=== PATIENT | male | born 1945 | race Caucasian/White ===

== ENCOUNTER 2017-04-03 17:23 | Emergency (ER) | payer SELFPAY ==
[~2017-04-03] VITALS: Ht 177.8 cm; Wt 80.0 kg
[~2017-04-03 17:23] MED LIST: 1-ME1LIQ PO; ATOR10TA PO; CEPH500 PO; COZA50TA PO; GLIP5TAB8 PO; LEVO125T3 PO; TERA1CAP3 PO; WARF-20 PO
[2017-04-03 17:26] VITALS: BP 161/72; PULSE 54; RESP 16; TEMP 98; O2SAT 100
[2017-04-03] MEDS ORDERED: NITR1SUB3 SL (17:55)
[2017-04-03] MEDS ORDERED: ASPI81TA23 PO (17:55)
[2017-04-03] MEDS ORDERED: AMIO200T PO (17:55)
[2017-04-03] MEDS ORDERED: LISI10TA3 PO (17:55)
[2017-04-03] MEDS ORDERED: LEVO150T7 PO (17:55)
[2017-04-03] MEDS ORDERED: MAPA325T PO (17:55)
[2017-04-03] MEDS ORDERED: TERA2CAP3 PO (17:55)
[2017-04-03] MEDS ORDERED: METF500T PO (17:55)
[2017-04-03] MEDS ORDERED: ATOR20TA15 PO (17:55)
[2017-04-03] MEDS ORDERED: WARF-20 PO (17:55)
[2017-04-03] MEDS ORDERED: WARF-58 PO (17:55)
[2017-04-03] MEDS ORDERED: FAMO20TA2 PO (17:55)
[2017-04-03] MEDS ORDERED: METO25TA3 PO (17:55)
[2017-04-03] MEDS ORDERED: QUET1TAB7 PO (17:55)
[2017-04-03 18:43] LABS: AUTOMATED NEUTROPHIL # 6.7 TH/MM3 (1.8-7.7); BASOPHIL % 0.3 % (0.0-2.0); EOSINOPHIL # 0.3 TH/MM3 (0-0.4); EOSINOPHIL % 2.5 % (0.0-4.0); HEMATOCRIT 30.7 % (39.0-51.0); LYMPH % 17.1 % (9.0-44.0); LYMPHOCYTE # 1.8 TH/MM3 (1.0-4.8); MEAN CELL VOLUME 87.4 FL (80.0-100.0); MEAN CORPUSCULAR HEMOGLOBIN 28.4 PG (27.0-34.0); MEAN CORPUSCULAR HGB CONC 32.5 % (32.0-36.0); MEAN PLATELET VOLUME 8.2 FL (7.0-11.0); MONO % 14.2 % (0.0-8.0); MONOCYTE # 1.5 TH/MM3 (0-0.9); NEUT % 65.9 % (16.0-70.0); PLATELET COUNT 269 TH/MM3 (150-450); RED BLOOD COUNT 3.52 MIL/MM3 (4.50-5.90); RED CELL DISTRIBUTION WIDTH 16.1 % (11.6-17.2); WHITE BLOOD COUNT 10.3 TH/MM3 (4.0-11.0)
[2017-04-03 18:59] LABS: BICARBONATE 26.2 MEQ/L (21.0-32.0); CALCIUM 8.2 MG/DL (8.5-10.1)
[2017-04-03 19:03] LABS: CREATININE 1.9 MG/DL (0.60-1.30)
--- NOTE | 2017-04-03 19:08 | RADRPT ---
EXAM DATE/TIME: 04/03/2017 18:44 [facility] COMPARISON: No previous studies available for comparison. INDICATIONS : trauma. fall RADIATION DOSE: 63.93 CTDIvol (mGy) MEDICAL HISTORY : Cerebrovascular disease. Cardiovascular disease Diabetes mellitus type 2. SURGICAL HISTORY : CABG ENCOUNTER: Initial ACUITY: 1 day PAIN SCALE: 5/10 LOCATION: cranial TECHNIQUE: Multiple contiguous axial images were obtained of the head. Using automated exposure control and adj ustment of the mA and/or kV according to patient size, radiation dose was kept as low as reasonably a chievable to obtain optimal diagnostic quality images. DICOM format image data is available electro nically for review and comparison. FINDINGS: There is a remote small infarct in the right cerebellar hemisphere superiorly. No intracranial mass, hemorrhage or shift. No recent infarct identified. No undersurface. No acute bony abnormality. CONCLUSION: 1. No acute intracranial abnormalities. Remote small infarct right cerebellar hemisphere. Ulysses Fan MD on April 03, 2017 at 19:04 Board Certified Radiologist. This report was verified electronically.
--- NOTE | 2017-04-03 19:10 | RADRPT ---
EXAM DATE/TIME: 04/03/2017 18:58 [facility] COMPARISON: No previous studies available for comparison. INDICATIONS : Left patella pain with abrasion post fall. MEDICAL HISTORY : None. SURGICAL HISTORY : None. ENCOUNTER: Initial ACUITY: 1 day PAIN SCORE: 7/10 LOCATION: Left knee FINDINGS: Four view examination of the left knee demonstrates no evidence of fracture or dislocation. Bony min eralization is normal. The articular surfaces demonstrate mild osteoarthritis. The suprapatellar sof t tissues have a normal configuration. CONCLUSION: 1. Mild osteoarthritis of the left knee. No acute findings. Ulysses Fan MD on April 03, 2017 at 19:06 Board Certified Radiologist. This report was verified electronically.
--- NOTE | 2017-04-03 19:20 | RADRPT ---
EXAM DATE/TIME: 04/03/2017 18:47 [facility] COMPARISON: No previous studies available for comparison. INDICATIONS : Left hip pain status post fall. ORAL CONTRAST: No oral contrast ingested. RADIATION DOSE: 29.32 CTDIvol (mGy) MEDICAL HISTORY : Cerebrovascular disease. Cardiovascular disease Diabetes mellitus type 2. SURGICAL HISTORY : CABG ENCOUNTER: Initial ACUITY: 1 day PAIN SCALE: 7/10 LOCATION: Left TECHNIQUE: Volumetric scanning of the pelvis was performed. Using automated exposure control and adjustment of the mA and/or kV according to patient size, radiation dose was kept as low as reasonably achievable t o obtain optimal diagnostic quality images. DICOM format image data is available electronically for review and comparison. FINDINGS: There is soft tissue swelling and bruising over the proximal left femur laterally. No acute bony abno rmalities. Mild osteoarthritis of the hips. No pelvic free fluid or mass. CONCLUSION: 1. Subcutaneous bruising over the proximal lateral left thigh. No associated bony abnormality. Ulysses aFn MD on April 03, 2017 at 19:15 Board Certified Radiologist. This report was verified electronically.
[2017-04-03 19:21] LABS: INTERNATIONAL NORMALIZED RATIO 3.2 RATIO; PROTHROMBIN TIME - PATIENT 32.1 SEC (9.8-11.6)
[2017-04-03 19:43] VITALS: BP 177/86; PULSE 58; RESP 17; O2SAT 99
--- NOTE | 2017-04-03 19:44 | PD ---
HPI Chief Complaint: Fall Time Seen by Provider: 17:39 Travel History International Travel<30 days: No Contact w/Intl Traveler<30days: No Traveled to known affect area: No History of Present Illness HPI 71-year-old male came to the emergency room sent from the snf and his son is here because he's been complaining of left hip pain after he fell. The fall happened 3 days ago. There was an x-ray of the hip done which was negative for fracture. However patient continues to be in pain especially when he tries to sit up or lay down. They wanted to get him reevaluated. Patient says that he didn't hit his head but not very bad. He is on Coumadin. Vital signs are stable. Patient says when he lays still on the bed the pain is not as bad. PFSH Past Medical History Narrative Medical List of his past medical, surgical, social and family history is reviewed from the nursing note. Hx Anticoagulant Therapy: Yes (COUMADIN AND ASA 81MG DAILY) Cardiovascular Problems: Yes Cerebrovascular Accident: Yes Diabetes: Yes Patient Takes Glucophage: No Diminished Hearing: Yes Integumentary: Yes Immunizations Current: Yes Tetanus Vaccination: Unknown Influenza Vaccination: No Past Surgical History Cardiac Surgery: Yes (BYPASS) Other Surgery: Yes (CAROTID) Social History Alcohol Use: No Tobacco Use: No Substance Use: No Allergies-Medications (Allergen,Severity, Reaction): Coded Allergies: No Known Allergies (Verified Allergy, Unknown, 04/03/17) Comments No known drug allergies. Reported Meds & Prescriptions Reported Meds & Active Scripts Active Reported Warfarin 4 Mg Tab 4 Mg PO SAT SUN Warfarin 3 Mg Tab 3 Mg PO MON-THU Lisinopril 10 Mg Tab 10 Mg PO DAILY Metformin (Metformin HCl) 500 Mg Tab 500 Mg PO DAILY With a meal Mapap (Acetaminophen) 325 Mg Tab 325 Mg PO Q4-6H PRN Nitroglycerin SL (Nitroglycerin) 0.4 Mg Subl 0.4 Mg SL DIRECTED PRN ONE TABLET UNDER THE TONGUE NEEDED FOR CHEST PAIN, MAY REPEAT EVERY FIVE MINUTES FOR A TOTAL OF 3 DOSES OR CALL 911 IF NO RELIEF Quetiapine (Quetiapine Fumarate) 25 Mg Tab 25 Mg PO TID Terazosin (Terazosin HCl) 2 Mg Cap 2 Mg PO HS Metoprolol Tartrate 25 Mg Tab 12.5 Mg PO BID Amiodarone (Amiodarone HCl) 200 Mg Tab 200 Mg PO BID Famotidine 20 Mg Tab 20 Mg PO DAILY Levothyroxine (Levothyroxine Sodium) 150 Mcg Tab 150 Mcg PO DAILY Atorvastatin (Atorvastatin Calcium) 20 Mg Tab 20 Mg PO HS Aspirin EC (Aspirin) 81 Mg Tabdr 81 Mg PO DAILY Narrative Medication List of his home medications reviewed from the nursing note. Review of Systems Except as stated in HPI: all other systems reviewed are Neg Musculoskeletal: Positive: Pain Physical Exam Narrative GENERAL: Awake, alert, mild distress SKIN: Focused skin assessment warm/dry. Multiple ecchymosis and bruising of the left chin, left knee and hip HEAD: Atraumatic. Normocephalic. EYES: Pupils equal and round. No scleral icterus. No injection or drainage. ENT: No nasal bleeding or discharge. Mucous membranes pink and moist. NECK: Trachea midline. No JVD. CARDIOVASCULAR: Regular rate and rhythm. No murmur appreciated. RESPIRATORY: No accessory muscle use. Clear to auscultation. Breath sounds equal bilaterally. GASTROINTESTINAL: Abdomen soft, non-tender, nondistended. Hepatic and splenic margins not palpable. MUSCULOSKELETAL: No obvious deformities. No clubbing. No cyanosis. No edema. Decreased range of motion of the left knee and hip due to the pain NEUROLOGICAL: Awake and alert. No obvious cranial nerve deficits. Motor grossly within normal limits. Normal speech. PSYCHIATRIC: Appropriate mood and affect; insight and judgment normal. Data Data Last Documented VS Vital Signs Date Time Temp Pulse Resp B/P (MAP) Pulse Ox O2 Delivery O2 Flow Rate FiO2 04/03/17 19:47 04/03/17 19:43 58 17 99 Room Air 04/03/17 17:[address] Pelvis W/O Iv Contrast (04/03/17 ) Knee, Complete (4vws) (04/03/17 ) Ct Brain W/O Iv Contrast(Rout) (04/03/17 ) Complete Blood Count With Diff (04/03/17 18:11) Basic Metabolic Panel (Bmp) (04/03/17 18:11) Prothrombin Time / Inr (Pt) (04/03/17 18:11) ^ Saline Lock (04/03/17 18:13) Ed Discharge Order (04/03/17 19:44) Labs Laboratory Tests Test 04/03/17 18:35 White Blood Count 10.3 TH/MM3 Red Blood Count 3.52 MIL/MM3 Hemoglobin 10.0 GM/DL Hematocrit 30.7 % Mean Corpuscular Volume 87.4 FL Mean Corpuscular Hemoglobin 28.4 PG Mean Corpuscular Hemoglobin Concent 32.5 % Red Cell Distribution Width 16.1 % Platelet Count 269 TH/MM3 Mean Platelet Volume 8.2 FL Neutrophils (%) (Auto) 65.9 % Lymphocytes (%) (Auto) 17.1 % Monocytes (%) (Auto) 14.2 % Eosinophils (%) (Auto) 2.5 % Basophils (%) (Auto) 0.3 % Neutrophils # (Auto) 6.7 TH/MM3 Lymphocytes # (Auto) 1.8 TH/MM3 Monocytes # (Auto) 1.5 TH/MM3 Eosinophils # (Auto) 0.3 TH/MM3 Basophils # (Auto) 0.0 TH/MM3 CBC Comment DIFF FINAL Differential Comment Prothrombin Time 32.1 SEC Prothromb Time International Ratio 3.2 RATIO Blood Urea Nitrogen 29 MG/DL Creatinine 1.90 MG/DL Random Glucose 151 MG/DL Calcium Level 8.2 MG/DL Sodium Level 139 MEQ/L Potassium Level 4.5 MEQ/L Chloride Level 106 MEQ/L Carbon Dioxide Level 26.2 MEQ/L Anion Gap 7 MEQ/L Estimat Glomerular Filtration Rate 35 ML/MIN [facility] Medical Decision Making Medical Screen Exam Complete: Yes Emergency Medical Condition: Yes Medical Record Reviewed: Yes Differential Diagnosis Hip fracture, pelvic fracture, hip contusion Narrative Course 7:41 PM blood test results are back. INR supratherapeutic. Head CT shows old infarcts in the cerebellum but otherwise negative. CT of the pelvis shows superficial proximal femur contusion. Otherwise negative for any fracture. Procedures EKG Prior to Arrival: No Diagnosis Primary Impression: Fall Qualified Codes: W19.XXXA - Unspecified fall, initial encounter Additional Impression: Contusion, hip Qualified Codes: S70.02XA - Contusion of left hip, initial encounter Referrals: Primary Care Physician 3 days Additional Instructions: Please hold the next dose of warfarin. Repeat the blood test after 24 hours. Use Tylenol for the pain. Follow-up with your primary care. Med/Other Pt SpecificInfo: No Change to Meds Disposition: 01 DISCHARGE HOME Condition: Stable Devan Mccracken MD Apr 03, 2017 19:44
== END 2017-04-03 20:06 | disposition home or self-care (01) ==
LOC: PHED 17:23 → MERGE 17:23 → PHED 20:06
DX: S70.02XA Contusion of left hip, initial encounter (principal); E11.9 Type 2 diabetes mellitus without complications; I67.9 Cerebrovascular disease, unspecified; I25.10 Atherosclerotic heart disease of native coronary artery without angina pectoris; W19.XXXA Unspecified fall, initial encounter; Z86.73 Personal history of transient ischemic attack (TIA), and cerebral infarction without residual deficits; Z95.1 Presence of aortocoronary bypass graft; Z79.01 Long term (current) use of anticoagulants; Z79.82 Long term (current) use of aspirin; Z79.84 Long term (current) use of oral hypoglycemic drugs; Z79.899 Other long term (current) drug therapy
CPT/HCPCS: 70450; 72192; 73564; 80048; 85025; 85610

== ENCOUNTER 2018-02-02 11:32 | Inpatient (IN) ==
[2018-02-02] MEDS ORDERED: ALTEPLASE DRIP IV.SIG ONE (11:56)
[2018-02-02] MEDS ORDERED: Alteplase Bolus 9 MG/9 ML Syringe IV.PUSH ONE (11:56)
--- NOTE | 2018-02-02 11:56 | CT ---
EXAM DATE: 02/02/2018 11:50 AM EST AGE/SEX: 72 years / Male INDICATIONS: Stroke alert. Difficulty speaking. Resolved upper and lower extremity weakness. CLINICAL DATA: This is the patient's initial encounter. Patient reports that signs and symptoms have been present for 1 day and indicates a pain score of 0/10. MEDICAL/SURGICAL HISTORY: None. None. RADIATION DOSE: 52.83 CTDI (mGy) COMPARISON: C, CTA HEAD W CONTRAST W 3D, 02/02/2018. . TECHNIQUE: CT of the head without contrast. Using automated exposure control and adjustment of the mA and/or kV according to patient size, radiation dose was kept as low as reasonably achievable to ob tain optimal diagnostic quality images. DICOM format image data is available electronically for revi ew and comparison. FINDINGS: The examination demonstrates cortical atrophy and microvascular ischemic demyelinative change. There is no acute intracranial hemorrhage. No mass lesion is identified. The appearance of the posterior fo ssa is unremarkable. The visualized portion of sinus and orbit are intact. The osseous structures of the skull demonstrate some fluid within the mastoid air cells bilaterally. There is no acute skull fracture. CONCLUSION: 1. Cortical atrophy and microvascular ischemic demyelinative change. 2. Fluid within the mastoid air cells bilaterally. Report was called by Dr. Logan to Lani in Echo pod at 11:50 AM Electronically signed by: David Logan MD 02/02/2018 11:55 AM EST
[2018-02-02] MEDS ORDERED: Labetalol HCl Inj 100 MG/20 ML Vial IV.PUSH ONE (11:59)
--- NOTE | 2018-02-02 12:11 | CT ---
EXAM DATE: 02/02/2018 12:01 PM EST AGE/SEX: 72 years / Male INDICATIONS: Stroke alert. Difficulty speaking. Resolved upper and lower extremity weakness. CLINICAL DATA: This is the patient's initial encounter. Patient reports that signs and symptoms have been present for 1 day and indicates a pain score of 0/10. MEDICAL/SURGICAL HISTORY: None. None. RADIATION DOSE: 10.51 CTDI (mGy) ; Combined studies COMPARISON: [facility], CT HEAD W/O CONTRAST, 02/02/2018. . TECHNIQUE: Volumetric scanning was performed using a multi-row detector CT scanner during bolus infu siri of 75 ml Visipaque 320 (iodixanol) nonionic water-soluble contrast as a cumulative dose for [facility] tiple exams. The data was post processed with a variety of visualization algorithms including full volume maximum intensity projection, multi-planar sliding thin slab reformation, curved planar reform ation, and surface rendering techniques. Using automated exposure control and adjustment of the mA a nd/or kV according to patient size, radiation dose was kept as low as reasonably achievable to obtain optimal diagnostic quality images. DICOM format image data is available electronically for review a nd comparison. FINDINGS: The distal internal carotid arteries are widely patent. The appearance of the anterior and middle cer ebral circulation is within normal limits. The right vertebral artery is diminutive in size. The left vertebral is quite small in caliber and di seased in its distal segment as well. The basilar is heavily diseased with 2 areas of high-grade sten osis in its proximal and mid aspect. The posterior cerebrals are patent bilaterally. CONCLUSION: 1. The examination demonstrates extensive atherosclerotic disease involving the distal vertebral art eries and basilar. There are 2 areas of very high-grade stenosis evident within the basilar itself. 2. The distal internal carotid circulation is widely patent. The anterior and middle cerebral circul ation appears within normal limits by CT angiography. No large or central vessel occlusion is present . Report was called by [Dr. Logan to Dr. Arango at 12:05pm] Electronically signed by: David Logan MD 02/02/2018 12:10 PM EST
--- NOTE | 2018-02-02 12:12 | ED ---
HPI General Chief Complaint: Stroke Alert Stated Complaint: Stroke Alert Time Seen by Provider: 02/02/18 11:35 Source: patient Mode of arrival: EMS Limitations: physical limitation History of Present Illness HPI Narrative: The patient is a 72-year-old male who presents to the emergency department as a stroke alert. The patient apparently was at a rehab facility working out earlier today we had the sudden onset of dysarthria and left-sided weakness. According to EMS the patient had noticeable decrease in strength the left upper extremity, left facial droop, and dysarthria. EMS states that the patient's dysarthria did improve prior to arrival, however, did not completely resolve. Patient's left facial droop also improved. Upon arrival the patient does note his speech sounds abnormal, but denies any significant weakness or numbness to the upper or lower extremities. The patient does have a history of previous CVA but no deficits after the CVA. Symptoms are moderate. Last Observed Normal: 10:30 Timing confirmed by: caregiver Location: Reports speech, left arm and left leg History of same: No Severity: moderate Quality: Reports weak and improving Relieving factors: time Exacerbating factors: none Context: Reports sudden onset On Anticoagulants: Yes Treatments Prior to Arrival: Reports none Related Data Home Medications Medication Instructions Recorded Confirmed alfuzosin 10 mg PO DAILY 02/02/18 02/02/18 atorvastatin 80 mg PO DAILY 02/02/18 02/02/18 brimonidine 1 drp OPHTHALMIC (EYE) BID 02/02/18 02/02/18 buspirone 7.5 mg PO BID 02/02/18 02/02/18 clopidogrel [Plavix] 75 mg PO DAILY 02/02/18 02/02/18 donepezil 5 mg PO DAILY 02/02/18 02/02/18 famotidine 20 mg PO DAILY 02/02/18 02/02/18 levothyroxine 175 mcg PO DAILY 02/02/18 02/02/18 lisinopril 10 mg PO DAILY 02/02/18 02/02/18 memantine 10 mg PO BID 02/02/18 02/02/18 metformin 500 mg PO BID 02/02/18 02/02/18 metoprolol tartrate 12.5 mg PO BID 02/02/18 02/02/18 quetiapine [Seroquel] 25 mg PO TID 02/02/18 02/02/18 trazodone 25 mg PO HS 02/02/18 02/02/18 Allergies Allergy/AdvReac Type Severity Reaction Status Date / Time No Known Allergies Allergy Uncoded 07/24/14 17:16 Review of Systems ROS: all other systems reviewed are negative [facility] Medical History Medical History Alzheimer disease (Acute) Diabetes mellitus, type 2 (Acute) Hx of transient ischemic attack (TIA) (Acute) Hyperlipemia (Acute) Hypertension (Acute) Hypothyroid (Acute) Stroke (Acute) Surgical History Surgical History Hx of cardiac cath (Acute) Hx of tonsillectomy (Acute) Social History Social History Substance History: No History of Abuse Smoking Status: Never smoker How Often Do You Have a Drink Containing Alcohol: Never Recent Travel in [facility] within the Last 8 Weeks: No Recent Out of Country Travel within the Last 8 Weeks: No Exam Narrative Exam Narrative: GENERAL: Awake, alert, pleasant 72-year-old male who appears his stated age and is in no acute respiratory distress. SKIN: Focused skin assessment warm/dry. HEAD: Atraumatic. Normocephalic. EYES: Pupils equal and round. 3 mm bilateral and reactive. Visual kumar are symmetric. Patient is able to see fingers at a distance of 2 feet without difficulty. Extraocular muscle movements are intact. ENT: No nasal bleeding or discharge. Mucous membranes pink and moist. NECK: Trachea midline. No JVD. CARDIOVASCULAR: Regular rate and rhythm. No murmur appreciated. RESPIRATORY: No accessory muscle use. Clear to auscultation. Breath sounds equal bilaterally. GASTROINTESTINAL: Abdomen soft, non-tender, nondistended. Hepatic and splenic margins not palpable. MUSCULOSKELETAL: No obvious deformities. No clubbing. No cyanosis. No edema. NEUROLOGICAL: Awake and alert. Smile appears symmetric. Moderate dysarthria is noted. Tongue is midline. No drift of the arms or legs. Diminished sensation to soft touch on the right arm. Sensation is symmetric on the face and legs. Finger to nose is normal. Heel to saleem is normal. Patient is oriented to person and place. He is able to do identify my hand. PSYCHIATRIC: Appropriate mood and affect; insight and judgment normal. Course Initial Documented Vital Signs Pulse Rate 67 02/02/18 11:34 Respiratory Rate 18 02/02/18 11:34 Blood Pressure 231/108 H 02/02/18 11:34 Pulse Oximetry 100 11/27/18 11:34 Last Documented Vital Signs Pulse Rate 68 02/02/18 13:42 Respiratory Rate 20 02/02/18 13:42 Blood Pressure 136/73 02/02/18 13:42 Pulse Oximetry 99 02/02/18 13:42 Critical Care Time Critical Care Time: Yes Total Critical Care Time: 45 Attestation: Aggregate critical care time was 45 minutes. Time to perform other separately billable procedures was not included in the critical care time. My time did not include minutes spent treating any other patients simultaneously or on activities that did not directly contribute to the patient's treatment. The services I provided to this patient were to treat and/or prevent clinically significant deterioration that could result in: CVA, chronic neurologic deficit , aspiration. I provided critical care services requiring my management, as noted below: Chart data review, documentation time, medication orders and management, vital sign assessments/reviewing monitor data, ordering and reviewing lab tests, ordering and interpreting/reviewing x-rays and diagnostic studies, care of the patient and discussion of the patient with the admitting physicians. NIH Stroke Scale NIH Stroke Scale Level of Consciousness: 0-Alert Orientation Questions: 0-Answers both correct Responds to Commands: 0-Both tasks correct Gaze Eye Movement: 0-Horizontal movement WNL Visual Kumar: 0-No visual field defect Facial Movement: 0-Normal Motor Functions Arm LEFT: 0-No drift Motor Functions Arm RIGHT: 0-No drift Motor Functions Leg LEFT: 0-No drift Motor Functions Leg RIGHT: 0-No drift Limb Ataxia: 0-No ataxia Sensory Loss: 1-Mild sensory loss Best Language: 0-Normal Articulation: 1-Mild dysarthia Extinction or Inattention Sensory: 0-Absent Total: 2 Medical Decision Making MDM Narrative Medical decision making narrative: IV was established, labs are drawn and sent, and the patient was placed on cardiac telemetry monitoring and continuous pulse oximetry monitoring. Patient was called a stroke in the field, some of his symptoms did not improve, especially the weakness of the left upper extremity. However, the patient still had noticeable dysarthria upon exam. The patient also had decreased sensation to soft touch right upper extremity. There was no considerable drift or weakness of the upper or lower extremities. I did discuss the patient immediately with the on-call neurologist, who recommends CT and CTA as dysarthria could be a noticeable deficit. He does recommend TPA if the patient is agreeable. The patient's blood pressure was elevated, he was administer labetalol and Cardene. Patient was reassessed on the CT scanner, still has mild to moderate dysarthria, after discussion with the patient he was agreeable to TPA. TPA was ordered, however, the patient was given labetalol and Cardene with a goal of systolic blood pressure 180 prior to the administration of TPA. The patient's last onset of symptoms was at 10:30 AM , he is well within the window. The patient's blood pressure came down to less than 180 systolic, the patient still had dysarthria, was administered TPA. The patient will be admitted to the intensive surgical care unit, I discussed the patient with Dr. Byrne. Medical Screen Exam Complete: Yes Emergency Medical Condition: Yes Differential Diagnosis Differential Diagnosis: Diagnosis includes CVA, TIA, seizure, intracranial hemorrhage, hypertensive urgency, hypertensive emergency, crescendo/decrescendo TIA, transient neurologic deficit. Lab Data Lab Results 02/02/18 02/02/18 02/02/18 Range/Units 11:35 11:35 13:24 POC Hgb (Calc) 13.9 (13.0-17.0) g/dL POC Hct 41.0 (39-51.0) % POC Sodium 142 (137-144) mmol/L POC Potassium 4.4 (3.6-5.0) mmol/L POC Chloride 104 (102-111) mmol/L POC BUN 22 H (5-21) mg/dL POC Creatinine 1.6 H (0.6-1.3) mg/dL POC Glucose 180 H (68-110) mg/dL Urine Color (Yellw/Straw) Urine Clarity (Clear) Urine pH (5.0-8.5) Ur Specific Bovill (1.002-1.035) Urine Protein (Neg-Trace) mg/dL Urine Glucose (UA) (Negative) mg/dL Urine Ketones (Negative) mg/dL Urine Occult Blood (Negative) Urine Nitrate (Negative) Urine Bilirubin (Negative) Urine Urobilinogen (Less than 2) mg/dL Ur Leukocyte Esterase (Negative) Urine RBC (0-3) /hpf Micro UA Comment Ur Microscopic Review Urine Culture Comments Urine Opiates Screen Neg (Neg) Ur Barbiturates Screen Neg (Neg) Ur Amphetamines Screen Neg (Neg) U Benzodiazepines Scrn Neg (Neg) Urine Cocaine Screen Neg (Neg) U Cannabinoids Screen Neg (Neg) Blood Type O Positive Blood Type Recheck Required Antibody Screen Negative 02/02/18 Range/Units 13:24 POC Hgb (Calc) (13.0-17.0) g/dL POC Hct (39-51.0) % POC Sodium (137-144) mmol/L POC Potassium (3.6-5.0) mmol/L POC Chloride (102-111) mmol/L POC BUN (5-21) mg/dL POC Creatinine (0.6-1.3) mg/dL POC Glucose (68-110) mg/dL Urine Color Straw (Yellw/Straw) Urine Clarity Clear (Clear) Urine pH 6.0 (5.0-8.5) Ur Specific Bovill 1.014 (1.002-1.035) Urine Protein Negative (Neg-Trace) mg/dL Urine Glucose (UA) 50 (Negative) mg/dL Urine Ketones Negative (Negative) mg/dL Urine Occult Blood Moderate H (Negative) Urine Nitrate Negative (Negative) Urine Bilirubin Negative (Negative) Urine Urobilinogen Less than 2 (Less than 2) mg/dL Ur Leukocyte Esterase Negative (Negative) Urine RBC 8 H (0-3) /hpf Micro UA Comment Cath-culture not ind Ur Microscopic Review Not Reportable Urine Culture Comments Cath-cult not ind Urine Opiates Screen (Neg) Ur Barbiturates Screen (Neg) Ur Amphetamines Screen (Neg) U Benzodiazepines Scrn (Neg) Urine Cocaine Screen (Neg) U Cannabinoids Screen (Neg) Blood Type Blood Type Recheck Antibody Screen Imaging Data Radiologist's impression: Chest X-Ray 02/02/18 11:38 CONCLUSION: No acute disease Head CT 02/02/18 11:38 CONCLUSION: 1. Cortical atrophy and microvascular ischemic demyelinative change. 2. Fluid within the mastoid air cells bilaterally. Report was called by Dr. Logan to Lani in Echo pod at 11:50 AM Head CTA 02/02/18 11:38 CONCLUSION: 1. The examination demonstrates extensive atherosclerotic disease involving the distal vertebral arteries and basilar. There are 2 areas of very high-grade stenosis evident within the basilar itself. 2. The distal internal carotid circulation is widely patent. The anterior and middle cerebral circulation appears within normal limits by CT angiography. No large or central vessel occlusion is present. Report was called by [Dr. Logan to Dr. Arango at 12:05pm] Neck CTA 02/02/18 11:38 CONCLUSION: 1. Previous left carotid endarterectomy. No recurrent stenosis identified. 2. Moderate soft plaquing at the bifurcation on the right with mild stenosis in the origin of the right internal carotid. This is estimated to be in the range of 20%. 3. Occlusion of the right vertebral at its origin with reconstitution of the distal neck. 4. The left vertebral is patent but diseased in its distal segment. The basilar is heavily diseased as well. Discharge Plan Discharge Disposition Patient Disposition: 30 Still Patient Discharge Condition Condition: Stable Discharge Details Diagnosis: Acute ischemic stroke Physicians Team ED Provider: Wesley Khoury Primary Care Provider: UNKNOWN, Attending Provider: Yung Byrne Other Providers: Paul Arango Status ED Status: Admitted Patient
[2018-02-02] MEDS: niCARdipine Inj 25 MG in Sodium Chlor 0.9% Inj 240 ML IV.CONT PRN ×2 (12:22→21:51)
--- NOTE | 2018-02-02 12:37 | CT ---
EXAM DATE: 02/02/2018 12:29 PM EST AGE/SEX: 72 years / Male INDICATIONS: Stroke alert. Difficulty speaking. Resolved upper and lower extremity weakness. CLINICAL DATA: This is the patient's initial encounter. Patient reports that signs and symptoms have been present for 1 day and indicates a pain score of 0/10. MEDICAL/SURGICAL HISTORY: None. None. RADIATION DOSE: 10.51 CTDI (mGy) ; Combined studies COMPARISON: [facility], CTA CAROTID ARTERIES W 3D RECON, 11/02/2013. . TECHNIQUE: Volumetric scanning was performed using a multirow detector CT scanner during bolus infus ion of 75 ml Visipaque 320 (iodixanol) nonionic water-soluble contrast as a cumulative dose for mult iple exams. The data was postprocessed with a variety of visualization algorithms including full-vo lume maximum intensity projection, multiplanar sliding thin-slab reformation, curved-planar reformati on, and surface-rendering techniques. Using automated exposure control and adjustment of the mA and/ or kV according to patient size, radiation dose was kept as low as reasonably achievable to obtain op timal diagnostic quality images. DICOM format image data is available electronically for review and comparison. Percent stenosis is calculated using the diameter of the stenotic region over the diameter of the nor mal distal internal carotid artery. FINDINGS: Aortic arch: The left vertebral originates directly from the arch. The origins of the great vessels a re widely patent. Right carotid: The right common carotid is widely patent. There is extensive atherosclerotic plaquing at the bifurcation. There is moderate soft plaquing present. This results in a mild stenosis in the origin of the right internal carotid this is estimated to be in the range of 20% by NASCET criteria. The more cephalad portion of the internal carotid is widely patent. There is high-grade stenosis at t he origin of the right external carotid. Left carotid: The left common carotid is widely patent. There is mild atherosclerotic plaquing at the bifurcation. There has been previous left carotid endarterectomy. There is only minimal stenosis at the origin of the left internal carotid estimated to be in the range of 10%. The more cephalad portio n of internal carotid is widely patent. The external carotid is widely patent. The left vertebral is patent throughout its course. It is moderately diseased in its distal segment. The right vertebral occludes at its origin. There is eventual reconstitution just prior to its juncti on in its distal segment. It terminates in a PICA. The left vertebral does provide inflow to the basi lar. The basilar is fairly heavily diseased as well. CONCLUSION: 1. Previous left carotid endarterectomy. No recurrent stenosis identified. 2. Moderate soft plaquing at the bifurcation on the right with mild stenosis in the origin of the ri ght internal carotid. This is estimated to be in the range of 20%. 3. Occlusion of the right vertebral at its origin with reconstitution of the distal neck. 4. The left vertebral is patent but diseased in its distal segment. The basilar is heavily diseased as well. Electronically signed by: David Logan MD 02/02/2018 12:35 PM EST
--- NOTE | 2018-02-02 13:40 | XR ---
EXAM DATE: 02/02/2018 1:36 PM EST AGE/SEX: 72 years / Male INDICATIONS: Stroke alert. Difficulty speaking, weakness CLINICAL DATA: This is the patient's initial encounter. Patient reports that signs and symptoms have been present for 1 day and indicates a pain score of 0/10. MEDICAL/SURGICAL HISTORY: Cardiovascular disease. CABG. COMPARISON: [facility] [place]ST S[place]LE AP, 07/21/2014. . FINDINGS: A single AP view of the chest demonstrates the lungs to be symmetrically aerated without evidence of mass, infiltrate or effusion. The cardiomediastinal contours are unremarkable. Osseous structures a re intact. Sternotomy wires noted CONCLUSION: No acute disease Electronically signed by: Arley Toussaint MD 02/02/2018 1:39 PM EST
[2018-02-02 14:11] LABS: Amphetamine Screen,Urine Neg (Neg); Barbiturate Screen,Urine Neg (Neg); Cannabinoid Screen,Urine Neg (Neg); Cocaine Screen,Urine Neg (Neg)
[2018-02-02 14:14] LABS: Opiate Screen,Urine Neg (Neg)
[2018-02-02 14:17] LABS: Bilirubin,Urine Negative (Negative); Clarity,Urine Clear (Clear); Color,Urine Straw (Yellw/Straw); Glucose,Urine (UA) 50 mg/dL (Negative); Leukocyte Esterase,Urine Negative (Negative); Nitrite,Urine Negative (Negative); Specific Gravity,Urine 1.014 (1.002-1.035)
[2018-02-02] MEDS: Sod Chloride 0.9% Inj 1,000 ML IV.CONT SCH (14:31)
[2018-02-02] MEDS ORDERED: Morphine Sulfate Inj 2 MG/ML Vial IV.PUSH PRN (15:00)
[2018-02-02] MEDS ORDERED: Bisacodyl 10 MG Supp RECTAL PRN (15:00)
[2018-02-02] MEDS ORDERED: Dextrose 50% in Water 50 ML Vial IV.PUSH PRN (15:06)
--- NOTE | 2018-02-02 16:17 | P.CONNEU ---
History of Present Illness Service: Neurology Primary Care Provider: UNKNOWN Chief Complaint: Stroke History of Present Illness: 72-year-old male admitted for acute stroke. Symptoms of dysarthric speech left- sided numbness and weakness. Symptoms fluctuating in the ER. IV TPA discussed the patient side effects benefits discussed including 6% chance of ICH, . He wished to proceed with medication. CT brain scan negative for any acute lesion. States he had a stroke 2014 no residuals. Seen at [facility]. Bilateral subcortical ischemic strokes acute seen on MRI at that time. States he is taking aspirin. Review of Systems All other systems reviewed negative except as stated in HPI PMFSH - History History Provided By: Family Member - Medical History Medical History: Medical History (Last Updated 02/02/18 @ 13:04 by Manjula Lackey RN) Alzheimer disease Diabetes mellitus, type 2 Hx of transient ischemic attack (TIA) Hyperlipemia Hypertension Hypothyroid Stroke - Surgical History Surgical History: Surgical History (Last Updated 02/02/18 @ 13:04 by Manjula Lackey RN) Hx of cardiac cath Hx of tonsillectomy - Tobacco History Smoking Status: Never smoker - Alcohol History How Often Do You Have a Drink Containing Alcohol: Never - Substance Use History Substance History: No History of Abuse - Travel History Recent Travel in the [place] Within the Last 8 Weeks: No Recent Travel Out of the Country Within the Last 8 Weeks: No - Immunization History Tetanus Immunization: Unsure Medications and Allergies Active Medications: Active Medications Al Hydroxide/Mg Hydroxide (Milk Of Navid [place]) 30 ml PO Q12H PRN PRN Reason: Mild Constipation Albuterol (Duoneb Neb (Prn)) 1 ampul NEB Q2HR NEB PRN PRN Reason: WHEEZING Bisacodyl (Dulcolax Supp) 10 mg RECTAL DAILY PRN PRN Reason: SEVERE CONSITIPATION Chlorhexidine Gluconate (Chlorhexidine 2% Cloth) 3 pack TOPICAL DAILY@0400 MELANIE Stop: 02/08/18 03:59 Chlorhexidine Gluconate (Chlorhexidine 2% Cloth) 3 pack TOPICAL DAILY@0400 PRN PRN Reason: Extra cloth needed Stop: 02/08/18 03:59 Dextrose (D50w Vial) 50 ml IV.PUSH UNSCH PRN PRN Reason: PER HYPOGLYCEMIA PROTOCOL Famotidine (Pepcid Pf Inj) 20 mg IV.PUSH Q12HR MELANIE Glucagon (Glucagon Inj) 1 mg OTHER PRN PRN PRN Reason: for Hypoglycemia Protocol Sodium Chloride (Ns Inj) 1,000 mls @ 70 mls/hr IV.CONT .[id number] [facility] Last Admin: 02/02/18 14:31 Dose: 70 mls/hr Nicardipine HCl 25 mg/ Sodium (Chloride) 250 mls @ 50 mls/hr IV.CONT TITRATE PRN; Protocol PRN Reason: Per Protocol Last Titration: 02/02/18 15:10 Dose: 0.75 mg/hr, 7.5 mls/hr Insulin Aspart (Novolog Insulin Correctional Sugar Inj) 0 unit SQ Q6HR MELANIE; Protocol Lactulose (Lactulose Liq) 30 ml PO DAILY PRN PRN Reason: SEVERE CONSITIPATION Morphine Sulfate (Morphine Inj) 2 mg IV.PUSH Q2H PRN PRN Reason: PAIN SCALE 6 TO 10 Ondansetron HCl (Zofran Inj) 4 mg IV.PUSH Q6H PRN PRN Reason: NAUSEA OR VOMITING Senna/Docusate Sodium (Aminta-Colace) 1 tab PO BID [facility] Sennosides (Senokot) 17.2 mg PO Q12H PRN PRN Reason: Moderate Constipation Sodium Chloride (Ns Flush) 2 ml IV.FLUSH BID [facility] Sodium Chloride (Ns Flush) 2 ml IV.FLUSH PRN PRN PRN Reason: FLUSH AFTER USING IV ACCESS Allergies Allergy/AdvReac Type Severity Reaction Status Date / Time No Known Allergies Allergy Uncoded 07/24/14 17:16 Home Medications Medication Instructions Recorded Confirmed Type alfuzosin 10 mg PO DAILY 02/02/18 02/02/18 History atorvastatin 80 mg PO DAILY 02/02/18 02/02/18 History brimonidine 1 drp OPHTHALMIC (EYE) BID 02/02/18 02/02/18 History buspirone 7.5 mg PO BID 02/02/18 02/02/18 History clopidogrel [Plavix] 75 mg PO DAILY 02/02/18 02/02/18 History donepezil 5 mg PO DAILY 02/02/18 02/02/18 History famotidine 20 mg PO DAILY 02/02/18 02/02/18 History levothyroxine 175 mcg PO DAILY 02/02/18 02/02/18 History lisinopril 10 mg PO DAILY 02/02/18 02/02/18 History memantine 10 mg PO BID 02/02/18 02/02/18 History metformin 500 mg PO BID 02/02/18 02/02/18 History metoprolol tartrate 12.5 mg PO BID 02/02/18 02/02/18 History quetiapine [Seroquel] 25 mg PO TID 02/02/18 02/02/18 History trazodone 25 mg PO HS 02/02/18 02/02/18 History Exam Vital signs: Vital Signs 02/02/18 11:34 02/02/18 11:35 02/02/18 11:56 Pulse Rate 67 Respiratory Rate 18 Blood Pressure 231/108 H Pulse Oximetry 100 100 98 02/02/18 12:04 02/02/18 12:13 02/02/18 12:16 Pulse Rate 68 62 Respiratory Rate 18 20 Blood Pressure 194/98 H 222/104 H Pulse Oximetry 100 100 100 02/02/18 12:27 02/02/18 12:36 02/02/18 12:41 Pulse Rate 62 66 69 Respiratory Rate 20 16 18 Blood Pressure 192/88 H 164/79 H 178/80 H Pulse Oximetry 100 100 99 02/02/18 13:13 02/02/18 13:42 Pulse Rate 70 68 Respiratory Rate 20 20 Blood Pressure 148/79 H 136/73 Pulse Oximetry 98 99 Intake & Output 02/01/18 02/02/18 02/02/18 18:59 06:59 18:59 Intake Total 65.5 / 65.5 Output Total 250 / 250 Balance -184.5 / -184.5 Weight 80.8 kg Intake: IV 65.5 / 65.5 Activase Drip 65.5 MG In Bag/ 65.5 / 65.5 Syringe 1 EACH @ 65.5 mls/hr IV .SIG ONCE ONE Rx#:[id number] Output: Urine 250 / 250 Narrative: GENERAL: in NAD, SKIN: Warm and dry. HEAD: Atraumatic. Normocephalic. EYES: Pupils equal and round. No scleral icterus. ENT: No nasal bleeding or discharge. NECK: Trachea midline. No JVD. CARDIOVASCULAR: Regular rate and rhythm. RESPIRATORY: No accessory muscle use. GASTROINTESTINAL: Abdomen soft, non-tender, nondistended. MUSCULOSKELETAL: Extremities without clubbing, cyanosis, or edema. No obvious deformities. NEUROLOGICAL: Awake and alert. 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 - Constitutional no acute distress - Routine HEENT Exam Head: Present: normocephalic Eye: Present: EOMI Results - Labs Labs: Laboratory Results - last 24 hr 02/02/18 02/02/18 02/02/18 11:35 11:35 13:24 POC Hgb (Calc) 13.9 POC Hct 41.0 POC Sodium 142 POC Potassium 4.4 POC Chloride 104 POC BUN 22 H POC Creatinine 1.6 H POC Glucose 180 H Urine Color Urine Clarity Urine pH Ur Specific [place] Urine Protein Urine Glucose (UA) Urine Ketones Urine Occult Blood Urine Nitrate Urine Bilirubin Urine Urobilinogen Ur Leukocyte Esterase Urine RBC Micro UA Comment Ur Microscopic Review Urine Culture Comments Urine Opiates Screen Neg Ur Barbiturates Screen Neg Ur Amphetamines Screen Neg U Benzodiazepines Scrn Neg Urine Cocaine Screen Neg U Cannabinoids Screen Neg Blood Type O Positive Blood Type Recheck Required Antibody Screen Negative 02/02/18 13:24 POC Hgb (Calc) POC Hct POC Sodium POC Potassium POC Chloride POC BUN POC Creatinine POC Glucose Urine Color Straw Urine Clarity Clear Urine pH 6.0 Ur Specific [place] 1.014 Urine Protein Negative Urine Glucose (UA) 50 Urine Ketones Negative Urine Occult Blood Moderate H Urine Nitrate Negative Urine Bilirubin Negative Urine Urobilinogen Less than 2 Ur Leukocyte Esterase Negative Urine RBC 8 H Micro UA Comment Cath-culture not ind Ur Microscopic Review Not Reportable Urine Culture Comments Cath-cult not ind Urine Opiates Screen Ur Barbiturates Screen Ur Amphetamines Screen U Benzodiazepines Scrn Urine Cocaine Screen U Cannabinoids Screen Blood Type Blood Type Recheck Antibody Screen - Imaging Impressions Chest X-Ray 02/02/18 11:38 CONCLUSION: No acute disease Head CT 02/02/18 11:38 CONCLUSION: 1. Cortical atrophy and microvascular ischemic demyelinative change. 2. Fluid within the mastoid air cells bilaterally. Report was called by Dr. Logan to Lani in Echo pod at 11:50 AM Head CTA 02/02/18 11:38 CONCLUSION: 1. The examination demonstrates extensive atherosclerotic disease involving the distal vertebral arteries and basilar. There are 2 areas of very high-grade stenosis evident within the basilar itself. 2. The distal internal carotid circulation is widely patent. The anterior and middle cerebral circulation appears within normal limits by CT angiography. No large or central vessel occlusion is present. Report was called by [Dr. Logan to Dr. Arango at 12:05pm] Neck CTA 02/02/18 11:38 CONCLUSION: 1. Previous left carotid endarterectomy. No recurrent stenosis identified. 2. Moderate soft plaquing at the bifurcation on the right with mild stenosis in the origin of the right internal carotid. This is estimated to be in the range of 20%. 3. Occlusion of the right vertebral at its origin with reconstitution of the distal neck. 4. The left vertebral is patent but diseased in its distal segment. The basilar is heavily diseased as well. Review/Management - Diagnosis (1) Hypertension Code(s): I10 - Essential (primary) hypertension Status: Acute Current Visit : Yes (2) Chronic arterial ischemic stroke Code(s): I69.30 - Unspecified sequelae of cerebral infarction Status: Acute Current Visit: Yes (3) Acute ischemic stroke Code(s): I63.9 - Cerebral infarction, unspecified Status: Acute Current Visit: Yes - Review/Management Plan: Status post IV TPA Possible artery artery emboli from the vertebrobasilar system. 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 Not sure why it was discontinued possibly for falls or bleed. Patient is not certain. In any event, based on the advanced intracranial atherosclerotic disease maximizing medical management and antiplatelet agents may be the best treatment of choice Recommendation Post TPA order set Blood pressure less than 180/100 No blood thinners times 24 hours ICU admission MRI brain, 2D echo, lipids, HbA1c SCDs Follow exam Behavioral modification and risk factor reduction. Weight loss, blood pressure control, blood sugar control, lipid control. Exercise
--- NOTE | 2018-02-02 17:20 | P.HPCC ---
History of Present Illness Service: Critical care medicine. Primary Care Physician: UNKNOWN Chief Complaint: Stroke History of Present Illness: This 72-year-old gentleman has experiencing left arm and leg weakness since yesterday. This is waxed and waned but this morning he developed dysarthric speech combined with left arm and leg weakness. He came to the emergency department where CAT scan of the head was negative for acute event and he subsequently received TPA after consultation with neurology service. By the time I saw him in the emergency department about an hour later he had 4/5 strength in his left arm and 4/5 strength in his left leg. The right side was normal. His speech had considerably cleared although he felt it was still abnormal. He has required low-dose nicardipine for control of hypertension. 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 He has been on long-term antiplatelet therapy. - Diagnosis (1) Vertebrobasilar occlusive disease (2) Acute ischemic stroke (3) Hypertension (4) Chronic arterial ischemic stroke Inpatient Certification: I certify that the inpatient services were ordered in accordance with Medicare regulations governing the order. This includes certification that hospital inpatient services are reasonable and necessary and in the case of services not specified as inpatient-only under 42 CFR 419.22(n), that they are appropriately provided as inpatient services in accordance to with the 2-midnight benchmark under 43 CFR 412.3(e) Estimated Total Length of Stay (Days): 3 Plans for Post Hospital Care: Home Review of Systems No chest pain or shortness of breath. PMFSH - History History Provided By: Family Member - Medical History Medical History: Medical History (Last Updated 02/02/18 @ 13:04 by Manjula Lackey RN) Alzheimer disease Diabetes mellitus, type 2 Hx of transient ischemic attack (TIA) Hyperlipemia Hypertension Hypothyroid Stroke - Surgical History Surgical History: Surgical History (Last Updated 02/02/18 @ 13:04 by Manjula Lackey RN) Hx of cardiac cath Hx of tonsillectomy - Tobacco History Smoking Status: Never smoker - Alcohol History How Often Do You Have a Drink Containing Alcohol: Never - Substance Use History Substance History: No History of Abuse - Travel History Recent Travel in the [place] Within the Last 8 Weeks: No Recent Travel Out of the Country Within the Last 8 Weeks: No - Immunization History Tetanus Immunization: Unsure Medications and Allergies Active Medications: Active Medications Al Hydroxide/Mg Hydroxide (Milk Of Magnesia Liq) 30 ml PO Q12H PRN PRN Reason: Mild Constipation Albuterol (Duoneb Neb (Prn)) 1 ampul NEB Q2HR NEB PRN PRN Reason: WHEEZING Bisacodyl (Dulcolax Supp) 10 mg RECTAL DAILY PRN PRN Reason: SEVERE CONSITIPATION Chlorhexidine Gluconate (Chlorhexidine 2% Cloth) 3 pack TOPICAL DAILY@0400 MELANIE Stop: 02/08/18 03:59 Chlorhexidine Gluconate (Chlorhexidine 2% Cloth) 3 pack TOPICAL DAILY@0400 PRN PRN Reason: Extra cloth needed Stop: 02/08/18 03:59 Dextrose (D50w Vial) 50 ml IV.PUSH UNSCH PRN PRN Reason: PER HYPOGLYCEMIA PROTOCOL Famotidine (Pepcid Pf Inj) 20 mg IV.PUSH Q12HR MELANIE Glucagon (Glucagon Inj) 1 mg OTHER PRN PRN PRN Reason: for Hypoglycemia Protocol Sodium Chloride (Ns Inj) 1,000 mls @ 70 mls/hr IV.CONT .[id number] [facility] Last Admin: 02/02/18 14:31 Dose: 70 mls/hr Nicardipine HCl 25 mg/ Sodium (Chloride) 250 mls @ 50 mls/hr IV.CONT TITRATE PRN; Protocol PRN Reason: Per Protocol Last Titration: 02/02/18 15:40 Dose: 1 mg/hr, 10 mls/hr Insulin Aspart (Novolog Insulin Correctional Sugar Inj) 0 unit SQ Q6HR [facility]; Protocol Lactulose (Lactulose Liq) 30 ml PO DAILY PRN PRN Reason: SEVERE CONSITIPATION Morphine Sulfate (Morphine Inj) 2 mg IV.PUSH Q2H PRN PRN Reason: PAIN SCALE 6 TO 10 Ondansetron HCl (Zofran Inj) 4 mg IV.PUSH Q6H PRN PRN Reason: NAUSEA OR VOMITING Senna/Docusate Sodium (Aminta-Colace) 1 tab PO BID [facility] Sennosides (Senokot) 17.2 mg PO Q12H PRN PRN Reason: Moderate Constipation Sodium Chloride (Ns Flush) 2 ml IV.FLUSH BID [facility] Sodium Chloride (Ns Flush) 2 ml IV.FLUSH PRN PRN PRN Reason: FLUSH AFTER USING IV ACCESS Allergies Allergy/AdvReac Type Severity Reaction Status Date / Time No Known Allergies Allergy Uncoded 07/24/14 17:16 Home Medications Medication Instructions Recorded Confirmed Type alfuzosin 10 mg PO DAILY 02/02/18 02/02/18 History atorvastatin 80 mg PO DAILY 02/02/18 02/02/18 History brimonidine 1 drp OPHTHALMIC (EYE) BID 02/02/18 02/02/18 History buspirone 7.5 mg PO BID 02/02/18 02/02/18 History clopidogrel [Plavix] 75 mg PO DAILY 02/02/18 02/02/18 History donepezil 5 mg PO DAILY 02/02/18 02/02/18 History famotidine 20 mg PO DAILY 02/02/18 02/02/18 History levothyroxine 175 mcg PO DAILY 02/02/18 02/02/18 History lisinopril 10 mg PO DAILY 02/02/18 02/02/18 History memantine 10 mg PO BID 02/02/18 02/02/18 History metformin 500 mg PO BID 02/02/18 02/02/18 History metoprolol tartrate 12.5 mg PO BID 02/02/18 02/02/18 History quetiapine [Seroquel] 25 mg PO TID 02/02/18 02/02/18 History trazodone 25 mg PO HS 02/02/18 02/02/18 History Results - Labs Labs: Urine 02/02/18 Range/Units 13:24 Urine Color Straw (Yellw/Straw) Urine Clarity Clear (Clear) Urine pH 6.0 (5.0-8.5) Ur Specific [place] 1.014 (1.002-1.035) Urine Protein Negative (Neg-Trace) mg/dL Urine Glucose (UA) 50 (Negative) mg/dL - Imaging Impressions Chest X-Ray 02/02/18 11:38 CONCLUSION: No acute disease Head CT 02/02/18 11:38 CONCLUSION: 1. Cortical atrophy and microvascular ischemic demyelinative change. 2. Fluid within the mastoid air cells bilaterally. Report was called by Dr. Logan to Lani in Echo pod at 11:50 AM Head CTA 02/02/18 11:38 CONCLUSION: 1. The examination demonstrates extensive atherosclerotic disease involving the distal vertebral arteries and basilar. There are 2 areas of very high-grade stenosis evident within the basilar itself. 2. The distal internal carotid circulation is widely patent. The anterior and middle cerebral circulation appears within normal limits by CT angiography. No large or central vessel occlusion is present. Report was called by [Dr. Logan to Dr. Arango at 12:05pm] Neck CTA 02/02/18 11:38 CONCLUSION: 1. Previous left carotid endarterectomy. No recurrent stenosis identified. 2. Moderate soft plaquing at the bifurcation on the right with mild stenosis in the origin of the right internal carotid. This is estimated to be in the range of 20%. 3. Occlusion of the right vertebral at its origin with reconstitution of the distal neck. 4. The left vertebral is patent but diseased in its distal segment. The basilar is heavily diseased as well. Exam Vital signs: Vital Signs 02/02/18 11:34 02/02/18 11:35 02/02/18 11:56 Pulse Rate 67 Respiratory Rate 18 Blood Pressure 231/108 H Pulse Oximetry 100 100 98 02/02/18 12:04 02/02/18 12:13 02/02/18 12:16 Pulse Rate 68 62 Respiratory Rate 18 20 Blood Pressure 194/98 H 222/104 H Pulse Oximetry 100 100 100 02/02/18 12:27 02/02/18 12:36 02/02/18 12:41 Pulse Rate 62 66 69 Respiratory Rate 20 16 18 Blood Pressure 192/88 H 164/79 H 178/80 H Pulse Oximetry 100 100 99 02/02/18 13:13 02/02/18 13:42 Pulse Rate 70 68 Respiratory Rate 20 20 Blood Pressure 148/79 H 136/73 Pulse Oximetry 98 99 Intake & Output 02/01/18 02/02/18 02/02/18 18:59 06:59 18:59 Intake Total 65.5 / 65.5 Output Total 250 / 250 Balance -184.5 / -184.5 Weight 80.8 kg Intake: IV 65.5 / 65.5 Activase Drip 65.5 MG In Bag/ 65.5 / 65.5 Syringe 1 EACH @ 65.5 mls/hr IV .SIG ONCE ONE Rx#:[id number] Output: Urine 250 / 250 Narrative: General: Anxious elderly gentleman on the ICU stretcher Head: Atraumatic, normal Neck: Supple, airway widely patent Lungs: Clear bilaterally without wheezes or crackles, comfortable respiratory pattern Heart: Regular rate and rhythm, normal S1-S2, soft systolic murmur over the apex , no JVD. Abdomen: Large, soft, no guarding, no tenderness, bowel sounds active. Extremities: Warm, well-perfused Neuro: Oriented x3, cooperative, conversant. Speech close to clear. Memory very good for past events. Grossly moves 4 limbs. Left arm 4/5 strength to hand grasp. Right hand grasp 5/5. Left leg 4/5, right leg 5/5. Pupillary response, extraocular movements symmetrical and intact. Tongue protrusion shoulders shrug, smile, grimace intact. Caprini VTE Risk Assessment Caprini VTE Risk Assessment: No/Low Risk (score <= 1) VTE Pharmacological Exception Reason: High risk for bleeding Caprini Risk Assessment Model: Point Value = 1 Point Value = 2 Point Value = 3 Point Value = 5 Age 41-60 Minor surgery BMI > 25 kg/m2 Swollen legs Varicose veins or History of unexplained or recurrent spontaneous Oral contraceptives or hormone replacement Sepsis (< 1 month) Serious lung disease, including pneumonia (< 1 month) Abnormal pulmonary function Acute myocardial infarction Congestive heart failure (< 1 month) History of inflammatory bowel disease Medical patient at bed rest Age 61-74 Arthroscopic surgery Major open surgery (> 45 min) Laparoscopic surgery (> 45 min) Malignancy Confined to bed (> 72 hours) Immobilizing plaster cast Central venous access Age >= 75 History of VTE Family history of VTE Factor V Leiden Prothrombin [id number] Lupus anticoagulant Anticardiolipin antibodies Elevated serum homocysteine Heparin-induced thrombocytopenia Other congenital or acquired thrombophilia Stroke (< 1 month) Elective arthroplasty Hip, pelvis, or leg fracture Acute spinal cord injury (< 1 month) Prophylaxis Regimen: Total Risk Factor Score Risk Level Prophylaxis Regimen 0-1 Low Early ambulation 2 Moderate Order ONE of the following: *Sequential Compression Device (SCD) *Heparin 5000 units SQ BID 3-4 Higher Order ONE of the following medications: *Heparin 5000 units SQ TID *Enoxaparin/Lovenox 40 mg SQ daily (WT < 150 kg, CrCl > 30 mL/min) *Enoxaparin/Lovenox 30 mg SQ daily (WT < 150 kg, CrCl > 10-29 mL/min) *Enoxaparin/Lovenox 30 mg SQ BID (WT < 150 kg, CrCl > 30 mL/min) AND/OR *Sequential Compression Device (SCD) 5 or more Highest Order ONE of the following medications: *Heparin 5000 units SQ TID (Preferred with Epidurals) *Enoxaparin/Lovenox 40 mg SQ daily (WT < 150 kg, CrCl > 30 mL/min) *Enoxaparin/Lovenox 30 mg SQ daily (WT < 150 kg, CrCl > 10-29 mL/min) *Enoxaparin/Lovenox 30 mg SQ BID (WT < 150 kg, CrCl > 30 mL/min) AND *Sequential Compression Device (SCD) Assessment and Plan - Problem List (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 Post TPA protocol 2. Maintain systolic blood pressure less than 180 with nicardipine 3. Serial neurologic exam 4. CAT scan head immediately for neurologic change or after 24 hours routinely 5. Chemical DVT prophylaxis contraindicated because of TPA administration 6. Pepcid for GI ulcer prophylaxis 7. Cardiac echo 8. Restart antiplatelet therapy when okay with neurology service 9. Speech evaluation and swallow in a.m. 10. 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 He remains hypertensive requiring continuous infusion nicardipine. The tenuous nature of his vertebrobasilar system and high risk of subsequent embolic events makes him high risk for further neurologic injury. Critical care time 45 minutes aside from procedures.
--- NOTE | 2018-02-02 17:42 | MR ---
EXAM DATE: 02/02/2018 5:33 PM EST AGE/SEX: 72 years / Male INDICATIONS: CVA. Dizzy and faint feeling today. CLINICAL DATA: This is the patient's initial encounter. Patient reports that signs and symptoms have been present for 1 day and indicates a pain score of 4/10. MEDICAL/SURGICAL HISTORY: Hypertension. Tonsillectomy. CABG. Mastoidectomy. [place] [facility] [place] 02/[place]. . TECHNIQUE: Multiplanar, multisequence examination of the brain was performed without contrast. FINDINGS: There is a small focus of restricted diffusion in the posterior right putamen consistent with small b gene ganglia infarct. There are small stable areas of encephalomalacia in the right cerebellar hemisp here. There is mild symmetric ventricular prominence which is unchanged. There is no evidence of mass or hemorrhage. There is fluid in the mastoid air cells bilaterally. CONCLUSION: Small right basal ganglia subacute infarct. Electronically signed by: Arley Toussaint MD 02/02/2018 5:41 PM EST
[2018-02-02] MEDS: Insulin NovoLOG Aspart Correctional Sugar Inj SQ SCH (18:16)
[2018-02-02 20:14] LABS: Chol/HDL Ratio 6.5 Ratio; HDL Cholesterol 26.9 mg/dL (40.0-60.0)
[2018-02-02] MEDS: Famotidine PF Inj 20 MG/2 ML Vial IV.PUSH SCH (20:41)
[2018-02-02] MEDS: Senna/Docusate Sodium 8.6/50 MG Tablet PO SCH (20:42)
[2018-02-03] MEDS: Insulin NovoLOG Aspart Correctional Sugar Inj SQ SCH ×4 (00:45→19:06)
[2018-02-03] MEDS: Sod Chloride 0.9% Inj 1,000 ML IV.CONT SCH ×2 (03:22→17:51)
[2018-02-03] MEDS: Chlorhexidine Gluconate 2% 1 Pack (2 Cloths) TOPICAL SCH (03:23)
[2018-02-03] MEDS ORDERED: Chlorhexidine Gluconate 2% 1 Pack (2 Cloths) TOPICAL PRN (04:00)
[2018-02-03] MEDS: niCARdipine Inj 25 MG in Sodium Chlor 0.9% Inj 240 ML IV.CONT PRN ×2 (05:14→12:33)
--- NOTE | 2018-02-03 08:49 | P.PNNEU ---
Subjective Subjective Comments: No cp, no dyspnea, no pompa, no vertigo, no vision loss Active Medications: Active Medications Al Hydroxide/Mg Hydroxide (Milk Of Magnesia Liq) 30 ml PO Q12H PRN PRN Reason: Mild Constipation Albuterol (Duoneb Neb (Prn)) 1 ampul NEB Q2HR NEB PRN PRN Reason: WHEEZING Bisacodyl (Dulcolax Supp) 10 mg RECTAL DAILY PRN PRN Reason: SEVERE CONSITIPATION Chlorhexidine Gluconate (Chlorhexidine 2% Cloth) 3 pack TOPICAL DAILY@0400 MELANIE Stop: 02/08/18 03:59 Last Admin: 02/03/18 03:23 Dose: 3 pack Chlorhexidine Gluconate (Chlorhexidine 2% Cloth) 3 pack TOPICAL DAILY@0400 PRN PRN Reason: Extra cloth needed Stop: 02/08/18 03:59 Dextrose (D50w Vial) 50 ml IV.PUSH UNSCH PRN PRN Reason: PER HYPOGLYCEMIA PROTOCOL Famotidine (Pepcid Pf Inj) 20 mg IV.PUSH Q12HR [facility] Last Admin: 02/02/18 20:41 Dose: 20 mg Glucagon (Glucagon Inj) 1 mg OTHER PRN PRN PRN Reason: for Hypoglycemia Protocol Sodium Chloride (Ns Inj) 1,000 mls @ 70 mls/hr IV.CONT .[id number] [facility] Last Admin: 02/03/18 03:22 Dose: 70 mls/hr Nicardipine HCl 25 mg/ Sodium (Chloride) 250 mls @ 50 mls/hr IV.CONT TITRATE PRN; Protocol PRN Reason: Per Protocol Last Admin: 02/03/18 05:14 Dose: 3.5 mg/hr, 35 mls/hr Insulin Aspart (Novolog Insulin Correctional Sugar Inj) 0 unit SQ Q6HR [facility]; Protocol Last Admin: 02/03/18 06:10 Dose: Not Given Lactulose (Lactulose Liq) 30 ml PO DAILY PRN PRN Reason: SEVERE CONSITIPATION Morphine Sulfate (Morphine Inj) 2 mg IV.PUSH Q2H PRN PRN Reason: PAIN SCALE 6 TO 10 Ondansetron HCl (Zofran Inj) 4 mg IV.PUSH Q6H PRN PRN Reason: NAUSEA OR VOMITING Senna/Docusate Sodium (Aminta-Colace) 1 tab PO BID [facility] Last Admin: 02/02/18 20:42 Dose: 1 tab Sennosides (Senokot) 17.2 mg PO Q12H PRN PRN Reason: Moderate Constipation Sodium Chloride (Ns Flush) 2 ml IV.FLUSH BID MELANIE Last Admin: 02/02/18 20:42 Dose: 2 ml Sodium Chloride (Ns Flush) 2 ml IV.FLUSH PRN PRN PRN Reason: FLUSH AFTER USING IV ACCESS Allergies/Adverse Reactions: Allergies Allergy/AdvReac Type Severity Reaction Status Date / Time No Known Allergies Allergy Uncoded 07/24/14 17:16 Review of Systems All other systems reviewed negative except as stated in HPI Physical Exam Vital signs: Vital Signs 02/02/18 11:34 02/02/18 11:35 02/02/18 11:56 Temperature Pulse Rate 67 Respiratory Rate 18 Blood Pressure 231/108 H Pulse Oximetry 100 100 98 02/02/18 12:04 02/02/18 12:13 02/02/18 12:16 Temperature Pulse Rate 68 62 Respiratory Rate 18 20 Blood Pressure 194/98 H 222/104 H Pulse Oximetry 100 100 100 02/02/18 12:27 02/02/18 12:36 02/02/18 12:41 Temperature Pulse Rate 62 66 69 Respiratory Rate 20 16 18 Blood Pressure 192/88 H 164/79 H 178/80 H Pulse Oximetry 100 100 99 02/02/18 13:13 02/02/18 13:42 02/02/18 18:35 Temperature Pulse Rate 70 68 71 Respiratory Rate 20 20 18 Blood Pressure 148/79 H 136/73 153/73 H Pulse Oximetry 98 99 99 02/02/18 18:45 02/02/18 19:00 02/02/18 19:15 Temperature Pulse Rate 72 72 73 Respiratory Rate 22 19 41 H Blood Pressure 154/71 H 154/72 H 156/74 H Pulse Oximetry 99 100 100 02/02/18 19:30 02/02/18 19:45 02/02/18 20:00 Temperature 98.1 F Pulse Rate 72 78 73 Respiratory Rate 22 47 H 40 H Blood Pressure 154/75 H 156/71 H 157/75 H Pulse Oximetry 99 98 100 02/02/18 20:15 02/02/18 20:30 02/02/18 20:45 Temperature Pulse Rate 76 77 74 Respiratory Rate 31 H 27 H 29 H Blood Pressure 149/78 H 156/76 H 153/73 H Pulse Oximetry 98 98 96 02/02/18 21:00 02/02/18 21:15 02/02/18 21:30 Temperature Pulse Rate 76 75 79 Respiratory Rate 18 19 20 Blood Pressure 153/70 H 153/72 H 162/77 H Pulse Oximetry 97 94 L 98 02/02/18 21:45 02/02/18 22:00 02/02/18 22:15 Temperature Pulse Rate 74 79 82 Respiratory Rate 30 H 17 32 H Blood Pressure 151/68 H 145/67 H 140/60 Pulse Oximetry 95 96 95 02/02/18 22:30 02/02/18 22:45 02/02/18 23:00 Temperature Pulse Rate 79 80 80 Respiratory Rate 28 H 23 24 Blood Pressure 137/63 141/60 H 149/67 H Pulse Oximetry 97 97 96 02/02/18 23:15 02/02/18 23:30 02/02/18 23:36 Temperature Pulse Rate 80 74 Respiratory Rate 22 31 H Blood Pressure 153/70 H 151/68 H Pulse Oximetry 96 96 95 02/02/18 23:45 02/03/18 00:00 02/03/18 00:15 Temperature 97.9 F Pulse Rate 76 Respiratory Rate 29 H Blood Pressure 157/71 H 156/60 H 153/68 H Pulse Oximetry 96 95 95 02/03/18 00:30 02/03/18 00:45 02/03/18 01:00 Temperature Pulse Rate 80 74 Respiratory Rate 28 H 17 Blood Pressure 145/65 H 149/72 H 139/65 Pulse Oximetry 96 97 97 02/03/18 01:15 02/03/18 01:30 02/03/18 01:45 Temperature Pulse Rate 80 83 86 Respiratory Rate 26 H 34 H 22 Blood Pressure 147/70 H 165/78 H 155/74 H Pulse Oximetry 97 98 02/03/18 02:00 02/03/18 02:15 02/03/18 02:30 Temperature Pulse Rate 81 76 81 Respiratory Rate 46 H 20 40 H Blood Pressure 145/70 H 145/74 H 145/75 H Pulse Oximetry 96 95 96 02/03/18 02:45 02/03/18 03:00 02/03/18 03:15 Temperature Pulse Rate 83 78 75 Respiratory Rate 35 H 24 23 Blood Pressure 164/76 H 163/77 H 148/69 H Pulse Oximetry 96 96 95 02/03/18 03:30 02/03/18 03:45 02/03/18 04:00 Temperature 98.7 F Pulse Rate 77 85 75 Respiratory Rate 31 H 23 21 Blood Pressure 166/77 H 150/71 H 158/77 H Pulse Oximetry 97 97 95 02/03/18 04:15 02/03/18 04:30 02/03/18 04:45 Temperature Pulse Rate 73 78 72 Respiratory Rate 28 H 13 16 Blood Pressure 153/70 H 151/63 H 150/65 H Pulse Oximetry 94 L 96 95 02/03/18 05:00 02/03/18 05:15 02/03/18 05:30 Temperature Pulse Rate 89 72 75 Respiratory Rate 20 18 16 Blood Pressure 146/66 H 140/63 139/62 Pulse Oximetry 97 96 96 02/03/18 05:45 02/03/18 06:00 02/03/18 07:41 Temperature Pulse Rate 83 74 Respiratory Rate 29 H 18 Blood Pressure 144/67 H 134/73 Pulse Oximetry 98 96 97 Intake & Output 02/02/18 02/03/18 02/03/18 18:59 06:59 18:59 Intake Total 65.5 / 65.5 1500 / 1500 Output Total 250 / 250 675 / 675 Balance -184.5 / -184.5 825 / 825 Weight 80.8 kg 79.5 kg Intake: IV 65.5 / 65.5 1500 / 1500 NS Inj 1,000 ML @ 70 mls/hr IV. 1000 / 1000 CONT .[id number] [facility] Rx#:[id number] Cardene Inj 25 MG In NS Inj 240 500 / 500 ML @ 5 MG/HR 50 mls/hr IV.CONT TITRATE PRN Rx#:[id number] Activase Drip 65.5 MG In Bag/ 65.5 / 65.5 Syringe 1 EACH @ 65.5 mls/hr IV .SIG ONCE ONE Rx#:[id number] Oral 0 / 0 Output: Urine 250 / 250 675 / 675 Other: # Voids 4 Weight On Admission 79.5 kg Narrative: GENERAL: in NAD, SKIN: Warm and dry. HEAD: Atraumatic. Normocephalic. EYES: Pupils equal and round. No scleral icterus. ENT: No nasal bleeding or discharge. NECK: Trachea midline. No JVD. CARDIOVASCULAR: Regular rate and rhythm. RESPIRATORY: No accessory muscle use. GASTROINTESTINAL: Abdomen soft, non-tender, nondistended. MUSCULOSKELETAL: Extremities without clubbing, cyanosis, or edema. No obvious deformities. NEUROLOGICAL: Awake and alert. Oriented x3, articulate speech clear, follows, OU approximately 2-1/2 mm sluggishly reactive, face symmetric, no pronator drift mild left-sided dystaxia, improved left hemstitcher left finger flexion and extension, no neglect, PSYCHIATRIC: Appropriate mood and affect; insight and judgment normal . - Constitutional no acute distress - Routine HEENT Exam Head: Present: normocephalic Eye: Present: EOMI Objective Laboratory Results - last 24 hr 02/02/18 02/02/18 02/02/18 11:35 11:35 11:35 POC Hgb (Calc) 13.9 POC Hct 41.0 POC Sodium 142 POC Potassium 4.4 POC Chloride 104 POC BUN 22 H POC Creatinine 1.6 H POC Glucose 180 H Triglycerides 286 H Cholesterol 175 LDL Cholesterol, Calc 91 HDL Cholesterol 26.9 L Cholesterol/HDL Ratio 6.50 Vitamin B12 406 Urine Color Urine Clarity Urine pH Ur Specific [place] Urine Protein Urine Glucose (UA) Urine Ketones Urine Occult Blood Urine Nitrate Urine Bilirubin Urine Urobilinogen Ur Leukocyte Esterase Urine RBC Micro UA Comment Ur Microscopic Review Urine Culture Comments Nasal Screen MRSA (PCR) Urine Opiates Screen Ur Barbiturates Screen Ur Amphetamines Screen U Benzodiazepines Scrn Urine Cocaine Screen U Cannabinoids Screen Blood Type O Positive Blood Type Recheck Required Antibody Screen Negative 02/02/18 02/02/18 02/02/18 13:24 13:24 18:14 POC Hgb (Calc) POC Hct POC Sodium POC Potassium POC Chloride POC BUN POC Creatinine POC Glucose 123 H Triglycerides Cholesterol LDL Cholesterol, Calc HDL Cholesterol Cholesterol/HDL Ratio Vitamin B12 Urine Color Straw Urine Clarity Clear Urine pH 6.0 Ur Specific [place] 1.014 Urine Protein Negative Urine Glucose (UA) 50 Urine Ketones Negative Urine Occult Blood Moderate H Urine Nitrate Negative Urine Bilirubin Negative Urine Urobilinogen Less than 2 Ur Leukocyte Esterase Negative Urine RBC 8 H Micro UA Comment Cath-culture not ind Ur Microscopic Review Not Reportable Urine Culture Comments Cath-cult not ind Nasal Screen MRSA (PCR) Urine Opiates Screen Neg Ur Barbiturates Screen Neg Ur Amphetamines Screen Neg U Benzodiazepines Scrn Neg Urine Cocaine Screen Neg U Cannabinoids Screen Neg Blood Type Blood Type Recheck Antibody Screen 02/02/18 19:09 POC Hgb (Calc) POC Hct POC Sodium POC Potassium POC Chloride POC BUN POC Creatinine POC Glucose Triglycerides Cholesterol LDL Cholesterol, Calc HDL Cholesterol Cholesterol/HDL Ratio Vitamin B12 Urine Color Urine Clarity Urine pH Ur Specific [place] Urine Protein Urine Glucose (UA) Urine Ketones Urine Occult Blood Urine Nitrate Urine Bilirubin Urine Urobilinogen Ur Leukocyte Esterase Urine RBC Micro UA Comment Ur Microscopic Review Urine Culture Comments Nasal Screen MRSA (PCR) Not detected Urine Opiates Screen Ur Barbiturates Screen Ur Amphetamines Screen U Benzodiazepines Scrn Urine Cocaine Screen U Cannabinoids Screen Blood Type Blood Type Recheck Antibody Screen Review/Management - Diagnosis (1) Acute ischemic stroke Code(s): I63.9 - Cerebral infarction, unspecified Status: Acute Current Visit: Yes (2) Hypertension Code(s): I10 - Essential (primary) hypertension Status: Acute Current Visit : Yes (3) Chronic arterial ischemic stroke Code(s): I69.30 - Unspecified sequelae of cerebral infarction Status: Acute Current Visit: Yes - Review/Management Plan: Status post IV TPA Right subcortical ischemic infarct, exam improved. NIH stroke scale score 2 Possible artery artery emboli from the vertebrobasilar system. 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 Not sure why it was discontinued possibly for falls or bleed. Patient is not certain. In any event, based on the advanced intracranial atherosclerotic disease maximizing medical management and antiplatelet agents may be the best treatment of choice Recommendation Follow-up CT brain scan 24 hours status post TPA Therapy Start start statin We will initiate antiplatelet agents if no evidence of A. fib or low ejection fraction on echo post 24 CT if negative for ICH Blood pressure control Appreciate critical care Behavioral modification and risk factor reduction. Weight loss, blood pressure control, blood sugar control, lipid control. Exercise
[2018-02-03] MEDS: Famotidine PF Inj 20 MG/2 ML Vial IV.PUSH SCH ×2 (09:32→20:00)
[2018-02-03] MEDS: Senna/Docusate Sodium 8.6/50 MG Tablet PO SCH ×2 (09:33→20:00)
--- NOTE | 2018-02-03 12:36 | ECHRPT ---
Indication: ATRIAL FIB/FLUTTER CONCLUSIONS Normal left ventricular size. Wall thickness is normal. The left ventricular systolic function is normal with an estimated ejection fraction in the range of 60-65%. Mild mitral valve regurgitation. Calcification of the anterior mitral valve leaflet. Aortic valve sclerosis is present. There is mild tricuspid valve regurgitation. The estimated pulmonary arterial pressure is 38 mmHg. BP: / HR: Rhythm: Sinus MEASUREMENTS (Male / Female) Normal Values Technical Quality:Fair 2D ECHO LV Diastolic Diameter PLAX 5.0 cm 4.2 - 5.9 / 3.9 - 5.3 cm LV Systolic Diameter PLAX 3.6 cm IVS Diastolic Thickness 0.8 cm 0.6 - 1.0 / 0.6 - 0.9 cm LVPW Diastolic Thickness 0.8 cm 0.6 - 1.0 / 0.6 - 0.9 cm LV Relative Wall Thickness 0.3 RV Internal Dim ED PLAX 3.0 cm LVOT Diameter 1.9 cm Aortic Root Diameter 3.0 cm LA Systolic Diameter LX 3.5 cm 3.0 - 4.0 / 2.7 - 3.8 cm DOPPLER MV Peak Velocity 78.6 cm/s MV Peak Gradient 2.5 mmHg MV Mean Velocity 49.0 cm/s MV Mean Gradient 1.0 mmHg MR Peak Velocity 441.0 cm/s MR Peak Gradient 77.8 mmHg Mitral E Point Velocity 68.6 cm/s Mitral A Point Velocity 63.7 cm/s Mitral E to A Ratio 1.1 LV E' Lateral Velocity 6.0 cm/s Mitral E to LV E' Lateral Ratio 11.4 LV E' Septal Velocity 4.5 cm/s Mitral E to LV E' Septal Ratio 15.2 TR Peak Velocity 262.0 cm/s TR Peak Gradient 27.5 mmHg Right Atrial Pressure 10.0 mmHg Pulmonary Artery Systolic Pressu 37.5 mmHg Right Ventricular Systolic Press 37.5 mmHg PV Peak Velocity 117.0 cm/s PV Peak Gradient 5.5 mmHg FINDINGS LEFT VENTRICLE Normal left ventricular size. Wall thickness is normal. The left ventricular systolic function is normal with an estimated ejection fraction in the range of 60-65%. RIGHT VENTRICLE Normal right ventricular size and systolic function. LEFT ATRIUM The left atrial size is normal. RIGHT ATRIUM The right atrial size is normal. ATRIAL SEPTUM Normal atrial septal thickness without atrial level shunting by limited color doppler interrogation. AORTA The aortic root and proximal ascending aorta are normal in size on limited imaging. MITRAL VALVE Mild mitral valve regurgitation. Calcification of the anterior mitral valve leaflet. AORTIC VALVE Aortic valve sclerosis is present. TRICUSPID VALVE There is mild tricuspid valve regurgitation. The estimated pulmonary arterial pressure is 38 mmHg. PULMONARY VALVE No pulmonary valve regurgitation or stenosis. VESSELS The inferior vena cava is normal in size. PERICARDIUM No pericardial effusion. Dario Maharaj MD, FACC (Electronically Signed) Final Date:03 February 2018 12:35
[2018-02-03 13:02] LABS: Hemoglobin A1c 6.8 % (4.3-6.0)
--- NOTE | 2018-02-03 13:10 | CT ---
EXAM DATE: 02/03/2018 1:05 PM EST AGE/SEX: 72 years / Male INDICATIONS: Post TPA left side weakness CLINICAL DATA: This is the patient's initial encounter. Patient reports that signs and symptoms have been present for 1 day and indicates a pain score of 0/10. MEDICAL/SURGICAL HISTORY: Alzheimer's disease. Hypertension. Diabetes. Hypothyroid Tonsillectom y. RADIATION DOSE: 56.35 CTDI (mGy) COMPARISON: [facility] [place], CT HEAD W/O CONTRAST, 02/02/2018. . TECHNIQUE: CT of the head without contrast. Using automated exposure control and adjustment of the mA and/or kV according to patient size, radiation dose was kept as low as reasonably achievable to ob tain optimal diagnostic quality images. DICOM format image data is available electronically for revi ew and comparison. FINDINGS: The brain is stable in appearance. There is symmetric mild prominence of the ventricles. Mild encepha lomalacia in the right cerebellar hemisphere. Tiny right basal ganglia lacunar infarct. No evidence o f hemorrhage or mass. CONCLUSION: No evidence of intracranial hemorrhage . Electronically signed by: Arley Toussaint MD 02/03/2018 1:09 PM EST
--- NOTE | 2018-02-03 17:37 | P.PNCC ---
Subjective Subjective Remarks/Hospital Course: 02/02: This 72-year-old gentleman has experiencing left arm and leg weakness since yesterday. This is waxed and waned but this morning he developed dysarthric speech combined with left arm and leg weakness. He came to the emergency department where CAT scan of the head was negative for acute event and he subsequently received TPA after consultation with neurology service. By the time I saw him in the emergency department about an hour later he had 4/5 strength in his left arm and 4/5 strength in his left leg. The right side was normal. His speech had considerably cleared although he felt it was still abnormal. He has required low-dose nicardipine for control of hypertension. 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 He has been on long-term antiplatelet therapy. 02/03: Resting comfortably. Out of bed to chair. Objective Vital Signs / I&O: Vital Signs 02/02/18 18:35 02/02/18 18:45 02/02/18 19:00 Temperature Pulse Rate 71 72 72 Respiratory Rate 18 22 19 Blood Pressure 153/73 H 154/71 H 154/72 H Pulse Oximetry 99 99 100 02/02/18 19:15 02/02/18 19:30 02/02/18 19:45 Temperature Pulse Rate 73 72 78 Respiratory Rate 41 H 22 47 H Blood Pressure 156/74 H 154/75 H 156/71 H Pulse Oximetry 100 99 98 02/02/18 20:00 02/02/18 20:15 02/02/18 20:30 Temperature 98.1 F Pulse Rate 73 76 77 Respiratory Rate 40 H 31 H 27 H Blood Pressure 157/75 H 149/78 H 156/76 H Pulse Oximetry 100 98 98 02/02/18 20:45 02/02/18 21:00 02/02/18 21:15 Temperature Pulse Rate 74 76 75 Respiratory Rate 29 H 18 19 Blood Pressure 153/73 H 153/70 H 153/72 H Pulse Oximetry 96 97 94 L 02/02/18 21:30 02/02/18 21:45 02/02/18 22:00 Temperature Pulse Rate 79 74 79 Respiratory Rate 20 30 H 17 Blood Pressure 162/77 H 151/68 H 145/67 H Pulse Oximetry 98 95 96 02/02/18 22:15 02/02/18 22:30 02/02/18 22:45 Temperature Pulse Rate 82 79 80 Respiratory Rate 32 H 28 H 23 Blood Pressure 140/60 137/63 141/60 H Pulse Oximetry 95 97 97 02/02/18 23:00 02/02/18 23:15 02/02/18 23:30 Temperature Pulse Rate 80 80 74 Respiratory Rate 24 22 31 H Blood Pressure 149/67 H 153/70 H 151/68 H Pulse Oximetry 96 96 96 02/02/18 23:36 02/02/18 23:45 02/03/18 00:00 Temperature 97.9 F Pulse Rate 76 Respiratory Rate 29 H Blood Pressure 157/71 H 156/60 H Pulse Oximetry 95 96 95 02/03/18 00:15 02/03/18 00:30 02/03/18 00:45 Temperature Pulse Rate 80 Respiratory Rate 28 H Blood Pressure 153/68 H 145/65 H 149/72 H Pulse Oximetry 95 96 97 02/03/18 01:00 02/03/18 01:15 02/03/18 01:30 Temperature Pulse Rate 74 80 83 Respiratory Rate 17 26 H 34 H Blood Pressure 139/65 147/70 H 165/78 H Pulse Oximetry 97 97 98 02/03/18 01:45 02/03/18 02:00 02/03/18 02:15 Temperature Pulse Rate 86 81 76 Respiratory Rate 22 46 H 20 Blood Pressure 155/74 H 145/70 H 145/74 H Pulse Oximetry 96 95 02/03/18 02:30 02/03/18 02:45 02/03/18 03:00 Temperature Pulse Rate 81 83 78 Respiratory Rate 40 H 35 H 24 Blood Pressure 145/75 H 164/76 H 163/77 H Pulse Oximetry 96 96 96 02/03/18 03:15 02/03/18 03:30 02/03/18 03:45 Temperature Pulse Rate 75 77 85 Respiratory Rate 23 31 H 23 Blood Pressure 148/69 H 166/77 H 150/71 H Pulse Oximetry 95 97 97 02/03/18 04:00 02/03/18 04:15 02/03/18 04:30 Temperature 98.7 F Pulse Rate 75 73 78 Respiratory Rate 21 28 H 13 Blood Pressure 158/77 H 153/70 H 151/63 H Pulse Oximetry 95 94 L 96 02/03/18 04:45 02/03/18 05:00 02/03/18 05:15 Temperature Pulse Rate 72 89 72 Respiratory Rate 16 20 18 Blood Pressure 150/65 H 146/66 H 140/63 Pulse Oximetry 95 97 96 02/03/18 05:30 02/03/18 05:45 02/03/18 06:00 Temperature Pulse Rate 75 83 74 Respiratory Rate 16 29 H 18 Blood Pressure 139/62 144/67 H 134/73 Pulse Oximetry 96 98 96 02/03/18 06:45 02/03/18 07:00 02/03/18 07:15 Temperature Pulse Rate 80 82 80 Respiratory Rate 25 H 24 31 H Blood Pressure 138/70 152/74 H 153/77 H Pulse Oximetry 93 L 94 L 95 02/03/18 07:30 02/03/18 07:41 02/03/18 07:45 Temperature Pulse Rate 84 77 Respiratory Rate 20 32 H Blood Pressure 144/87 H 141/68 H Pulse Oximetry 97 97 96 02/03/18 08:00 02/03/18 08:15 02/03/18 08:30 Temperature Pulse Rate 75 83 79 Respiratory Rate 21 31 H 27 H Blood Pressure 143/68 H 127/71 155/71 H Pulse Oximetry 95 98 99 02/03/18 08:45 02/03/18 09:00 02/03/18 09:13 Temperature Pulse Rate 75 84 76 Respiratory Rate 27 H 33 H 31 H Blood Pressure 139/67 152/74 H 151/110 H Pulse Oximetry 95 95 98 02/03/18 09:14 02/03/18 09:15 02/03/18 09:30 Temperature Pulse Rate 76 76 75 Respiratory Rate 26 H 29 H 32 H Blood Pressure 152/72 H 151/71 H Pulse Oximetry 97 98 96 02/03/18 09:36 02/03/18 09:54 02/03/18 10:00 Temperature Pulse Rate 81 79 Respiratory Rate 16 17 Blood Pressure 155/73 H 133/66 127/66 Pulse Oximetry 98 100 02/03/18 10:15 02/03/18 10:30 02/03/18 10:45 Temperature Pulse Rate 77 69 79 Respiratory Rate 20 20 23 Blood Pressure 149/70 H 156/73 H 163/78 H Pulse Oximetry 100 97 99 02/03/18 11:00 02/03/18 11:03 02/03/18 11:05 Temperature Pulse Rate 89 90 Respiratory Rate 19 28 H Blood Pressure 152/80 H 169/72 H Pulse Oximetry 96 99 02/03/18 11:15 02/03/18 11:30 02/03/18 11:45 Temperature Pulse Rate 86 76 78 Respiratory Rate 30 H 25 H 19 Blood Pressure 163/77 H 151/70 H 158/79 H Pulse Oximetry 100 96 99 02/03/18 12:00 02/03/18 12:15 02/03/18 12:26 Temperature Pulse Rate 75 69 79 Respiratory Rate 16 19 23 Blood Pressure 143/68 H 145/72 H Pulse Oximetry 97 97 98 02/03/18 12:35 02/03/18 12:45 02/03/18 13:00 Temperature Pulse Rate 76 77 Respiratory Rate 25 H 20 Blood Pressure 171/80 H 147/76 H 156/65 H Pulse Oximetry 99 96 02/03/18 13:15 02/03/18 13:30 02/03/18 13:45 Temperature Pulse Rate 78 80 82 Respiratory Rate 26 H 26 H 26 H Blood Pressure 141/67 H 163/77 H 161/81 H Pulse Oximetry 99 88 L 97 02/03/18 14:00 02/03/18 14:15 02/03/18 14:24 Temperature Pulse Rate 82 80 81 Respiratory Rate 29 H 26 H 37 H Blood Pressure 167/78 H 160/77 H Pulse Oximetry 93 L 95 98 02/03/18 14:34 02/03/18 14:36 02/03/18 14:45 Temperature Pulse Rate 90 85 Respiratory Rate 21 20 Blood Pressure 170/75 H 155/71 H 151/74 H Pulse Oximetry 99 99 02/03/18 15:00 02/03/18 15:25 02/03/18 15:30 Temperature Pulse Rate 109 H 86 87 Respiratory Rate 24 28 H 28 H Blood Pressure 165/83 H 134/73 137/79 Pulse Oximetry 96 99 98 02/03/18 15:45 02/03/18 16:00 02/03/18 16:19 Temperature Pulse Rate 97 H 81 87 Respiratory Rate 29 H 36 H 29 H Blood Pressure 154/75 H 135/92 H Pulse Oximetry 94 L 97 97 02/03/18 16:20 02/03/18 16:30 02/03/18 16:45 Temperature Pulse Rate 87 80 83 Respiratory Rate 21 27 H 29 H Blood Pressure 150/88 H 160/86 H 160/90 H Pulse Oximetry 94 L 99 99 Intake & Output 02/02/18 02/03/18 02/03/18 18:59 06:59 18:59 Intake Total 65.5 / 65.5 1500 / 1500 250 / 250 Output Total 250 / 250 675 / 675 Balance -184.5 / -184.5 825 / 825 250 / 250 Weight 80.8 kg 79.5 kg Intake: IV 65.5 / 65.5 1500 / 1500 250 / 250 NS Inj 1,000 ML @ 70 mls/hr IV. 1000 / 1000 CONT .[id number] [facility] Rx#:[id number] Cardene Inj 25 MG In NS Inj 240 500 / 500 250 / 250 ML @ 5 MG/HR 50 mls/hr IV.CONT TITRATE PRN Rx#:[id number] Activase Drip 65.5 MG In Bag/ 65.5 / 65.5 Syringe 1 EACH @ 65.5 mls/hr IV .SIG ONCE ONE Rx#:[id number] Oral 0 / 0 Output: Urine 250 / 250 675 / 675 Other: # Voids 4 Date of Last Bowel Movement 02/03/18 Weight On Admission 79.5 kg Objective Remarks: HEENT/Neuro: No pallor or icterus, tongue moist, ELAINE, Awake alert oriented 3 , nonfocal grossly, moving all 4 extremities Neck: No JVD Chest/pulmonary: CTA bilaterally Cardiovascular: S1-S2 regular no gallop or murmur GI/abdomen: Soft, nontender, bowel sounds present Extremities: Warm bilaterally, no edema Assessment and Plan - Problem List (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 Post TPA protocol 2. Maintain systolic blood pressure less than 180. 3. Serial neurologic exam 4. Head CT 24 hours post TPA negative for bleed. 5. Chemical DVT prophylaxis contraindicated because of TPA administration 6. Pepcid for GI ulcer prophylaxis 7. Cardiac echo 8. Restart antiplatelet therapy when ok with neurology 9. Speech evaluation and swallow in a.m. 10. Lipid profile Overall impression: This gentleman sustained a stuttering stroke syndrome. The tenuous nature of his vertebrobasilar system and high risk of subsequent embolic events makes him high risk for further neurologic injury. Transfer to hospitalist service. Transfer out of ICU.
[2018-02-03] MEDS: Lisinopril 10 MG Tablet PO SCH (17:41)
[2018-02-04] MEDS: Insulin NovoLOG Aspart Correctional Sugar Inj SQ SCH ×5 (01:29→21:20)
[2018-02-04] MEDS: Chlorhexidine Gluconate 2% 1 Pack (2 Cloths) TOPICAL SCH (05:01)
[2018-02-04] MEDS: Senna/Docusate Sodium 8.6/50 MG Tablet PO SCH ×2 (10:27→21:06)
[2018-02-04] MEDS: Lisinopril 10 MG Tablet PO SCH (10:28)
--- NOTE | 2018-02-04 12:46 | P.DCO ---
- Physical Therapy Order: Evaluate and treat - Occupational Therapy Order: Evaluate and treat - Speech Therapy Order: To improve: Speech and communication skills, Cognitive skills - Home Health Nursing Order: Medical education, Signs/symptoms of disease process, Nursing assessment with vital signs - Case Management Consult Case Management Consult-Home Health: Yes - Certification I have seen patient Arley Burch on 02/04/18. My clinical findings support the need for the requested home health care services because: recent stroke, advanced age, multiple comorbidities. Need for psychosocial assistance, Impaired cognition/judgement I certify that my clinical findings support that this patient is homebound because: Impaired cognitive ability/safety
--- NOTE | 2018-02-04 12:57 | P.PN ---
Subjective Interval history: Status post acute CVA, post TPApatient seen and examined, sitting up in chair, just finished working with physical therapy. Patient somewhat unsteady, requires rolling walker. Patient is awake, alert, oriented x3. Slow to respond , no dysarthria noted. 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 Denies any headache. Patient states he has bad vision, requesting his glasses which he cannot find. No other complaints. Physical Exam Vital signs: Vital Signs 02/03/18 13:00 02/03/18 13:15 02/03/18 13:30 Temperature Pulse Rate 77 78 80 Respiratory Rate 20 26 H 26 H Blood Pressure 156/65 H 141/67 H 163/77 H Pulse Oximetry 96 99 88 L 02/03/18 13:45 02/03/18 14:00 02/03/18 14:15 Temperature Pulse Rate 82 82 80 Respiratory Rate 26 H 29 H 26 H Blood Pressure 161/81 H 167/78 H 160/77 H Pulse Oximetry 97 93 L 95 02/03/18 14:24 02/03/18 14:34 02/03/18 14:36 Temperature Pulse Rate 81 90 Respiratory Rate 37 H 21 Blood Pressure 170/75 H 155/71 H Pulse Oximetry 98 99 02/03/18 14:45 02/03/18 15:00 02/03/18 15:25 Temperature Pulse Rate 85 109 H 86 Respiratory Rate 20 24 28 H Blood Pressure 151/74 H 165/83 H 134/73 Pulse Oximetry 99 96 99 02/03/18 15:30 02/03/18 15:45 02/03/18 16:00 Temperature Pulse Rate 87 97 H 81 Respiratory Rate 28 H 29 H 36 H Blood Pressure 137/79 154/75 H Pulse Oximetry 98 94 L 97 02/03/18 16:19 02/03/18 16:20 02/03/18 16:30 Temperature Pulse Rate 87 87 80 Respiratory Rate 29 H 21 27 H Blood Pressure 135/92 H 150/88 H 160/86 H Pulse Oximetry 97 94 L 99 02/03/18 16:45 02/03/18 17:00 02/03/18 17:05 Temperature Pulse Rate 83 74 83 Respiratory Rate 29 H 17 20 Blood Pressure 160/90 H 165/119 H 182/84 H Pulse Oximetry 99 99 95 02/03/18 17:15 02/03/18 17:30 02/03/18 17:40 Temperature Pulse Rate 86 101 H Respiratory Rate 22 Blood Pressure 172/82 H 154/75 H Pulse Oximetry 98 02/03/18 17:45 02/03/18 18:00 02/03/18 18:15 Temperature Pulse Rate 79 85 75 Respiratory Rate 18 29 H 18 Blood Pressure 158/78 H 171/81 H 157/79 H Pulse Oximetry 98 95 90 L 02/03/18 18:49 02/03/18 19:00 02/03/18 19:23 Temperature Pulse Rate 77 73 Respiratory Rate 21 21 Blood Pressure 145/85 H Pulse Oximetry 98 02/03/18 20:00 02/03/18 22:00 02/03/18 22:04 Temperature 98.4 F 97.5 F L Pulse Rate 98 H 93 H 87 Respiratory Rate 43 H 22 Blood Pressure 200/94 H Pulse Oximetry 95 97 02/04/18 00:00 02/04/18 04:00 02/04/18 08:00 Temperature 97.6 F 97.8 F 98.4 F Pulse Rate 86 74 88 Respiratory Rate 18 18 20 Blood Pressure 175/94 H 167/82 H 174/81 H Pulse Oximetry 97 96 97 02/04/18 12:00 Temperature 98.6 F Pulse Rate 69 Respiratory Rate 18 Blood Pressure 187/56 H Pulse Oximetry 100 Intake & Output 02/03/18 02/04/18 02/04/18 18:59 06:59 18:59 Intake Total 1430 / 1430 300 / 300 Output Total 500 / 500 400 / 400 Balance 930 / 930 -100 / -100 Weight 79 kg Intake: IV 950 / 950 300 / 300 NS Inj 1,000 ML @ 70 mls/hr IV. 700 / 700 300 / 300 CONT .[id number] [facility] Rx#:[id number] Cardene Inj 25 MG In NS Inj 240 250 / 250 ML @ 5 MG/HR 50 mls/hr IV.CONT TITRATE PRN Rx#:[id number] Oral 480 / 480 Output: Urine 500 / 500 400 / 400 Other: # Voids 2 # Incontinent Voids 1 Date of Last Bowel Movement 02/03/18 02/03/18 # Bowel Movements 1 Narrative: GENERAL: 72-year-old well-developed well-nourished, no apparent distress. SKIN: Warm and dry. HEAD: Atraumatic. Normocephalic. EYES: Pupils equal and round. No scleral icterus. ENT: No nasal bleeding or discharge. NECK: Trachea midline. No JVD. CARDIOVASCULAR: RRR, no MRG RESPIRATORY: No accessory muscle use. GASTROINTESTINAL: Abdomen soft, non-tender, nondistended. MUSCULOSKELETAL: Extremities without clubbing, cyanosis, or edema. No obvious deformities. NEUROLOGICAL: Awake and alert, oriented x3, slow to respond, but clear. Slightly weaker SUSAN 4/5, RUE 5/5. BLE 5/5. PSYCHIATRIC: Appropriate mood and affect; insight and judgment normal . Results - Labs CBC & Chem 7: 02/05/18 05:47 Laboratory Results - last 24 hr 02/02/18 02/03/18 02/04/18 20:00 17:54 00:57 POC Glucose 127 H 205 H Hemoglobin A1c 6.8 H 02/04/18 02/04/18 05:45 12:44 POC Glucose 128 H 148 H Hemoglobin A1c - Imaging Impressions Head CT 02/03/18 11:56 CONCLUSION: No evidence of intracranial hemorrhage . Assessment and Plan - Assessment (1) Acute ischemic stroke Code(s): I63.9 - Cerebral infarction, unspecified Status: Acute (2) Hypertension Code(s): I10 - Essential (primary) hypertension Status: Chronic (3) Hyperlipidemia Code(s): E78.5 - Hyperlipidemia, unspecified Status: Chronic (4) Diabetes 1.5, managed as type 2 Code(s): E10.9 - Type 1 diabetes mellitus without complications Status: Chronic - Plan 72-year-old male admitted for acute stroke. Symptoms of dysarthric speech left- sided numbness and weakness. Symptoms fluctuating in the ER. S/P IV TPA with improvement. Was on Nicardipene gtt for BP control Acute CVA, right subcorticl ischemic infarct, S/P TPA-with improvement. Hx of CVA in 2013 no residuals Was on Warfarin, med records reviewed, was on Warfarin back in 2013 after he was found with TIA poss. 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 Pt and son unclear why he is not on anymore. -continue with neuro checks -appreciate neuro input, possible artery artery emboli from the vertebrobasilar system. 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 Recommends antiplatelet agent. -Follow-up CT of the brain 1128, no hemorrhage. -Continue with Plavix, statin Hemoglobin A1c 6.8, lipid profile noted -2D echo results noted, EF 60-65%. -Telemetry reviewed, no evidence of A. fib -PT/OT/ST Hypertension, initially uncontrolled, was on nicardipine Blood pressure 160s over 80s Continue with lisinopril, resume metoprolol 12.5 mg p.o. twice daily Hyper lipidemia Lipid profile done Continue with statin Dementia We will resume Aricept and Namenda CKD 3, has know hx -med records reviewed, creat stable -avoid nephrotoxic agents. CM consult for dc planning, HHC with PT/OT/ST BMP in am Poss dc tomorrow if neurology clears. Code Status: Full code Discussed Condition With: RN, pt, CM pt's son Discharge Planning: Poss dc to [facility] with HHC tomorrow when neuro clears. (2) Hypertension Qualifiers: Hypertension type: essential hypertension Qualified Code(s): I10 - Essential (primary) hypertension (3) Hyperlipidemia Qualifiers: Hyperlipidemia type: unspecified Qualified Code(s): E78.5 - Hyperlipidemia, unspecified
[2018-02-04] MEDS: Sod Chloride 0.9% Inj 1,000 ML IV.CONT SCH (16:34)
[2018-02-04] MEDS: QUEtiapine 25 MG Tablet PO SCH (18:44)
--- NOTE | 2018-02-04 19:36 | P.PNNEU ---
Subjective Subjective Comments: no cp, no weakness, no dyspnea. feels well Active Medications: Active Medications Al Hydroxide/Mg Hydroxide (Milk Of Magnesia Liq) 30 ml PO Q12H PRN PRN Reason: Mild Constipation Albuterol (Duoneb Neb (Prn)) 1 ampul NEB Q2HR NEB PRN PRN Reason: WHEEZING Aspirin (Aspirin Chew) 81 mg PO DAILY [facility] Last Admin: 02/04/18 10:27 Dose: 81 mg Atorvastatin Calcium (Lipitor) 40 mg PO HS [facility] Last Admin: 02/03/18 20:00 Dose: 40 mg Bisacodyl (Dulcolax Supp) 10 mg RECTAL DAILY PRN PRN Reason: SEVERE CONSITIPATION Brimonidine Tartrate (Alphagan 0.2% Opth Drops) 1 drops EACH EYE BID [facility] Buspirone HCl (Buspar) 7.5 mg PO BID [facility] Chlorhexidine Gluconate (Chlorhexidine 2% Cloth) 3 pack TOPICAL DAILY@0400 [facility] Stop: 02/08/18 03:59 Last Admin: 02/04/18 05:01 Dose: Not Given Chlorhexidine Gluconate (Chlorhexidine 2% Cloth) 3 pack TOPICAL DAILY@0400 PRN PRN Reason: Extra cloth needed Stop: 02/08/18 03:59 Clonidine HCl (Catapres) 0.1 mg PO Q6H PRN PRN Reason: SBP>180, DBP>100, HR>65 Last Admin: 02/03/18 22:10 Dose: 0.1 mg Clopidogrel Bisulfate (Plavix) 75 mg PO DAILY [facility] Last Admin: 02/04/18 10:28 Dose: 75 mg Dextrose (D50w Vial) 50 ml IV.PUSH UNSCH PRN PRN Reason: PER HYPOGLYCEMIA PROTOCOL Donepezil HCl (Aricept) 5 mg PO DAILY [facility] Famotidine (Pepcid) 20 mg PO DAILY [facility] Glucagon (Glucagon Inj) 1 mg OTHER PRN PRN PRN Reason: for Hypoglycemia Protocol Insulin Aspart (Novolog Insulin Correctional Sugar Inj) 0 unit SQ ACHS [facility]; Protocol Last Admin: 02/04/18 18:43 Dose: Not Given Lactulose (Lactulose Liq) 30 ml PO DAILY PRN PRN Reason: SEVERE CONSITIPATION Levothyroxine Sodium (Synthroid) 125 mcg PO DAILY@0600 [facility] Levothyroxine Sodium (Synthroid) 50 mcg PO DAILY@0600 [facility] Lisinopril (Prinivil) 10 mg PO DAILY [facility] Last Admin: 02/04/18 10:28 Dose: 10 mg Memantine (Namenda) 10 mg PO BID [facility] Metoprolol Tartrate (Lopressor) 12.5 mg PO BID [facility] Miscellaneous (Pill Splitter) 1 each OTHER UNSCH PRN PRN Reason: SEE LABEL COMMENTS Ondansetron HCl (Zofran Inj) 4 mg IV.PUSH Q6H PRN PRN Reason: NAUSEA OR VOMITING Quetiapine Fumarate (Seroquel) 25 mg PO TID [facility] Last Admin: 02/04/18 18:44 Dose: 25 mg Senna/Docusate Sodium (Aminta-Colace) 1 tab PO BID [facility] Last Admin: 02/04/18 10:27 Dose: Not Given Sennosides (Senokot) 17.2 mg PO Q12H PRN PRN Reason: Moderate Constipation Sodium Chloride (Ns Flush) 2 ml IV.FLUSH BID [facility] Last Admin: 02/04/18 10:28 Dose: 2 ml Sodium Chloride (Ns Flush) 2 ml IV.FLUSH PRN PRN PRN Reason: FLUSH AFTER USING IV ACCESS Tamsulosin HCl (Flomax) 0.4 mg PO DAILY [facility] Trazodone HCl (Desyrel) 25 mg PO [facility] Allergies/Adverse Reactions: Allergies Allergy/AdvReac Type Severity Reaction Status Date / Time No Known Allergies Allergy Uncoded 07/24/14 17:16 Review of Systems All other systems reviewed negative except as stated in HPI Physical Exam Vital signs: Vital Signs 02/03/18 20:00 02/03/18 22:00 02/03/18 22:04 Temperature 98.4 F 97.5 F L Pulse Rate 98 H 93 H 87 Respiratory Rate 43 H 22 Blood Pressure 200/94 H Pulse Oximetry 95 97 02/04/18 00:00 02/04/18 04:00 02/04/18 08:00 Temperature 97.6 F 97.8 F 98.4 F Pulse Rate 86 74 88 Respiratory Rate 18 18 20 Blood Pressure 175/94 H 167/82 H 174/81 H Pulse Oximetry 97 96 97 02/04/18 12:00 02/04/18 16:00 02/04/18 17:53 Temperature 98.6 F 98.3 F Pulse Rate 69 74 Respiratory Rate 18 18 Blood Pressure 187/56 H 180/85 H Pulse Oximetry 100 98 98 Intake & Output 02/04/18 02/04/18 02/05/18 06:59 18:59 06:59 Intake Total 300 / 300 480 / 480 Output Total 400 / 400 500 / 500 Balance -100 / -100 -20 / -20 Weight 79 kg Intake: IV 300 / 300 NS Inj 1,000 ML @ 70 mls/hr IV. 300 / 300 CONT .[id number] [facility] Rx#:[id number] Oral 480 / 480 Output: Urine 400 / 400 500 / 500 Other: # Incontinent Voids 1 Date of Last Bowel Movement 02/03/18 # Bowel Movements 1 Narrative: GENERAL: 72-year-old well-developed well-nourished, no apparent distress. SKIN: Warm and dry. HEAD: Atraumatic. Normocephalic. EYES: Pupils equal and round. No scleral icterus. ENT: No nasal bleeding or discharge. NECK: Trachea midline. No JVD. CARDIOVASCULAR: RRR RESPIRATORY: No accessory muscle use. GASTROINTESTINAL: Abdomen soft, non-tender, nondistended. MUSCULOSKELETAL: Extremities without clubbing, cyanosis, or edema. No obvious deformities. NEUROLOGICAL: Awake and alert, oriented x2, follows, articulate, face sym, no drift, mild rt ue dystaxia, rest 5/5, sensory nml PSYCHIATRIC: Appropriate mood and affect; insight and judgment normal . - Constitutional no acute distress - Routine HEENT Exam Head: Present: normocephalic Eye: Present: EOMI Objective Laboratory Results - last 24 hr 02/04/18 02/04/18 02/04/18 00:57 05:45 12:44 POC Glucose 205 H 128 H 148 H 02/04/18 17:17 POC Glucose 147 H Review/Management - Diagnosis (1) Acute ischemic stroke Code(s): I63.9 - Cerebral infarction, unspecified Status: Acute Current Visit: Yes (2) Hypertension Code(s): I10 - Essential (primary) hypertension Status: Chronic Current Visit: Yes (3) Chronic arterial ischemic stroke Code(s): I69.30 - Unspecified sequelae of cerebral infarction Status: Acute Current Visit: Yes - Review/Management Plan: Status post IV TPA Right subcortical ischemic infarct, exam improved. NIH stroke scale score 1 Possible artery artery emboli from the vertebrobasilar system. 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 Not sure why it was discontinued possibly for falls or bleed. Patient is not certain. In any event, based on the advanced intracranial atherosclerotic disease maximizing medical management and antiplatelet agents may be the best treatment of choice Recommendation aspirin/plavix statin doing well d/c planning Behavioral modification and risk factor reduction. Weight loss, blood pressure control, blood sugar control, lipid control. Exercise (2) Hypertension Qualifiers: Hypertension type: essential hypertension Qualified Code(s): I10 - Essential (primary) hypertension
[2018-02-04] MEDS ORDERED: Metoprolol Tartrate 25 MG Tablet PO SCH (21:00)
[2018-02-04] MEDS ORDERED: traZODone 50 MG Tablet PO SCH (21:00)
[2018-02-04] MEDS: Brimonidine 0.2% Opth Drops 5 ML Bottle EACH EYE SCH (21:05)
[2018-02-04 21:30] VITALS: RESP 20
[2018-02-05] MEDS: Chlorhexidine Gluconate 2% 1 Pack (2 Cloths) TOPICAL SCH (05:11)
[2018-02-05] MEDS ORDERED: Levothyroxine 125 MCG Tablet PO SCH (06:00)
[2018-02-05] MEDS ORDERED: Levothyroxine 50 MCG Tablet PO SCH (06:00)
[2018-02-05 06:35] LABS: Calcium 8.6 mg/dL (8.5-10.1); Carbon Dioxide 24.8 meq/L (21.0-32.0)
[2018-02-05] MEDS ORDERED: Metoprolol Tartrate 25 MG Tablet PO SCH (07:44)
--- NOTE | 2018-02-05 08:39 | P.PNNEU ---
Subjective Subjective Comments: no acute events, no pompa, no cp, no dyspnea Active Medications: Active Medications Al Hydroxide/Mg Hydroxide (Milk Of Magnesia Liq) 30 ml PO Q12H PRN PRN Reason: Mild Constipation Albuterol (Duoneb Neb (Prn)) 1 ampul NEB Q2HR NEB PRN PRN Reason: WHEEZING Aspirin (Aspirin Chew) 81 mg PO DAILY [facility] Last Admin: 02/04/18 10:27 Dose: 81 mg Atorvastatin Calcium (Lipitor) 40 mg PO HS [facility] Last Admin: 02/04/18 21:06 Dose: 40 mg Bisacodyl (Dulcolax Supp) 10 mg RECTAL DAILY PRN PRN Reason: SEVERE CONSITIPATION Brimonidine Tartrate (Alphagan 0.2% Opth Drops) 1 drops EACH EYE BID [facility] Last Admin: 02/04/18 21:05 Dose: Not Given Buspirone HCl (Buspar) 7.5 mg PO BID [facility] Last Admin: 02/04/18 21:04 Dose: 7.5 mg Chlorhexidine Gluconate (Chlorhexidine 2% Cloth) 3 pack TOPICAL DAILY@0400 [facility] Stop: 02/08/18 03:59 Last Admin: 02/05/18 05:11 Dose: Not Given Chlorhexidine Gluconate (Chlorhexidine 2% Cloth) 3 pack TOPICAL DAILY@0400 PRN PRN Reason: Extra cloth needed Stop: 02/08/18 03:59 Clonidine HCl (Catapres) 0.1 mg PO Q6H PRN PRN Reason: SBP>180, DBP>100, HR>65 Last Admin: 02/04/18 21:06 Dose: 0.1 mg Clopidogrel Bisulfate (Plavix) 75 mg PO DAILY [facility] Last Admin: 02/04/18 10:28 Dose: 75 mg Dextrose (D50w Vial) 50 ml IV.PUSH UNSCH PRN PRN Reason: PER HYPOGLYCEMIA PROTOCOL Donepezil HCl (Aricept) 5 mg PO DAILY [facility] Famotidine (Pepcid) 20 mg PO DAILY [facility] Glucagon (Glucagon Inj) 1 mg OTHER PRN PRN PRN Reason: for Hypoglycemia Protocol Insulin Aspart (Novolog Insulin Correctional Sugar Inj) 0 unit SQ [facility]; Protocol Last Admin: 02/04/18 21:20 Dose: 1 unit Lactulose (Lactulose Liq) 30 ml PO DAILY PRN PRN Reason: SEVERE CONSITIPATION Levothyroxine Sodium (Synthroid) 125 mcg PO DAILY@0600 [facility] Last Admin: 02/05/18 05:57 Dose: 125 mcg Levothyroxine Sodium (Synthroid) 50 mcg PO DAILY@0600 [facility] Last Admin: 02/05/18 05:57 Dose: 50 mcg Lisinopril (Prinivil) 10 mg PO DAILY [facility] Last Admin: 02/04/18 10:28 Dose: 10 mg Memantine (Namenda) 10 mg PO BID [facility] Last Admin: 02/04/18 21:04 Dose: 10 mg Metoprolol Tartrate (Lopressor) 25 mg PO BID [facility] Miscellaneous (Pill Splitter) 1 each OTHER UNSCH PRN PRN Reason: SEE LABEL COMMENTS Ondansetron HCl (Zofran Inj) 4 mg IV.PUSH Q6H PRN PRN Reason: NAUSEA OR VOMITING Quetiapine Fumarate (Seroquel) 25 mg PO TID [facility] Last Admin: 02/04/18 18:44 Dose: 25 mg Senna/Docusate Sodium (Aminta-Colace) 1 tab PO BID [facility] Last Admin: 02/04/18 21:06 Dose: 1 tab Sennosides (Senokot) 17.2 mg PO Q12H PRN PRN Reason: Moderate Constipation Sodium Chloride (Ns Flush) 2 ml IV.FLUSH BID [facility] Last Admin: 02/04/18 21:05 Dose: 2 ml Sodium Chloride (Ns Flush) 2 ml IV.FLUSH PRN PRN PRN Reason: FLUSH AFTER USING IV ACCESS Tamsulosin HCl (Flomax) 0.4 mg PO DAILY [facility] Trazodone HCl (Desyrel) 25 mg PO HS [facility] Last Admin: 02/04/18 21:09 Dose: 25 mg Allergies/Adverse Reactions: Allergies Allergy/AdvReac Type Severity Reaction Status Date / Time No Known Allergies Allergy Uncoded 07/24/14 17:16 Review of Systems All other systems reviewed negative except as stated in HPI Physical Exam Vital signs: Vital Signs 02/04/18 12:00 02/04/18 16:00 02/04/18 17:53 Temperature 98.6 F 98.3 F Pulse Rate 69 74 Respiratory Rate 18 18 Blood Pressure 187/56 H 180/85 H Pulse Oximetry 100 98 98 02/04/18 19:00 02/05/18 00:00 02/05/18 07:54 Temperature 98.4 F 98.4 F 97.5 F L Pulse Rate 73 88 60 Respiratory Rate 20 20 20 Blood Pressure 196/89 H 170/83 H 168/81 H Pulse Oximetry 99 95 98 Intake & Output 02/04/18 02/05/18 02/05/18 18:59 06:59 18:59 Intake Total 480 / 480 Output Total 500 / 500 Balance -20 / -20 Weight 77.6 kg Intake: Oral 480 / 480 Output: Urine 500 / 500 Other: Post Void Residual 500 Date of Last Bowel Movement 02/03/18 02/05/18 # Bowel Movements 1 Narrative: GENERAL: 72-year-old well-developed well-nourished, no apparent distress. SKIN: Warm and dry. HEAD: Atraumatic. Normocephalic. EYES: Pupils equal and round. No scleral icterus. ENT: No nasal bleeding or discharge. NECK: Trachea midline. No JVD. CARDIOVASCULAR: RRR RESPIRATORY: No accessory muscle use. GASTROINTESTINAL: Abdomen soft, non-tender, nondistended. MUSCULOSKELETAL: Extremities without clubbing, cyanosis, or edema. No obvious deformities. NEUROLOGICAL: Awake and alert, oriented x2, follows, articulate, face sym, no drift, mild rt ue dystaxia, rest 5/5, sensory nml PSYCHIATRIC: Appropriate mood and affect; insight and judgment normal . - Constitutional no acute distress - Routine HEENT Exam Head: Present: normocephalic Objective Laboratory Results - last 24 hr 02/04/18 02/04/18 02/04/18 12:44 17:17 21:15 Sodium Potassium Chloride Carbon Dioxide Anion Gap BUN Creatinine Estimated GFR POC Glucose 148 H 147 H 196 H Random Glucose Calcium 02/05/18 02/05/18 05:47 07:31 Sodium 143 Potassium 4.0 Chloride 110 H Carbon Dioxide 24.8 Anion Gap 8 BUN 21 H Creatinine 1.58 H Estimated GFR 43 L POC Glucose 130 H Random Glucose 124 H Calcium 8.6 Review/Management - Diagnosis (1) Acute ischemic stroke Code(s): I63.9 - Cerebral infarction, unspecified Status: Acute Current Visit: Yes (2) Hypertension Code(s): I10 - Essential (primary) hypertension Status: Chronic Current Visit: Yes (3) Chronic arterial ischemic stroke Code(s): I69.30 - Unspecified sequelae of cerebral infarction Status: Acute Current Visit: Yes (4) MCI (mild cognitive impairment) Code(s): G31.84 - Mild cognitive impairment, so stated Status: Acute Current Visit: Yes - Review/Management Plan: Status post IV TPA Right subcortical ischemic infarct, exam improved. NIH stroke scale score 1 Possible artery artery emboli from the vertebrobasilar system. 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 Not sure why it was discontinued possibly for falls or bleed. Patient is not certain. In any event, based on the advanced intracranial atherosclerotic disease maximizing medical management and antiplatelet agents may be the best treatment of choice Recommendation neuro stable aspirin/plavix statin doing well d/c planning today back to his facility with p.t. f/u outpatient in 2 weeks Behavioral modification and risk factor reduction. Weight loss, blood pressure control, blood sugar control, lipid control. Exercise (2) Hypertension Qualifiers: Hypertension type: essential hypertension Qualified Code(s): I10 - Essential (primary) hypertension
[2018-02-05] MEDS: Lisinopril 10 MG Tablet PO SCH (08:43)
[2018-02-05] MEDS: Insulin NovoLOG Aspart Correctional Sugar Inj SQ SCH ×2 (08:43→12:52)
[2018-02-05] MEDS: Senna/Docusate Sodium 8.6/50 MG Tablet PO SCH (08:45)
[2018-02-05] MEDS: QUEtiapine 25 MG Tablet PO SCH ×2 (08:47→12:52)
[2018-02-05] MEDS ORDERED: Famotidine 20 MG Tablet PO SCH (09:00)
--- NOTE | 2018-02-05 10:00 | P.PN ---
Subjective Interval history: Status post acute CVA, post TPApatient seen and examined, remains awake, and oriented x 3. Speech at times hesitant, but otherwise appropriate. 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 No dizziness, no double vision. States his memory is not the best and is asking what he can do to improve it. Denies any CP, sob, no fever, no n/v/d. Physical Exam Vital signs: Vital Signs 02/04/18 12:00 02/04/18 16:00 02/04/18 17:53 Temperature 98.6 F 98.3 F Pulse Rate 69 74 Respiratory Rate 18 18 Blood Pressure 187/56 H 180/85 H Pulse Oximetry 100 98 98 02/04/18 19:00 02/05/18 00:00 02/05/18 07:54 Temperature 98.4 F 98.4 F 97.5 F L Pulse Rate 73 88 60 Respiratory Rate 20 20 20 Blood Pressure 196/89 H 170/83 H 168/81 H Pulse Oximetry 99 95 98 Intake & Output 02/04/18 02/05/18 02/05/18 18:59 06:59 18:59 Intake Total 480 / 480 Output Total 500 / 500 Balance -20 / -20 Weight 77.6 kg Intake: Oral 480 / 480 Output: Urine 500 / 500 Other: Post Void Residual 500 Date of Last Bowel Movement 02/03/18 02/05/18 # Bowel Movements 1 Narrative: GENERAL: 72-year-old well-developed well-nourished, no apparent distress. SKIN: Warm and dry. HEAD: Atraumatic. Normocephalic. EYES: Pupils equal and round. No scleral icterus. ENT: No nasal bleeding or discharge. NECK: Trachea midline. No JVD. CARDIOVASCULAR: RRR, no MRG RESPIRATORY: No accessory muscle use. GASTROINTESTINAL: Abdomen soft, non-tender, nondistended. MUSCULOSKELETAL: Extremities without clubbing, cyanosis, or edema. No obvious deformities. NEUROLOGICAL: Awake and alert, oriented x3, slow to respond, but clear. 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 BLE 5/5. PSYCHIATRIC: Appropriate mood and affect; insight and judgment normal Results - Labs CBC & Chem 7: 02/05/18 05:47 Laboratory Results - last 24 hr 11/29/18 11/29/18 11/29/18 12:44 17:17 21:15 Sodium Potassium Chloride Carbon Dioxide Anion Gap BUN Creatinine Estimated GFR POC Glucose 148 H 147 H 196 H Random Glucose Calcium 02/05/18 02/05/18 05:47 07:31 Sodium 143 Potassium 4.0 Chloride 110 H Carbon Dioxide 24.8 Anion Gap 8 BUN 21 H Creatinine 1.58 H Estimated GFR 43 L POC Glucose 130 H Random Glucose 124 H Calcium 8.6 Assessment and Plan - Assessment (1) Acute ischemic stroke Code(s): I63.9 - Cerebral infarction, unspecified Status: Acute (2) Hypertension Code(s): I10 - Essential (primary) hypertension Status: Chronic (3) Hyperlipidemia Code(s): E78.5 - Hyperlipidemia, unspecified Status: Chronic (4) Diabetes 1.5, managed as type 2 Code(s): E10.9 - Type 1 diabetes mellitus without complications Status: Chronic - Plan 72-year-old male admitted for acute stroke. Symptoms of dysarthric speech left- sided numbness and weakness. Symptoms fluctuating in the ER. S/P IV TPA with improvement. Was on Nicardipene gtt for BP control Acute CVA, right subcorticl ischemic infarct, S/P TPA-with improvement. Hx of CVA in 2013 no residuals Was on Warfarin, med records reviewed, was on Warfarin back in 2013 after he was found with TIA poss. 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 Pt and son unclear why he is not on anymore. -continue with neuro checks -appreciate neuro input, possible artery artery emboli from the vertebrobasilar system. 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 Recommends antiplatelet agent. -Follow-up CT of the brain 1128, no hemorrhage. -Continue with Plavix, statin Hemoglobin A1c 6.8, lipid profile noted -2D echo results noted, EF 60-65%. -Telemetry reviewed, no evidence of A. fib -PT/OT/ST Hypertension, initially uncontrolled, was on nicardipine Blood pressure 160s over 80s, overnight 180s. Continue with lisinopril, will inc. metoprolol 25 mg p.o. twice daily -Inc Lisinopril to 10 mg PO BID Hyper lipidemia Lipid profile done Continue with statin Dementia continue with Aricept and Namenda CKD 3, has know hx creat today 1.58 -med records reviewed, creat stable -avoid nephrotoxic agents. CM consult for dc planning, HHC with PT/OT/ST Labs reviewed stable cleared for dc by neurology [facility]/PT/ST/OT F/U Dr. Arango 1-2 weeks F/U PCP 1 week Diet-diabetic Activity-as tolerated Code Status: Full code Discussed Condition With: RN, pt, CM, pt's son Discharge Planning: Discharge to [facility] with HHC and PT/OT/ST (2) Hypertension Qualifiers: Hypertension type: essential hypertension Qualified Code(s): I10 - Essential (primary) hypertension (3) Hyperlipidemia Qualifiers: Hyperlipidemia type: unspecified Qualified Code(s): E78.5 - Hyperlipidemia, unspecified
[2018-02-05] MEDS: Brimonidine 0.2% Opth Drops 5 ML Bottle EACH EYE SCH (13:28)
[2018-02-05 15:59] VITALS: BP 117/62; PULSE 61; TEMP 98.3; O2SAT 96
--- NOTE | 2018-02-05 18:37 | P.DS ---
Date of admission: 02/02/18 14:53 Primary care physician: UNKNOWN Attending physician on discharge: Thong Flowers Anticipated date of discharge: 02/05/18 Brief History from admission: This 72-year-old gentleman has experiencing left arm and leg weakness since yesterday. This is waxed and waned but this morning he developed dysarthric speech combined with left arm and leg weakness. He came to the emergency department where CAT scan of the head was negative for acute event and he subsequently received TPA after consultation with neurology service. By the time I saw him in the emergency department about an hour later he had 4/5 strength in his left arm and 4/5 strength in his left leg. The right side was normal. His speech had considerably cleared although he felt it was still abnormal. He has required low-dose nicardipine for control of hypertension. 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 He has been on long-term antiplatelet therapy. DS: Diagnosis - Discharge Diagnosis (1) Acute ischemic stroke Status: Acute (2) Hypertension Status: Chronic (3) Hyperlipidemia Status: Chronic (4) Diabetes 1.5, managed as type 2 Status: Chronic DS: Medications - Discharge Medications Prescriptions: aspirin 81 mg PO DAILY 30 Days #30 tab lisinopril 10 mg PO BID 30 Days #60 tab metoprolol tartrate 25 mg PO BID 30 Days #60 tab DS: Summary Hospital Course: 72-year-old male admitted for acute stroke. Symptoms of dysarthric speech left- sided numbness and weakness. Symptoms fluctuating in the ER. S/P IV TPA with improvement. Was on Nicardipene gtt for BP control. Acute CVA, right subcorticl ischemic infarct, S/P TPA-with improvement. Hx of CVA in 2013 no residuals Was on Warfarin. Med records reviewed, was on Warfarin back in 2013 after he was found with TIA poss. 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 Pt and son unclear why he is not on anymore. -continued with neuro checks -appreciate neuro input, possible artery artery emboli from the vertebrobasilar system. 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 Recommended antiplatelet agent and risk factor modification. -Follow-up CT of the brain 1128, no hemorrhage. -Continued with Plavix, statin Hemoglobin A1c 6.8, lipid profile noted -2D echo results noted, EF 60-65%. -Telemetry reviewed, no evidence of A. fib -PT/OT/ST initiated with recommendations noted. Pt. was a resident at [facility] already receiving PT Hypertension, initially uncontrolled, was on nicardipine Blood pressure 160s over 80s, overnight 180s. Continued with lisinopril, which was increased to 10 mg po bid. Inc. metoprolol 25 mg p.o. twice daily -BP improved Hyper lipidemia Lipid profile done Continued with statin Dementia continued with Aricept and Namenda CKD 3, has know hx creat today 1.58 -med records reviewed, creat stable -avoided nephrotoxic agents. CM consult for dc planning, HHC with PT/OT/ST Labs reviewed stable cleared for dc by neurology Discharged to [facility] with HHC/PT/ST/OT F/U Dr. Arango 1-2 weeks F/U PCP 1 week Diet-diabetic Activity-as tolerated - Time Spent with Patient Total time spent providing and/or coordinating discharge services: 45 minutes Greater than 30 minutes - Quality: VTE Deep Vein Thrombosis/Pulmonary Embolism Present on Admission: No Exam Vital signs: Vital Signs 02/04/18 19:00 02/05/18 00:00 02/05/18 07:54 Temperature 98.4 F 98.4 F 97.5 F L Pulse Rate 73 88 60 Respiratory Rate 20 20 20 Blood Pressure 196/89 H 170/83 H 168/81 H Pulse Oximetry 99 95 98 02/05/18 12:00 02/05/18 15:57 Temperature 97.9 F 98.3 F Pulse Rate 50 L 61 Respiratory Rate 20 20 Blood Pressure 171/77 H 117/62 Pulse Oximetry 97 96 Intake & Output 02/04/18 02/05/18 02/05/18 18:59 06:59 18:59 Intake Total 480 / 480 240 / 240 Output Total 500 / 500 300 / 300 Balance -20 / -20 -60 / -60 Weight 77.6 kg Intake: Oral 480 / 480 240 / 240 Output: Urine 500 / 500 300 / 300 Other: Post Void Residual 500 Date of Last Bowel Movement 02/03/18 02/05/18 02/05/18 # Bowel Movements 1 1 Results Procedures completed during hospitalization: none Labs on day of discharge: Labs from last 24 hours 02/05/18 02/05/18 02/05/18 11:54 07:31 05:47 Sodium 143 Potassium 4.0 Chloride 110 H Carbon Dioxide 24.8 Anion Gap 8 BUN 21 H Creatinine 1.58 H Estimated GFR 43 L POC Glucose 179 H 130 H Random Glucose 124 H Calcium 8.6 02/04/18 21:15 Sodium Potassium Chloride Carbon Dioxide Anion Gap BUN Creatinine Estimated GFR POC Glucose 196 H Random Glucose Calcium - Impressions ITS Impressions Head MRI 02/02/18 00:00 CONCLUSION: Small right basal ganglia subacute infarct. Chest X-Ray 02/02/18 11:38 CONCLUSION: No acute disease Head CTA 02/02/18 11:38 CONCLUSION: 1. The examination demonstrates extensive atherosclerotic disease involving the distal vertebral arteries and basilar. There are 2 areas of very high-grade stenosis evident within the basilar itself. 2. The distal internal carotid circulation is widely patent. The anterior and middle cerebral circulation appears within normal limits by CT angiography. No large or central vessel occlusion is present. Report was called by [Dr. Logan to Dr. Arango at 12:05pm] Neck CTA 02/02/18 11:38 CONCLUSION: 1. Previous left carotid endarterectomy. No recurrent stenosis identified. 2. Moderate soft plaquing at the bifurcation on the right with mild stenosis in the origin of the right internal carotid. This is estimated to be in the range of 20%. 3. Occlusion of the right vertebral at its origin with reconstitution of the distal neck. 4. The left vertebral is patent but diseased in its distal segment. The basilar is heavily diseased as well. Head CT 02/03/18 11:56 CONCLUSION: No evidence of intracranial hemorrhage . Discharge Plan - Discharge Disposition Patient Disposition: 04 [facility] - Discharge Condition Condition: Stable - Discharge Order Discharge Orders: Discharge Order (Routine); Ordered 02/05/18 Ordered By: Octavia Menendez - Discharge Details Anticipated Discharge Date: 02/05/18 - Physicians Team Primary Care Provider: UNKNOWN, Attending Provider: Thong Flowers Other Providers: Paul Arango MD
[2018-02-05] MEDS ORDERED: Lisinopril 10 MG Tablet PO SCH (21:00)
== END 2018-02-05 16:15 ==
LOC: NEPE 11:32 → NEDH 14:53 → N03 18:34 → N05 02-03 21:18
PROVIDERS: ADMIT Internal Medicine; ATTEND Internal Medicine

== ENCOUNTER 2018-02-06 11:44 | Observation (INO) ==
[2018-02-06 12:10] LABS: Baso % (Auto) 0.4 % (0.0-2.0); Eos # (Auto) 0.4 th/mm3 (0.0-0.4); Hematocrit 41.3 % (39.0-51.0); Hemoglobin 13.2 gm/dL (13.0-17.0); Lymph # (Auto) 1.8 th/mm3 (1.0-4.8); Lymph % (Auto) 17.3 % (9.0-44.0); Mean Corpuscular HGB Conc 31.9 % (32.0-36.0); Mean Corpuscular Volume 97.1 fL (80.0-100.0); Mean Platelet Volume 9.2 fL (7.0-11.0); Mono # (Auto) 1.2 th/mm3 (0.0-0.9); Neut # (Auto) 6.8 th/mm3 (1.8-7.7); Neut % (Auto) 66.3 % (16.0-70.0); Platelet Count 288 th/mm3 (150-450); Red Blood Count 4.26 mil/mm3 (4.50-5.90); Red Cell Distribution Width 13.4 % (11.6-17.2); White Blood Count 10.3 th/mm3 (4.0-11.0)
--- NOTE | 2018-02-06 12:18 | CT ---
EXAM DATE: 02/06/2018 12:11 PM EST AGE/SEX: 72 years / Male INDICATIONS: Left sided weakness, slurred speech. Since 8a. CLINICAL DATA: This is the patient's initial encounter. Patient reports that signs and symptoms have been present for 1 day and indicates a pain score of 0/10. MEDICAL/SURGICAL HISTORY: Non-responsive. Non-responsive. RADIATION DOSE: 56.35 CTDI (mGy) COMPARISON: [facility], CTA HEAD W CONTRAST W 3D, 02/06/2018. . TECHNIQUE: CT of the head without contrast. Using automated exposure control and adjustment of the mA and/or kV according to patient size, radiation dose was kept as low as reasonably achievable to ob tain optimal diagnostic quality images. DICOM format image data is available electronically for revi ew and comparison. FINDINGS: Cerebrum: The ventricles are normal for age. There is bilateral cortical atrophy. There is an old i nfarct in the right basal ganglia. No evidence of midline shift, mass lesion, hemorrhage or acute inf arction. No extraaxial fluid collections are seen. Posterior Fossa: The cerebellum and brainstem are intact. 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 The 4th ventricle is midline. The cereb ellopontine angle is unremarkable. Extracranial: The visualized portion of the orbits is intact. Skull: The calvaria is intact. No evidence of skull fracture. CONCLUSION: 1. No focal or acute intracranial hemorrhage. Report was called by [ Dr. Mcclelland to Dr. Mendoza at 12:14 PM] Electronically signed by: Zack Mcclelland MD 02/06/2018 12:17 PM EST
[2018-02-06 12:25] LABS: Activated Partial Thrombo Time 25.9 sec (23.4-31.7); Prothrombin Time 10.6 sec (9.8-11.6)
--- NOTE | 2018-02-06 12:28 | CT ---
EXAM DATE: 02/06/2018 12:18 PM EST AGE/SEX: 72 years / Male INDICATIONS: Left sided weakness, slurred speech. CLINICAL DATA: This is the patient's initial encounter. Patient reports that signs and symptoms have been present for 1 day and indicates a pain score of 0/10. MEDICAL/SURGICAL HISTORY: Non-responsive. Non-responsive. RADIATION DOSE: 28.41 CTDI (mGy) ; Combined studies COMPARISON: [facility] [place], CTA HEAD W CONTRAST W 3D, 02/02/2018. . TECHNIQUE: Volumetric scanning was performed using a multi-row detector CT scanner during bolus infu siri of 100ml ml Visipaque 320 (iodixanol) nonionic water-soluble contrast as a cumulative dose for multiple exams. The data was post processed with a variety of visualization algorithms including fu ll volume maximum intensity projection, multi-planar sliding thin slab reformation, curved planar ref ormation, and surface rendering techniques. Using automated exposure control and adjustment of the m A and/or kV according to patient size, radiation dose was kept as low as reasonably achievable to obt ain optimal diagnostic quality images. DICOM format image data is available electronically for revie w and comparison. FINDINGS: Today's examination is compared to the prior studies. There has been no significant change with the o verall appearance of the vascular structures surrounding the [place] compared to the prior s tudies. The A1 and M1 segments are patent bilaterally. The middle and anterior cerebral vessels are p atent bilaterally. There continues to be atherosclerotic changes with areas of stenosis involving the basilar artery. This is stable compared to the prior studies. No evidence of any new focal arterial occlusion is demonstrated. CONCLUSION: 1. Stable CTA of the brain compared to the prior exams. There continues to be atherosclerotic change s with areas of focal stenosis involving the basilar artery. No significant change compared to the pr ior studies. Report was called by [Dr. Mcclelland to Dr. Mendoza at 12:[address] Schroeder at 12:18 PM ] Electronically signed by: Zack Mcclelland MD 02/06/2018 12:27 PM EST
[2018-02-06 12:34] LABS: Troponin I 0.03 ng/mL (0.02-0.05)
--- NOTE | 2018-02-06 12:35 | ED ---
HPI General Chief Complaint: Stroke Alert Stated Complaint: Stroke Alert Time Seen by Provider: 02/06/18 11:48 Source: patient Mode of arrival: EMS Limitations: no limitations History of Present Illness Onset (ago): hour(s) (3) Last Observed Normal: 08:00 Timing confirmed by: caregiver Location: Reports speech, left face, dysarthria and left arm History of same: Yes (This patient received TPA for a stroke with pretty much the exact same symptoms on 02/02) Severity: mild Quality: Reports weak Relieving factors: none Exacerbating factors: none Context: Reports sudden onset On Anticoagulants: No (He is on aspirin and Plavix) Associated symptoms: Reports denies other symptoms Treatments Prior to Arrival: Reports none Related Data Home Medications Medication Instructions Recorded Confirmed alfuzosin 10 mg PO DAILY 02/02/18 02/02/18 atorvastatin 80 mg PO DAILY 02/02/18 02/02/18 brimonidine 1 drp OPHTHALMIC (EYE) BID 02/02/18 02/02/18 buspirone 7.5 mg PO BID 02/02/18 02/02/18 clopidogrel [Plavix] 75 mg PO DAILY 02/02/18 02/02/18 donepezil 5 mg PO DAILY 02/02/18 02/02/18 famotidine 20 mg PO DAILY 02/02/18 02/02/18 levothyroxine 175 mcg PO DAILY 02/02/18 02/02/18 memantine 10 mg PO BID 02/02/18 02/02/18 metformin 500 mg PO BID 02/02/18 02/02/18 quetiapine [Seroquel] 25 mg PO TID 02/02/18 02/02/18 trazodone 25 mg PO HS 02/02/18 02/02/18 Previous Rx's Medication Instructions Recorded aspirin 81 mg PO DAILY 30 Days #30 tab 02/05/18 lisinopril 10 mg PO BID 30 Days #60 tab 02/05/18 metoprolol tartrate 25 mg PO BID 30 Days #60 tab 02/05/18 Allergies Allergy/AdvReac Type Severity Reaction Status Date / Time No Known Allergies Allergy Verified 02/06/18 12:15 Review of Systems ROS: all other systems reviewed are negative [facility] Medical History Medical History Alzheimer disease (Acute) Diabetes mellitus, type 2 (Acute) Hx of transient ischemic attack (TIA) (Acute) Hyperlipemia (Acute) Hypertension (Acute) Hypothyroid (Acute) Stroke (Acute) Surgical History Surgical History Hx of cardiac cath (Acute) Hx of tonsillectomy (Acute) Social History Social History Substance History: No History of Abuse Second Hand Smoke Exposure: No Smoking Status: Never smoker How Often Do You Have a Drink Containing Alcohol: Monthly or less Recent Travel in [facility] within the Last 8 Weeks: No Recent Out of Country Travel within the Last 8 Weeks: No Immunization History Tetanus Immunization: <5 Years Exam Const General: cooperative, healthy appearing and comfortable Orientation: alert, awake and oriented x3 HENMT Head: normal to inspection, normocephalic and atraumatic Eyes Alignment and Position: alignment normal Conjunctivae: conjunctivae normal Sclera: sclerae normal EOM: EOM intact bilaterally Neck Neck: normal visual inspection, no lymphadenopathy and no meningeal signs Chest Chest: normal inspection of the chest Resp Effort & Inspection: normal respiratory effort and able to speak in complete sentences Auscultation: clear to auscultation bilaterally Cardio Rate: regular rate Rhythm: regular rhythm Back/Spine/Pelvis Cervical Spine: cervical ROM normal Thoracic/Lumbar Spine: thoraco-lumbar ROM normal Skin General: no rashes or lesions noted, turgor normal and dry skin Neuro General: alert, awake and oriented x3 Cranial Nerves: other (Tongue protrudes slightly to the right. The remainder of his cranial nerves appear to be intact.) Cognition: normal cognition Speech: other (Mild dysarthria) Motor: pronator drift pronator drift of left upper extremity and strength abnormal (Left upper extremity) Coordination: [id number] test normal Extrem General: normal to inspection and full ROM Psych Appearance: grossly normal Mental Status: mental status grossly normal Speech and Movement: speech and movement normal Mood: congruent mood Affect: normal affect Attitude: cooperative Thought Process: normal Thought Content: normal Judgment: judgment good Course Consultations Consultation #1: Dr. Schroeder, neurology. No TPA since he just had TPA a couple of days ago. She does recommend a CTA of the head and neck to evaluate for appropriateness for IR procedure. She also recommends initiating an anticoagulant. Time: 11:50 Consultation #2: Dr. Hernandez will admit. Time: 12:33 Initial Documented Vital Signs Temperature 98.1 F 02/06/18 11:45 Pulse Rate 60 02/06/18 11:45 Respiratory Rate 23 02/06/18 11:45 Blood Pressure 148/70 H 02/06/18 11:45 Pulse Oximetry 98 02/06/18 11:45 Last Documented Vital Signs Temperature 98.1 F 02/06/18 11:45 Pulse Rate 56 L 02/06/18 12:16 Respiratory Rate 18 02/06/18 12:16 Blood Pressure 149/67 H 02/06/18 12:16 Pulse Oximetry 99 02/06/18 12:16 Critical Care Time Critical Care Time: Yes Total Critical Care Time: 30 Attestation: Time to perform other separately billable procedures was not included in the critical care time. My time did not include minutes spent treating any other patients simultaneously or on activities that did not directly contribute to the patient's treatment. The services I provided to this patient were to treat and/or prevent clinically significant deterioration due to Acute TIA versus stroke I provided critical care services requiring my management, as noted below: Chart data review, documentation time, medication orders and management, vital sign assessments/reviewing monitor data, ordering and reviewing lab tests, ordering and interpreting/reviewing x-rays and diagnostic studies, care of the patient and discussion of the patient with the admitting physicians NIH Stroke Scale NIH Stroke Scale Level of Consciousness: 0-Alert Orientation Questions: 0-Answers both correct Responds to Commands: 0-Both tasks correct Gaze Eye Movement: 0-Horizontal movement WNL Visual Kumar: 0-No visual field defect Facial Movement: 0-Normal Motor Functions Arm LEFT: 1-Drift before 10 seconds Motor Functions Arm RIGHT: 0-No drift Motor Functions Leg LEFT: 0-No drift Motor Functions Leg RIGHT: 0-No drift Limb Ataxia: 0-No ataxia Sensory Loss: 0-No sensory loss Best Language: 0-Normal Articulation: 1-Mild dysarthia Extinction or Inattention Sensory: 0-Absent Total: 2 Quality Measure Queries Stroke Last date observed well: 02/06/18 Last time observed well: 08:00 Medical Decision Making MDM Narrative Medical decision making narrative: Patient presents as a stroke alert. He was here as a stroke alert on 02/02. His symptoms today are exactly the same as they were on 02/02. The patient was sent emergently to CT where he had a CT of his head, CTA of his head and CTA of his neck. All studies are unremarkable. This patient is being admitted to observation for an MRI and initiation of anticoagulation. Medical Screen Exam Complete: Yes Emergency Medical Condition: Yes Differential Diagnosis Differential Diagnosis: Differential diagnosis includes but is not limited to TIA, CVA, brain tumor, migraine, anxiety Medical Records Medical records reviewed: Yes I reviewed the patient's medical records. The patient was admitted as a stroke alert on 02/02. He received TPA. Lab Data Lab results reviewed: Yes I reviewed the patient's lab results. Result diagrams: 02/06/18 11:50 Lab Results 02/06/18 02/06/18 Range/Units 11:50 11:50 WBC 10.3 (4.0-11.0) th/mm3 RBC 4.26 L (4.50-5.90) mil/mm3 Hgb 13.2 (13.0-17.0) gm/dL POC Hgb (Calc) 13.3 (13.0-17.0) g/dL Hct 41.3 (39.0-51.0) % POC Hct 39.0 (39-51.0) % MCV 97.1 (80.0-100.0) fL MCH 31.0 (27.0-34.0) pg MCHC 31.9 L (32.0-36.0) % RDW 13.4 (11.6-17.2) % Plt Count 288 (150-450) th/mm3 MPV 9.2 (7.0-11.0) fL Neut % (Auto) 66.3 (16.0-70.0) % Lymph % (Auto) 17.3 (9.0-44.0) % [place] % (Auto) 12.0 H (0.0-8.0) % Eos % (Auto) 4.0 (0.0-4.0) % Baso % (Auto) 0.4 (0.0-2.0) % Neut # (Auto) 6.8 (1.8-7.7) th/mm3 Lymph # (Auto) 1.8 (1.0-4.8) th/mm3 [place] # (Auto) 1.2 H (0.0-0.9) th/mm3 Eos # (Auto) 0.4 (0.0-0.4) th/mm3 Baso # (Auto) 0.0 (0.0-0.2) th/mm3 WBC Differential . Differential Comment Auto diff final POC Sodium 140 (137-144) mmol/L POC Potassium 4.8 (3.6-5.0) mmol/L POC Chloride 106 (102-111) mmol/L POC BUN 35 H (5-21) mg/dL POC Creatinine 2.8 H (0.6-1.3) mg/dL POC Glucose 182 H (68-110) mg/dL Imaging Data Radiologist's impression: Head CT 02/06/18 11:45 CONCLUSION: 1. No focal or acute intracranial hemorrhage. Report was called by [ Dr. Mcclelland to Dr. Mendoza at 12:14 PM] ECG Data EKG Prior to Arrival: No Attestation: I personally reviewed and interpreted this ECG as follows: (EKG shows a sinus bradycardia at 50. No acute STT wave changes.) Discharge Plan Discharge Disposition Patient Disposition: 30 Still Patient Discharge Details Diagnosis: TIA (transient ischemic attack) Physicians Team ED Provider: Adamaris Mendoza Primary Care Provider: Barrie Villareal Rxs /Orders / Referrals /Forms Prescriptions: No Action quetiapine [Seroquel] 25 mg Tablet 25 mg PO TID RF: 0 metformin 500 mg Tablet 500 mg PO BID RF: 0 levothyroxine 175 mcg Tablet 175 mcg PO DAILY RF: 0 atorvastatin 80 mg Tablet 80 mg PO DAILY RF: 0 donepezil 5 mg Tablet 5 mg PO DAILY RF: 0 trazodone 50 mg Tablet 25 mg PO HS RF: 0 clopidogrel [Plavix] 75 mg Tablet 75 mg PO DAILY RF: 0 famotidine 20 mg Tablet 20 mg PO DAILY RF: 0 brimonidine 0.2 % Drops 1 drp OPHTHALMIC (EYE) BID RF: 0 buspirone 7.5 mg Tablet 7.5 mg PO BID RF: 0 alfuzosin 10 mg Tablet Extended Release 24 Hr 10 mg PO DAILY RF: 0 memantine 10 mg Tablet 10 mg PO BID RF: 0 lisinopril 10 mg Tablet 10 mg PO BID 30 Days Qty: 60 RF: 0 aspirin 81 mg Tablet,Chewable 81 mg PO DAILY 30 Days Qty: 30 RF: 0 metoprolol tartrate 25 mg Tablet 25 mg PO BID 30 Days Qty: 60 RF: 0 Discharge Interventions Interventions: Vital Signs Last Done: 02/06/18 12:16 Status ED Status: With Doctor
--- NOTE | 2018-02-06 12:36 | XR ---
EXAM DATE: 02/06/2018 12:34 PM EST AGE/SEX: 72 years / Male INDICATIONS: Stroke alert. CLINICAL DATA: This is the patient's initial encounter. Patient reports that signs and symptoms have been present for 1 day and indicates a pain score of 0/10. MEDICAL/SURGICAL HISTORY: Myocardial infarction. Cardiovascular disease. CABG. COMPARISON: [facility] [place], CHEST 1V SINGLE AP, 02/02/2018. . FINDINGS: There is a new focal infiltrate in the left lower lung by the left costophrenic angle. The right lung is clear and well-aerated. No new infiltrates are seen in the right lung. The heart size is stable. There is evidence of previous cardiothoracic surgery. CONCLUSION: New small focal infiltrate in the left lower lung. Electronically signed by: Zack Mcclelland MD 02/06/2018 12:35 PM EST
[2018-02-06] MEDS ORDERED: Dextrose 50% in Water 50 ML Vial IV.PUSH PRN (12:37)
[2018-02-06] MEDS ORDERED: Insulin NovoLOG Aspart Correctional Sugar Inj SQ PRN (12:37)
[2018-02-06] MEDS ORDERED: Enoxaparin Inj 40 MG/0.4 ML Syringe SQ SCH (12:45)
--- NOTE | 2018-02-06 13:02 | P.HPIM ---
History of Present Illness Service: [facility] Primary Care Physician: Barrie Villareal MD Chief Complaint: LEFT FACE, DYSARTHRIA AND LEFT SIDE ARM WEAK AND SPEECH ISSUES History of Present Illness: Patient is a 72-year-old male who is just recently in the hospital after having TPA for stroke with pretty much the exact same symptoms on February 02. He came in with some speech issues and some left facial droop and dysarthria and left arm issues. He had some weakness. He is on aspirin and Plavix. Denies any other symptoms. Treatment prior to arrival was none. Had recently been discharged. Have discussed with neurology. They recommended getting an MRI of the brain. Will get carotid Dopplers. Is recently had an echo that was stable with an EF of 60-65%. If patient still having issues will be switched to Eliquis at discharge at the moment he is currently on aspirin and Plavix as well as a statin already Review of Systems All other systems reviewed negative except as stated in HPI [facility] - History History Provided By: Patient, Family Member - Medical History Medical History: Medical History (Last Updated 02/06/18 @ 12:49 by Joni Hernandez DO) BPH (benign prostatic hyperplasia) Dementia Alzheimer disease Diabetes mellitus, type 2 Hx of transient ischemic attack (TIA) Hyperlipemia Hypertension Hypothyroid Stroke - Surgical History Surgical History: Surgical History (Last Updated 02/06/18 @ 12:48 by Joni Hernandez DO) H/O carotid endarterectomy Hx of cardiac cath Hx of tonsillectomy - Family History Family History: Family History (Last Updated 02/06/18 @ 12:48 by Joni Hernandez DO) Other Family history of hypertension - Social History I have reviewed the patient's Social History: Yes - Tobacco History Second Hand Smoke Exposure: No Tobacco Use In Past 30 Days: No Smoking Status: Never smoker - Alcohol History How Often Do You Have a Drink Containing Alcohol: Monthly or less - Substance Use History Substance History: No History of Abuse - Travel History History of Recent Travel: No Recent Travel in the [place] Within the Last 8 Weeks: No Recent Travel Out of the Country Within the Last 8 Weeks: No - Immunization History Tetanus Immunization: <5 Years Medications and Allergies Active Medications: Active Medications Aspirin (Aspirin Chew) 81 mg PO DAILY MELANIE Atorvastatin Calcium (Lipitor) 80 mg PO DAILY MELANIE Brimonidine Tartrate (Alphagan 0.2% Opth Drops) drops EACH EYE BID [facility] Clopidogrel Bisulfate (Plavix) 75 mg PO DAILY [facility] Dextrose (D50w Vial) 50 ml IV.PUSH UNSCH PRN PRN Reason: per Hypoglycemic Protocol Donepezil HCl (Aricept) 5 mg PO DAILY [facility] Enoxaparin Sodium (Lovenox Inj) 40 mg SQ Q24H [facility] Famotidine (Pepcid) 20 mg PO DAILY [facility] Glucagon (Glucagon Inj) 1 mg OTHER UNSCH PRN PRN Reason: per Hypoglycemic Protocol Insulin Aspart (Novolog Insulin Correctional Sugar Inj) 0 unit SQ ACHS PRN; Protocol PRN Reason: Per Protocol Lisinopril (Prinivil) 10 mg PO BID [facility] Memantine (Namenda) 10 mg PO BID [facility] Metformin HCl (Glucophage) 500 mg PO BID [facility] Metoprolol Tartrate (Lopressor) 25 mg PO BID [facility] Non-Formulary Medication (Buspirone [Buspirone]) 7.5 mg PO BID [facility] Non-Formulary Medication (Levothyroxine [Levothyroxine]) 175 mcg PO DAILY [facility] Non-Formulary Medication (Alfuzosin [Alfuzosin]) 10 mg PO DAILY [facility] Quetiapine Fumarate (Seroquel) 25 mg PO TID [facility] Trazodone HCl (Desyrel) 25 mg PO HS [facility] Allergies Allergy/AdvReac Type Severity Reaction Status Date / Time No Known Allergies Allergy Verified 02/06/18 12:15 Home Medications Medication Instructions Recorded Confirmed Type alfuzosin 10 mg PO DAILY 02/02/18 02/06/18 History atorvastatin 80 mg PO DAILY 02/02/18 02/06/18 History brimonidine 1 drp OPHTHALMIC (EYE) BID 02/02/18 02/06/18 History buspirone 7.5 mg PO BID 02/02/18 02/06/18 History clopidogrel [Plavix] 75 mg PO DAILY 02/02/18 02/06/18 History donepezil 5 mg PO DAILY 02/02/18 02/06/18 History famotidine 20 mg PO DAILY 02/02/18 02/06/18 History levothyroxine 175 mcg PO DAILY 02/02/18 02/06/18 History memantine 10 mg PO BID 02/02/18 02/06/18 History metformin 500 mg PO BID 02/02/18 02/06/18 History quetiapine [Seroquel] 25 mg PO TID 02/02/18 02/06/18 History trazodone 25 mg PO HS 02/02/18 02/06/18 History Exam Vital signs: Vital Signs 02/06/18 11:45 02/06/18 11:51 02/06/18 11:58 Temperature 98.1 F Pulse Rate 60 52 L 51 L Respiratory Rate 23 15 Blood Pressure 148/70 H 148/69 H Pulse Oximetry 98 97 02/06/18 12:16 Temperature Pulse Rate 56 L Respiratory Rate 18 Blood Pressure 149/67 H Pulse Oximetry 99 Intake & Output 02/05/18 02/06/18 02/06/18 18:59 06:59 18:59 Weight 79.8 kg Narrative: GENERAL: Awake and alert talkative and cooperative moves all 4 extremities following commands well SKIN: Warm and dry. HEAD: Atraumatic. Normocephalic. EYES: Pupils equal and round. No scleral icterus. No injection or drainage. ENT: No nasal bleeding or discharge. Mucous membranes pink and moist. NECK: Trachea midline. No JVD. CARDIOVASCULAR: Regular rate and rhythm. S1, S2 NO S3 OR S4 NO HEAVE OR THRILL RESPIRATORY: No accessory muscle use. Clear to auscultation. Breath sounds equal bilaterally. GASTROINTESTINAL: Abdomen soft, non-tender, nondistended. Hepatic and splenic margins not palpable. MUSCULOSKELETAL: Extremities without clubbing, cyanosis, or edema. No obvious deformities. NEUROLOGICAL: Awake and alert. No obvious cranial nerve deficits. Motor grossly within normal limits. Five out of 5 muscle strength in the arms and legs. Normal speech. PSYCHIATRIC: Appropriate mood and affect; insight and judgment normal. Results - Labs CBC & Chem 7: 02/06/18 11:50 Labs: Short CBC 02/06/18 Range/Units 11:50 WBC 10.3 (4.0-11.0) th/mm3 Hgb 13.2 (13.0-17.0) gm/dL Hct 41.3 (39.0-51.0) % Plt Count 288 (150-450) th/mm3 Cardiac Enzymes 02/06/18 Range/Units 11:50 Total Creatine Kinase 107 (39-308) U/L Troponin I 0.03 (0.02-0.05) ng/mL - Imaging Impressions Chest X-Ray 02/06/18 11:45 CONCLUSION: New small focal infiltrate in the left lower lung. Head CT 02/06/18 11:45 CONCLUSION: 1. No focal or acute intracranial hemorrhage. Report was called by [ Dr. Mcclelland to Dr. Mendoza at 12:14 PM] Head CTA 02/06/18 11:45 CONCLUSION: 1. Stable CTA of the brain compared to the prior exams. There continues to be atherosclerotic changes with areas of focal stenosis involving the basilar artery. No significant change compared to the prior studies. Report was called by [Dr. Mcclelland to Dr. Mendoza at 12:[address] Mejia at 12 :18 PM ] Caprini VTE Risk Assessment Caprini VTE Risk Assessment: Moderate/High Risk (score >= 2) Caprini Risk Assessment Model: Point Value = 1 Point Value = 2 Point Value = 3 Point Value = 5 Age 41-60 Minor surgery BMI > 25 kg/m2 Swollen legs Varicose veins or History of unexplained or recurrent spontaneous Oral contraceptives or hormone replacement Sepsis (< 1 month) Serious lung disease, including pneumonia (< 1 month) Abnormal pulmonary function Acute myocardial infarction Congestive heart failure (< 1 month) History of inflammatory bowel disease Medical patient at bed rest Age 61-74 Arthroscopic surgery Major open surgery (> 45 min) Laparoscopic surgery (> 45 min) Malignancy Confined to bed (> 72 hours) Immobilizing plaster cast Central venous access Age >= 75 History of VTE Family history of VTE Factor V Leiden Prothrombin [id number] Lupus anticoagulant Anticardiolipin antibodies Elevated serum homocysteine Heparin-induced thrombocytopenia Other congenital or acquired thrombophilia Stroke (< 1 month) Elective arthroplasty Hip, pelvis, or leg fracture Acute spinal cord injury (< 1 month) Prophylaxis Regimen: Total Risk Factor Score Risk Level Prophylaxis Regimen 0-1 Low Early ambulation 2 Moderate Order ONE of the following: *Sequential Compression Device (SCD) *Heparin 5000 units SQ BID 3-4 Higher Order ONE of the following medications: *Heparin 5000 units SQ TID *Enoxaparin/Lovenox 40 mg SQ daily (WT < 150 kg, CrCl > 30 mL/min) *Enoxaparin/Lovenox 30 mg SQ daily (WT < 150 kg, CrCl > 10-29 mL/min) *Enoxaparin/Lovenox 30 mg SQ BID (WT < 150 kg, CrCl > 30 mL/min) AND/OR *Sequential Compression Device (SCD) 5 or more Highest Order ONE of the following medications: *Heparin 5000 units SQ TID (Preferred with Epidurals) *Enoxaparin/Lovenox 40 mg SQ daily (WT < 150 kg, CrCl > 30 mL/min) *Enoxaparin/Lovenox 30 mg SQ daily (WT < 150 kg, CrCl > 10-29 mL/min) *Enoxaparin/Lovenox 30 mg SQ BID (WT < 150 kg, CrCl > 30 mL/min) AND *Sequential Compression Device (SCD) Assessment and Plan - Plan Repeat TIA versus CVA with similar symptoms from last visit -Have discussed with neurology Dr. MEJIA -We will check carotid Dopplers -Has already had echo last time which showed an EF of 60-65% -Repeat MRI today -If continues to have symptoms will be switched to either Eliquis or Xarelto at discharge -Continue on statin -Continue on physical therapy and occupational therapy and speech therapy Hypertension continue on the HOLD LISINOPRIL CONTINUE METOPROLOL- PRN CATAPRES Hyperlipidemia continue on Lipitor History of previous CVA continue on aspirin and Plavix Hypothyroidism continue on levothyroxine 175 MCG's p.o. daily and check a TSH and a free T4 Diabetes mellitus continue on sliding scale coverage with Accu-Cheks before meals and at bedtime continue on metformin with a 2000-calorie ADA cardiac diet Dementia/Alzheimer's type continue on memantine and donepezil Depression anxiety continue on buspirone and Seroquel and trazodone Glaucoma continue on the BRIMONIDINE drops GERD continue on Pepcid Renal insufficiency -Try to avoid any nephrotoxic agents -Hold metformin -Hold lisinopril DVT prophylaxis with Lovenox low dose GI prophylaxis with Pepcid Will place in observation hopefully all the studies are negative and hopefully can go back to his [facility] tomorrow Code Status: Full code Discussed Condition With: RN and patient and family Discharge Planning: Hopefully home to [facility] tomorrow if stable
[2018-02-06] MEDS ORDERED: amLODIPine 5 MG Tablet PO ONE (13:45)
[2018-02-06] MEDS ORDERED: Enoxaparin Inj 30 MG/0.3 ML Syringe SQ SCH (14:00)
--- NOTE | 2018-02-06 14:23 | US ---
EXAM DATE: 02/06/2018 2:15 PM EST AGE/SEX: 72 years / Male INDICATIONS: Syncope. CLINICAL DATA: This is the patient's initial encounter. Patient reports that signs and symptoms have been present for 1 day and indicates a pain score of 0/10. MEDICAL/SURGICAL HISTORY: . Alzheimer disease. Benign prostatic hyperplasia. Dementia. Diabet es mellitus, type II. TIA. Hyperlipidemia. Hypertension. Hypothyroidism. CVA. . Left carotid en darterectomy 2015.Cardiac catheterization. Tonsillectomy. COMPARISON: [facility] – [place], CTA CAROTID ARTERIES W 3D RECON, 11/02/2013. . VELOCITY PARAMETERS: ICA/CCA Ratio: Right 2.3 , Left 1.0 ICA: Right 149 cm/sec, Left 123 cm/sec CCA: Right 65 cm/sec, Left 124 cm/sec ECA: Right 554 cm/sec, Left 130 cm/sec Vertebral: Right 9 cm/sec antegrade, Left 250 cm/sec antegrade FINDINGS: Right Carotid: There is elevation of the right ICA/CCA ratio and the peak systolic velocity of the ri ght ICA in the 50-69% stenosis range. There is also marked elevation of the peak systolic velocity of the right ECA suggesting severe stenosis of this vessel. Left Carotid: No hemodynamically significant stenosis on the left. Other: Very low velocity of the right vertebral artery suggesting near occlusion. There is elevation of the left vertebral artery peak systolic velocity suggesting greater than 70% stenosis. CONCLUSION: 1. Right Internal Carotid Artery: Elevation of the right ICA/CCA ratio and the peak systolic velocit y of the right ICA in the 50-69% stenosis range. 2. Left Internal Carotid Artery: No hemodynamically significant stenosis. 3. Markedly decreased peak velocity of the right vertebral artery suggesting near occlusion and elev ation of the peak systolic velocity of the left vertebral artery suggesting greater than 70% stenosis . 4. Marked elevation of the peak systolic velocity of the right ECA suggesting severe stenosis. Electronically signed by: Arthur Singletary MD 02/06/2018 2:22 PM EST
[2018-02-06] MEDS: QUEtiapine 25 MG Tablet PO SCH ×2 (15:48→18:52)
--- NOTE | 2018-02-06 15:58 | MR ---
EXAM DATE: 02/06/2018 3:24 PM EST AGE/SEX: 72 years / Male INDICATIONS: Slurred speech. CLINICAL DATA: This is the patient's initial encounter. Patient reports that signs and symptoms have been present for 1 day and indicates a pain score of 0/10. MEDICAL/SURGICAL HISTORY: Diabetes mellitus type II. Hypertension. Carotid endarterectomy. CA BG. COMPARISON: [facility] [place], MR HEAD W/O CONTRAST, 02/02/2018. . TECHNIQUE: Multiplanar, multisequence examination of the brain was performed without contrast. FINDINGS: There is evidence of an acute/subacute infarct involving the right basal ganglia. Mild periventricula r white matter small vessel ischemic changes are noted bilaterally. There is a focal stable area of e ncephalomalacia involving the right cerebellar hemisphere. No acute hemorrhage, midline shift or extr a-axial bleed is noted. Mild diffuse cerebral atrophy is noted. CONCLUSION: 1. Stable acute/subacute infarct involving the right basal ganglia. 2. Stable focal area of encephalomalacia involving the right cerebellar hemisphere. 3. Able cerebral atrophy. 4. Mild periventricular white matter small vessel ischemic changes bilaterally. 5. No acute hemorrhage, midline shift or extra-axial bleed. Electronically signed by: Arthur Singletary MD 02/06/2018 3:57 PM EST
[2018-02-06 17:24] LABS: Bilirubin,Urine Negative (Negative); Clarity,Urine Clear (Clear); Color,Urine Yellow (Yellw/Straw); Glucose,Urine (UA) Negative (Negative); Hyaline Casts,Urine 3 /lpf (0-3); Leukocyte Esterase,Urine Trace (Negative); Mucus,Urine Few /lpf (Occasional); Nitrite,Urine Negative (Negative); Specific Gravity,Urine 1.029 (1.002-1.035)
[2018-02-06 17:27] LABS: Amphetamine Screen,Urine Neg (Neg); Barbiturate Screen,Urine Neg (Neg); Cannabinoid Screen,Urine Neg (Neg); Cocaine Screen,Urine Neg (Neg)
[2018-02-06 17:33] LABS: Opiate Screen,Urine Neg (Neg)
--- NOTE | 2018-02-06 18:28 | MB ---
cc: Angela Schroeder MD DATE: 02/06/2018 HISTORY OF PRESENT ILLNESS: He came in as a stroke alert. This is a 72-year-old man recently discharged yesterday after having a stroke and TPA given, found to have a small right basal ganglionic subacute infarct. Came in. He lives at I believe it is a senior living. He was fine, felt a little dizzy when he got up, but went and had lunch. After lunch, he started feeling like his symptoms were back on the left side. He is currently on aspirin and Plavix. They did get a CTA of the [place] and carotids that did not show anything new and CT was unremarkable. I did discuss with the radiologist. Given that the patient received TPA few days ago, he is not a candidate for TPA again. PAST MEDICAL HISTORY: Dementia, BPH, diabetes, recent stroke, hypertension, hypothyroidism. PAST SURGICAL HISTORY: Carotid endarterectomy left, cardiac catheterization, tonsillectomy. FAMILY HISTORY: Hypertension. SOCIAL HISTORY: Never smoked, rarely drinks. No abuse. PHYSICAL EXAMINATION: VITAL SIGNS: Temperature 97.6, pulse 58, respiratory rate 20, blood pressure 180/80, saturating at 98%. NECK: Supple. HEART: Regular. NEUROLOGIC: He is awake and alert. Mild left facial droop noted. His tongue is midline. Visual geiger are full. He is somewhat dysarthric. He has mild left hemiparesis, arm and leg 4/5. DTRs are 1+. Toes withdraw. Cerebellar intact. Gait is withheld. LABORATORY DATA: Reviewed. Hemoglobin A1c is 7, glucose 182. TSH 0.66, T4 of 1.43. His last lipids that I would not repeat cholesterol 175, triglycerides 286, HDL 26.9, LDL 91. B12 406. Scans were reviewed with radiology. CTA of the [place] has not changed in 4 years, at least part of the basilar artery per radiologist. IMPRESSION: Increasing symptoms on the left side, certainly concerning for maybe progressing of stroke. Recommend having him undergo an MRI of the brain. If that shows extension, then I would change him over to Eliquis 5 mg twice a day versus Coumadin or Xarelto. Continue with statin. PT, OT. He already had an echo that was really unremarkable. I do not think he needs the carotids as they already did the CT angiogram. We will continue current care and depending on findings, further recommendations. MD FORD Vergara/mamta , 02:39 PM , 02:46 PM
--- NOTE | 2018-02-06 20:39 | CT ---
EXAM DATE: 02/06/2018 12:20 PM EST AGE/SEX: 72 years / Male INDICATIONS: Left sided weakness. Slurred speech. Since 8a CLINICAL DATA: This is the patient's initial encounter. Patient reports that signs and symptoms have been present for 1 day and indicates a pain score of 0/10. MEDICAL/SURGICAL HISTORY: Non-responsive. Non-responsive. RADIATION DOSE: 28.41 CTDI (mGy) ; Combined studies COMPARISON: [facility], CTA NECK W CONTRAST W 3D, 02/02/2018. . TECHNIQUE: Volumetric scanning was performed using a multirow detector CT scanner during bolus infus ion of 100ml ml Visipaque 320 (iodixanol) nonionic water-soluble contrast as a cumulative dose for m ultiple exams. The data was postprocessed with a variety of visualization algorithms including full -volume maximum intensity projection, multiplanar sliding thin-slab reformation, curved-planar reform ation, and surface-rendering techniques. Using automated exposure control and adjustment of the mA a nd/or kV according to patient size, radiation dose was kept as low as reasonably achievable to obtain optimal diagnostic quality images. DICOM format image data is available electronically for review a nd comparison. Percent stenosis is calculated using the diameter of the stenotic region over the diameter of the nor mal distal internal carotid artery. FINDINGS: Aortic arch: The left vertebral originates directly from the arch. The origins of the great vessels a re widely patent. Right carotid: The right common carotid is patent. There is extensive atherosclerotic plaquing at the bifurcation. There is moderate soft plaquing present. This results in a mild stenosis in the origin of the right internal carotid, likely 20-25%. The internal carotid arteries otherwise patent. There i s high-grade stenosis at the origin of the right external carotid. Left carotid: The left common carotid is widely patent. There is mild atherosclerotic plaquing at the bifurcation. There has been previous left carotid endarterectomy. Persistent tandem mild stenoses, u p to 20%. The internal carotid artery is otherwise patent. The external carotid is widely patent. The left vertebral is patent throughout its course. It is moderately diseased in its distal segment. The right vertebral occludes at its origin. There is eventual reconstitution just prior to its juncti on in its distal segment. It terminates in a PICA. The left vertebral does provide inflow to the basi lar. The basilar is also diffusely diseased. CONCLUSION: 1. No significant interval change from 02/02/2018. 2. Previous left carotid endarterectomy with stable very mild, less than 20%, tandem stenoses in the occipital internal carotid artery. 3. Moderate soft plaquing at the bifurcation on the right with mild stable, approximately 20%, stenos is in the origin of the right internal carotid. 4. Occlusion of the right vertebral at its origin with reconstitution of the distal neck. 5. The left vertebral is patent but diseased in its distal segment. The basilar is heavily diseased a s well. Electronically signed by: Dre Zaidi MD 02/06/2018 8:37 PM EST
[2018-02-06] MEDS ORDERED: traZODone 50 MG Tablet PO SCH (21:00)
[2018-02-06] MEDS ORDERED: Lisinopril 10 MG Tablet PO SCH (21:00)
[2018-02-06] MEDS: Metoprolol Tartrate 25 MG Tablet PO SCH (21:54)
[2018-02-06] MEDS: Brimonidine 0.2% Opth Drops 5 ML Bottle EACH EYE SCH (21:54)
[2018-02-07] MEDS ORDERED: Levothyroxine 125 MCG Tablet PO SCH (06:00)
[2018-02-07] MEDS ORDERED: Levothyroxine 50 MCG Tablet PO SCH (06:00)
[2018-02-07 07:28] LABS: Baso % (Auto) 0.6 % (0.0-2.0); Eos # (Auto) 0.5 th/mm3 (0.0-0.4); Eos % (Auto) 5.7 % (0.0-4.0); Hematocrit 38.8 % (39.0-51.0); Hemoglobin 13.2 gm/dL (13.0-17.0); Lymph # (Auto) 2.3 th/mm3 (1.0-4.8); Lymph % (Auto) 27.1 % (9.0-44.0); Mean Corpuscular Hemoglobin 32.2 pg (27.0-34.0); Mean Corpuscular Volume 94.8 fL (80.0-100.0); Mean Platelet Volume 9.1 fL (7.0-11.0); Mono % (Auto) 11.2 % (0.0-8.0); Neut # (Auto) 4.7 th/mm3 (1.8-7.7); Neut % (Auto) 55.4 % (16.0-70.0); Platelet Count 259 th/mm3 (150-450); Red Blood Count 4.09 mil/mm3 (4.50-5.90); Red Cell Distribution Width 13.5 % (11.6-17.2); White Blood Count 8.5 th/mm3 (4.0-11.0)
[2018-02-07 07:31] LABS: INR 1.1 Ratio; Prothrombin Time 10.8 sec (9.8-11.6)
[2018-02-07 07:50] LABS: Albumin 3.1 g/dL (3.4-5.0); Anion Gap 7 meq/L (5-15); Aspartate Aminotransferase 17 U/L (15-37); Blood Urea Nitrogen 31 mg/dL (7-18); Calcium 8.8 mg/dL (8.5-10.1); Carbon Dioxide 24.1 meq/L (21.0-32.0); Chloride 110 meq/L (98-107); Glomerular Filtration Rate 29 mL/min (>89); Glucose,Random 123 mg/dL (74-106); Potassium 4.3 meq/L (3.5-5.1); Sodium 141 meq/L (136-145)
[2018-02-07 07:51] LABS: Alanine Aminotransferase 30 U/L (12-78); Cholesterol 160 mg/dL (120-200); Phosphorus 3.8 mg/dL (2.5-4.9); Triglycerides 179 mg/dL (42-150)
[2018-02-07 07:54] LABS: Alkaline Phosphatase 120 U/L (45-117); Chol/HDL Ratio 6.29 Ratio; HDL Cholesterol 25.4 mg/dL (40.0-60.0); LDL Cholesterol,Calculated 99 mg/dL (0-99); Total Protein 6.8 g/dL (6.4-8.2)
[2018-02-07 08:12] VITALS: RESP 16; TEMP 97.7
[2018-02-07] MEDS: QUEtiapine 25 MG Tablet PO SCH (08:30)
[2018-02-07] MEDS: Metoprolol Tartrate 25 MG Tablet PO SCH (08:31)
[2018-02-07] MEDS ORDERED: Famotidine 20 MG Tablet PO SCH (09:00)
[2018-02-07] MEDS ORDERED: amLODIPine 10 MG Tablet PO SCH (09:00)
--- NOTE | 2018-02-07 10:17 | P.PN ---
Subjective Interval history: Follow-up for subacute CVA with left-sided weakness. Patient reports no further worsening of his left upper and lower extremity weakness. He states he feels the half-way "overreacted". He states he was probably more tired yesterday and dragging his left leg more than usual. He believes his dysarthria is about the same. Denies any new medical complaints including no headache, lightheadedness, dizziness, chest pain, palpitations, shortness of breath. He is tolerating oral intake. He feels ready to go back to rehab. Physical Exam Vital signs: Vital Signs 02/06/18 11:45 02/06/18 11:51 02/06/18 11:58 Temperature 98.1 F Pulse Rate 60 52 L 51 L Respiratory Rate 23 15 Blood Pressure 148/70 H 148/69 H Pulse Oximetry 100 97 02/06/18 12:16 02/06/18 14:04 02/06/18 18:37 Temperature 97.6 F 97.8 F Pulse Rate 56 L 58 L Respiratory Rate 18 20 16 Blood Pressure 149/67 H 180/80 H 200/83 H Pulse Oximetry 99 98 02/06/18 20:00 02/07/18 00:00 02/07/18 04:00 Temperature 97.8 F 98.0 F 97.9 F Pulse Rate 56 L 68 70 Respiratory Rate 18 18 18 Blood Pressure 154/76 H 143/70 H 139/81 Pulse Oximetry 96 97 98 02/07/18 08:00 02/07/18 08:03 Temperature 97.7 F Pulse Rate 61 Respiratory Rate 16 Blood Pressure 172/84 H Pulse Oximetry 100 98 Intake & Output 02/06/18 02/07/18 02/07/18 18:59 06:59 18:59 Output Total 600 / 600 800 / 800 Balance -600 / -600 -800 / -800 Weight 79.8 kg 80.2 kg Output: Urine 600 / 600 800 / 800 Other: # Voids 1 Narrative: GENERAL: Well-nourished, well-developed pleasant elderly male patient in NAD. Sitting upright in bed, finishing breakfast. SKIN: Warm and dry. No rash. HEENT: Normocephalic. Atraumatic. Pupils equal and round. Mucous membranes pink and moist. CARDIOVASCULAR: Regular rate and rhythm. No murmur appreciated. RESPIRATORY: No accessory muscle use. Clear to auscultation. Breath sounds equal bilaterally. GASTROINTESTINAL: Abdomen soft, non-tender, nondistended. Normoactive bowel sounds x4. MUSCULOSKELETAL: No obvious deformities. Extremities without clubbing, cyanosis , or edema. NEUROLOGICAL: Awake and alert. No obvious cranial nerve deficits. 4/5 strength of LUE/LLE, 5/5 strength of LUE/RLE. Speech not slurred, however with occasional dysarthria. No facial droop, lid lag, or tongue deviation. PSYCHIATRIC: Appropriate mood and affect; insight and judgment normal. Results - Labs CBC & Chem 7: 02/07/18 06:36 02/07/18 06:36 Laboratory Results - last 24 hr 02/06/18 02/06/18 02/06/18 11:50 11:50 11:50 WBC 10.3 RBC 4.26 L Hgb 13.2 POC Hgb (Calc) 13.3 Hct 41.3 POC Hct 39.0 MCV 97.1 MCH 31.0 MCHC 31.9 L RDW 13.4 Plt Count 288 MPV 9.2 Neut % (Auto) 66.3 Lymph % (Auto) 17.3 [place] % (Auto) 12.0 H Eos % (Auto) 4.0 Baso % (Auto) 0.4 Neut # (Auto) 6.8 Lymph # (Auto) 1.8 [place] # (Auto) 1.2 H Eos # (Auto) 0.4 Baso # (Auto) 0.0 WBC Differential . Differential Comment Auto diff final PT 10.6 INR 1.0 APTT 25.9 Fibrinogen 401 H POC Sodium 140 Sodium POC Potassium 4.8 Potassium POC Chloride 106 Chloride Carbon Dioxide Anion Gap POC BUN 35 H BUN Creatinine POC Creatinine 2.8 H Estimated GFR POC Glucose 182 H Random Glucose Hemoglobin A1c Calcium Phosphorus Magnesium Total Bilirubin AST ALT Alkaline Phosphatase Total Creatine Kinase 107 Troponin I 0.03 Total Protein Albumin Triglycerides Cholesterol LDL Cholesterol, Calc HDL Cholesterol Cholesterol/HDL Ratio TSH Free T4 Urine Color Urine Clarity Urine pH Ur Specific [place] Urine Protein Urine Glucose (UA) Urine Ketones Urine Occult Blood Urine Nitrate Urine Bilirubin Urine Urobilinogen Ur Leukocyte Esterase Urine RBC Urine WBC Hyaline Casts Urine Mucus Micro UA Comment Ur Microscopic Review Urine Culture Comments Urine Opiates Screen Ur Barbiturates Screen Ur Amphetamines Screen U Benzodiazepines Scrn Urine Cocaine Screen U Cannabinoids Screen Blood Type Blood Type Recheck Antibody Screen 02/06/18 02/06/18 02/06/18 11:50 11:50 11:50 WBC RBC Hgb POC Hgb (Calc) Hct POC Hct MCV MCH MCHC RDW Plt Count MPV Neut % (Auto) Lymph % (Auto) [place] % (Auto) Eos % (Auto) Baso % (Auto) Neut # (Auto) Lymph # (Auto) [place] # (Auto) Eos # (Auto) Baso # (Auto) WBC Differential Differential Comment PT INR APTT Fibrinogen POC Sodium Sodium POC Potassium Potassium POC Chloride Chloride Carbon Dioxide Anion Gap POC BUN BUN Creatinine POC Creatinine Estimated GFR POC Glucose Random Glucose Hemoglobin A1c 7.0 H Calcium Phosphorus Magnesium Total Bilirubin AST ALT Alkaline Phosphatase Total Creatine Kinase Troponin I Total Protein Albumin Triglycerides Cholesterol LDL Cholesterol, Calc HDL Cholesterol Cholesterol/HDL Ratio TSH Free T4 1.43 Urine Color Urine Clarity Urine pH Ur Specific [place] Urine Protein Urine Glucose (UA) Urine Ketones Urine Occult Blood Urine Nitrate Urine Bilirubin Urine Urobilinogen Ur Leukocyte Esterase Urine RBC Urine WBC Hyaline Casts Urine Mucus Micro UA Comment Ur Microscopic Review Urine Culture Comments Urine Opiates Screen Ur Barbiturates Screen Ur Amphetamines Screen U Benzodiazepines Scrn Urine Cocaine Screen U Cannabinoids Screen Blood Type O Positive Blood Type Recheck Required Antibody Screen Negative 02/06/18 02/06/18 02/06/18 11:50 17:09 17:09 WBC RBC Hgb POC Hgb (Calc) Hct POC Hct MCV MCH MCHC RDW Plt Count MPV Neut % (Auto) Lymph % (Auto) [place] % (Auto) Eos % (Auto) Baso % (Auto) Neut # (Auto) Lymph # (Auto) [place] # (Auto) Eos # (Auto) Baso # (Auto) WBC Differential Differential Comment PT INR APTT Fibrinogen POC Sodium Sodium POC Potassium Potassium POC Chloride Chloride Carbon Dioxide Anion Gap POC BUN BUN Creatinine POC Creatinine Estimated GFR POC Glucose Random Glucose Hemoglobin A1c Calcium Phosphorus Magnesium Total Bilirubin AST ALT Alkaline Phosphatase Total Creatine Kinase Troponin I Total Protein Albumin Triglycerides Cholesterol LDL Cholesterol, Calc HDL Cholesterol Cholesterol/HDL Ratio TSH 0.066 L Free T4 Urine Color Yellow Urine Clarity Clear Urine pH 5.0 Ur Specific [place] 1.029 Urine Protein Negative Urine Glucose (UA) Negative Urine Ketones Negative Urine Occult Blood Negative Urine Nitrate Negative Urine Bilirubin Negative Urine Urobilinogen Less than 2 Ur Leukocyte Esterase Trace H Urine RBC 1 Urine WBC 6 H Hyaline Casts 3 Urine Mucus Few H Micro UA Comment Cath-culture not ind Ur Microscopic Review Not Reportable Urine Culture Comments Cath-cult not ind Urine Opiates Screen Neg Ur Barbiturates Screen Neg Ur Amphetamines Screen Neg U Benzodiazepines Scrn Neg Urine Cocaine Screen Neg U Cannabinoids Screen Neg Blood Type Blood Type Recheck Antibody Screen 02/06/18 02/07/18 02/07/18 17:18 06:36 06:36 WBC 8.5 RBC 4.09 L Hgb 13.2 POC Hgb (Calc) Hct 38.8 L POC Hct MCV 94.8 MCH 32.2 MCHC 34.0 RDW 13.5 Plt Count 259 MPV 9.1 Neut % (Auto) 55.4 Lymph % (Auto) 27.1 [place] % (Auto) 11.2 H Eos % (Auto) 5.7 H Baso % (Auto) 0.6 Neut # (Auto) 4.7 Lymph # (Auto) 2.3 [place] # (Auto) 1.0 H Eos # (Auto) 0.5 H Baso # (Auto) 0.0 WBC Differential . Differential Comment Auto diff final PT INR APTT Fibrinogen POC Sodium Sodium 141 POC Potassium Potassium 4.3 POC Chloride Chloride 110 H Carbon Dioxide 24.1 Anion Gap 7 POC BUN BUN 31 H Creatinine 2.26 H POC Creatinine Estimated GFR 29 L POC Glucose 115 H Random Glucose 123 H Hemoglobin A1c Calcium 8.8 Phosphorus 3.8 Magnesium 2.0 Total Bilirubin 0.4 AST 17 ALT 30 Alkaline Phosphatase 120 H Total Creatine Kinase Troponin I Total Protein 6.8 Albumin 3.1 L Triglycerides 179 H Cholesterol 160 LDL Cholesterol, Calc 99 HDL Cholesterol 25.4 L Cholesterol/HDL Ratio 6.29 TSH Free T4 Urine Color Urine Clarity Urine pH Ur Specific [place] Urine Protein Urine Glucose (UA) Urine Ketones Urine Occult Blood Urine Nitrate Urine Bilirubin Urine Urobilinogen Ur Leukocyte Esterase Urine RBC Urine WBC Hyaline Casts Urine Mucus Micro UA Comment Ur Microscopic Review Urine Culture Comments Urine Opiates Screen Ur Barbiturates Screen Ur Amphetamines Screen U Benzodiazepines Scrn Urine Cocaine Screen U Cannabinoids Screen Blood Type Blood Type Recheck Antibody Screen 02/07/18 02/07/18 06:36 09:02 WBC RBC Hgb POC Hgb (Calc) Hct POC Hct MCV MCH MCHC RDW Plt Count MPV Neut % (Auto) Lymph % (Auto) [place] % (Auto) Eos % (Auto) Baso % (Auto) Neut # (Auto) Lymph # (Auto) [place] # (Auto) Eos # (Auto) Baso # (Auto) WBC Differential Differential Comment PT 10.8 INR 1.1 APTT Fibrinogen POC Sodium Sodium POC Potassium Potassium POC Chloride Chloride Carbon Dioxide Anion Gap POC BUN BUN Creatinine POC Creatinine Estimated GFR POC Glucose 142 H Random Glucose Hemoglobin A1c Calcium Phosphorus Magnesium Total Bilirubin AST ALT Alkaline Phosphatase Total Creatine Kinase Troponin I Total Protein Albumin Triglycerides Cholesterol LDL Cholesterol, Calc HDL Cholesterol Cholesterol/HDL Ratio TSH Free T4 Urine Color Urine Clarity Urine pH Ur Specific [place] Urine Protein Urine Glucose (UA) Urine Ketones Urine Occult Blood Urine Nitrate Urine Bilirubin Urine Urobilinogen Ur Leukocyte Esterase Urine RBC Urine WBC Hyaline Casts Urine Mucus Micro UA Comment Ur Microscopic Review Urine Culture Comments Urine Opiates Screen Ur Barbiturates Screen Ur Amphetamines Screen U Benzodiazepines Scrn Urine Cocaine Screen U Cannabinoids Screen Blood Type Blood Type Recheck Antibody Screen - Imaging Impressions Head MRI 02/06/18 00:00 CONCLUSION: 1. Stable acute/subacute infarct involving the right basal ganglia. 2. Stable focal area of encephalomalacia involving the right cerebellar hemisphere. 3. Able cerebral atrophy. 4. Mild periventricular white matter small vessel ischemic changes bilaterally. 5. No acute hemorrhage, midline shift or extra-axial bleed. Chest X-Ray 02/06/18 11:45 CONCLUSION: New small focal infiltrate in the left lower lung. Head CT 02/06/18 11:45 CONCLUSION: 1. No focal or acute intracranial hemorrhage. Report was called by [ Dr. Mcclelland to Dr. Mendoza at 12:14 PM] Head CTA 02/06/18 11:45 CONCLUSION: 1. Stable CTA of the brain compared to the prior exams. There continues to be atherosclerotic changes with areas of focal stenosis involving the basilar artery. No significant change compared to the prior studies. Report was called by [Dr. Mcclelland to Dr. Mendoza at 12:[address] Schroeder at 12 :18 PM ] Neck CTA 02/06/18 11:45 CONCLUSION: 1. No significant interval change from 02/02/2018. 2. Previous left carotid endarterectomy with stable very mild, less than 20%, tandem stenoses in the occipital internal carotid artery. 3. Moderate soft plaquing at the bifurcation on the right with mild stable, approximately 20%, stenosis in the origin of the right internal carotid. 4. Occlusion of the right vertebral at its origin with reconstitution of the distal neck. 5. The left vertebral is patent but diseased in its distal segment. The basilar is heavily diseased as well. Carotid Doppler Study 02/06/18 12:43 CONCLUSION: 1. Right Internal Carotid Artery: Elevation of the right ICA/CCA ratio and the peak systolic velocity of the right ICA in the 50-69% stenosis range. 2. Left Internal Carotid Artery: No hemodynamically significant stenosis. 3. Markedly decreased peak velocity of the right vertebral artery suggesting near occlusion and elevation of the peak systolic velocity of the left vertebral artery suggesting greater than 70% stenosis. 4. Marked elevation of the peak systolic velocity of the right ECA suggesting severe stenosis. Assessment and Plan - Plan 72-year-old male with history of recent admission for CVA s/p TPA on 02/02, DM, HTN, HLD, TIAs, dementia, BPH, hypothyroidism, presents from rehab with concerns of worsening left-sided weakness Subacute CVA: Rule out progression of recent stroke. Not a candidate for TPA due to receiving TPA on prior admission -Head CTA reviewed, shows stable CTA of the brain compared to the prior exams. There continues to be atherosclerotic changes with areas of focal stenosis involving the basilar artery. No significant change compared to the prior studies. -Neck CTA with no significant change from 02/03 -Repeat brain MRI shows stable acute/subacute infarct involving the right basal ganglia with stable focal area of encephalomalacia involving the right cerebral hemisphere -Neuro checks, monitor on telemetry -Echo on prior admission with EF 60-65% -Continued patient's aspirin, plavix, statin -Consult PT/OT/ST - recommends continuing rehab -Consulted neurology, discussed with lisandra Gil to discharge on current regimen back to rehab HTN/HLD: chronic -continue patient's lisinopril, metoprolol, statin -monitor BP, adjust antihypertensives as needed DM: chronic -holding patient's metformin with recent CTAs -monitor accu-checks and cover with SSI All other chronic medical conditions stable, continue home medications as appropriate. DVT Prophylaxis: lovenox sq Discharge Planning: Discharge patient to SNF Condition on discharge: Stable Heart Healthy/Diabetic Diet as tolerated Ad Annia activity Rx written: no new meds Follow-up with primary care physician and neurology
[2018-02-07] MEDS: Brimonidine 0.2% Opth Drops 5 ML Bottle EACH EYE SCH (10:23)
[2018-02-07 11:32] VITALS: BP 106/56; PULSE 59; O2SAT 100
[2018-02-07 14:43] LABS: Hemoglobin A1c 6.9 % (4.3-6.0)
--- NOTE | 2018-02-08 14:30 | ECG ---
Date Performed: 02/06/2018 Time Performed: 11:50:08 PTAGE: 72 years EKG: SINUS BRADYCARDIA WITH FIRST DEGREE AV BLOCK MINIMAL ST DEPRESSION ABNORMAL ECG Diffuse T w ave changes are new since prior tracing, cannot rule out ischemia PREVIOUS TRACING : 07/21/14 DOCTOR: Tyree Watkins Interpretating Date/Time 02/08/2018 14:29:21
== END 2018-02-07 13:31 ==
LOC: NEDA 11:44 → NEPE 11:44 → NEPHCDU 13:24
PROVIDERS: ADMIT Family Medicine; ATTEND Family Medicine

== ENCOUNTER 2018-02-25 16:10 | Observation (INO) ==
[2018-02-25] MEDS ORDERED: hydrALAZINE HCl Inj 20 MG/ML Vial IV.PUSH ONE ×3 (16:50→19:26)
--- NOTE | 2018-02-25 17:04 | ED ---
HPI General Chief complaint: Hypertension Stated complaint: poss high blood pressure Time Seen by Provider: 02/25/18 16:26 Source: patient Mode of arrival: EMS Limitations: no limitations History of Present Illness HPI narrative: Patient is a 72-year-old male who presents to the emergency room for evaluation of elevated blood pressure. Patient was found to have a small right basal ganglionic subacute infarct. He was found to have left sided weakness at the time of his CVA. Ultimately, he was discharged with a change of medications. Patient was discharged with a prescription for Plavix, his lisinopril 20 mg was changed to 10 mg. His metoprolol 12.5 mg twice daily was changed to 25 mg twice daily. Patient reports that the [facility] does take his blood pressure every single day, reports that today, his systolic blood pressures was initially in the 200/102 and then repeat was 200/100. He did take all of his medications today. Patient denies any headache or dizzyness. Denies any vision changes. Denies any chest pain/sob. Patient with no complaints at this time. Related Data Home Medications Medication Instructions Recorded Confirmed alfuzosin 10 mg PO DAILY 02/02/18 02/25/18 atorvastatin 80 mg PO DAILY 02/02/18 02/25/18 brimonidine 1 drp OPHTHALMIC (EYE) BID 02/02/18 02/25/18 buspirone 7.5 mg PO BID 02/02/18 02/25/18 clopidogrel [Plavix] 75 mg PO DAILY 02/02/18 02/25/18 donepezil 5 mg PO DAILY 02/02/18 02/25/18 famotidine 20 mg PO DAILY 02/02/18 02/25/18 memantine 10 mg PO BID 02/02/18 02/25/18 quetiapine [Seroquel] 25 mg PO TID 02/02/18 02/25/18 trazodone 25 mg PO HS 02/02/18 02/25/18 folic acid 1 mg PO DAILY 02/25/18 02/25/18 glipizide 2.5 mg PO DAILY 02/25/18 02/25/18 Previous Rx's Medication Instructions Recorded aspirin 81 mg PO DAILY 30 Days #30 tab 02/05/18 lisinopril 10 mg PO BID 30 Days #60 tab 02/05/18 metoprolol tartrate 25 mg PO BID 30 Days #60 tab 02/05/18 Allergies Allergy/AdvReac Type Severity Reaction Status Date / Time No Known Allergies Allergy Verified 02/25/18 16:24 Review of Systems ROS: all other systems reviewed are negative [facility] Medical History Medical History Alzheimer disease (Acute) BPH (benign prostatic hyperplasia) (Acute) Dementia (Acute) Diabetes mellitus, type 2 (Acute) Hx of transient ischemic attack (TIA) (Acute) Hyperlipemia (Acute) Hypertension (Acute) Hypothyroid (Acute) Stroke (Acute) Surgical History Surgical History H/O carotid endarterectomy (Acute) Hx of cardiac cath (Acute) Hx of tonsillectomy (Acute) Family History Family History Other Family history of hypertension Social History Social History Substance History: No History of Abuse Second Hand Smoke Exposure: No Smoking Status: Never smoker How Often Do You Have a Drink Containing Alcohol: Never Hx Recent Travel: No Recent Travel in [facility] within the Last 8 Weeks: No Recent Out of Country Travel within the Last 8 Weeks: No Immunization History Tetanus Immunization: Unsure Exam Narrative Exam Narrative: GENERAL: NAD SKIN: Focused skin assessment warm/dry. HEAD: Atraumatic. Normocephalic. EYES: Pupils equal and round. No scleral icterus. No injection or drainage. ENT: No nasal bleeding or discharge. Mucous membranes pink and moist. NECK: Trachea midline. No JVD. CARDIOVASCULAR: Regular rate and rhythm. No murmur appreciated. RESPIRATORY: No accessory muscle use. Clear to auscultation. Breath sounds equal bilaterally. GASTROINTESTINAL: Abdomen soft, non-tender, nondistended. Hepatic and splenic margins not palpable. MUSCULOSKELETAL: No obvious deformities. No clubbing. No cyanosis. No edema. NEUROLOGICAL: Awake and alert. No obvious cranial nerve deficits. Motor grossly within normal limits. Normal speech. PSYCHIATRIC: Appropriate mood and affect; insight and judgment normal. Course Initial Documented Vital Signs Temperature 97.6 F 02/25/18 16:20 Pulse Rate 63 02/25/18 16:20 Respiratory Rate 20 12/20/18 16:20 Blood Pressure 220/91 H 02/25/18 16:20 Pulse Oximetry 98 02/25/18 16:20 Last Documented Vital Signs Temperature 97.6 F 02/25/18 16:20 Pulse Rate 75 02/25/18 19:22 Respiratory Rate 20 02/25/18 19:22 Blood Pressure 230/114 H 02/25/18 19:22 Pulse Oximetry 97 02/25/18 19:22 Medical Decision Making MDM Narrative Medical decision making narrative: During the course of the patients emergency department visit, the patients history, examination, and differential diagnosis were reviewed with the patient. The patient was placed on a telemetry monitor with oximetry and frequent blood pressure monitoring. The patient had an IV access obtained and blood work sent for analysis. The patient was initially provided 10 mg of IV hydralazine. Patient is completely asymptomatic at this time The patients laboratory studies were reviewed Radiology studies were reviewed: stable findings Patient's blood pressure after 10 mg of hydralazine is 206/89 - he continues to have elevated blood pressure. Patient had a recent ischemic stroke, plan to admit him to the hospital for blood pressure control case reviewed with Dr. Rodriguez who accepts pt to service Medical Screen Exam Complete: Yes Emergency Medical Condition: Yes Differential Diagnosis Differential Diagnosis: hypertensive urgency vs emergency Lab Data Lab results reviewed: Yes I reviewed the patient's lab results. Result diagrams: 02/25/18 16:50 02/25/18 16:50 Lab Results 02/25/18 02/25/18 02/25/18 Range/Units 16:50 16:50 16:50 WBC 9.6 (4.0-11.0) th/mm3 RBC 3.85 L (4.50-5.90) mil/mm3 Hgb 12.6 L (13.0-17.0) gm/dL Hct 36.8 L (39.0-51.0) % MCV 95.8 (80.0-100.0) fL MCH 32.9 (27.0-34.0) pg MCHC 34.3 (32.0-36.0) % RDW 13.7 (11.6-17.2) % Plt Count 264 (150-450) th/mm3 MPV 9.5 (7.0-11.0) fL Neut % (Auto) 56.6 (16.0-70.0) % Lymph % (Auto) 26.1 (9.0-44.0) % Crosby % (Auto) 9.9 H (0.0-8.0) % Eos % (Auto) 6.6 H (0.0-4.0) % Baso % (Auto) 0.8 (0.0-2.0) % Neut # (Auto) 5.4 (1.8-7.7) th/mm3 Lymph # (Auto) 2.5 (1.0-4.8) th/mm3 Crosby # (Auto) 0.9 (0.0-0.9) th/mm3 Eos # (Auto) 0.6 H (0.0-0.4) th/mm3 Baso # (Auto) 0.1 (0.0-0.2) th/mm3 WBC Differential . Differential Comment Auto diff final PT 11.1 (9.8-11.6) sec INR 1.1 Ratio Sodium 141 (136-145) meq/L Potassium 4.5 (3.5-5.1) meq/L Chloride 108 H (98-107) meq/L Carbon Dioxide 28.0 (21.0-32.0) meq/L Anion Gap 5 (5-15) meq/L BUN 19 H (7-18) mg/dL Creatinine 2.04 H (0.60-1.30) mg/dL Estimated GFR 32 L (>89) mL/min Random Glucose 223 H (74-106) mg/dL Calcium 8.5 (8.5-10.1) mg/dL Imaging Data Attestation: I personally reviewed and interpreted this imaging study as follows : Radiologist's impression: Head CT 02/25/18 16:50 CONCLUSION: 1. Stable noncontrast head CT. No acute intracranial abnormality is identified. 2. Chronic findings include generalized atrophy, mild periventricular white matter change, and right cerebellar encephalomalacia. . Discharge Plan Discharge Disposition Patient Disposition: ED Admit(ED Internal Use Only) Discharge Condition Condition: Fair Discharge Order Discharge Orders: ED Use Only Admit Order (Routine); Ordered 02/25/18 Ordered By: Sandhya Guzmán Discharge Details Diagnosis: Hypertensive urgency Physicians Team ED Provider: Sandhya Guzmán Primary Care Provider: Barrie Villareal Rxs /Orders / Referrals /Forms Prescriptions: No Action folic acid 1 mg Tablet 1 mg PO DAILY RF: 0 glipizide 5 mg Tablet 2.5 mg PO DAILY RF: 0 quetiapine [Seroquel] 25 mg Tablet 25 mg PO TID RF: 0 atorvastatin 80 mg Tablet 80 mg PO DAILY RF: 0 donepezil 5 mg Tablet 5 mg PO DAILY RF: 0 trazodone 50 mg Tablet 25 mg PO HS RF: 0 clopidogrel [Plavix] 75 mg Tablet 75 mg PO DAILY RF: 0 famotidine 20 mg Tablet 20 mg PO DAILY RF: 0 brimonidine 0.2 % Drops 1 drp OPHTHALMIC (EYE) BID RF: 0 buspirone 7.5 mg Tablet 7.5 mg PO BID RF: 0 alfuzosin 10 mg Tablet Extended Release 24 Hr 10 mg PO DAILY RF: 0 memantine 10 mg Tablet 10 mg PO BID RF: 0 lisinopril 10 mg Tablet 10 mg PO BID 30 Days Qty: 60 RF: 0 aspirin 81 mg Tablet,Chewable 81 mg PO DAILY 30 Days Qty: 30 RF: 0 metoprolol tartrate 25 mg Tablet 25 mg PO BID 30 Days Qty: 60 RF: 0 Status ED Status: With Doctor
[2018-02-25 17:24] LABS: Baso # (Auto) 0.1 th/mm3 (0.0-0.2); Baso % (Auto) 0.8 % (0.0-2.0); Eos # (Auto) 0.6 th/mm3 (0.0-0.4); Eos % (Auto) 6.6 % (0.0-4.0); Hematocrit 36.8 % (39.0-51.0); Hemoglobin 12.6 gm/dL (13.0-17.0); Lymph # (Auto) 2.5 th/mm3 (1.0-4.8); Lymph % (Auto) 26.1 % (9.0-44.0); Mean Corpuscular HGB Conc 34.3 % (32.0-36.0); Mean Corpuscular Hemoglobin 32.9 pg (27.0-34.0); Mean Corpuscular Volume 95.8 fL (80.0-100.0); Mean Platelet Volume 9.5 fL (7.0-11.0); Mono # (Auto) 0.9 th/mm3 (0.0-0.9); Mono % (Auto) 9.9 % (0.0-8.0); Neut # (Auto) 5.4 th/mm3 (1.8-7.7); Neut % (Auto) 56.6 % (16.0-70.0); Platelet Count 264 th/mm3 (150-450); Red Blood Count 3.85 mil/mm3 (4.50-5.90); Red Cell Distribution Width 13.7 % (11.6-17.2); White Blood Count 9.6 th/mm3 (4.0-11.0)
--- NOTE | 2018-02-25 17:32 | CT ---
EXAM DATE: 02/25/2018 5:27 PM EST AGE/SEX: 72 years / Male INDICATIONS: High blood pressure, history of recent stroke. CLINICAL DATA: This is the patient's initial encounter. Patient reports that signs and symptoms have been present for 1 day and indicates a pain score of 0/10. MEDICAL/SURGICAL HISTORY: Alzheimer's disease. Stroke. Hypertension. Diabetes. None. RADIATION DOSE: 38.39 CTDI (mGy) COMPARISON: [facility] [place], CT HEAD W/O CONTRAST, 02/06/2018. . TECHNIQUE: CT of the head without contrast. Using automated exposure control and adjustment of the mA and/or kV according to patient size, radiation dose was kept as low as reasonably achievable to ob tain optimal diagnostic quality images. DICOM format image data is available electronically for revi ew and comparison. FINDINGS: Cerebrum: There is mild generalized atrophy and ventricles are normal given the degree of atrophy. M ild periventricular white matter change is present. No midline shift, mass lesion, hemorrhage or acu te infarction. No extraaxial fluid collections are seen. Posterior Fossa: The cerebellum and brainstem demonstrate no acute abnormality. There is stable ence phalomalacia in the right cerebellum. The 4th ventricle is midline. The cerebellopontine angle is wi thin normal limits. Extracranial: The paranasal sinuses are clear. There is opacification of the left mastoid air cells and there has been prior right temporal bone/mastoid surgery. Skull: The calvaria is intact. No skull fracture. CONCLUSION: 1. Stable noncontrast head CT. No acute intracranial abnormality is identified. 2. Chronic findings include generalized atrophy, mild periventricular white matter change, and right cerebellar encephalomalacia. . Electronically signed by: Arley Grimes MD Board Certified Radiologist 02/25/2018 5:31 PM EST
[2018-02-25 17:36] LABS: INR 1.1 Ratio; Prothrombin Time 11.1 sec (9.8-11.6)
[2018-02-25 18:07] LABS: Calcium 8.5 mg/dL (8.5-10.1); Potassium 4.5 meq/L (3.5-5.1)
[2018-02-25] MEDS ORDERED: Acetaminophen 325 MG Tablet PO PRN (19:31)
[2018-02-25] MEDS ORDERED: Bisacodyl 10 MG Supp RECTAL PRN (19:31)
[2018-02-25] MEDS ORDERED: Dextrose 50% in Water 50 ML Vial IV.PUSH PRN (19:36)
[2018-02-25] MEDS ORDERED: BUSPIRONE 7.5 MG PO SCH (21:00)
--- NOTE | 2018-02-25 21:06 | P.HPIM ---
History of Present Illness Primary Care Physician: Barrie Villareal MD History of Present Illness: INR 1.1.This is a 72-year-old male with a PMH of HTN, Hyperlipidemia, DM and h/o CVA who was sent to the ER from from [facility] for elevated BP. Recent admit 02/02-02/05/18 for CVA s/p TPA, was d/c'd to [facility]. Today w/ no complaints, however routine BP check noted to be elevated. Denies chest pain, SOB, headache, blurry vision, nausea or vomiting. On arrival, BP 220/91, HR 63, O2 sat 98% on RA, Afebrile. S/p Hydralazine 10mg IV x2 w/ persistently elevated BP 220's. CBC unremarkable. Chemistry essentially unremarkable. CT Head stable. Patient without complaints at this time. Diagnosis (1) Hypertensive urgency: (2) DM (diabetes mellitus): (3) H/O: CVA (cerebrovascular accident): Inpatient Certification Inpatient Certification: I certify that the inpatient services were ordered in accordance with Medicare regulations governing the order. This includes certification that hospital inpatient services are reasonable and necessary and in the case of services not specified as inpatient-only under 42 CFR 419.22(n), that they are appropriately provided as inpatient services in accordance to with the 2-midnight benchmark under 43 CFR 412.3(e) Estimated Total Length of Stay (Days): 2 Plans for Post Hospital Care: Not yet determined Review of Systems Review of Systems: all other systems reviewed are negative [facility] Medical History Medical History Alzheimer disease (Acute) BPH (benign prostatic hyperplasia) (Acute) Dementia (Acute) Diabetes mellitus, type 2 (Acute) Hx of transient ischemic attack (TIA) (Acute) Hyperlipemia (Acute) Hypertension (Acute) Hypothyroid (Acute) Stroke (Acute) Surgical History Surgical History H/O carotid endarterectomy (Acute) Hx of cardiac cath (Acute) Hx of tonsillectomy (Acute) Family History Family History Other Family history of hypertension Social History Social History Substance History: No History of Abuse Second Hand Smoke Exposure: No Smoking Status: Never smoker How Often Do You Have a Drink Containing Alcohol: Never Hx Recent Travel: No Recent Travel in [place] within the Last 8 Weeks: No Recent Out of Country Travel within the Last 8 Weeks: No Immunization History Tetanus Immunization: Unsure Medications and Allergies Allergies Allergy/AdvReac Type Severity Reaction Status Date / Time No Known Allergies Allergy Verified 02/25/18 16:24 Home Medications Medication Instructions Recorded Confirmed Type alfuzosin 10 mg PO DAILY 02/02/18 02/25/18 History atorvastatin 80 mg PO DAILY 02/02/18 02/25/18 History brimonidine 1 drp OPHTHALMIC (EYE) BID 02/02/18 02/25/18 History buspirone 7.5 mg PO BID 02/02/18 02/25/18 History clopidogrel [Plavix] 75 mg PO DAILY 02/02/18 02/25/18 History donepezil 5 mg PO DAILY 02/02/18 02/25/18 History famotidine 20 mg PO DAILY 02/02/18 02/25/18 History memantine 10 mg PO BID 02/02/18 02/25/18 History quetiapine [Seroquel] 25 mg PO TID 02/02/18 02/25/18 History trazodone 25 mg PO HS 02/02/18 02/25/18 History folic acid 1 mg PO DAILY 02/25/18 02/25/18 History glipizide 2.5 mg PO DAILY 02/25/18 02/25/18 History Active Medications: Active Medications Acetaminophen (Tylenol) 650 mg PO Q4H PRN PRN Reason: Temp > 100.4 Al Hydroxide/Mg Hydroxide (Milk Of Magnesia Liq) 30 ml PO Q12H PRN PRN Reason: Mild Constipation Aspirin (Aspirin Chew) 81 mg PO DAILY MELANIE Atorvastatin Calcium (Lipitor) 80 mg PO DAILY MELANIE Bisacodyl (Dulcolax Supp) 10 mg RECTAL DAILY PRN PRN Reason: SEVERE CONSITIPATION Brimonidine Tartrate (Alphagan 0.2% Opth Drops) 1 drops EACH EYE BID MELANIE Buspirone HCl (Buspar) 7.5 mg PO BID MELANIE Clopidogrel Bisulfate (Plavix) 75 mg PO DAILY MELANIE Dextrose (D50w Vial) 50 ml IV.PUSH UNSCH PRN PRN Reason: PER HYPOGLYCEMIA PROTOCOL Donepezil HCl (Aricept) 5 mg PO DAILY MELANIE Famotidine (Pepcid) 20 mg PO DAILY MELANIE Folic Acid (Folic Acid) 1 mg PO DAILY MELANIE Glucagon (Glucagon Inj) 1 mg OTHER PRN PRN PRN Reason: for Hypoglycemia Protocol Insulin Aspart (Novolog Insulin Correctional Sugar Inj) 0 unit SQ ACHS MELANIE; Protocol Lactulose (Lactulose Liq) 30 ml PO DAILY PRN PRN Reason: SEVERE CONSITIPATION Memantine (Namenda) 10 mg PO BID MELANIE Metoprolol Tartrate (Lopressor) 25 mg PO BID MELANIE Ondansetron HCl (Zofran Inj) 4 mg IV.PUSH Q6H PRN PRN Reason: NAUSEA OR VOMITING Quetiapine Fumarate (Seroquel) 25 mg PO TID [facility] Senna/Docusate Sodium (Aminta-Colace) 1 tab PO BID [facility] Sennosides (Senokot) 17.2 mg PO Q12H PRN PRN Reason: Moderate Constipation Sodium Chloride (Ns Flush) 2 ml IV.FLUSH BID [facility] Sodium Chloride (Ns Flush) 2 ml IV.FLUSH PRN PRN PRN Reason: FLUSH AFTER USING IV ACCESS Tamsulosin HCl (Flomax) 0.4 mg PO DAILY MELANIE Trazodone HCl (Desyrel) 25 mg PO HS [facility] Physical Exam Vital signs: Last Vital Signs Temp 97.6 F 02/25/18 16:20 Pulse 75 02/25/18 20:24 Resp 18 02/25/18 20:24 BP 162/72 H 02/25/18 20:24 Pulse Ox 98 02/25/18 20:24 Intake & Output 02/23/18 02/24/18 02/25/18 02/26/18 06:59 06:59 06:59 06:59 Weight 74.843 kg Narrative: PE: GENERAL: Pleasant elderly white male in no acute distress, sitting up in stretcher. SKIN: Focused skin assessment warm and dry. HEENT: PERRLA, EOMI. No scleral icterus or conjunctival pallor. No lid lag or facial droop. CARDIOVASCULAR: Regular rate and rhythm. No obvious murmurs to auscultation. No chest tenderness to palpation. RESPIRATORY: No obvious rhonchi or wheezing. Clear to auscultation. Breath sounds equal bilaterally. GASTROINTESTINAL: Abdomen soft, non-tender, nondistended. BS normal. MUSCULOSKELETAL: Extremities without clubbing, cyanosis, or edema. No obvious deformities. NEUROLOGICAL: Awake, alert and oriented x4. No focal neurologic deficits. Moving both upper and lower extremities spontaneously. PSYCHIATRIC: Appropriate mood and affect. Insight and judgment normal. Results Labs CBC & Chem 7: 02/25/18 16:50 02/25/18 16:[address] 02/25/18 16:50 CONCLUSION: 1. Stable noncontrast head CT. No acute intracranial abnormality is identified. 2. Chronic findings include generalized atrophy, mild periventricular white matter change, and right cerebellar encephalomalacia. . Caprini VTE Risk Assessment Caprini VTE Risk Assessment: No/Low Risk (score <= 1) Caprini Risk Assessment Model: Point Value = 1 Point Value = 2 Point Value = 3 Point Value = 5 Age 41-60 Minor surgery BMI > 25 kg/m2 Swollen legs Varicose veins or History of unexplained or recurrent spontaneous Oral contraceptives or hormone replacement Sepsis (< 1 month) Serious lung disease, including pneumonia (< 1 month) Abnormal pulmonary function Acute myocardial infarction Congestive heart failure (< 1 month) History of inflammatory bowel disease Medical patient at bed rest Age 61-74 Arthroscopic surgery Major open surgery (> 45 min) Laparoscopic surgery (> 45 min) Malignancy Confined to bed (> 72 hours) Immobilizing plaster cast Central venous access Age >= 75 History of VTE Family history of VTE Factor V Leiden Prothrombin [id number] Lupus anticoagulant Anticardiolipin antibodies Elevated serum homocysteine Heparin-induced thrombocytopenia Other congenital or acquired thrombophilia Stroke (< 1 month) Elective arthroplasty Hip, pelvis, or leg fracture Acute spinal cord injury (< 1 month) Prophylaxis Regimen: Total Risk Factor Score Risk Level Prophylaxis Regimen 0-1 Low Early ambulation 2 Moderate Order ONE of the following: *Sequential Compression Device (SCD) *Heparin 5000 units SQ BID 3-4 Higher Order ONE of the following medications: *Heparin 5000 units SQ TID *Enoxaparin/Lovenox 40 mg SQ daily (WT < 150 kg, CrCl > 30 mL/min) *Enoxaparin/Lovenox 30 mg SQ daily (WT < 150 kg, CrCl > 10-29 mL/min) *Enoxaparin/Lovenox 30 mg SQ BID (WT < 150 kg, CrCl > 30 mL/min) AND/OR *Sequential Compression Device (SCD) 5 or more Highest Order ONE of the following medications: *Heparin 5000 units SQ TID (Preferred with Epidurals) *Enoxaparin/Lovenox 40 mg SQ daily (WT < 150 kg, CrCl > 30 mL/min) *Enoxaparin/Lovenox 30 mg SQ daily (WT < 150 kg, CrCl > 10-29 mL/min) *Enoxaparin/Lovenox 30 mg SQ BID (WT < 150 kg, CrCl > 30 mL/min) AND *Sequential Compression Device (SCD) Assessment and Plan (1) Hypertensive urgency: Code(s): I16.0 - Hypertensive urgency Status: Acute (2) DM (diabetes mellitus): Code(s): E11.9 - Type 2 diabetes mellitus without complications Status: Acute (3) H/O: CVA (cerebrovascular accident): Code(s): Z86.73 - Personal history of transient ischemic attack (TIA), and cerebral infarction without residual deficits Status: Acute Plan A/P: 1. Hypertensive Urgency: BP 230's on arrival, s/p Hydralazine 10mg IV x1 w/ persistently elevated BP, will give additional Hydralazine IV 10mg, admit for further treatment, resume home medications, monitor BP closely, antihypertensives as needed for BP >180 2. H/o CVA: recent admit 01/2018 for CVA s/p TPA, no new neurologic deficits, CT Head stable without acute changes. 3. DM: Sliding scale w/ Accu-cheks 4. DVT Prophylaxis: SCD/Teds 5. Social work for d/c planning as needed. 6. Case discussed w/ ER physician at length, labs/records/imaging reviewed by me.
[2018-02-25] MEDS: traZODone 50 MG Tablet PO SCH (22:49)
[2018-02-25] MEDS: Senna/Docusate Sodium 8.6/50 MG Tablet PO SCH (22:49)
[2018-02-25] MEDS: Metoprolol Tartrate 25 MG Tablet PO SCH (22:49)
[2018-02-25] MEDS: Insulin NovoLOG Aspart Correctional Sugar Inj SQ SCH (22:50)
[2018-02-25] MEDS: Brimonidine 0.2% Opth Drops 5 ML Bottle EACH EYE SCH (22:51)
[2018-02-26] MEDS: Folic Acid 1 MG Tablet PO SCH (08:05)
[2018-02-26] MEDS: Metoprolol Tartrate 25 MG Tablet PO SCH ×2 (08:06→21:35)
[2018-02-26] MEDS: Famotidine 20 MG Tablet PO SCH (08:07)
--- NOTE | 2018-02-26 08:09 | P.PN ---
Subjective Interval history: Follow-up for hypertensive urgency. Patient seen sitting upright in bedside chair. He has no specific medical complaints including no headache, lightheadedness, dizziness, visual changes, chest pain, shortness breath, or abdominal complaints. BP slowly improving, currently BP 182/83. Patient is unable to explain which medications he is supposed to be on at his [facility]. Discussed with RN, no acute concerns. Physical Exam Vital signs: Vital Signs 02/25/18 16:20 02/25/18 16:31 02/25/18 17:01 Temperature 97.6 F Pulse Rate 63 72 65 Respiratory Rate 20 19 Blood Pressure 220/91 H 224/91 H Pulse Oximetry 98 100 02/25/18 17:03 02/25/18 19:22 02/25/18 20:24 Temperature Pulse Rate 59 L 75 75 Respiratory Rate 20 18 Blood Pressure 206/89 H 230/114 H 162/72 H Pulse Oximetry 99 97 98 02/25/18 23:57 02/26/18 04:00 02/26/18 07:24 Temperature 97.7 F 97.8 F 98.1 F Pulse Rate 65 71 74 Respiratory Rate 02 18 20 Blood Pressure 167/81 H 159/81 H 182/83 H Pulse Oximetry 97 97 98 Intake & Output 02/25/18 02/26/18 02/26/18 18:59 06:59 18:59 Weight 74.843 kg 74.843 kg Other: # Voids 1 1 Date of Last Bowel Movement 02/25/18 Weight On Admission 74.843 kg Narrative: GENERAL: Well-nourished, well-developed pleasant elderly male patient in [facility]. SKIN: Warm and dry. No rash. HEENT: Normocephalic. Atraumatic. Pupils equal and round. Mucous membranes pink and moist. CARDIOVASCULAR: Regular rate and rhythm. No murmur appreciated. RESPIRATORY: No accessory muscle use. Clear to auscultation. Breath sounds equal bilaterally. GASTROINTESTINAL: Abdomen soft, non-tender, nondistended. Normoactive bowel sounds x4. MUSCULOSKELETAL: No obvious deformities. Extremities without clubbing, cyanosis , or edema. NEUROLOGICAL: Awake and alert. No obvious cranial nerve deficits. Moving all extremities spontaneously. Normal speech. PSYCHIATRIC: Appropriate mood and affect. Results - Labs CBC & Chem 7: 02/26/18 07:03 02/26/18 07:03 Laboratory Results - last 24 hr 02/25/18 02/25/18 02/25/18 16:50 16:50 16:50 WBC 9.6 RBC 3.85 L Hgb 12.6 L Hct 36.8 L MCV 95.8 MCH 32.9 MCHC 34.3 RDW 13.7 Plt Count 264 MPV 9.5 Neut % (Auto) 56.6 Lymph % (Auto) 26.1 [place] % (Auto) 9.9 H Eos % (Auto) 6.6 H Baso % (Auto) 0.8 Neut # (Auto) 5.4 Lymph # (Auto) 2.5 [place] # (Auto) 0.9 Eos # (Auto) 0.6 H Baso # (Auto) 0.1 WBC Differential . Differential Comment Auto diff final PT 11.1 INR 1.1 Sodium 141 Potassium 4.5 Chloride 108 H Carbon Dioxide 28.0 Anion Gap 5 BUN 19 H Creatinine 2.04 H Estimated GFR 32 L POC Glucose Random Glucose 223 H Calcium 8.5 Troponin I 02/25/18 02/25/18 02/26/18 20:30 22:49 00:55 WBC RBC Hgb Hct MCV MCH MCHC RDW Plt Count MPV Neut % (Auto) Lymph % (Auto) [place] % (Auto) Eos % (Auto) Baso % (Auto) Neut # (Auto) Lymph # (Auto) [place] # (Auto) Eos # (Auto) Baso # (Auto) WBC Differential Differential Comment PT INR Sodium Potassium Chloride Carbon Dioxide Anion Gap BUN Creatinine Estimated GFR POC Glucose 192 H 210 H Random Glucose Calcium Troponin I 0.04 02/26/18 08:05 WBC RBC Hgb Hct MCV MCH MCHC RDW Plt Count MPV Neut % (Auto) Lymph % (Auto) [place] % (Auto) Eos % (Auto) Baso % (Auto) Neut # (Auto) Lymph # (Auto) [place] # (Auto) Eos # (Auto) Baso # (Auto) WBC Differential Differential Comment PT INR Sodium Potassium Chloride Carbon Dioxide Anion Gap BUN Creatinine Estimated GFR POC Glucose 207 H Random Glucose Calcium Troponin I - Imaging Impressions Head CT 02/25/18 16:50 CONCLUSION: 1. Stable noncontrast head CT. No acute intracranial abnormality is identified. 2. Chronic findings include generalized atrophy, mild periventricular white matter change, and right cerebellar encephalomalacia. . Assessment and Plan - Assessment (1) Hypertensive urgency Code(s): I16.0 - Hypertensive urgency Status: Acute (2) DM (diabetes mellitus) Code(s): E11.9 - Type 2 diabetes mellitus without complications Status: Acute (3) H/O: CVA (cerebrovascular accident) Code(s): Z86.73 - Personal history of transient ischemic attack (TIA), and cerebral infarction without residual deficits Status: Acute - Plan This is a 72-year-old male with a PMH of HTN, Hyperlipidemia, DM and h/o CVA who was sent to the ER from from [facility] for elevated BP. Recent admit 02/02-02/05 for CVA s/p TPA, was d/c'd to [facility]. Today w/ no complaints, however routine BP check noted to be elevated. Hypertensive Urgency: BP 230's on arrival, s/p Hydralazine 10mg IV x3 with minimal improvement. -Resume patient's home metoprolol however lisinopril on hold secondary to RADHA -added Hydralazine 25mg qid, increase as needed -clonidine prn -Monitor BP, adjust antihypertensives as needed RADHA: Cr 2.21, previously Cr 1.58 on 02/05/18 -holding patient's lisinopril -give IVF hydration -avoid nephrotoxins -monitor BMP, no improvement, will check UA and Renal U/S Recent CVA: recent admit 01/2018 for CVA s/p TPA, no new neurologic deficits -Repeat CT Head stable without acute changes. -Continue patient's aspirin, statin, plavix DM: Chronic -hold patient's glipizide for now -Continue Sliding scale w/ Accu-checks Dementia: Chronic -continue patient's Aricept, Namenda, Seroquel DVT Prophylaxis: SCD/Teds
[2018-02-26 08:46] LABS: Baso # (Auto) 0.1 th/mm3 (0.0-0.2); Baso % (Auto) 0.7 % (0.0-2.0); Eos # (Auto) 0.6 th/mm3 (0.0-0.4); Eos % (Auto) 4.9 % (0.0-4.0); Hematocrit 40.3 % (39.0-51.0); Lymph # (Auto) 2.1 th/mm3 (1.0-4.8); Lymph % (Auto) 18.3 % (9.0-44.0); Mean Corpuscular HGB Conc 34.7 % (32.0-36.0); Mean Corpuscular Hemoglobin 33.1 pg (27.0-34.0); Mean Corpuscular Volume 95.2 fL (80.0-100.0); Mean Platelet Volume 9.6 fL (7.0-11.0); Mono # (Auto) 0.9 th/mm3 (0.0-0.9); Mono % (Auto) 7.9 % (0.0-8.0); Neut # (Auto) 7.9 th/mm3 (1.8-7.7); Neut % (Auto) 68.2 % (16.0-70.0); Platelet Count 256 th/mm3 (150-450); Red Blood Count 4.24 mil/mm3 (4.50-5.90); White Blood Count 11.5 th/mm3 (4.0-11.0)
[2018-02-26] MEDS: hydrALAZINE 25 MG Tablet PO SCH ×3 (08:58→17:03)
[2018-02-26] MEDS: Insulin NovoLOG Aspart Correctional Sugar Inj SQ SCH ×4 (08:59→23:53)
[2018-02-26] MEDS ORDERED: ALFUZOSIN 10 MG PO SCH (09:00)
[2018-02-26] MEDS: Senna/Docusate Sodium 8.6/50 MG Tablet PO SCH ×2 (09:00→21:34)
[2018-02-26] MEDS: QUEtiapine 25 MG Tablet PO SCH ×4 (09:01→17:03)
[2018-02-26 09:12] LABS: Albumin 3.6 g/dL (3.4-5.0); Anion Gap 9 meq/L (5-15); Aspartate Aminotransferase 18 U/L (15-37); Blood Urea Nitrogen 19 mg/dL (7-18); Calcium 9.3 mg/dL (8.5-10.1); Carbon Dioxide 25.5 meq/L (21.0-32.0); Chloride 105 meq/L (98-107); Glomerular Filtration Rate 29 mL/min (>89); Glucose,Random 245 mg/dL (74-106); Potassium 4.7 meq/L (3.5-5.1); Sodium 139 meq/L (136-145)
[2018-02-26 09:16] LABS: Alanine Aminotransferase 25 U/L (12-78)
[2018-02-26 09:18] LABS: Alkaline Phosphatase 126 U/L (45-117); Total Protein 7.4 g/dL (6.4-8.2); Troponin I 0.04 ng/mL (0.02-0.05)
--- NOTE | 2018-02-26 09:47 | ECG ---
Date Performed: 02/25/2018 Time Performed: 17:13:24 PTAGE: 72 years EKG: Sinus rhythm NONSPECIFIC ST & T-WAVE ABNORMALITY BORDERLINE ECG PREVIOUS TRACING : 02/06/2018 11.50 DOCTOR: Dario Maharaj Interpretating Date/Time 02/26/2018 09:45:07
[2018-02-26] MEDS: Sod Chloride 0.9% Inj 1,000 ML IV.CONT SCH ×2 (11:06→21:41)
[2018-02-26] MEDS: Brimonidine 0.2% Opth Drops 5 ML Bottle EACH EYE SCH ×2 (11:53→21:15)
--- NOTE | 2018-02-26 13:30 | ECG ---
Date Performed: 02/26/2018 Time Performed: 00:03:41 PTAGE: 72 years EKG: SINUS BRADYCARDIA NONSPECIFIC T-WAVE ABNORMALITY BORDERLINE ECG NO PREVIOUS TRACING DOCTOR: Dario Maharaj Interpretating Date/Time 02/26/2018 13:27:37
--- NOTE | 2018-02-26 20:27 | US ---
EXAM DATE: 02/26/2018 8:22 PM EST AGE/SEX: 72 years / Male INDICATIONS: Elevated labs. CLINICAL DATA: This is the patient's initial encounter. Patient reports that signs and symptoms have been present for 1 day and indicates a pain score of 0/10. MEDICAL/SURGICAL HISTORY: Dementia. Diabetes mellitus type II. Hypertension. TIA. Hypothyroi d. BPH. Tonsillectomy. Cardiac cath. Carotid endarterectomy. COMPARISON: No prior exams available for comparison. MEASUREMENTS: Right Kidney:__11.6 x 5.0 x 5.0 cm Left Kidney:__11.1 x 4.0 x 5.0 cm FINDINGS: Right Kidney: Parenchymal echogenicity within normal limits. There is a 2.2 cm benign-appearing lower pole cyst. No solid mass. No stones or hydronephrosis. Left Kidney: Parenchymal echogenicity within normal limits. No mass, stone or hydronephrosis. Bladder: Within normal limits given the degree of distension. CONCLUSION: No obstructive uropathy or other acute abnormality. Benign-appearing cyst of the right lo wer pole. Electronically signed by: Arley Warren MD Board Certified Radiologist 02/26/2018 8:25 PM EST
[2018-02-26] MEDS: traZODone 50 MG Tablet PO SCH (21:34)
[2018-02-27] MEDS: hydrALAZINE 25 MG Tablet PO SCH ×3 (06:23→10:59)
[2018-02-27] MEDS: Sod Chloride 0.9% Inj 1,000 ML IV.CONT SCH ×2 (06:24→18:04)
[2018-02-27 07:10] LABS: Baso # (Auto) 0.1 th/mm3 (0.0-0.2); Baso % (Auto) 0.5 % (0.0-2.0); Eos # (Auto) 0.7 th/mm3 (0.0-0.4); Eos % (Auto) 6.1 % (0.0-4.0); Hematocrit 37.4 % (39.0-51.0); Lymph # (Auto) 2.6 th/mm3 (1.0-4.8); Lymph % (Auto) 24.4 % (9.0-44.0); Mean Corpuscular HGB Conc 34.9 % (32.0-36.0); Mean Corpuscular Hemoglobin 32.8 pg (27.0-34.0); Mean Corpuscular Volume 93.9 fL (80.0-100.0); Mean Platelet Volume 9.4 fL (7.0-11.0); Mono # (Auto) 1.1 th/mm3 (0.0-0.9); Mono % (Auto) 10.2 % (0.0-8.0); Neut # (Auto) 6.3 th/mm3 (1.8-7.7); Neut % (Auto) 58.8 % (16.0-70.0); Platelet Count 254 th/mm3 (150-450); Red Blood Count 3.98 mil/mm3 (4.50-5.90); Red Cell Distribution Width 13.8 % (11.6-17.2); White Blood Count 10.7 th/mm3 (4.0-11.0)
[2018-02-27 07:36] LABS: Calcium 9.3 mg/dL (8.5-10.1); Carbon Dioxide 25.8 meq/L (21.0-32.0); Potassium 4.3 meq/L (3.5-5.1)
[2018-02-27] MEDS: Senna/Docusate Sodium 8.6/50 MG Tablet PO SCH ×2 (10:58→21:48)
[2018-02-27] MEDS: Folic Acid 1 MG Tablet PO SCH (10:59)
[2018-02-27] MEDS: QUEtiapine 25 MG Tablet PO SCH ×3 (10:59→18:08)
[2018-02-27] MEDS: Metoprolol Tartrate 25 MG Tablet PO SCH ×2 (10:59→21:48)
[2018-02-27] MEDS: Famotidine 20 MG Tablet PO SCH (11:00)
--- NOTE | 2018-02-27 11:14 | P.PN ---
Subjective Interval history: Follow-up visit for hypertensive urgency and acute kidney injury, recent CVA. Patient is seen ambulating in his room, asking what is going on. He is alert and oriented to self, knows he is in the hospital, year as well as current president. He reports that he has 2 sons locally. He reports that he has been compliant with his medications. He denies any headaches, dizziness, lightheadedness, visual changes, nausea, diarrhea, vomiting, cough, shortness of breath or chest pain. Physical Exam Vital signs: Vital Signs 02/26/18 16:00 02/26/18 21:08 02/27/18 01:23 Temperature 97.2 F L 97.4 F L 97.7 F Pulse Rate 59 L 72 70 Respiratory Rate 16 19 18 Blood Pressure 129/68 160/75 H 160/62 H Pulse Oximetry 96 97 97 02/27/18 04:00 02/27/18 08:00 Temperature 97.0 F L 97.9 F Pulse Rate 86 74 Respiratory Rate 17 17 Blood Pressure 130/74 177/87 H Pulse Oximetry 93 L 98 Intake & Output 02/26/18 02/27/18 02/27/18 18:59 06:59 18:59 Intake Total 1000 / 1000 Balance 1000 / 1000 Intake: IV 1000 / 1000 NS Inj 1,000 ML @ 100 mls/hr IV 1000 / 1000 .CONT .Q10H [facility] Rx#:[id number] Other: # Voids 1 Date of Last Bowel Movement 02/25/18 Narrative: GENERAL: Well-nourished, well-developed pleasant elderly male patient in [facility]. SKIN: Warm and dry. HEENT: Normocephalic. Atraumatic. Pupils equal/round. Mucous membranes pink and moist. CARDIOVASCULAR: Regular rate and rhythm. No murmur appreciated. RESPIRATORY: No accessory muscle use. Clear to auscultation. Breath sounds equal bilaterally. GASTROINTESTINAL: Abdomen soft, non-tender, nondistended. Normoactive bowel sounds x4. MUSCULOSKELETAL: No obvious deformities. Extremities without clubbing, cyanosis , or edema. NEUROLOGICAL: Awake and alert. No obvious cranial nerve deficits. Moving all extremities spontaneously. Normal speech. PSYCHIATRIC: Appropriate mood and affect. Results - Labs CBC & Chem 7: 02/27/18 05:37 02/27/18 05:37 Laboratory Results - last 24 hr 02/26/18 02/26/18 02/26/18 13:24 17:26 23:49 WBC RBC Hgb Hct MCV MCH MCHC RDW Plt Count MPV Neut % (Auto) Lymph % (Auto) [place] % (Auto) Eos % (Auto) Baso % (Auto) Neut # (Auto) Lymph # (Auto) [place] # (Auto) Eos # (Auto) Baso # (Auto) WBC Differential Differential Comment Sodium Potassium Chloride Carbon Dioxide Anion Gap BUN Creatinine Estimated GFR POC Glucose 239 H 266 H 168 H Random Glucose Calcium 02/27/18 02/27/18 05:37 05:37 WBC 10.7 RBC 3.98 L Hgb 13.0 Hct 37.4 L MCV 93.9 MCH 32.8 MCHC 34.9 RDW 13.8 Plt Count 254 MPV 9.4 Neut % (Auto) 58.8 Lymph % (Auto) 24.4 [place] % (Auto) 10.2 H Eos % (Auto) 6.1 H Baso % (Auto) 0.5 Neut # (Auto) 6.3 Lymph # (Auto) 2.6 [place] # (Auto) 1.1 H Eos # (Auto) 0.7 H Baso # (Auto) 0.1 WBC Differential . Differential Comment Auto diff final Sodium 142 Potassium 4.3 Chloride 108 H Carbon Dioxide 25.8 Anion Gap 8 BUN 20 H Creatinine 2.45 H Estimated GFR 26 L POC Glucose Random Glucose 129 H D Calcium 9.3 - Imaging Impressions Abdomen/Bladder Ultrasound 02/26/18 00:00 CONCLUSION: No obstructive uropathy or other acute abnormality. Benign- appearing cyst of the right lower pole. Assessment and Plan - Assessment (1) Hypertensive urgency Code(s): I16.0 - Hypertensive urgency Status: Acute (2) DM (diabetes mellitus) Code(s): E11.9 - Type 2 diabetes mellitus without complications Status: Acute (3) H/O: CVA (cerebrovascular accident) Code(s): Z86.73 - Personal history of transient ischemic attack (TIA), and cerebral infarction without residual deficits Status: Acute - Plan This is a 72-year-old male with a PMH of HTN, Hyperlipidemia, DM and h/o CVA who was sent to the ER from from [facility] for elevated BP. Recent admit 02/02-02/05 for CVA s/p TPA, was d/c'd to [facility]. Today w/ no complaints, however routine BP check noted to be elevated. Hypertensive Urgency: BP 230's on arrival, s/p Hydralazine 10mg IV x3 with minimal improvement. -Continue home dose of metoprolol, continue to hold lisinopril secondary to RADHA -Continue newly added hydralazine 25mg qid, BP noted to improve -clonidine prn -Monitor BP, adjust antihypertensives as needed RADHA: Cr 2.21, previously Cr 1.58 on 02/05/18 -holding patient's lisinopril -Continue IVF hydration -avoid nephrotoxins - Kidney/renal/bladder ultrasound with no obstructive uropathy or other acute abnormality, benign-appearing cyst on the right lower pole. - UA pending -Continue monitoring renal function if worsening consider nephrology consult. Recent CVA: recent admit 01/2018 for CVA s/p TPA, no new neurologic deficits -Repeat CT Head stable without acute changes. -Continue patient's aspirin, statin, plavix DM: Chronic -hold patient's glipizide for now -Continue Sliding scale w/ Accu-checks -Change diet to cardiac and diabetic Dementia: Chronic -continue patient's Aricept, Namenda, Seroquel -Patient lives at [facility] DVT Prophylaxis: SCD/Teds Discussed Condition With: Patient and RN
[2018-02-27 13:21] LABS: Bacteria,Urine Occasional /hpf; Bilirubin,Urine Negative (Negative); Clarity,Urine Clear (Clear); Color,Urine Straw (Yellw/Straw); Glucose,Urine (UA) 150 mg/dL (Negative); Hyaline Casts,Urine 1 /lpf (0-3); Leukocyte Esterase,Urine Trace (Negative); Mucus,Urine Few /lpf (Occasional); Nitrite,Urine Negative (Negative); Specific Gravity,Urine 1.004 (1.002-1.035); Squamous Epithelial Cell,Urine <1 /hpf (0-5)
[2018-02-27] MEDS: Insulin NovoLOG Aspart Correctional Sugar Inj SQ SCH ×4 (14:54→21:50)
[2018-02-27] MEDS: hydrALAZINE 50 MG Tablet PO SCH (18:08)
[2018-02-27] MEDS: Brimonidine 0.2% Opth Drops 5 ML Bottle EACH EYE SCH ×2 (21:36→21:49)
[2018-02-27] MEDS: traZODone 50 MG Tablet PO SCH (21:48)
[2018-02-28] MEDS: hydrALAZINE 50 MG Tablet PO SCH ×4 (00:07→17:08)
--- NOTE | 2018-02-28 00:44 | ECG ---
Date Performed: 02/26/2018 Time Performed: 10:58:15 PTAGE: 72 years EKG: Sinus rhythm WITH FIRST DEGREE AV BLOCK NONSPECIFIC T-WAVE ABNORMALITY ABNORMAL ECG INTERPRETATION BASED ON A DEF ASTER AGE OF 40 YEARS PREVIOUS TRACING : 02/26/2018 00.03 Since the previous tracing, no significant change not ed DOCTOR: Andre De Los Santos Interpretating Date/Time 02/28/2018 00:42:27
[2018-02-28] MEDS: Sod Chloride 0.9% Inj 1,000 ML IV.CONT SCH ×3 (03:09→22:22)
[2018-02-28] MEDS: Insulin NovoLOG Aspart Correctional Sugar Inj SQ SCH ×4 (08:08→21:03)
[2018-02-28] MEDS: Brimonidine 0.2% Opth Drops 5 ML Bottle EACH EYE SCH ×2 (08:09→20:31)
[2018-02-28] MEDS: Famotidine 20 MG Tablet PO SCH (08:10)
[2018-02-28] MEDS: Senna/Docusate Sodium 8.6/50 MG Tablet PO SCH ×2 (08:10→20:32)
[2018-02-28] MEDS: Metoprolol Tartrate 25 MG Tablet PO SCH ×2 (08:10→20:31)
[2018-02-28] MEDS: Folic Acid 1 MG Tablet PO SCH (08:10)
[2018-02-28] MEDS: QUEtiapine 25 MG Tablet PO SCH ×3 (08:11→17:08)
[2018-02-28 10:08] LABS: Calcium 9.1 mg/dL (8.5-10.1); Potassium 4.4 meq/L (3.5-5.1)
[2018-02-28] MEDS ORDERED: Petrolatum/Shark Oil/Phenylephrine Oint 60 GM Tube RECTAL PRN (12:44)
--- NOTE | 2018-02-28 17:00 | P.PN ---
Subjective Interval history: Follow-up visit for hypertensive urgency and RADHA. Patient seen and examined resting in bed comfortably and in no acute distress. He denies any dizziness, lightheadedness, vision changes, chest pain, nausea, vomiting or diarrhea. Nurse does not report any acute concerns or events. Physical Exam Vital signs: Vital Signs 02/27/18 20:05 02/27/18 20:40 02/27/18 23:59 Temperature 97.6 F Pulse Rate 73 69 51 L Respiratory Rate 18 Blood Pressure 149/77 H Pulse Oximetry 98 02/28/18 00:55 02/28/18 04:00 02/28/18 04:30 Temperature 97.2 F L 97.5 F L Pulse Rate 58 L 63 76 Respiratory Rate 18 19 Blood Pressure 132/68 129/69 Pulse Oximetry 97 95 02/28/18 08:00 02/28/18 08:19 02/28/18 12:00 Temperature 97.4 F L 97.2 F L Pulse Rate 65 83 60 Respiratory Rate 18 16 Blood Pressure 151/71 H 147/69 H Pulse Oximetry 94 L 97 Intake & Output 02/27/18 02/28/18 02/28/18 18:59 06:59 18:59 Intake Total 800 / 800 1000 / 1000 Output Total 900 / 900 Balance -100 / -100 1000 / 1000 Weight 74.8 kg Intake: IV 1000 / 1000 NS Inj 1,000 ML @ 100 mls/hr IV 1000 / 1000 .CONT .Q10H [facility] Rx#:[id number] Oral 800 / 800 Output: Urine 900 / 900 Other: Date of Last Bowel Movement 02/25/18 02/25/18 # Bowel Movements 0 Narrative: GENERAL: Well-nourished, well-developed pleasant elderly male patient in [facility]. SKIN: Warm and dry. HEENT: Normocephalic. Atraumatic. Pupils equal/round. Mucous membranes pink and moist. CARDIOVASCULAR: Regular rate and rhythm. No murmur appreciated. RESPIRATORY: No accessory muscle use. Clear to auscultation. Breath sounds equal bilaterally. GASTROINTESTINAL: Abdomen soft, non-tender, nondistended. Normoactive bowel sounds x4. MUSCULOSKELETAL: No obvious deformities. Extremities without clubbing, cyanosis , or edema. NEUROLOGICAL: Awake and alert. No obvious cranial nerve deficits. Moving all extremities spontaneously. Normal speech. PSYCHIATRIC: Appropriate mood and affect. Results - Labs CBC & Chem 7: 02/27/18 05:37 02/28/18 08:56 Laboratory Results - last 24 hr 02/27/18 02/28/18 02/28/18 21:42 07:20 08:56 Sodium 141 Potassium 4.4 Chloride 108 H Carbon Dioxide 23.0 Anion Gap 10 BUN 23 H Creatinine 2.12 H Estimated GFR 31 L POC Glucose 164 H 160 H Random Glucose 192 H Calcium 9.1 02/28/18 02/28/18 11:29 16:39 Sodium Potassium Chloride Carbon Dioxide Anion Gap BUN Creatinine Estimated GFR POC Glucose 205 H 130 H Random Glucose Calcium Assessment and Plan - Assessment (1) Hypertensive urgency Code(s): I16.0 - Hypertensive urgency Status: Acute (2) DM (diabetes mellitus) Code(s): E11.9 - Type 2 diabetes mellitus without complications Status: Acute (3) H/O: CVA (cerebrovascular accident) Code(s): Z86.73 - Personal history of transient ischemic attack (TIA), and cerebral infarction without residual deficits Status: Acute - Plan This is a 72-year-old male with a PMH of HTN, Hyperlipidemia, DM and h/o CVA who was sent to the ER from from [facility] for elevated BP. Recent admit 02/02-02/05 for CVA s/p TPA, was d/c'd to [facility]. Today w/ no complaints, however routine BP check noted to be elevated. Hypertensive Urgency: BP 230's on arrival, s/p Hydralazine 10mg IV x3 with minimal improvement. -Continue home dose of metoprolol, continue to hold lisinopril secondary to RADHA -Continue hydralazine 50 mg 4 times daily -clonidine prn -BP stable RADHA: Cr 2.21, previously Cr 1.58 on 02/05/18 -holding patient's lisinopril -Continue IVF hydration -avoid nephrotoxins - Kidney/renal/bladder ultrasound with no obstructive uropathy or other acute abnormality, benign-appearing cyst on the right lower pole. - UA no culture indicating, urine osmolality slightly low at 192. -Renal function improving, continue IV hydration and recheck BMP in a.m. Recent CVA: recent admit 01/2018 for CVA s/p TPA, no new neurologic deficits -Repeat CT Head stable without acute changes. -Continue patient's aspirin, statin, plavix DM: Chronic -hold patient's glipizide for now -Continue Sliding scale w/ Accu-checks -Cardiac and diabetic diet. 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
[2018-02-28] MEDS: traZODone 50 MG Tablet PO SCH (20:32)
[2018-03-01] MEDS: hydrALAZINE 50 MG Tablet PO SCH ×3 (02:42→12:10)
[2018-03-01 05:03] VITALS: RESP 16
[2018-03-01 06:06] LABS: Calcium 8.8 mg/dL (8.5-10.1); Carbon Dioxide 22.8 meq/L (21.0-32.0); Potassium 4.3 meq/L (3.5-5.1)
[2018-03-01] MEDS: Sod Chloride 0.9% Inj 1,000 ML IV.CONT SCH (07:30)
[2018-03-01] MEDS: Metoprolol Tartrate 25 MG Tablet PO SCH (08:00)
[2018-03-01] MEDS: Senna/Docusate Sodium 8.6/50 MG Tablet PO SCH (08:01)
[2018-03-01] MEDS: Famotidine 20 MG Tablet PO SCH (08:01)
[2018-03-01] MEDS: QUEtiapine 25 MG Tablet PO SCH ×2 (08:01→12:13)
[2018-03-01] MEDS: Folic Acid 1 MG Tablet PO SCH (08:01)
[2018-03-01] MEDS: Brimonidine 0.2% Opth Drops 5 ML Bottle EACH EYE SCH (08:03)
[2018-03-01] MEDS: Insulin NovoLOG Aspart Correctional Sugar Inj SQ SCH ×2 (08:24→12:00)
--- NOTE | 2018-03-01 08:34 | P.DS ---
Date of admission: 02/25/18 19:27 Primary care physician: Barrie Villareal MD Attending physician on discharge: Arthur Bettencourt Anticipated date of discharge: 03/01/18 Brief History from admission: INR 1.1.This is a 72-year-old male with a PMH of HTN, Hyperlipidemia, DM and h /o CVA who was sent to the ER from from [facility] for elevated BP. Recent admit -02/05/18 for CVA s/p TPA, was d/c'd to [facility]. Today w/ no complaints, however routine BP check noted to be elevated. Denies chest pain, SOB, headache, blurry vision, nausea or vomiting. On arrival, BP 220/91, HR 63, O2 sat 98% on RA, Afebrile. S/p Hydralazine 10mg IV x2 w/ persistently elevated BP 220's. CBC unremarkable. Chemistry essentially unremarkable. CT Head stable. Patient without complaints at this time. DS: Diagnosis - Discharge Diagnosis (1) Hypertensive urgency Status: Acute (2) DM (diabetes mellitus) Status: Acute (3) H/O: CVA (cerebrovascular accident) Status: Acute DS: Medications - Discharge Medications Prescriptions: clonidine HCl [Catapres] 0.1 mg PO Q6H PRN #30 tab PRN Reason: Sbp> Or = 180, Dbp> Or = 100 hydralazine 50 mg PO Q6HR #120 tab insulin aspart U-100 [Novolog U-100 Insulin aspart] 0 unit SUBCUT ACHS #15 ml DS: Summary Hospital Course: 72-year-old male with past medical history significant for HTN, HLD, DM, CVA, Alzheimer's, and dementia who presented to the emergency department on 02/25 from [facility] due to elevated BP. Of note patient was recently admitted for CVA for which she received TPA and subsequently discharged back to his [facility]. On arrival BP 220/91, heart rate 63. He was treated with hydralazine 10 mg with 2 doses with persistent hypertension. Lab work essentially unremarkable with the exception of creatinine of 2.21. Head CT was also negative. Patient' s home dose of metoprolol was discontinued, started on hydralazine which eventually was increased to 50 mg 4 times a day, lisinopril discontinued secondary to [place] I. Renal ultrasound did not show any obstructive uropathy or acute abnormalities, provided with IV hydration. Creatinine peaked at 2.45 and improved to 2.11. His blood pressure improved and this morning was 132/63 with heart rate of 80, patient with no reported symptoms. Patient will be discharged back to his [facility] with updated medication list as well as instructions for BMP in 1 week to monitor renal function. He should be encouraged to continue oral hydration at [facility]. He is seen and examined this morning ambulating in his room and appears to be in no acute distress. Denies any headache, dizziness, lightheadedness, nausea, vomiting, diarrhea, shortness of breath or chest pain. Discussed discharge back to his [facility], voices no acute concerns. Discharge was also discussed with case management. - Time Spent with Patient Total time spent providing and/or coordinating discharge services: Less than 30 minutes - Quality: VTE Deep Vein Thrombosis/Pulmonary Embolism Present on Admission: No Exam Vital signs: Vital Signs 02/28/18 12:00 02/28/18 16:00 02/28/18 19:20 Temperature 97.2 F L 98.9 F 97.9 F Pulse Rate 60 69 80 Respiratory Rate 16 16 19 Blood Pressure 147/69 H 159/74 H 131/60 Pulse Oximetry 97 96 96 02/28/18 20:45 02/28/18 23:20 03/01/18 03:31 Temperature 97.6 F 98.2 F Pulse Rate 80 74 73 Respiratory Rate 19 16 Blood Pressure 143/71 H 154/75 H Pulse Oximetry 95 96 Intake & Output 02/28/18 03/01/18 03/01/18 18:59 06:59 18:59 Intake Total 1480 / 1480 500 / 500 Output Total 600 / 600 Balance 880 / 880 500 / 500 Weight 80.3 kg Intake: IV 1000 / 1000 200 / 200 NS Inj 1,000 ML @ 100 mls/hr IV 1000 / 1000 200 / 200 .CONT .Q10H [facility] Rx#:[id number] Oral 480 / 480 300 / 300 Output: Urine 600 / 600 Other: # Voids 2 3 Date of Last Bowel Movement 02/25/18 02/28/18 # Bowel Movements 0 0 Narrative: GENERAL: Well-nourished, well-developed pleasant elderly male patient in [facility]. SKIN: Warm and dry. HEENT: Normocephalic. Atraumatic. Pupils equal/round. Mucous membranes pink and moist. CARDIOVASCULAR: Regular rate and rhythm. No murmur appreciated. RESPIRATORY: No accessory muscle use. Clear to auscultation. Breath sounds equal bilaterally. GASTROINTESTINAL: Abdomen soft, non-tender, nondistended. Normoactive bowel sounds x4. MUSCULOSKELETAL: No obvious deformities. Extremities without clubbing, cyanosis , or edema. NEUROLOGICAL: Awake and alert. No obvious cranial nerve deficits. Moving all extremities spontaneously. Normal speech. PSYCHIATRIC: Appropriate mood and affect. Results Procedures completed during hospitalization: None Labs on day of discharge: Labs from last 24 hours 03/01/18 03/01/18 02/28/18 07:59 05:24 20:34 Sodium 140 Potassium 4.3 Chloride 109 H Carbon Dioxide 22.8 Anion Gap 8 BUN 26 H Creatinine 2.11 H Estimated GFR 31 L POC Glucose 152 H 207 H Random Glucose 145 H Calcium 8.8 02/28/18 02/28/18 02/28/18 16:39 11:29 08:56 Sodium 141 Potassium 4.4 Chloride 108 H Carbon Dioxide 23.0 Anion Gap 10 BUN 23 H Creatinine 2.12 H Estimated GFR 31 L POC Glucose 130 H 205 H Random Glucose 192 H Calcium 9.1 - Impressions ITS Impressions Head CT 02/25/18 16:50 CONCLUSION: 1. Stable noncontrast head CT. No acute intracranial abnormality is identified. 2. Chronic findings include generalized atrophy, mild periventricular white matter change, and right cerebellar encephalomalacia. . Abdomen/Bladder Ultrasound 02/26/18 00:00 CONCLUSION: No obstructive uropathy or other acute abnormality. Benign- appearing cyst of the right lower pole. Discharge Plan - Discharge Disposition Patient Disposition: [facility] - Discharge Condition Condition: Fair - Discharge Order Discharge Orders: Discharge Order (Routine); Ordered 03/01/18 Ordered By: Scooter Vera - Physicians Team Primary Care Provider: Barrie Villareal Attending Provider: Arthur Bettencourt
[2018-03-01 12:10] VITALS: BP 146/68; PULSE 69; TEMP 97.1; O2SAT 96
== END 2018-03-01 15:55 ==
LOC: NEPE 16:10 → INTOOBSV 19:27 → NEDA 19:27 → OBSVTOIN 19:27 → NEPFCDU 22:10 → N06 02-26 14:56
PROVIDERS: ADMIT Internal Medicine; ATTEND Internal Medicine
CPT/HCPCS: 70450; 76775; 80048; 80053; 81001; 82948; 82962; 83935; 84484; 85025; 85610; 90774; 90776; 90784; 93005; 96361; 96372; 96374; 96376; 99285; C8952; G0378; J0360; J1815; J7030

== ENCOUNTER 2018-03-12 00:25 | Inpatient (IN) ==
[2018-03-12] MEDS ORDERED: Gelatin 12 MM/7 MM Topical Foam TOPICAL ONE (01:12)
[2018-03-12] MEDS ORDERED: Sod Chloride 0.9% Inj 1,000 ML IV.SIG SCH (01:15)
--- NOTE | 2018-03-12 01:45 | XR ---
EXAM DATE: 03/12/2018 1:39 AM EST AGE/SEX: 72 years / Male INDICATIONS: Chest pain after fall. CLINICAL DATA: This is the patient's initial encounter. Patient reports that signs and symptoms have been present for 1 day and indicates a pain score of 8/10. MEDICAL/SURGICAL HISTORY: Parkinson's disease. Alzheimer's disease. Stroke. Hypertension. Diabe tonie. CABG. COMPARISON: [facility], CHEST 1V SINGLE AP, 02/06/2018. . FINDINGS: A single AP view of the chest demonstrates the lungs to be symmetrically aerated without evidence of mass, infiltrate or effusion. The cardiomediastinal contours are unremarkable. Osseous structures a re intact. Patient is again noted to be status post median sternotomy for bypass grafting procedure. There is stable scarring at the lung bases. CONCLUSION: Stable appearance with no acute cardiopulmonary disease. Electronically signed by: Jarocho Carroll MD Board Certified Radiologist 03/12/2018 1:44 AM EST
--- NOTE | 2018-03-12 01:46 | XR ---
EXAM DATE: 03/12/2018 1:36 AM EST AGE/SEX: 72 years / Male INDICATIONS: Right knee pain after fall. CLINICAL DATA: This is the patient's initial encounter. Patient reports that signs and symptoms have been present for 1 day and indicates a pain score of 7/10. MEDICAL/SURGICAL HISTORY: Parkinson's disease. Alzheimer's disease. Stroke. Hypertension. Diabe tonie. CABG. COMPARISON: None. FINDINGS: Multiple views of the right knee were obtained and demonstrate anterior soft tissue swelling. The lat eral view is rotated and oblique. The patella appears intact. There is no definite joint effusion vis ualized. The medial lateral compartments are in anatomic alignment. CONCLUSION: Soft tissue swelling with no acute fracture or malalignment. Electronically signed by: Jarocho Carroll MD Board Certified Radiologist 03/12/2018 1:45 AM EST
[2018-03-12 02:44] LABS: Activated Partial Thrombo Time 24.6 sec (23.4-31.7); INR 1.1 Ratio; Prothrombin Time 11.1 sec (9.8-11.6)
--- NOTE | 2018-03-12 02:44 | CT ---
EXAM DATE: 03/12/2018 2:40 AM EST AGE/SEX: 72 years / Male INDICATIONS: Trauma. Patient fell and hit head. CLINICAL DATA: This is the patient's initial encounter. Patient reports that signs and symptoms have been present for 1 day and indicates a pain score of 6/10. MEDICAL/SURGICAL HISTORY: . Alzheimer's disease. Benign prostatic hyperplasia. Dementia. Diabetes t ype 2. Transient ischemic attack. Hyperlipemia. Hypertension. Hypothyroid. Stroke. . Carotid endarte rectomy. Cardiac catheter. Tonsillectomy. RADIATION DOSE: 60.26 CTDI (mGy) [place] [facility] [place]. . TECHNIQUE: CT of the head without contrast. Using automated exposure control and adjustment of the mA and/or kV according to patient size, radiation dose was kept as low as reasonably achievable to ob tain optimal diagnostic quality images. DICOM format image data is available electronically for revi ew and comparison. FINDINGS: Cerebrum: The ventricles are normal for age with mild atrophic change. No evidence of midline shift, mass lesion, hemorrhage or acute infarction. No extraaxial fluid collections are seen. Posterior Fossa: Stable in appearance. The brainstem is intact. There is a stable focal area of ence phalomalacia in noted in the right side of the cerebellum. The 4th ventricle is midline. The cerebel lopontine angle is unremarkable. Extracranial: The visualized portion of the orbits is intact. Skull: The calvaria is intact. No evidence of skull fracture. CONCLUSION: 1. No acute hemorrhage or mass effect. 2. Stable area of encephalomalacia in the right cerebellar hemisphere. 3. Age appropriate atrophy. . Electronically signed by: Jarocho Carroll MD Board Certified Radiologist 03/12/2018 2:43 AM EST
[2018-03-12 02:45] LABS: Bilirubin,Urine Negative (Negative); Clarity,Urine Cloudy (Clear); Color,Urine Yellow (Yellw/Straw); Glucose,Urine (UA) 500 mg/dL (Negative); Leukocyte Esterase,Urine Negative (Negative); Nitrite,Urine Positive (Negative); Specific Gravity,Urine 1.025 (1.002-1.035); Urobilinogen,Urine 0.2 mg/dL (Less than 2)
[2018-03-12 02:48] LABS: Glomerular Filtration Rate 22 mL/min (>89)
[2018-03-12 02:51] LABS: Alkaline Phosphatase 88 U/L (45-117)
[2018-03-12 02:52] LABS: RBC,Urine Innumerable /hpf (0-3); Squamous Epithelial Cell,Urine 0-5 /hpf (0-5)
[2018-03-12 02:53] LABS: Troponin I 0.28 ng/mL (0.02-0.05)
[2018-03-12 02:53] LABS: Amorphous Sediment,Urine Moderate /hpf; Bacteria,Urine Few /hpf
--- NOTE | 2018-03-12 03:08 | ED ---
HPI General Chief complaint: Fall Stated complaint: fall/evac Time Seen by Provider: 03/12/18 01:09 Source: patient, EMS, RN notes reviewed and old records reviewed Mode of arrival: EMS Limitations: altered mental status History of Present Illness HPI narrative: 72-year-old man, multiple medical problems, brought in from residential facility for 2 falls, and weakness, found to have high fever. Patient himself is unable to give much history. Review of records shows recent admission with discharge 2 days ago for low back pain and right lower extremity pain. History of stroke and TIA in January. Related Data Home Medications Medication Instructions Recorded Confirmed alfuzosin 10 mg PO DAILY 02/02/18 03/12/18 atorvastatin 80 mg PO DAILY 02/02/18 03/12/18 brimonidine 1 drp OPHTHALMIC (EYE) BID 02/02/18 03/12/18 buspirone 7.5 mg PO BID 02/02/18 03/12/18 clopidogrel [Plavix] 75 mg PO DAILY 02/02/18 03/12/18 donepezil 5 mg PO DAILY 02/02/18 03/12/18 famotidine 20 mg PO DAILY 02/02/18 03/12/18 memantine 10 mg PO BID 02/02/18 03/12/18 quetiapine [Seroquel] 25 mg PO TID 02/02/18 03/12/18 trazodone 25 mg PO HS 02/02/18 03/12/18 folic acid 1 mg PO DAILY 02/25/18 03/12/18 Previous Rx's Medication Instructions Recorded clonidine HCl [Catapres] 0.1 mg PO Q6H PRN #30 tab 03/01/18 hydralazine 50 mg PO Q6HR #120 tab 03/01/18 insulin aspart U-100 [Novolog 0 unit SUBCUT ACHS #15 ml 03/01/18 U-100 Insulin aspart] Allergies Allergy/AdvReac Type Severity Reaction Status Date / Time No Known Allergies Allergy Verified 02/25/18 16:24 Review of Systems ROS: all other systems reviewed are negative [facility] Medical History Medical History Alzheimer disease (Acute) BPH (benign prostatic hyperplasia) (Acute) Dementia (Acute) Diabetes mellitus, type 2 (Acute) Hx of transient ischemic attack (TIA) (Acute) Hyperlipemia (Acute) Hypertension (Acute) Hypothyroid (Acute) Stroke (Acute) Surgical History Surgical History H/O carotid endarterectomy (Acute) Hx of cardiac cath (Acute) Hx of tonsillectomy (Acute) Family History Family History Other Family history of hypertension Social History Social History Substance History: No History of Abuse Second Hand Smoke Exposure: No Smoking Status: Unknown if ever smoked How Often Do You Have a Drink Containing Alcohol: Never Hx Recent Travel: No Recent Travel in [facility] within the Last 8 Weeks: No Recent Out of Country Travel within the Last 8 Weeks: No Immunization History Tetanus Immunization: <5 Years Exam Narrative Exam Narrative: GENERAL: Elderly 72-year-old gentleman, confused, nontoxic. SKIN: Focused skin assessment warm/dry. HEAD: Atraumatic. Normocephalic. NECK: Trachea midline. No JVD. CARDIOVASCULAR: Regular rate and rhythm. No murmur appreciated. RESPIRATORY: No accessory muscle use. Clear to auscultation. Breath sounds equal bilaterally. GASTROINTESTINAL: Abdomen soft, non-tender, nondistended. Hepatic and splenic margins not palpable. MUSCULOSKELETAL: No obvious deformities. No edema. Is a right knee effusion. The right knee feels a little bit warm but is not obviously erythematous. He can range is a small amount but has a significant amount discomfort. Left lower extremity is unremarkable. NEUROLOGICAL: Awake and alert. No obvious cranial nerve deficits. Motor grossly within normal limits. Normal speech. PSYCHIATRIC: Appropriate mood and affect; insight and judgment normal. Procedures Joint Aspiration/Injection Joint Asp./Inject. 1: Time Out Performed: Yes Side of Body: right Joint Aspirated: knee Ultrasound Guidance: No Skin Prep: Povidone-Iodine1% Local Anesthesia Used: lidocaine 1% Amount of anesthesia used (mL): 3 Needle Size Used: 18G Fluid Obtained: turbid Total fluid obtained (mL): 20 Patient Tolerated Procedure: well and no complications Complications: none Course Initial Documented Vital Signs Temperature 100.8 F H 03/12/18 00:28 Pulse Rate 99 H 03/12/18 00:28 Respiratory Rate 20 03/12/18 00:28 Blood Pressure 173/82 H 03/12/18 00:28 Last Documented Vital Signs Temperature 99.8 F H 03/12/18 02:31 Pulse Rate 91 H 03/12/18 02:31 Respiratory Rate 18 03/12/18 02:31 Blood Pressure 161/70 H 03/12/18 02:31 Pulse Oximetry 100 03/12/18 02:31 Medical Decision Making MDM Narrative Medical decision making narrative: Is a 72-year-old man, presents to the ED with apparently falls, and now high fever. Etiology is unclear. Is a little bit of evidence of urinary tract infection. A little bit worried about the right knee. Dr. Forrester saw him 2 days ago for the same thing, exam seems mostly semisoft he has more pain with range of motion my assessment now. He overall looks well. Will check labs. We will plan on admission. Will check CT head given that he is on blood thinners and frequent falls. Labs show progressive escalation in his white count. Creatinine is about the same. He is now has a troponin elevation. He continues to have pain slight warmth and limitation of range of motion of the right knee. Dr. Forrester documents pretty painless range of motion in her note. This could represent progression and I think the question of septic joint will linger. Recommend joint aspiration. I spoke to his son, Derrick Combs, he is agreeable and gives consent. Otherwise we will plan on admission, antibiotic treatment for UTI, which is the more likely source. Medical Screen Exam Complete: Yes Emergency Medical Condition: Yes Lab Data Lab results reviewed: Yes I reviewed the patient's lab results. Result diagrams: 03/12/18 03:00 03/12/18 03:00 Lab Results 03/12/18 03/12/18 03/12/18 Range/Units 02:03 02:03 02:20 CBC w Diff WBC (4.0-11.0) th/mm3 RBC (4.50-5.90) mil/mm3 Hgb (13.0-17.0) gm/dL Hct (39.0-51.0) % MCV (80.0-100.0) fL MCH (27.0-34.0) pg MCHC (32.0-36.0) % RDW (11.6-17.2) % Plt Count (150-450) th/mm3 MPV (7.0-11.0) fL Neut % (Auto) (16.0-70.0) % Lymph % (Auto) (9.0-44.0) % [place] % (Auto) (0.0-8.0) % Eos % (Auto) (0.0-4.0) % Baso % (Auto) (0.0-2.0) % Neut # (Auto) (1.8-7.7) th/mm3 Lymph # (Auto) (1.0-4.8) th/mm3 [place] # (Auto) (0.0-0.9) th/mm3 Eos # (Auto) (0.0-0.4) th/mm3 Baso # (Auto) (0.0-0.2) th/mm3 WBC Differential Differential Comment PT 11.1 (9.8-11.6) sec INR 1.1 Ratio APTT 24.6 (23.4-31.7) sec Sodium (136-145) meq/L Potassium (3.5-5.1) meq/L Chloride (98-107) meq/L Carbon Dioxide (21.0-32.0) meq/L Anion Gap (5-15) meq/L BUN (7-18) mg/dL Creatinine (0.60-1.30) mg/dL Estimated GFR (>89) mL/min Random Glucose (74-106) mg/dL Lactic Acid 1.4 (0.4-2.0) mmol/L Calcium (8.5-10.1) mg/dL Magnesium (1.5-2.5) mg/dL Total Bilirubin (0.2-1.0) mg/dL AST (15-37) U/L ALT (12-78) U/L Alkaline Phosphatase (45-117) U/L Troponin I (0.02-0.05) ng/mL Total Protein (6.4-8.2) g/dL Albumin (3.4-5.0) g/dL Urine Color Yellow (Yellw/Straw) Urine Clarity Cloudy H (Clear) Urine pH 6.0 (5.0-8.5) Ur Specific [place] 1.025 (1.002-1.035) Urine Protein 30 H (Neg-Trace) mg/dL Urine Glucose (UA) 500 H (Negative) mg/dL Urine Ketones Negative (Negative) mg/dL Urine Occult Blood Moderate H (Negative) Urine Nitrate Positive H (Negative) Urine Bilirubin Negative (Negative) Urine Urobilinogen 0.2 (Less than 2) mg/dL Ur Leukocyte Esterase Negative (Negative) Urine RBC Innumerable H (0-3) /hpf Urine WBC 9-20 H (0-5) /hpf Urine WBC Clumps Few H (None) Ur Squamous Epith Cells 0-5 (0-5) /hpf Amorphous Sediment Moderate H (None) /hpf Urine Bacteria Few H (None) /hpf Micro UA Comment Cath-culture ind Ur Microscopic Review Microscopic reviewed Urine Culture Comments Cath-cult indicated 03/12/18 03/12/18 Range/Units 03:00 03:00 CBC w Diff Auto diff final WBC 16.8 H (4.0-11.0) th/mm3 RBC 3.47 L (4.50-5.90) mil/mm3 Hgb 10.6 L (13.0-17.0) gm/dL Hct 32.5 L (39.0-51.0) % MCV 93.9 (80.0-100.0) fL MCH 30.6 (27.0-34.0) pg MCHC 32.6 (32.0-36.0) % RDW 13.8 (11.6-17.2) % Plt Count 294 (150-450) th/mm3 MPV 8.9 (7.0-11.0) fL Neut % (Auto) 83.8 H (16.0-70.0) % Lymph % (Auto) 3.0 L (9.0-44.0) % [place] % (Auto) 12.8 H (0.0-8.0) % Eos % (Auto) 0.1 (0.0-4.0) % Baso % (Auto) 0.3 (0.0-2.0) % Neut # (Auto) 14.1 H (1.8-7.7) th/mm3 Lymph # (Auto) 0.5 L (1.0-4.8) th/mm3 [place] # (Auto) 2.1 H (0.0-0.9) th/mm3 Eos # (Auto) 0.0 (0.0-0.4) th/mm3 Baso # (Auto) 0.1 (0.0-0.2) th/mm3 WBC Differential . Differential Comment . PT (9.8-11.6) sec INR Ratio APTT (23.4-31.7) sec Sodium 135 L (136-145) meq/L Potassium 4.8 (3.5-5.1) meq/L Chloride 104 (98-107) meq/L Carbon Dioxide 22.5 (21.0-32.0) meq/L Anion Gap 9 (5-15) meq/L BUN 51 H (7-18) mg/dL Creatinine 2.80 H (0.60-1.30) mg/dL Estimated GFR 22 L (>89) mL/min Random Glucose 270 H (74-106) mg/dL Lactic Acid (0.4-2.0) mmol/L Calcium 8.0 L (8.5-10.1) mg/dL Magnesium 2.0 (1.5-2.5) mg/dL Total Bilirubin 0.8 (0.2-1.0) mg/dL AST 75 H (15-37) U/L ALT 26 (12-78) U/L Alkaline Phosphatase 88 (45-117) U/L Troponin I 0.28 H (0.02-0.05) ng/mL Total Protein 7.0 (6.4-8.2) g/dL Albumin 2.9 L (3.4-5.0) g/dL Urine Color (Yellw/Straw) Urine Clarity (Clear) Urine pH (5.0-8.5) Ur Specific [place] (1.002-1.035) Urine Protein (Neg-Trace) mg/dL Urine Glucose (UA) (Negative) mg/dL Urine Ketones (Negative) mg/dL Urine Occult Blood (Negative) Urine Nitrate (Negative) Urine Bilirubin (Negative) Urine Urobilinogen (Less than 2) mg/dL Ur Leukocyte Esterase (Negative) Urine RBC (0-3) /hpf Urine WBC (0-5) /hpf Urine WBC Clumps (None) Ur Squamous Epith Cells (0-5) /hpf Amorphous Sediment (None) /hpf Urine Bacteria (None) /hpf Micro UA Comment Ur Microscopic Review Urine Culture Comments Imaging Data Radiologist's impression: Chest X-Ray 03/12/18 01:10 CONCLUSION: Stable appearance with no acute cardiopulmonary disease. Head CT 03/12/18 01:10 CONCLUSION: 1. No acute hemorrhage or mass effect. 2. Stable area of encephalomalacia in the right cerebellar hemisphere. 3. Age appropriate atrophy. . Knee X-Ray 03/12/18 01:10 CONCLUSION: Soft tissue swelling with no acute fracture or malalignment. ECG Data Attestation: I personally reviewed and interpreted this ECG as follows: Interpretation: Normal sinus rhythm at a rate of 93, normal axis, normal intervals, no acute ischemia. Discharge Plan Discharge Disposition Patient Disposition: ED Admit(ED Internal Use Only) Discharge Order Discharge Orders: ED Use Only Admit Order (Routine); Ordered 03/12/18 Ordered By: Dario Mullen Physicians Team ED Provider: Dario Mullen Primary Care Provider: UNKNOWN, Attending Provider: Manisha Syed Status ED Status: Admitted Observation Patient
[2018-03-12 03:11] LABS: Baso # (Auto) 0.1 th/mm3 (0.0-0.2); Baso % (Auto) 0.3 % (0.0-2.0); Eos % (Auto) 0.1 % (0.0-4.0); Hematocrit 32.5 % (39.0-51.0); Hemoglobin 10.6 gm/dL (13.0-17.0); Lymph # (Auto) 0.5 th/mm3 (1.0-4.8); Mean Corpuscular HGB Conc 32.6 % (32.0-36.0); Mean Corpuscular Hemoglobin 30.6 pg (27.0-34.0); Mean Corpuscular Volume 93.9 fL (80.0-100.0); Mean Platelet Volume 8.9 fL (7.0-11.0); Mono # (Auto) 2.1 th/mm3 (0.0-0.9); Mono % (Auto) 12.8 % (0.0-8.0); Neut # (Auto) 14.1 th/mm3 (1.8-7.7); Neut % (Auto) 83.8 % (16.0-70.0); Platelet Count 294 th/mm3 (150-450); Red Blood Count 3.47 mil/mm3 (4.50-5.90); Red Cell Distribution Width 13.8 % (11.6-17.2); White Blood Count 16.8 th/mm3 (4.0-11.0)
[2018-03-12 03:35] LABS: Potassium 4.8 meq/L (3.5-5.1); Sodium 135 meq/L (136-145)
[2018-03-12 03:36] LABS: Anion Gap 9 meq/L (5-15); Blood Urea Nitrogen 51 mg/dL (7-18); Carbon Dioxide 22.5 meq/L (21.0-32.0); Chloride 104 meq/L (98-107); Glucose,Random 270 mg/dL (74-106)
[2018-03-12 03:37] LABS: Alanine Aminotransferase 26 U/L (12-78); Albumin 2.9 g/dL (3.4-5.0); Aspartate Aminotransferase 75 U/L (15-37)
[2018-03-12] MEDS ORDERED: Acetaminophen 325 MG Tablet PO PRN (04:09)
[2018-03-12] MEDS: Sod Chloride 0.9% Inj 1,000 ML IV.CONT SCH ×2 (04:38→14:25)
[2018-03-12 06:11] LABS: Appearance,Synovial Fluid CLOUDY (Clear); Color,Synovial Fluid RED (Straw)
[2018-03-12 06:12] LABS: Lymphocytes,Synovial Fluid 8 %; Neutrophils,Synovial Fluid 90 % (0-25)
--- NOTE | 2018-03-12 10:21 | P.PNOP ---
Subjective Interval history: 72-year-old man, multiple medical problems, brought in from shelter facility for 2 falls, and weakness, found to have high fever. Patient himself is unable to give much history. Patient was recently admitted for low back pain with right leg radiculopathy. After steroid administration, the patient reported more right knee pain and radiculopathy. Orthopedics was consult. I evaluated the patient and discussed options of management including possible aspiration versus conservative care. Patient at that time declined aspiration and preferred conservative care. Patient was discharged prior to reevaluation by myself. Physical Exam Vital signs: Vital Signs 03/12/18 00:28 03/12/18 02:20 03/12/18 02:31 Temperature 100.8 F H 99.8 F H Pulse Rate 99 H 100 H 91 H Respiratory Rate 20 18 Blood Pressure 173/82 H 161/70 H Pulse Oximetry 98 100 03/12/18 04:49 03/12/18 08:00 03/12/18 08:28 Temperature 98.4 F 100.3 F H Pulse Rate 89 89 Respiratory Rate 20 19 Blood Pressure 160/81 H 166/77 H Pulse Oximetry 94 L 96 Intake & Output 03/11/18 03/12/18 03/12/18 18:59 06:59 18:59 Intake Total 1100 / 1100 Balance 1100 / 1100 Weight 80.1 kg Intake: IV 1100 / 1100 NS Inj 1,000 ML @ 1000 mls/hr 1000 / 1000 IV.SIG BOLUS MELANIE Rx#:[id number] Rocephin Inj 1,000 MG In NS Inj 100 / 100 100 ML @ 200 mls/hr IV.SIG ONCE ONE Rx#:[id number] Other: Weight On Admission 80.1 kg Narrative: Awake, although appears mildly confused and certainly cannot answer questions regarding timeline and whether his knee is improving or not. Right knee: Increased swelling compared to last evaluation 2 days ago. Mild erythema. Tenderness to palpation. Patient does allow gentle passive range of motion although with discomfort. Negative Homans. Patient appears neurovascularly intact distally. Brisk cap refill. Results - Labs CBC & Chem 7: 03/12/18 03:00 03/12/18 12:50 Laboratory Results - last 24 hr 03/12/18 03/12/18 03/12/18 02:03 02:03 02:20 CBC w Diff WBC RBC Hgb Hct MCV MCH MCHC RDW Plt Count MPV Neut % (Auto) Lymph % (Auto) [place] % (Auto) Eos % (Auto) Baso % (Auto) Neut # (Auto) Lymph # (Auto) [place] # (Auto) Eos # (Auto) Baso # (Auto) WBC Differential Differential Comment PT 11.1 INR 1.1 APTT 24.6 Sodium Potassium Chloride Carbon Dioxide Anion Gap BUN Creatinine Estimated GFR Random Glucose Lactic Acid 1.4 Calcium Magnesium Total Bilirubin AST ALT Alkaline Phosphatase Troponin I Total Protein Albumin Urine Color Yellow Urine Clarity Cloudy H Urine pH 6.0 Ur Specific [place] 1.025 Urine Protein 30 H Urine Glucose (UA) 500 H Urine Ketones Negative Urine Occult Blood Moderate H Urine Nitrate Positive H Urine Bilirubin Negative Urine Urobilinogen 0.2 Ur Leukocyte Esterase Negative Urine RBC Innumerable H Urine WBC 9-20 H Urine WBC Clumps Few H Ur Squamous Epith Cells 0-5 Amorphous Sediment Moderate H Urine Bacteria Few H Micro UA Comment Cath-culture ind Ur Microscopic Review Microscopic reviewed Urine Culture Comments Cath-cult indicated Synovial Color Synovial Appearance Synovial RBC Synovial Nuc Cells Synovial Neutrophils Synovial Lymphocytes Synovial Histocytes Synovial Crystals 03/12/18 03/12/18 03/12/18 03:00 03:00 04:42 CBC w Diff Auto diff final WBC 16.8 H RBC 3.47 L Hgb 10.6 L Hct 32.5 L MCV 93.9 MCH 30.6 MCHC 32.6 RDW 13.8 Plt Count 294 MPV 8.9 Neut % (Auto) 83.8 H Lymph % (Auto) 3.0 L [place] % (Auto) 12.8 H Eos % (Auto) 0.1 Baso % (Auto) 0.3 Neut # (Auto) 14.1 H Lymph # (Auto) 0.5 L [place] # (Auto) 2.1 H Eos # (Auto) 0.0 Baso # (Auto) 0.1 WBC Differential . Differential Comment . PT INR APTT Sodium 135 L Potassium 4.8 Chloride 104 Carbon Dioxide 22.5 Anion Gap 9 BUN 51 H Creatinine 2.80 H Estimated GFR 22 L Random Glucose 270 H Lactic Acid Calcium 8.0 L Magnesium 2.0 Total Bilirubin 0.8 AST 75 H ALT 26 Alkaline Phosphatase 88 Troponin I 0.28 H Total Protein 7.0 Albumin 2.9 L Urine Color Urine Clarity Urine pH Ur Specific [place] Urine Protein Urine Glucose (UA) Urine Ketones Urine Occult Blood Urine Nitrate Urine Bilirubin Urine Urobilinogen Ur Leukocyte Esterase Urine RBC Urine WBC Urine WBC Clumps Ur Squamous Epith Cells Amorphous Sediment Urine Bacteria Micro UA Comment Ur Microscopic Review Urine Culture Comments Synovial Color Red Synovial Appearance Cloudy Synovial RBC 58073 H Synovial Nuc Cells 97191 H Synovial Neutrophils 90 H Synovial Lymphocytes 8 Synovial Histocytes 2 Synovial Crystals 03/12/18 04:42 CBC w Diff WBC RBC Hgb Hct MCV MCH MCHC RDW Plt Count MPV Neut % (Auto) Lymph % (Auto) [place] % (Auto) Eos % (Auto) Baso % (Auto) Neut # (Auto) Lymph # (Auto) [place] # (Auto) Eos # (Auto) Baso # (Auto) WBC Differential Differential Comment PT INR APTT Sodium Potassium Chloride Carbon Dioxide Anion Gap BUN Creatinine Estimated GFR Random Glucose Lactic Acid Calcium Magnesium Total Bilirubin AST ALT Alkaline Phosphatase Troponin I Total Protein Albumin Urine Color Urine Clarity Urine pH Ur Specific [place] Urine Protein Urine Glucose (UA) Urine Ketones Urine Occult Blood Urine Nitrate Urine Bilirubin Urine Urobilinogen Ur Leukocyte Esterase Urine RBC Urine WBC Urine WBC Clumps Ur Squamous Epith Cells Amorphous Sediment Urine Bacteria Micro UA Comment Ur Microscopic Review Urine Culture Comments Synovial Color Synovial Appearance Synovial RBC Synovial Nuc Cells Synovial Neutrophils Synovial Lymphocytes Synovial Histocytes Synovial Crystals None - Imaging Impressions Chest X-Ray 03/12/18 01:10 CONCLUSION: Stable appearance with no acute cardiopulmonary disease. Head CT 03/12/18 01:10 CONCLUSION: 1. No acute hemorrhage or mass effect. 2. Stable area of encephalomalacia in the right cerebellar hemisphere. 3. Age appropriate atrophy. . Knee X-Ray 03/12/18 01:10 CONCLUSION: Soft tissue swelling with no acute fracture or malalignment. Assessment and Plan - Assessment and Plan 72-year-old gentleman with right knee pain and swelling status post aspiration in the emergency department with greater than 76,000 white blood cells with 90% neutrophils Aspiration did have significant amount of red blood cells although with 76,000 white blood cells and patient appearing febrile on presentation, I would certainly consider surgical irrigation and debridement although the Gram stain and cultures have not resulted. I discussed with the patient's son options of management including continued nonoperative management with observation and allowing cultures from his knee aspiration to result versus operative intervention in the form of irrigation and debridement. Certainly I am concerned the patient could have significant septic arthritis given the 76,000 white blood cells and the aspirate. I explained to the patient's son that this is typically indicative of infection and is certainly highly concerning. Risks, benefits, alternatives were discussed with the patient's son. At this time the patient's son has consented to the above-mentioned procedure.
[2018-03-12] MEDS ORDERED: Vancomycin Consult Pharmacy OTHER PRN (10:59)
[2018-03-12] MEDS ORDERED: Dextrose 50% in Water 50 ML Vial IV.PUSH PRN (11:21)
--- NOTE | 2018-03-12 11:23 | P.HPIM ---
History of Present Illness Primary Care Physician: UNKNOWN History of Present Illness: 72-year-old male with Alzheimer's dementia, BPH, history of TIA, hypothyroidism who presents after experiencing 2 falls at his [place] [facility] facility, with generalized weakness, and also found to have a high fever. Patient himself is unsure why he is here. He denies any pain, however reports significant pain with manipulation of right knee. Family unfortunately not at the bedside at the time of examination, and history is limited due to patient's dementia. Review of Systems All other systems reviewed negative except as stated in HPI PMFSH - History History Provided By: Patient - Medical History Medical History: Medical History (Last Reviewed 03/12/18 @ 11:03 by Thong Flowers MD) Alzheimer disease BPH (benign prostatic hyperplasia) Dementia Diabetes mellitus, type 2 Hx of transient ischemic attack (TIA) Hyperlipemia Hypertension Hypothyroid Stroke - Surgical History Surgical History: Surgical History (Last Reviewed 03/12/18 @ 11:03 by Thong Flowers MD) H/O carotid endarterectomy Hx of cardiac cath Hx of tonsillectomy - Family History Family History: Family History (Last Reviewed 03/12/18 @ 11:03 by Thong Flowers MD) Other Family history of hypertension - Social History I have reviewed the patient's Social History: Yes - Tobacco History Second Hand Smoke Exposure: No Smoking Status: Unknown if ever smoked - Alcohol History How Often Do You Have a Drink Containing Alcohol: Never - Substance Use History Substance History: No History of Abuse - Travel History History of Recent Travel: No Recent Travel in the [place] Within the Last 8 Weeks: No Recent Travel Out of the Country Within the Last 8 Weeks: No - Immunization History Tetanus Immunization: <5 Years Medications and Allergies Active Medications: Active Medications Acetaminophen (Tylenol) 650 mg PO Q4H PRN PRN Reason: Temp > 100.4 Sodium Chloride (Ns Inj) 1,000 mls @ 100 mls/hr IV.CONT .Q10H [facility]ELANIE Last Admin: 03/12/18 04:38 Dose: 100 mls/hr Ceftriaxone Sodium 1,000 mg/ (Sodium Chloride) 100 mls @ 200 mls/hr IV.SIG Q24H MELANIE Ondansetron HCl (Zofran Inj) 4 mg IV.PUSH Q6H PRN PRN Reason: NAUSEA OR VOMITING Pharmacy Profile Note (Vancomycin Consult Pharmacy) 1 each OTHER UNSCH PRN PRN Reason: Pharmacy to dose Sodium Chloride (Ns Flush) 2 ml IV.FLUSH PRN PRN PRN Reason: FLUSH AFTER USING IV ACCESS Sodium Chloride (Ns Flush) 2 ml IV.FLUSH BID [facility] Last Admin: 03/12/18 10:35 Dose: Not Given Sodium Chloride (Ns Flush) 2 ml IV.FLUSH PRN PRN PRN Reason: FLUSH AFTER USING IV ACCESS Allergies Allergy/AdvReac Type Severity Reaction Status Date / Time No Known Allergies Allergy Verified 02/25/18 16:24 Home Medications Medication Instructions Recorded Confirmed Type alfuzosin 10 mg PO DAILY 02/02/18 03/12/18 History atorvastatin 80 mg PO DAILY 02/02/18 03/12/18 History brimonidine 1 drp OPHTHALMIC (EYE) BID 02/02/18 03/12/18 History buspirone 7.5 mg PO BID 02/02/18 03/12/18 History clopidogrel [Plavix] 75 mg PO DAILY 02/02/18 03/12/18 History donepezil 5 mg PO DAILY 02/02/18 03/12/18 History famotidine 20 mg PO DAILY 02/02/18 03/12/18 History memantine 10 mg PO BID 02/02/18 03/12/18 History quetiapine [Seroquel] 25 mg PO TID 02/02/18 03/12/18 History trazodone 25 mg PO HS 02/02/18 03/12/18 History folic acid 1 mg PO DAILY 02/25/18 03/12/18 History Exam Vital signs: Vital Signs 03/12/18 00:28 03/12/18 02:20 03/12/18 02:31 Temperature 100.8 F H 99.8 F H Pulse Rate 99 H 100 H 91 H Respiratory Rate 20 18 Blood Pressure 173/82 H 161/70 H Pulse Oximetry 98 100 03/12/18 04:49 03/12/18 08:00 03/12/18 08:28 Temperature 98.4 F 100.3 F H Pulse Rate 89 89 Respiratory Rate 20 19 Blood Pressure 160/81 H 166/77 H Pulse Oximetry 94 L 96 Intake & Output 03/11/18 03/12/18 03/12/18 18:59 06:59 18:59 Intake Total 1100 / 1100 Balance 1100 / 1100 Weight 80.1 kg Intake: IV 1100 / 1100 NS Inj 1,000 ML @ 1000 mls/hr 1000 / 1000 IV.SIG BOLUS MELANIE Rx#:[id number] Rocephin Inj 1,000 MG In NS Inj 100 / 100 100 ML @ 200 mls/hr IV.SIG ONCE ONE Rx#:[id number] Other: Weight On Admission 80.1 kg Narrative: GENERAL: Patient sitting up in bed. Appears comfortable. Disoriented but pleasant. SKIN: Warm and dry. HEAD: Atraumatic. Normocephalic. EYES: Pupils equal and round. No scleral icterus. No injection or drainage. ENT: No nasal bleeding or discharge. Mucous membranes pink and moist. NECK: Trachea midline. No JVD. CARDIOVASCULAR: Regular rate and rhythm. RESPIRATORY: No accessory muscle use. Clear to auscultation. Breath sounds equal bilaterally. GASTROINTESTINAL: Abdomen soft, non-tender, nondistended. Hepatic and splenic margins not palpable. MUSCULOSKELETAL: Extremities without clubbing, cyanosis, or edema. No obvious deformities. NEUROLOGICAL: Awake and alert. No obvious cranial nerve deficits. Upper extremity strength intact. Pain in knee with manipulation of right lower. No erythema. PSYCHIATRIC: Appropriate mood and affect; patient is disoriented but pleasant. Results - Labs CBC & Chem 7: 03/12/18 03:00 03/12/18 03:00 Labs: Short CBC 03/12/18 Range/Units 03:00 WBC 16.8 H (4.0-11.0) th/mm3 Hgb 10.6 L (13.0-17.0) gm/dL Hct 32.5 L (39.0-51.0) % Plt Count 294 (150-450) th/mm3 BMP 03/12/18 03:00 Sodium 135 L Potassium 4.8 Chloride 104 Carbon Dioxide 22.5 BUN 51 H Creatinine 2.80 H Calcium 8.0 L Cardiac Enzymes 03/12/18 Range/Units 03:00 Troponin I 0.28 H (0.02-0.05) ng/mL Liver Function 03/12/18 Range/Units 03:00 Total Bilirubin 0.8 (0.2-1.0) mg/dL AST 75 H (15-37) U/L ALT 26 (12-78) U/L Alkaline Phosphatase 88 (45-117) U/L Albumin 2.9 L (3.4-5.0) g/dL Urine 03/12/18 Range/Units 02:20 Urine Color Yellow (Yellw/Straw) Urine Clarity Cloudy H (Clear) Urine pH 6.0 (5.0-8.5) Ur Specific [place] 1.025 (1.002-1.035) Urine Protein 30 H (Neg-Trace) mg/dL Urine Glucose (UA) 500 H (Negative) mg/dL - Imaging Impressions Chest X-Ray 03/12/18 01:10 CONCLUSION: Stable appearance with no acute cardiopulmonary disease. Head CT 03/12/18 01:10 CONCLUSION: 1. No acute hemorrhage or mass effect. 2. Stable area of encephalomalacia in the right cerebellar hemisphere. 3. Age appropriate atrophy. . Knee X-Ray 03/12/18 01:10 CONCLUSION: Soft tissue swelling with no acute fracture or malalignment. Caprini VTE Risk Assessment Caprini VTE Risk Assessment: Moderate/High Risk (score >= 2) Caprini Risk Assessment Model: Point Value = 1 Point Value = 2 Point Value = 3 Point Value = 5 Age 41-60 Minor surgery BMI > 25 kg/m2 Swollen legs Varicose veins or History of unexplained or recurrent spontaneous Oral contraceptives or hormone replacement Sepsis (< 1 month) Serious lung disease, including pneumonia (< 1 month) Abnormal pulmonary function Acute myocardial infarction Congestive heart failure (< 1 month) History of inflammatory bowel disease Medical patient at bed rest Age 61-74 Arthroscopic surgery Major open surgery (> 45 min) Laparoscopic surgery (> 45 min) Malignancy Confined to bed (> 72 hours) Immobilizing plaster cast Central venous access Age >= 75 History of VTE Family history of VTE Factor V Leiden Prothrombin [id number] Lupus anticoagulant Anticardiolipin antibodies Elevated serum homocysteine Heparin-induced thrombocytopenia Other congenital or acquired thrombophilia Stroke (< 1 month) Elective arthroplasty Hip, pelvis, or leg fracture Acute spinal cord injury (< 1 month) Prophylaxis Regimen: Total Risk Factor Score Risk Level Prophylaxis Regimen 0-1 Low Early ambulation 2 Moderate Order ONE of the following: *Sequential Compression Device (SCD) *Heparin 5000 units SQ BID 3-4 Higher Order ONE of the following medications: *Heparin 5000 units SQ TID *Enoxaparin/Lovenox 40 mg SQ daily (WT < 150 kg, CrCl > 30 mL/min) *Enoxaparin/Lovenox 30 mg SQ daily (WT < 150 kg, CrCl > 10-29 mL/min) *Enoxaparin/Lovenox 30 mg SQ BID (WT < 150 kg, CrCl > 30 mL/min) AND/OR *Sequential Compression Device (SCD) 5 or more Highest Order ONE of the following medications: *Heparin 5000 units SQ TID (Preferred with Epidurals) *Enoxaparin/Lovenox 40 mg SQ daily (WT < 150 kg, CrCl > 30 mL/min) *Enoxaparin/Lovenox 30 mg SQ daily (WT < 150 kg, CrCl > 10-29 mL/min) *Enoxaparin/Lovenox 30 mg SQ BID (WT < 150 kg, CrCl > 30 mL/min) AND *Sequential Compression Device (SCD) Assessment and Plan - Plan //Severe sepsis -Leukocytosis of 16.8, fever of 100.8 -Lactic acid 1.4. Acute kidney injury with creatinine 2.8 //Acute right knee septic arthritis -Right knee x-ray with soft tissue swelling, no evidence of ostium myelitis Aspiration showing 76,800 white blood cells -Orthopedics consulted and recommends irrigation and debridement. Appreciate orthopedic assistance. //Acute kidney injury on chronic kidney disease stage III Baseline creatinine 1.6 from January 2018, however the past month has increased, now 2.8. -We will evaluate with renal ultrasound. //Possible UTI -White blood cells on urinalysis. Follow-up urine culture. Patient is on antibiotics. =Follow-up renal ultrasound. //History of hypertension Blood pressure acceptable. Will hold off on hydralazine and restart if needed. The as needed clonidine. //Diabetes mellitus. Diabetic diet and insulin sliding scale. chronic conditions: //Hyperlipidemia. Chronic. Continue home medication //Glaucoma. Chronic. Continue medication. //History of TIA. Continue Plavix. //Dementia. Continue donepezil and memantine, continue quetiapine. //GERD. Chronic. Continue home medication //Insomnia. Continue trazodone. Discussed Condition With: patient, nurse
[2018-03-12] MEDS: Insulin NovoLOG Aspart Correctional Sugar Inj SQ SCH ×2 (12:34→18:45)
[2018-03-12] MEDS: QUEtiapine 25 MG Tablet PO SCH (12:40)
--- NOTE | 2018-03-12 12:59 | US ---
EXAM DATE: 03/12/2018 12:55 PM EST AGE/SEX: 72 years / Male INDICATIONS: Increased Bun and Creatinine. CLINICAL DATA: This is the patient's initial encounter. Patient reports that signs and symptoms have been present for 1 day and indicates a pain score of 0/10. MEDICAL/SURGICAL HISTORY: . Alzheimer's disease. Hypertension. Hypothyroidism. Benign prostatic hyperplasia. Dementia. Diabetes. TIA. Hyperlipidemia. Stroke. . Tonsillectomy. Carotid endarterecto my. Cardia cath. COMPARISON: [facility] [place], KIDNEY/RENAL/BLADDER, 02/26/2018. . MEASUREMENTS: Right Kidney:__11.6 x 5.9 x 6.4 cm Left Kidney:__11.4 x 3.9 x 5.3 cm FINDINGS: Right Kidney: 2.5 cm cyst upper pole. 8 mm stone lower pole without hydronephrosis. There is minimal increase in echogenicity renal cortex echogenicity. Left Kidney: 7 mm cyst upper pole. Minimal increased echogenicity renal cortex Bladder: Enlarged prostate with thickened bladder wall. Other: Trace left pleural effusion. CONCLUSION: 1. Normal size kidneys with mildly echogenic cortex suggesting some chronic renal disease. Electronically signed by: Joni Logan MD Board Certified Radiologist 03/12/2018 12:57 PM EST
--- NOTE | 2018-03-12 13:22 | P.CONID ---
History of Present Illness Service: Infectious Disease Consult date: 03/12/18 Requesting Physician: Thong Flowers Reason for Consult: Evaluate patient for possible septic R knee Primary Care Provider: UNKNOWN History of Present Illness: Patient seen and examined. Records reviewed. Patient is a very poor historian. Patient is a 72-year-old male came from a [facility] facility, brought into the hospital for evaluation of generalized weakness and high fever. Patient was actively recently hospitalized in February for pain in his right lower extremity. He was evaluated and found to have L4-L5 spinal stenosis. Orthopedics saw the patient at that time and felt that it is more inflammatory and recommended some anti-inflammatory medication. He was discharged to the residential, and apparently fell several times, so he was brought into the hospital for further evaluation of weakness and he was also found to have a fever. He had arthrocentesis of the right knee, and showed very high WBC. Infectious disease consultation has been requested to evaluate the patient for possible septic knee Review of Systems other (Poor historian due to confusion) Constitutional: Reports fever(s) Gastrointestinal: Reports abdominal pain Musculoskeletal: Reports joint pain, Reports joint swelling PMFSH - History History Provided By: Patient - Medical History Medical History: Medical History (Last Reviewed 03/12/18 @ 13:17 by Frida De Guzman MD) Alzheimer disease BPH (benign prostatic hyperplasia) Dementia Diabetes mellitus, type 2 Hx of transient ischemic attack (TIA) Hyperlipemia Hypertension Hypothyroid Stroke - Surgical History Surgical History: Surgical History (Last Reviewed 03/12/18 @ 13:17 by Frida De Guzman MD) H/O carotid endarterectomy Hx of cardiac cath Hx of tonsillectomy - Family History Family History: Family History (Last Reviewed 03/12/18 @ 13:17 by Frida De Guzman MD) Other Family history of hypertension - Tobacco History Second Hand Smoke Exposure: No Smoking Status: Unknown if ever smoked - Alcohol History How Often Do You Have a Drink Containing Alcohol: Never - Substance Use History Substance History: No History of Abuse - Travel History History of Recent Travel: No Recent Travel in the [place] Within the Last 8 Weeks: No Recent Travel Out of the Country Within the Last 8 Weeks: No - Immunization History Tetanus Immunization: <5 Years Medications and Allergies Active Medications: Active Medications Acetaminophen (Tylenol) 650 mg PO Q4H PRN PRN Reason: Temp > 100.4 Atorvastatin Calcium (Lipitor) 80 mg PO DAILY [facility] Brimonidine Tartrate (Alphagan 0.2% Opth Drops) 1 drops EACH EYE BID [facility] Clonidine HCl (Catapres) 0.1 mg PO Q6H PRN PRN Reason: SBP >/= 180 OR DBP >/= 100 Clopidogrel Bisulfate (Plavix) 75 mg PO DAILY [facility] Dextrose (D50w Vial) 50 ml IV.PUSH UNSCH PRN PRN Reason: PER HYPOGLYCEMIA PROTOCOL Donepezil HCl (Aricept) 5 mg PO DAILY [facility] Famotidine (Pepcid) 20 mg PO DAILY [facility] Glucagon (Glucagon Inj) 1 mg OTHER PRN PRN PRN Reason: for Hypoglycemia Protocol Sodium Chloride (Ns Inj) 1,000 mls @ 100 mls/hr IV.CONT .Q10H [facility] Last Admin: 03/12/18 04:38 Dose: 100 mls/hr Ceftriaxone Sodium 1,000 mg/ (Sodium Chloride) 100 mls @ 200 mls/hr IV.SIG Q24H [facility] Vancomycin HCl 1,500 mg/ (Sodium Chloride) 515 mls @ 250 mls/hr IV.SIG ONCE ONE Stop: 03/12/18 16:03 Insulin Aspart (Novolog Insulin Correctional Sugar Inj) 0 unit SQ ACHS [facility]; Protocol Last Admin: 03/12/18 12:34 Dose: Not Given Memantine (Namenda) 10 mg PO BID [facility] Miscellaneous (Pill Splitter) 1 each OTHER UNSCH PRN PRN Reason: SEE LABEL COMMENTS Ondansetron HCl (Zofran Inj) 4 mg IV.PUSH Q6H PRN PRN Reason: NAUSEA OR VOMITING Pharmacy Profile Note (Vancomycin Consult Pharmacy) 1 each OTHER UNSCH PRN PRN Reason: Pharmacy to dose Quetiapine Fumarate (Seroquel) 25 mg PO TID [facility] Last Admin: 03/12/18 12:40 Dose: 25 mg Sodium Chloride (Ns Flush) 2 ml IV.FLUSH BID [facility] Last Admin: 03/12/18 10:35 Dose: Not Given Sodium Chloride (Ns Flush) 2 ml IV.FLUSH PRN PRN PRN Reason: FLUSH AFTER USING IV ACCESS Tamsulosin HCl (Flomax) 0.4 mg PO DAILY [facility] Last Admin: 03/12/18 12:40 Dose: 0.4 mg Trazodone HCl (Desyrel) 25 mg PO HS [facility] Allergies Allergy/AdvReac Type Severity Reaction Status Date / Time No Known Allergies Allergy Verified 02/25/18 16:24 Home Medications Medication Instructions Recorded Confirmed Type alfuzosin 10 mg PO DAILY 02/02/18 03/12/18 History atorvastatin 80 mg PO DAILY 02/02/18 03/12/18 History brimonidine 1 drp OPHTHALMIC (EYE) BID 02/02/18 03/12/18 History buspirone 7.5 mg PO BID 02/02/18 03/12/18 History clopidogrel [Plavix] 75 mg PO DAILY 02/02/18 03/12/18 History donepezil 5 mg PO DAILY 02/02/18 03/12/18 History famotidine 20 mg PO DAILY 02/02/18 03/12/18 History memantine 10 mg PO BID 02/02/18 03/12/18 History quetiapine [Seroquel] 25 mg PO TID 02/02/18 03/12/18 History trazodone 25 mg PO HS 02/02/18 03/12/18 History folic acid 1 mg PO DAILY 02/25/18 03/12/18 History Exam Vital signs: Vital Signs 03/12/18 00:28 03/12/18 02:20 03/12/18 02:31 Temperature 100.8 F H 99.8 F H Pulse Rate 99 H 100 H 91 H Respiratory Rate 20 18 Blood Pressure 173/82 H 161/70 H Pulse Oximetry 98 100 03/12/18 04:49 03/12/18 08:00 03/12/18 08:28 Temperature 98.4 F 100.3 F H Pulse Rate 89 89 Respiratory Rate 20 19 Blood Pressure 160/81 H 166/77 H Pulse Oximetry 94 L 96 Intake & Output 03/11/18 03/12/18 03/12/18 18:59 06:59 18:59 Intake Total 1100 / 1100 Balance 1100 / 1100 Weight 80.1 kg Intake: IV 1100 / 1100 NS Inj 1,000 ML @ 1000 mls/hr 1000 / 1000 IV.SIG BOLUS MELANIE Rx#:[id number] Rocephin Inj 1,000 MG In NS Inj 100 / 100 100 ML @ 200 mls/hr IV.SIG ONCE ONE Rx#:[id number] Other: Weight On Admission 80.1 kg Narrative: Physical examination GENERAL: Patient is a well-nourished, well-developed male, awake and alert, not in respiratory distress. Somewhat restless, but cooperative SKIN: Warm and dry. No generalized rash, no ecchymoses and no evidence of embolic lesions. HEAD: Atraumatic. Normocephalic. No temporal wasting, or tenderness. EYES: [place] conjunctiva. No petechia or hemorrhage. Pupils equal, round and reactive to light. Extraocular movements full and intact. No scleral icterus. No injection or drainage. EARS, NOSE AND THROAT: Nose without bleeding or purulent nasal discharge. No sinus tenderness. Mucous membranes pink and moist. No oral lesions noted. NECK: Trachea midline. Supple and not tender, no meningeal signs CARDIOVASCULAR: Regular rate and rhythm. No murmurs, rubs or gallops heard RESPIRATORY: Clear to auscultation. Breath sounds equal bilaterally. No rales , wheezing or rhonchi ABDOMEN: Soft, non-tender, nondistended. Bowel sounds present and normoactive. No guarding. No rebound. No organomegaly. EXTREMITIES: No clubbing, cyanosis. L knee has mild pink ecchymotic area on the medial aspect. Right knee with an effusion, has pain with passive range of motion but I was able to do flexion and extension at least to about 90-100 degrees. No calf tenderness. NEUROLOGICAL: Awake and alert. Cranial nerves grossly intact. Motor grossly within normal limits. PSYCHIATRIC: Mild agitation, but follow commands LINE: No evidence of infection Results - Labs CBC & Chem 7: 03/13/18 06:30 03/13/18 06:30 Labs: Laboratory Results - last 24 hr 03/12/18 03/12/18 03/12/18 02:03 02:03 02:20 CBC w Diff WBC RBC Hgb Hct MCV MCH MCHC RDW Plt Count MPV Neut % (Auto) Lymph % (Auto) [place] % (Auto) Eos % (Auto) Baso % (Auto) Neut # (Auto) Lymph # (Auto) [place] # (Auto) Eos # (Auto) Baso # (Auto) WBC Differential Differential Comment PT 11.1 INR 1.1 APTT 24.6 Sodium Potassium Chloride Carbon Dioxide Anion Gap BUN Creatinine Estimated GFR POC Glucose Random Glucose Lactic Acid 1.4 Calcium Magnesium Total Bilirubin AST ALT Alkaline Phosphatase Troponin I Total Protein Albumin Urine Color Yellow Urine Clarity Cloudy H Urine pH 6.0 Ur Specific [place] 1.025 Urine Protein 30 H Urine Glucose (UA) 500 H Urine Ketones Negative Urine Occult Blood Moderate H Urine Nitrate Positive H Urine Bilirubin Negative Urine Urobilinogen 0.2 Ur Leukocyte Esterase Negative Urine RBC Innumerable H Urine WBC 9-20 H Urine WBC Clumps Few H Ur Squamous Epith Cells 0-5 Amorphous Sediment Moderate H Urine Bacteria Few H Micro UA Comment Cath-culture ind Ur Microscopic Review Microscopic reviewed Urine Culture Comments Cath-cult indicated Synovial Color Synovial Appearance Synovial RBC Synovial Nuc Cells Synovial Neutrophils Synovial Lymphocytes Synovial Histocytes Synovial Crystals 03/12/18 03/12/18 03/12/18 03:00 03:00 04:42 CBC w Diff Auto diff final WBC 16.8 H RBC 3.47 L Hgb 10.6 L Hct 32.5 L MCV 93.9 MCH 30.6 MCHC 32.6 RDW 13.8 Plt Count 294 MPV 8.9 Neut % (Auto) 83.8 H Lymph % (Auto) 3.0 L [place] % (Auto) 12.8 H Eos % (Auto) 0.1 Baso % (Auto) 0.3 Neut # (Auto) 14.1 H Lymph # (Auto) 0.5 L [place] # (Auto) 2.1 H Eos # (Auto) 0.0 Baso # (Auto) 0.1 WBC Differential . Differential Comment . PT INR APTT Sodium 135 L Potassium 4.8 Chloride 104 Carbon Dioxide 22.5 Anion Gap 9 BUN 51 H Creatinine 2.80 H Estimated GFR 22 L POC Glucose Random Glucose 270 H Lactic Acid Calcium 8.0 L Magnesium 2.0 Total Bilirubin 0.8 AST 75 H ALT 26 Alkaline Phosphatase 88 Troponin I 0.28 H Total Protein 7.0 Albumin 2.9 L Urine Color Urine Clarity Urine pH Ur Specific [place] Urine Protein Urine Glucose (UA) Urine Ketones Urine Occult Blood Urine Nitrate Urine Bilirubin Urine Urobilinogen Ur Leukocyte Esterase Urine RBC Urine WBC Urine WBC Clumps Ur Squamous Epith Cells Amorphous Sediment Urine Bacteria Micro UA Comment Ur Microscopic Review Urine Culture Comments Synovial Color Red Synovial Appearance Cloudy Synovial RBC 58552 H Synovial Nuc Cells 60569 H Synovial Neutrophils 90 H Synovial Lymphocytes 8 Synovial Histocytes 2 Synovial Crystals 03/12/18 03/12/18 04:42 12:02 CBC w Diff WBC RBC Hgb Hct MCV MCH MCHC RDW Plt Count MPV Neut % (Auto) Lymph % (Auto) [place] % (Auto) Eos % (Auto) Baso % (Auto) Neut # (Auto) Lymph # (Auto) [place] # (Auto) Eos # (Auto) Baso # (Auto) WBC Differential Differential Comment PT INR APTT Sodium Potassium Chloride Carbon Dioxide Anion Gap BUN Creatinine Estimated GFR POC Glucose 206 H Random Glucose Lactic Acid Calcium Magnesium Total Bilirubin AST ALT Alkaline Phosphatase Troponin I Total Protein Albumin Urine Color Urine Clarity Urine pH Ur Specific [place] Urine Protein Urine Glucose (UA) Urine Ketones Urine Occult Blood Urine Nitrate Urine Bilirubin Urine Urobilinogen Ur Leukocyte Esterase Urine RBC Urine WBC Urine WBC Clumps Ur Squamous Epith Cells Amorphous Sediment Urine Bacteria Micro UA Comment Ur Microscopic Review Urine Culture Comments Synovial Color Synovial Appearance Synovial RBC Synovial Nuc Cells Synovial Neutrophils Synovial Lymphocytes Synovial Histocytes Synovial Crystals None - Imaging Impressions Abdomen/Bladder Ultrasound 03/12/18 00:00 CONCLUSION: 1. Normal size kidneys with mildly echogenic cortex suggesting some chronic renal disease. Chest X-Ray 03/12/18 01:10 CONCLUSION: Stable appearance with no acute cardiopulmonary disease. Head CT 03/12/18 01:10 CONCLUSION: 1. No acute hemorrhage or mass effect. 2. Stable area of encephalomalacia in the right cerebellar hemisphere. 3. Age appropriate atrophy. . Knee X-Ray 03/12/18 01:10 CONCLUSION: Soft tissue swelling with no acute fracture or malalignment. Assessment and Plan - Plan Impression Sepsis, etiology? - has evidence of pyuria on UA; has had documented increased PVR, and bladder distension on US - not emptying - R knee effusion, ?septic, non-infectious Previous TIA/CVA Moderate stenosis lumbar spine on MRI Prob with dementia Recommendation Bladder scan Follow C/S Change Rocephin to cefepime for broader GNR since patient has been in and out of hospital Baseline ESR and CRP Continue IV vancomycin Adjust Abx once C/S available Will determine course of Abx once workup is completed I will follow along with you Thank you for this consultation
[2018-03-12 13:32] LABS: Calcium 8.2 mg/dL (8.5-10.1); Carbon Dioxide 24.4 meq/L (21.0-32.0); Potassium 4.2 meq/L (3.5-5.1)
[2018-03-12] MEDS ORDERED: Vancomycin Inj 1,500 MG in Sodium Chlor 0.9% Inj 500 ML IV.SIG ONE (14:00)
[2018-03-12] MEDS ORDERED: fentaNYL Citrate Inj 100 MCG/2 ML Ampul ONE (15:16)
[2018-03-12] MEDS ORDERED: Neomycin/Polymyxin G.U. Irrigant 1 ML Ampul ONE (16:15)
[2018-03-12] MEDS ORDERED: Lidocaine PF 1% Inj 5 ML Syringe INFILTRATN ONE (16:24)
[2018-03-12] MEDS ORDERED: Chlorhexidine Gluconate 2% 1 Pack (2 Cloths) TOPICAL ONE (16:46)
[2018-03-12] MEDS ORDERED: Sodium Chlor 0.9% Inj 500 ML IV.SIG SCH (17:00)
[2018-03-12] MEDS ORDERED: Post-op Orders (for Pharmacy) OTHER STA (17:17)
--- NOTE | 2018-03-12 17:17 | P.OP ---
Date of procedure: 03/12/18 Procedure: Irrigation and debridement right knee Implants: None Anesthesia: GETA Surgeon: Purvi Forrester MD Estimated blood loss (mL): 50 Pathology: other (Culture sent to [facility]) Operation and Findings: Indications for procedure: 72-year-old gentleman with persistent right knee pain and swelling with aspiration revealing 76,000 white blood cells and greater than 90% polys. Options of management were reviewed with the patient's son. At this time he is consented to the above-mentioned procedure. Description of procedure: Patient was brought back to the operating room and placed supine on operating room table with all bony prominences well-padded. General anesthesia then ensued. A tourniquet was placed on the patient's right upper thigh and patient was prepped and draped in standard sterile fashion. The operative antibiotic's were held in order to obtain intraoperative cultures and given the fact the patient has been on standing antibiotics. A timeout was performed to the correct patient, side, site and procedure to be performed. I then made a small anterior medial incision over the knee with sharp dissection through the skin and subcutaneous tissue. A medial parapatellar arthrotomy was then performed. Immediately a significant amount of fluid was expressed. This was not grossly purulent although did appear mildly cloudy. This was cultured. The knee was thoroughly irrigated with normal saline laden with antibiotics of greater than 6 L. The knee appeared clean at this time. A deep drain was placed. The parapatellar arthrotomy was then closed with 0 PDS suture. The subcutaneous tissue was closed with 2-0 PDS suture and the skin closed with 2-0 nylon. Sterile dressings were applied. Patient was awoken from general anesthesia without complication. Disposition: Weightbearing and range of motion as tolerated to the right lower extremity. Plan for antibiotics pending cultures and infectious disease recommendations.
--- NOTE | 2018-03-12 17:19 | P.PNOP ---
Subjective Interval history: POD#0 status post right knee irrigation and debridement Physical Exam Vital signs: Vital Signs 03/12/18 00:28 03/12/18 02:20 03/12/18 02:31 Temperature 100.8 F H 99.8 F H Pulse Rate 99 H 100 H 91 H Respiratory Rate 20 18 Blood Pressure 173/82 H 161/70 H Pulse Oximetry 98 100 03/12/18 04:49 03/12/18 08:00 03/12/18 08:28 Temperature 98.4 F 100.3 F H Pulse Rate 89 88 Respiratory Rate 20 19 Blood Pressure 160/81 H 166/77 H Pulse Oximetry 94 L 96 03/12/18 12:00 03/12/18 16:00 Temperature 99.7 F H 98.6 F Pulse Rate 88 88 Respiratory Rate 19 18 Blood Pressure 178/83 H 178/83 H Pulse Oximetry 95 95 Intake & Output 03/11/18 03/12/18 03/12/18 18:59 06:59 18:59 Intake Total 1100 / 1100 1515 / 1515 Balance 1100 / 1100 1515 / 1515 Weight 80.1 kg 80.1 kg Intake: IV 1100 / 1100 1515 / 1515 NS Inj 1,000 ML @ 100 mls/hr IV 1000 / 1000 .CONT .Q10H MELANIE Rx#:[id number] NS Inj 1,000 ML @ 1000 mls/hr 1000 / 1000 IV.SIG BOLUS MELANIE Rx#:[id number] Vancomycin Inj 1,500 MG In NS 515 / 515 Inj 500 ML @ 250 mls/hr IV.SIG ONCE ONE Rx#:[id number] Rocephin Inj 1,000 MG In NS Inj 100 / 100 100 ML @ 200 mls/hr IV.SIG ONCE ONE Rx#:[id number] Other: Weight On Admission 80.1 kg Results - Labs CBC & Chem 7: 03/12/18 03:00 03/12/18 12:50 Laboratory Results - last 24 hr 03/12/18 03/12/18 03/12/18 02:03 02:03 02:20 CBC w Diff WBC RBC Hgb Hct MCV MCH MCHC RDW Plt Count MPV Neut % (Auto) Lymph % (Auto) Potter % (Auto) Eos % (Auto) Baso % (Auto) Neut # (Auto) Lymph # (Auto) Potter # (Auto) Eos # (Auto) Baso # (Auto) WBC Differential Differential Comment PT 11.1 INR 1.1 APTT 24.6 Sodium Potassium Chloride Carbon Dioxide Anion Gap BUN Creatinine Estimated GFR POC Glucose Random Glucose Lactic Acid 1.4 Calcium Magnesium Total Bilirubin AST ALT Alkaline Phosphatase Troponin I C-Reactive Protein Total Protein Albumin Urine Color Yellow Urine Clarity Cloudy H Urine pH 6.0 Ur Specific Model 1.025 Urine Protein 30 H Urine Glucose (UA) 500 H Urine Ketones Negative Urine Occult Blood Moderate H Urine Nitrate Positive H Urine Bilirubin Negative Urine Urobilinogen 0.2 Ur Leukocyte Esterase Negative Urine RBC Innumerable H Urine WBC 9-20 H Urine WBC Clumps Few H Ur Squamous Epith Cells 0-5 Amorphous Sediment Moderate H Urine Bacteria Few H Micro UA Comment Cath-culture ind Ur Microscopic Review Microscopic reviewed Urine Culture Comments Cath-cult indicated Synovial Color Synovial Appearance Synovial RBC Synovial Nuc Cells Synovial Neutrophils Synovial Lymphocytes Synovial Histocytes Synovial Crystals 03/12/18 03/12/18 03/12/18 03:00 03:00 04:42 CBC w Diff Auto diff final WBC 16.8 H RBC 3.47 L Hgb 10.6 L Hct 32.5 L MCV 93.9 MCH 30.6 MCHC 32.6 RDW 13.8 Plt Count 294 MPV 8.9 Neut % (Auto) 83.8 H Lymph % (Auto) 3.0 L Potter % (Auto) 12.8 H Eos % (Auto) 0.1 Baso % (Auto) 0.3 Neut # (Auto) 14.1 H Lymph # (Auto) 0.5 L Potter # (Auto) 2.1 H Eos # (Auto) 0.0 Baso # (Auto) 0.1 WBC Differential . Differential Comment . PT INR APTT Sodium 135 L Potassium 4.8 Chloride 104 Carbon Dioxide 22.5 Anion Gap 9 BUN 51 H Creatinine 2.80 H Estimated GFR 22 L POC Glucose Random Glucose 270 H Lactic Acid Calcium 8.0 L Magnesium 2.0 Total Bilirubin 0.8 AST 75 H ALT 26 Alkaline Phosphatase 88 Troponin I 0.28 H C-Reactive Protein Total Protein 7.0 Albumin 2.9 L Urine Color Urine Clarity Urine pH Ur Specific Model Urine Protein Urine Glucose (UA) Urine Ketones Urine Occult Blood Urine Nitrate Urine Bilirubin Urine Urobilinogen Ur Leukocyte Esterase Urine RBC Urine WBC Urine WBC Clumps Ur Squamous Epith Cells Amorphous Sediment Urine Bacteria Micro UA Comment Ur Microscopic Review Urine Culture Comments Synovial Color Red Synovial Appearance [place] 25745 H Synovial Nuc Cells 27078 H Synovial Neutrophils 90 H Synovial Lymphocytes 8 Synovial Histocytes 2 Synovial Crystals 03/12/18 03/12/18 03/12/18 04:42 12:02 12:50 CBC w Diff WBC RBC Hgb Hct MCV MCH MCHC RDW Plt Count MPV Neut % (Auto) Lymph % (Auto) Potter % (Auto) Eos % (Auto) Baso % (Auto) Neut # (Auto) Lymph # (Auto) Potter # (Auto) Eos # (Auto) Baso # (Auto) WBC Differential Differential Comment PT INR APTT Sodium 136 Potassium 4.2 Chloride 104 Carbon Dioxide 24.4 Anion Gap 8 BUN 46 H Creatinine 2.30 H Estimated GFR 28 L POC Glucose 206 H Random Glucose 174 H Lactic Acid Calcium 8.2 L Magnesium Total Bilirubin AST ALT Alkaline Phosphatase Troponin I C-Reactive Protein Total Protein Albumin Urine Color Urine Clarity Urine pH Ur Specific Model Urine Protein Urine Glucose (UA) Urine Ketones Urine Occult Blood Urine Nitrate Urine Bilirubin Urine Urobilinogen Ur Leukocyte Esterase Urine RBC Urine WBC Urine WBC Clumps Ur Squamous Epith Cells Amorphous Sediment Urine Bacteria Micro UA Comment Ur Microscopic Review Urine Culture Comments Synovial Color Synovial Appearance Synovial RBC Synovial Nuc Cells Synovial Neutrophils Synovial Lymphocytes Synovial Histocytes Synovial Crystals None 03/12/18 12:50 CBC w Diff WBC RBC Hgb Hct MCV MCH MCHC RDW Plt Count MPV Neut % (Auto) Lymph % (Auto) Potter % (Auto) Eos % (Auto) Baso % (Auto) Neut # (Auto) Lymph # (Auto) Potter # (Auto) Eos # (Auto) Baso # (Auto) WBC Differential Differential Comment PT INR APTT Sodium Potassium Chloride Carbon Dioxide Anion Gap BUN Creatinine Estimated GFR POC Glucose Random Glucose Lactic Acid Calcium Magnesium Total Bilirubin AST ALT Alkaline Phosphatase Troponin I C-Reactive Protein 19.40 H Total Protein Albumin Urine Color Urine Clarity Urine pH Ur Specific Model Urine Protein Urine Glucose (UA) Urine Ketones Urine Occult Blood Urine Nitrate Urine Bilirubin Urine Urobilinogen Ur Leukocyte Esterase Urine RBC Urine WBC Urine WBC Clumps Ur Squamous Epith Cells Amorphous Sediment Urine Bacteria Micro UA Comment Ur Microscopic Review Urine Culture Comments Synovial Color Synovial Appearance Synovial RBC Synovial Nuc Cells Synovial Neutrophils Synovial Lymphocytes Synovial Histocytes Synovial Crystals - Imaging Impressions Abdomen/Bladder Ultrasound 03/12/18 00:00 CONCLUSION: 1. Normal size kidneys with mildly echogenic cortex suggesting some chronic renal disease. Chest X-Ray 03/12/18 01:10 CONCLUSION: Stable appearance with no acute cardiopulmonary disease. Head CT 03/12/18 01:10 CONCLUSION: 1. No acute hemorrhage or mass effect. 2. Stable area of encephalomalacia in the right cerebellar hemisphere. 3. Age appropriate atrophy. . Knee X-Ray 03/12/18 01:10 CONCLUSION: Soft tissue swelling with no acute fracture or malalignment. Assessment and Plan - Assessment and Plan 72-year-old gentleman with concern for right knee septic arthritis, POD#0 status post right knee irrigation and debridement 1. WBAT and ROM as tolerated RLE 2. PT for mobilization 3. Dressing change and remove RENAE drain on POD#2 4. Antibiotics per medicine and ID 5. Follow-up in office in 2 weeks.
--- NOTE | 2018-03-12 18:06 | ECG ---
Date Performed: 03/12/2018 Time Performed: 02:10:58 PTAGE: 72 years EKG: Sinus rhythm Compared to previous tracing, sinus rate is faster NORMAL ECG PREVIOUS TRACING : 03/08/2018 16.56 DOCTOR: Olvin Bernardo Interpretating Date/Time 03/12/2018 18:06:11
[2018-03-12] MEDS: Brimonidine 0.2% Opth Drops 5 ML Bottle EACH EYE SCH (21:22)
[2018-03-12] MEDS: traZODone 50 MG Tablet PO SCH (21:22)
[2018-03-13] MEDS: Insulin NovoLOG Aspart Correctional Sugar Inj SQ SCH ×4 (03:29→19:02)
[2018-03-13] MEDS: Sod Chloride 0.9% Inj 1,000 ML IV.CONT SCH ×3 (03:29→20:36)
[2018-03-13 07:06] LABS: Potassium 4.8 meq/L (3.5-5.1)
[2018-03-13] MEDS: QUEtiapine 25 MG Tablet PO SCH ×4 (07:08→17:26)
[2018-03-13 07:14] LABS: Calcium 7.8 mg/dL (8.5-10.1)
[2018-03-13 07:15] LABS: Carbon Dioxide 22.6 meq/L (21.0-32.0)
[2018-03-13 07:19] LABS: Baso % (Auto) 0.1 % (0.0-2.0); Eos % (Auto) 0.1 % (0.0-4.0); Hematocrit 31.8 % (39.0-51.0); Hemoglobin 10.5 gm/dL (13.0-17.0); Lymph # (Auto) 0.8 th/mm3 (1.0-4.8); Lymph % (Auto) 4.7 % (9.0-44.0); Mean Corpuscular HGB Conc 32.9 % (32.0-36.0); Mean Corpuscular Hemoglobin 30.5 pg (27.0-34.0); Mean Corpuscular Volume 92.7 fL (80.0-100.0); Mean Platelet Volume 8.7 fL (7.0-11.0); Mono # (Auto) 1.4 th/mm3 (0.0-0.9); Mono % (Auto) 7.9 % (0.0-8.0); Neut # (Auto) 15.8 th/mm3 (1.8-7.7); Neut % (Auto) 87.2 % (16.0-70.0); Platelet Count 267 th/mm3 (150-450); Red Blood Count 3.43 mil/mm3 (4.50-5.90); Red Cell Distribution Width 13.3 % (11.6-17.2)
[2018-03-13] MEDS: Brimonidine 0.2% Opth Drops 5 ML Bottle EACH EYE SCH ×2 (09:24→20:36)
[2018-03-13] MEDS: Famotidine 20 MG Tablet PO SCH (09:24)
[2018-03-13 10:39] LABS: Vancomycin,Random 11.9 Comment
--- NOTE | 2018-03-13 10:49 | P.PNIM ---
Subjective Interval history: f/u; septic arthritis in no acute distress. denies pain. no fever. Physical Exam Vital signs: Last Vital Signs Temp 97.1 F L 03/13/18 08:00 Pulse 66 03/13/18 08:00 Resp 18 03/13/18 08:00 BP 147/69 H 03/13/18 08:00 Pulse Ox 98 03/13/18 08:00 Intake & Output 03/11/18 03/12/18 03/13/18 03/14/18 06:59 06:59 06:59 06:59 Intake Total 1100 / 1100 2845 / 2845 Output Total 30 / Balance 1100 / 1100 2815 / 2815 Weight 80.1 kg 80.1 kg Constitutional no acute distress Routine Respiratory Exam Present CTA bilaterally Routine Cardiovascular Exam Present RRR Routine Abdominal Exam Present soft Routine Extremities Exam Comments: right knee covered with clean dressing. Routine Neurological Exam Present alert Results Labs CBC & Chem 7: 03/13/18 06:30 03/13/18 06:30 Labs: Microbiology 03/12/18 16:47 Wound - Knee Fungal Smear - Final No fungal elements seen 03/12/18 16:47 Wound - Knee Gram Stain - Final 03/12/18 02:05 Blood - Peripheral Aerobic Blood Culture - Preliminary gram positive cocci 03/12/18 02:05 Blood - Peripheral Anaerobic Blood Culture - Preliminary gram positive cocci 03/12/18 02:10 Blood - Peripheral Anaerobic Blood Culture - Preliminary gram positive cocci Imaging Imaging: Impressions Abdomen/Bladder Ultrasound 03/12/18 00:00 CONCLUSION: 1. Normal size kidneys with mildly echogenic cortex suggesting some chronic renal disease. Assessment and Plan Plan A/P Severe sepsis -Leukocytosis of 16.8, fever of 100.8 -Lactic acid 1.4. Acute kidney injury with creatinine 2.8 Acute right knee septic arthritis bacteremia -Right knee x-ray with soft tissue swelling, no evidence of ostium myelitis Aspiration showing 76,800 white blood cells -Orthopedics consulted ; s/p irrigation and debridement. Appreciate orthopedic assistance. -continue with IV antibiotics and follow the cultures. -ID following. Acute kidney injury on chronic kidney disease stage III Baseline creatinine 1.6 from January 2018, however the past month has increased, now 2.8. -continue to monitor Possible UTI -White blood cells on urinalysis. Follow-up urine culture. Patient is on antibiotics. History of hypertension Blood pressure acceptable. Will hold off on hydralazine and restart if needed. The as needed clonidine. Diabetes mellitus. Diabetic diet and insulin sliding scale. chronic conditions: Hyperlipidemia. Chronic. Continue home medication Glaucoma. Chronic. Continue medication. History of TIA. Continue Plavix. Dementia. Continue donepezil and memantine, continue quetiapine. GERD. Chronic. Continue home medication Insomnia. Continue trazodone. Progress Note: Quality VTE Deep Vein Thrombosis/Pulmonary Embolism Present on Admission: No
[2018-03-13] MEDS ORDERED: Vancomycin Inj 1,500 MG in Sodium Chlor 0.9% Inj 500 ML IV.SIG ONE (14:00)
--- NOTE | 2018-03-13 16:26 | P.PNID ---
Subjective Remarks: Patient is a 72-year-old male came from a snf facility, brought into the hospital for evaluation of generalized weakness and high fever. Patient was actively recently hospitalized in February for pain in his right lower extremity. He was evaluated and found to have L4-L5 spinal stenosis. Orthopedics saw the patient at that time and felt that it is more inflammatory and recommended some anti-inflammatory medication. He was discharged to the custodial, and apparently fell several times, so he was brought into the hospital for further evaluation of weakness and he was also found to have a fever. He had arthrocentesis of the right knee, and showed very high WBC. Infectious disease consultation has been requested to evaluate the patient for possible septic knee Notes reviewed Gwyn gutierrez Had surgery on his right knee yesterday Blood culture with gram-positive cocci in pairs and clusters Fluid culture with MRSA Antibiotics: Vancomycin Cefepime Past Medical History: Alzheimer disease BPH (benign prostatic hyperplasia) Dementia Diabetes mellitus, type 2 Hx of transient ischemic attack (TIA) Hyperlipemia Hypertension Hypothyroid Stroke H/O carotid endarterectomy Hx of cardiac cath Hx of tonsillectomy Allergies/Adverse Reactions: Allergies No Known Allergies Allergy (Verified 02/25/18 16:24) Objective Vital Signs 03/12/18 17:18 03/12/18 17:30 03/12/18 17:45 Temperature 99 F Pulse Rate 82 77 78 Respiratory Rate 14 16 16 Blood Pressure 157/71 H 161/74 H 159/68 H Pulse Oximetry 95 96 97 03/12/18 18:00 03/12/18 18:15 03/12/18 18:25 Temperature 98.5 F Pulse Rate 85 85 Respiratory Rate 16 16 16 Blood Pressure 161/75 H 166/74 H Pulse Oximetry 97 96 03/12/18 20:00 03/12/18 20:10 03/13/18 00:00 Temperature 97.5 F L 96.1 F L Pulse Rate 78 74 Respiratory Rate 20 19 Blood Pressure 156/71 H 140/76 Pulse Oximetry 98 98 97 03/13/18 04:00 03/13/18 08:00 03/13/18 08:50 Temperature 97.0 F L 97.1 F L Pulse Rate 70 66 Respiratory Rate 18 18 Blood Pressure 156/72 H 147/69 H Pulse Oximetry 96 98 98 03/13/18 12:00 Temperature 97.8 F Pulse Rate 65 Respiratory Rate 18 Blood Pressure 140/65 Pulse Oximetry 99 Intake & Output 03/12/18 03/13/18 03/13/18 18:59 06:59 18:59 Intake Total 2695 / 2695 150 / 150 1100 / 1100 Output Total 30 / 30 Balance 2695 / 2695 120 / 120 1100 / 1100 Weight 80.1 kg 80.1 kg Intake: IV 1515 / 1515 150 / 150 1100 / 1100 NS Inj 1,000 ML @ 70 mls/hr IV. 1000 / 1000 50 / 50 1000 / 1000 CONT .[id number] [facility] Rx#: [id number] Maxipime Inj 1,000 MG In NS Inj 100 / 100 100 / 100 100 ML @ 200 mls/hr IV.SIG Q12H [facility] Rx#:[id number] Vancomycin Inj 1,500 MG In NS 515 / 515 Inj 500 ML @ 250 mls/hr IV.SIG ONCE ONE Rx#:[id number] Oral 480 / 480 Anesthesia Amount 700 / 700 Output: Wound Drainage # 1 Right Knee RENAE Drain Other: # Urine Diapers 4 # Bowel Movements 0 03/12/18 02:20 Catheterized Urine Urine Culture - Preliminary Immature growth - reincubate 03/12/18 16:47 Wound - Knee Gram Stain - Final 03/12/18 16:47 Wound - Knee Wound Culture - Preliminary S. aureus MRSA 03/12/18 16:47 Wound - Knee Fungal Smear - Final No fungal elements seen 03/12/18 16:47 Wound - Knee Fungal Culture - Pending 03/12/18 16:47 Wound - Knee Acid Fast Bacilli Smear - Pending 03/12/18 16:47 Wound - Knee Mycobacterial Culture - Pending 03/13/18 13:51 Blood - Peripheral Aerobic Blood Culture - Pending 03/13/18 13:51 Blood - Peripheral Anaerobic Blood Culture - Pending 03/13/18 13:47 Blood - Peripheral Aerobic Blood Culture - Pending 03/13/18 13:47 Blood - Peripheral Anaerobic Blood Culture - Pending 03/12/18 02:10 Blood - Peripheral Aerobic Blood Culture - Preliminary No growth in 1 day 03/12/18 02:10 Blood - Peripheral Anaerobic Blood Culture - Preliminary gram positive cocci 03/12/18 02:05 Blood - Peripheral Aerobic Blood Culture - Preliminary gram positive cocci 03/12/18 02:05 Blood - Peripheral Anaerobic Blood Culture - Preliminary gram positive cocci Lab - Hematology Results 03/12/18 03/12/18 03/13/18 03:00 15:38 06:30 CBC w Diff Auto diff final Auto diff final WBC 16.8 H 18.0 H RBC 3.47 L 3.43 L Hgb 10.6 L 10.5 L Hct 32.5 L 31.8 L MCV 93.9 92.7 MCH 30.6 30.5 MCHC 32.6 32.9 RDW 13.8 13.3 Plt Count 294 267 MPV 8.9 8.7 Neut % (Auto) 83.8 H 87.2 H Lymph % (Auto) 3.0 L 4.7 L [place] % (Auto) 12.8 H 7.9 Eos % (Auto) 0.1 0.1 Baso % (Auto) 0.3 0.1 Neut # (Auto) 14.1 H 15.8 H Lymph # (Auto) 0.5 L 0.8 L [place]ard # (Auto) 2.1 H 1.4 H Eos # (Auto) 0.0 0.0 Baso # (Auto) 0.1 0.0 WBC Differential . . Differential Comment . . ESR 82 H Lab - Chemistry Results 03/12/18 03/12/18 03/12/18 02:03 03:00 12:02 Sodium 135 L Potassium 4.8 Chloride 104 Carbon Dioxide 22.5 Anion Gap 9 BUN 51 H Creatinine 2.80 H Estimated GFR 22 L POC Glucose 206 H Random Glucose 270 H Lactic Acid 1.4 Calcium 8.0 L Magnesium 2.0 Total Bilirubin 0.8 AST 75 H ALT 26 Alkaline Phosphatase 88 Troponin I 0.28 H C-Reactive Protein Total Protein 7.0 Albumin 2.9 L 03/12/18 03/12/18 03/12/18 12:50 12:50 17:56 Sodium 136 Potassium 4.2 Chloride 104 Carbon Dioxide 24.4 Anion Gap 8 BUN 46 H Creatinine 2.30 H Estimated GFR 28 L POC Glucose 190 H Random Glucose 174 H Lactic Acid Calcium 8.2 L Magnesium Total Bilirubin AST ALT Alkaline Phosphatase Troponin I C-Reactive Protein 19.40 H Total Protein Albumin 03/13/18 03/13/18 03/13/18 06:30 07:53 11:10 Sodium 137 Potassium 4.8 Chloride 107 Carbon Dioxide 22.6 Anion Gap 7 BUN 36 H Creatinine 1.70 H Estimated GFR 40 L POC Glucose 163 H 183 H Random Glucose 183 H Lactic Acid Calcium 7.8 L Magnesium Total Bilirubin AST ALT Alkaline Phosphatase Troponin I C-Reactive Protein Total Protein Albumin Imaging: ITS Impressions Abdomen/Bladder Ultrasound 03/12/18 00:00 CONCLUSION: 1. Normal size kidneys with mildly echogenic cortex suggesting some chronic renal disease. Chest X-Ray 03/12/18 01:10 CONCLUSION: Stable appearance with no acute cardiopulmonary disease. Head CT 03/12/18 01:10 CONCLUSION: 1. No acute hemorrhage or mass effect. 2. Stable area of encephalomalacia in the right cerebellar hemisphere. 3. Age appropriate atrophy. . Knee X-Ray 03/12/18 01:10 CONCLUSION: Soft tissue swelling with no acute fracture or malalignment. Physical Exam: GENERAL: sleeping, awakens easily, NAD SKIN: Warm and dry. No generalized rash, no ecchymoses and no evidence of embolic lesions. HEAD: Atraumatic. Normocephalic. No temporal wasting, or tenderness. EYES: [place] conjunctiva. No petechia or hemorrhage. Pupils equal, round and reactive to light. Extraocular movements full and intact. No scleral icterus. No injection or drainage. EARS, NOSE AND THROAT: Mucous membranes pink and moist. No oral lesions noted. NECK: Trachea midline. Supple and not tender, no meningeal signs CARDIOVASCULAR: Regular rate and rhythm. No murmurs, rubs or gallops heard RESPIRATORY: Clear to auscultation. Breath sounds equal bilaterally. No rales , wheezing or rhonchi ABDOMEN: Soft, non-tender, nondistended. Bowel sounds present and normoactive. No guarding. No rebound. No organomegaly. EXTREMITIES: No clubbing, cyanosis. L knee has mild pink ecchymotic area on the medial aspect. Right knee with dressing in place, has ice pack on it. NEUROLOGICAL: Awakens easily. Cranial nerves grossly intact. Motor grossly within normal limits. PSYCHIATRIC: follow commands LINE: No evidence of infection Assessment and Plan - Plan Impression Sepsis, GPC, due to septic R knee MRSA septic R knee S/P OR 1/4 Previous TIA/CVA Moderate stenosis lumbar spine on MRI Dementia UTI Recommendation Bladder scan, repeat - if still high, place clark Follow C/S Repeat BC to document clearing Limited echo Continue IV vancomycin Continue Cefepime Adjust Abx once C/S available Will determine course of Abx once workup is completed
[2018-03-13] MEDS: traZODone 50 MG Tablet PO SCH (20:34)
[2018-03-14] MEDS: Insulin NovoLOG Aspart Correctional Sugar Inj SQ SCH ×5 (03:04→23:09)
[2018-03-14] MEDS: Sod Chloride 0.9% Inj 1,000 ML IV.CONT SCH ×2 (05:19→12:08)
[2018-03-14 06:58] LABS: Potassium 4.4 meq/L (3.5-5.1)
[2018-03-14 07:02] LABS: Calcium 7.7 mg/dL (8.5-10.1); Carbon Dioxide 23.1 meq/L (21.0-32.0)
[2018-03-14 07:06] LABS: Baso % (Auto) 0.1 % (0.0-2.0); Eos # (Auto) 0.3 th/mm3 (0.0-0.4); Eos % (Auto) 2.4 % (0.0-4.0); Hematocrit 32.2 % (39.0-51.0); Hemoglobin 10.3 gm/dL (13.0-17.0); Lymph # (Auto) 0.8 th/mm3 (1.0-4.8); Lymph % (Auto) 5.9 % (9.0-44.0); Mean Corpuscular HGB Conc 31.8 % (32.0-36.0); Mean Corpuscular Hemoglobin 29.6 pg (27.0-34.0); Mean Corpuscular Volume 93.1 fL (80.0-100.0); Mean Platelet Volume 8.8 fL (7.0-11.0); Mono # (Auto) 1.3 th/mm3 (0.0-0.9); Mono % (Auto) 9.2 % (0.0-8.0); Neut % (Auto) 82.4 % (16.0-70.0); Platelet Count 326 th/mm3 (150-450); Red Blood Count 3.46 mil/mm3 (4.50-5.90); Red Cell Distribution Width 13.6 % (11.6-17.2); White Blood Count 14.4 th/mm3 (4.0-11.0)
[2018-03-14 09:52] LABS: Vancomycin,Random 17.1 Comment
[2018-03-14] MEDS: Famotidine 20 MG Tablet PO SCH (09:53)
[2018-03-14] MEDS: QUEtiapine 25 MG Tablet PO SCH ×3 (09:53→17:40)
[2018-03-14] MEDS: Brimonidine 0.2% Opth Drops 5 ML Bottle EACH EYE SCH ×2 (09:54→22:12)
--- NOTE | 2018-03-14 10:32 | ECHRPT ---
Indication: ATRIAL FIB/FLUTTER CONCLUSIONS Normal left ventricular size. Wall thickness is normal. The left ventricular systolic function is hyperdynamic with an estimated ejection fraction in the ra nge of 65- 70%. Calcification of the anterior mitral valve leaflet. Mild mitral valve regurgitation. Aortic valve sclerosis is present. There is mild tricuspid valve regurgitation. The estimated pulmonary arterial pressure is 57.9 mmHg. BP: / HR: Rhythm: Sinus MEASUREMENTS (Male / Female) Normal Values Technical Quality:Fair 2D ECHO LV Diastolic Diameter PLAX 4.9 cm 4.2 - 5.9 / 3.9 - 5.3 cm LV Systolic Diameter PLAX 3.3 cm IVS Diastolic Thickness 1.0 cm 0.6 - 1.0 / 0.6 - 0.9 cm LVPW Diastolic Thickness 1.0 cm 0.6 - 1.0 / 0.6 - 0.9 cm LV Relative Wall Thickness 0.4 RV Internal Dim ED PLAX 2.5 cm LVOT Diameter 2.0 cm Aortic Root Diameter 3.0 cm LA Systolic Diameter LX 3.0 cm 3.0 - 4.0 / 2.7 - 3.8 cm M-MODE AV Cusp Separation MM 1.9 cm DOPPLER AV Peak Velocity 125.0 cm/s AV Peak Gradient 6.3 mmHg AV Mean Gradient 4.0 mmHg AV Velocity Time Integral 25.9 cm LVOT Peak Velocity 102.0 cm/s LVOT Peak Gradient 4.2 mmHg LVOT Velocity Time Integral 22.0 cm AV Area Cont Eq vti 2.7 cm AV Area Cont Eq pk 2.6 cm Mitral E Point Velocity 91.3 cm/s Mitral A Point Velocity 45.9 cm/s Mitral E to A Ratio 2.0 LV E' Lateral Velocity 13.1 cm/s Mitral E to LV E' Lateral Ratio 7.0 LV E' Septal Velocity 6.1 cm/s Mitral E to LV E' Septal Ratio 14.9 TR Peak Velocity 346.0 cm/s TR Peak Gradient 47.9 mmHg Right Atrial Pressure 10.0 mmHg Pulmonary Artery Systolic Pressu 57.9 mmHg Right Ventricular Systolic Press 57.9 mmHg PV Peak Velocity 82.7 cm/s PV Peak Gradient 2.7 mmHg FINDINGS LEFT VENTRICLE Normal left ventricular size. Wall thickness is normal. The left ventricular systolic function is hyperdynamic with an estimated ejection fraction in the ra nge of 65- 70%. Doppler parameters are consistent with impaired left ventricular relaxtion (grade 1 diastolic dysfun ction). RIGHT VENTRICLE Normal right ventricular size and systolic function. LEFT ATRIUM The left atrial size is normal. RIGHT ATRIUM The right atrial size is normal. ATRIAL SEPTUM No atrial level shunt is demonstrated by color flow Doppler interrogation. AORTA The aortic root and proximal ascending aorta are not well visualized. MITRAL VALVE Calcification of the anterior mitral valve leaflet. Mild mitral valve regurgitation. AORTIC VALVE Aortic valve sclerosis is present. TRICUSPID VALVE There is mild tricuspid valve regurgitation. The estimated pulmonary arterial pressure is 57.9 mmHg. PULMONARY VALVE No pulmonary valve regurgitation or stenosis. VESSELS The inferior vena cava is normal in size. PERICARDIUM No pericardial effusion. Olvin Bernardo MD (Electronically Signed) Final Date:14 March 2018 10:31
--- NOTE | 2018-03-14 10:32 | P.PNIM ---
Subjective Interval history: f/u; septic arthritis in no acute distress. pain is fairly controlled. no fever. no new complaints. Physical Exam Vital signs: Last Vital Signs Temp 97.1 F L 03/14/18 08:00 Pulse 73 03/14/18 08:00 Resp 20 03/14/18 08:00 BP 134/78 03/14/18 08:00 Pulse Ox 98 03/14/18 08:00 Intake & Output 03/12/18 03/13/18 03/14/18 03/15/18 06:59 06:59 06:59 06:59 Intake Total 1100 / 1100 2845 / 2845 2715 / 2715 100 / 100 Output Total 30 / 30 50 / 50 1030 / 1030 Balance 1100 / 1100 2815 / 2815 2665 / 2665 -930 / -930 Weight 80.1 kg 80.1 kg Constitutional no acute distress Routine Respiratory Exam Present CTA bilaterally Routine Cardiovascular Exam Present RRR Routine Abdominal Exam Present soft Routine Extremities Exam Comments: right knee covered with clean dressing. Routine Neurological Exam Present alert and oriented X3 Results Labs CBC & Chem 7: 03/14/18 06:14 03/14/18 06:14 Labs: Microbiology 03/12/18 02:05 Blood - Peripheral Aerobic Blood Culture - Preliminary S. aureus MRSA 03/12/18 02:05 Blood - Peripheral Anaerobic Blood Culture - Preliminary S. aureus MRSA 03/12/18 02:10 Blood - Peripheral Aerobic Blood Culture - Preliminary No growth in 1 day 03/12/18 02:10 Blood - Peripheral Anaerobic Blood Culture - Preliminary S. aureus MRSA 03/12/18 16:47 Wound - Knee Gram Stain - Final 03/12/18 16:47 Wound - Knee Wound Culture - Final S. aureus MRSA 03/12/18 02:20 Catheterized Urine Urine Culture - Preliminary Immature growth - reincubate 03/12/18 16:47 Wound - Knee Fungal Smear - Final No fungal elements seen Assessment and Plan Plan A/P Severe sepsis -Leukocytosis of 16.8, fever of 100.8 -Lactic acid 1.4. Acute kidney injury with creatinine 2.8 Acute right knee septic arthritis MRSA bacteremia -Right knee x-ray with soft tissue swelling, no evidence of ostium myelitis Aspiration showing 76,800 white blood cells -Orthopedics consulted ; s/p irrigation and debridement. Appreciate orthopedic assistance. -continue with IV antibiotics and follow the cultures. -echo pending. -ID following. Acute kidney injury on chronic kidney disease stage III-improved. -continue to monitor Possible UTI -White blood cells on urinalysis. Follow-up urine culture. Patient is on antibiotics. History of hypertension Blood pressure acceptable. Will hold off on hydralazine and restart if needed. The as needed clonidine. Diabetes mellitus. Diabetic diet and insulin sliding scale. chronic conditions: Hyperlipidemia. Chronic. Continue home medication Glaucoma. Chronic. Continue medication. History of TIA. Continue Plavix. Dementia. Continue donepezil and memantine, continue quetiapine. GERD. Chronic. Continue home medication Insomnia. Continue trazodone. Discharge Planning: when stable- pending the work-up. Progress Note: Quality VTE Deep Vein Thrombosis/Pulmonary Embolism Present on Admission: No
[2018-03-14] MEDS: Vancomycin Inj 1,500 MG in Sodium Chlor 0.9% Inj 500 ML IV.SIG SCH (13:47)
--- NOTE | 2018-03-14 17:56 | P.PNID ---
Subjective Remarks: Patient is a 72-year-old male [facility], brought into the hospital for evaluation of generalized weakness and high fever. Patient was actively recently hospitalized in February for pain in his right lower extremity. He was evaluated and found to have L4-L5 spinal stenosis. Orthopedics saw the patient at that time and felt that it is more inflammatory and recommended some anti-inflammatory medication. [facility], and apparently fell several times, so he was brought into the hospital for further evaluation of weakness and he was also found to have a fever. He had arthrocentesis of the right knee, and showed very high WBC. Infectious disease consultation has been requested to evaluate the patient for possible septic knee Notes reviewed Temps okay OR R knee C/S - MRSA 2 BC with MRSA Repeat BC negative Echo noted - no obvious vegetation; AV sclerosis States pain is better Has drain still in place Antibiotics: Vancomycin Cefepime Past Medical History: Alzheimer disease BPH (benign prostatic hyperplasia) Dementia Diabetes mellitus, type 2 Hx of transient ischemic attack (TIA) Hyperlipemia Hypertension Hypothyroid Stroke H/O carotid endarterectomy Hx of cardiac cath Hx of tonsillectomy Allergies/Adverse Reactions: Allergies No Known Allergies Allergy (Verified 02/25/18 16:24) Objective Vital Signs 03/13/18 20:00 03/13/18 21:48 03/14/18 00:00 Temperature 97.0 F L 96.9 F L Pulse Rate 90 79 Respiratory Rate 19 18 Blood Pressure 136/66 157/71 H Pulse Oximetry 97 96 99 03/14/18 08:00 03/14/18 12:00 03/14/18 14:24 Temperature 97.1 F L 97.8 F Pulse Rate 73 74 Respiratory Rate 20 20 Blood Pressure 134/78 191/89 H Pulse Oximetry 98 96 98 03/14/18 16:00 Temperature 98 F Pulse Rate 76 Respiratory Rate 20 Blood Pressure 171/82 H Pulse Oximetry 99 Intake & Output 03/13/18 03/14/18 03/14/18 18:59 06:59 18:59 Intake Total 1615 / 1615 1100 / 1100 1100 / 1100 Output Total 50 / 50 1030 / 1030 Balance 1615 / 1615 1050 / 1050 70 / 70 Intake: IV 1615 / 1615 1100 / 1100 1100 / 1100 NS Inj 1,000 ML @ 70 mls/hr IV. 1000 / 1000 1000 / 1000 1000 / 1000 CONT .[id number] [facility] Rx#: [id number] Maxipime Inj 1,000 MG In NS Inj 100 / 100 100 / 100 100 / 100 100 ML @ 200 mls/hr IV.SIG Q12H [facility] Rx#:[id number] Vancomycin Inj 1,500 MG In NS 515 / 515 Inj 500 ML @ 250 mls/hr IV.SIG ONCE ONE Rx#:[id number] Output: Urine 1000 / 1000 Wound Drainage 50 / 50 30 / 30 # 1 Right Knee RENAE Drain 50 / 50 30 / 30 Other: # Voids 4 03/13/18 13:51 Blood - Peripheral Aerobic Blood Culture - Preliminary No growth in 1 day 03/13/18 13:51 Blood - Peripheral Anaerobic Blood Culture - Preliminary No growth in 1 day 03/13/18 13:47 Blood - Peripheral Aerobic Blood Culture - Preliminary No growth in 1 day 03/13/18 13:47 Blood - Peripheral Anaerobic Blood Culture - Preliminary No growth in 1 day 03/12/18 02:10 Blood - Peripheral Aerobic Blood Culture - Preliminary No growth in 2 days 03/12/18 02:10 Blood - Peripheral Anaerobic Blood Culture - Preliminary S. aureus MRSA 03/12/18 02:20 Catheterized Urine Urine Culture - Final 50-100,000 cfu/mL mixed gram positive eliazar (probable contaminants) 03/12/18 02:05 Blood - Peripheral Aerobic Blood Culture - Preliminary S. aureus MRSA 03/12/18 02:05 Blood - Peripheral Anaerobic Blood Culture - Preliminary S. aureus MRSA 03/12/18 16:47 Wound - Knee Gram Stain - Final 03/12/18 16:47 Wound - Knee Wound Culture - Final S. aureus MRSA 03/12/18 16:47 Wound - Knee Fungal Smear - Final No fungal elements seen 03/12/18 16:47 Wound - Knee Fungal Culture - Pending 03/12/18 16:47 Wound - Knee Acid Fast Bacilli Smear - Pending 03/12/18 16:47 Wound - Knee Mycobacterial Culture - Pending Lab - Hematology Results 03/13/18 03/14/18 06:30 06:14 CBC w Diff Auto diff final Auto diff final WBC 18.0 H 14.4 H RBC 3.43 L 3.46 L Hgb 10.5 L 10.3 L Hct 31.8 L 32.2 L MCV 92.7 93.1 MCH 30.5 29.6 MCHC 32.9 31.8 L RDW 13.3 13.6 Plt Count 267 326 MPV 8.7 8.8 Neut % (Auto) 87.2 H 82.4 H Lymph % (Auto) 4.7 L 5.9 L [place] % (Auto) 7.9 9.2 H Eos % (Auto) 0.1 2.4 Baso % (Auto) 0.1 0.1 Neut # (Auto) 15.8 H 12.0 H Lymph # (Auto) 0.8 L 0.8 L [place] # (Auto) 1.4 H 1.3 H Eos # (Auto) 0.0 0.3 Baso # (Auto) 0.0 0.0 WBC Differential . . Differential Comment . . Lab - Chemistry Results 03/12/18 03/13/18 03/13/18 17:56 06:30 07:53 Sodium 137 Potassium 4.8 Chloride 107 Carbon Dioxide 22.6 Anion Gap 7 BUN 36 H Creatinine 1.70 H Estimated GFR 40 L POC Glucose 190 H 163 H Random Glucose 183 H Calcium 7.8 L 03/13/18 03/13/18 03/13/18 11:10 17:21 20:34 Sodium Potassium Chloride Carbon Dioxide Anion Gap BUN Creatinine Estimated GFR POC Glucose 183 H 163 H 194 H Random Glucose Calcium 03/14/18 03/14/18 03/14/18 03:00 06:14 08:10 Sodium 141 Potassium 4.4 Chloride 111 H Carbon Dioxide 23.1 Anion Gap 7 BUN 32 H Creatinine 1.50 H Estimated GFR 46 L POC Glucose 217 H 167 H Random Glucose 174 H Calcium 7.7 L 03/14/18 03/14/18 11:35 17:27 Sodium Potassium Chloride Carbon Dioxide Anion Gap BUN Creatinine Estimated GFR POC Glucose 177 H 196 H Random Glucose Calcium Imaging: ITS Impressions Abdomen/Bladder Ultrasound 03/12/18 00:00 CONCLUSION: 1. Normal size kidneys with mildly echogenic cortex suggesting some chronic renal disease. Chest X-Ray 03/12/18 01:10 CONCLUSION: Stable appearance with no acute cardiopulmonary disease. Head CT 03/12/18 01:10 CONCLUSION: 1. No acute hemorrhage or mass effect. 2. Stable area of encephalomalacia in the right cerebellar hemisphere. 3. Age appropriate atrophy. . Knee X-Ray 03/12/18 01:10 CONCLUSION: Soft tissue swelling with no acute fracture or malalignment. Physical Exam: GENERAL: awake and alert, NAD SKIN: Warm and dry. No generalized rash HEAD: Atraumatic. Normocephalic. No temporal wasting, or tenderness. EYES: [place] conjunctiva. No petechia or hemorrhage. No scleral icterus. No injection or drainage. EARS, NOSE AND THROAT: Mucous membranes pink and moist. No oral lesions noted. NECK: Trachea midline. Supple and not tender, no meningeal signs CARDIOVASCULAR: Regular rate and rhythm. No murmurs, rubs or gallops heard RESPIRATORY: Clear to auscultation. Breath sounds equal bilaterally. No rales , wheezing or rhonchi ABDOMEN: Soft, non-tender, nondistended. Bowel sounds present and normoactive. No guarding. No rebound. No organomegaly. EXTREMITIES: No clubbing, cyanosis. L knee has mild pink ecchymotic area on the medial aspect. Right knee with dressing in place, drain in place. NEUROLOGICAL: Non-focal. PSYCHIATRIC: calm and cooperative LINE: No evidence of infection Assessment and Plan - Plan Impression MRSA Sepsis, due to septic R knee MRSA septic R knee S/P OR 1/4 Previous TIA/CVA Moderate stenosis lumbar spine on MRI Dementia UTI Recommendation Follow C/S Repeat BC to document clearing Continue IV vancomycin Stop Cefepime Will determine course of Abx once work-up completed
[2018-03-14] MEDS: traZODone 50 MG Tablet PO SCH (22:13)
[2018-03-15] MEDS: Sod Chloride 0.9% Inj 1,000 ML IV.CONT SCH ×3 (04:31→21:11)
[2018-03-15] MEDS: Famotidine 20 MG Tablet PO SCH (09:12)
[2018-03-15] MEDS: Insulin NovoLOG Aspart Correctional Sugar Inj SQ SCH ×4 (09:13→23:10)
[2018-03-15] MEDS: QUEtiapine 25 MG Tablet PO SCH ×3 (09:13→17:41)
[2018-03-15] MEDS: Brimonidine 0.2% Opth Drops 5 ML Bottle EACH EYE SCH ×2 (09:14→21:09)
--- NOTE | 2018-03-15 09:57 | P.PNIM ---
Subjective Interval history: f/u; septic arthritis in no acute distress. has some pain to the right knee. no fever. BP trend noted. d/w the RN. Physical Exam Vital signs: Last Vital Signs Temp 98.4 F 03/15/18 08:00 Pulse 77 03/15/18 08:00 Resp 18 03/15/18 08:00 BP 200/93 H 03/15/18 08:00 Pulse Ox 97 03/15/18 08:00 Intake & Output 03/13/18 03/14/18 03/15/18 03/16/18 06:59 06:59 06:59 06:59 Intake Total 2845 / 2845 2715 / 2715 2945 / 2945 200 / 200 Output Total 30 / 30 50 / 50 3240 / 3240 50 / 50 Balance 2815 / 2815 2665 / 2665 -295 / -295 150 / 150 Weight 80.1 kg 81.2 kg Constitutional no acute distress Routine Respiratory Exam Present CTA bilaterally Routine Cardiovascular Exam Present RRR Routine Abdominal Exam Present soft Routine Extremities Exam Comments: right knee covered with clean dressing. Routine Neurological Exam Present alert and oriented X3 Results Labs CBC & Chem 7: 03/14/18 06:14 03/14/18 06:14 Labs: Microbiology 03/13/18 13:51 Blood - Peripheral Aerobic Blood Culture - Preliminary No growth in 1 day 03/13/18 13:51 Blood - Peripheral Anaerobic Blood Culture - Preliminary gram positive cocci 03/13/18 13:47 Blood - Peripheral Aerobic Blood Culture - Preliminary No growth in 1 day 03/13/18 13:47 Blood - Peripheral Anaerobic Blood Culture - Preliminary No growth in 1 day 03/12/18 02:10 Blood - Peripheral Aerobic Blood Culture - Preliminary No growth in 2 days 03/12/18 02:10 Blood - Peripheral Anaerobic Blood Culture - Preliminary S. aureus MRSA 03/12/18 02:20 Catheterized Urine Urine Culture - Final 50-100,000 cfu/mL mixed gram positive eliazar (probable contaminants) 03/12/18 02:05 Blood - Peripheral Aerobic Blood Culture - Preliminary S. aureus MRSA 03/12/18 02:05 Blood - Peripheral Anaerobic Blood Culture - Preliminary S. aureus MRSA 03/12/18 16:47 Wound - Knee Gram Stain - Final 03/12/18 16:47 Wound - Knee Wound Culture - Final S. aureus MRSA Assessment and Plan Plan A/P Severe sepsis -Leukocytosis of 16.8, fever of 100.8 -Lactic acid 1.4. Acute kidney injury with creatinine 2.8 Acute right knee septic arthritis MRSA bacteremia -Right knee x-ray with soft tissue swelling, no evidence of ostium myelitis Aspiration showing 76,800 white blood cells -Orthopedics consulted ; s/p irrigation and debridement. Appreciate orthopedic assistance. -continue with IV antibiotics and follow the cultures. -echo with EF 65% and no evidence of vegetation. -ID following. Acute kidney injury on chronic kidney disease stage III-improved. -continue to monitor Possible UTI -White blood cells on urinalysis. Follow-up urine culture. Patient is on antibiotics. History of hypertension will resume Hydralazine- The as needed clonidine. continue to monitor the BP and adjust the regimen as needed. Diabetes mellitus. Diabetic diet and insulin sliding scale. chronic conditions: Hyperlipidemia. Chronic. Continue home medication Glaucoma. Chronic. Continue medication. History of TIA. Continue Plavix. Dementia. Continue donepezil and memantine, continue quetiapine. GERD. Chronic. Continue home medication Insomnia. Continue trazodone. Discharge Planning: when stable- pending the work-up. Progress Note: Quality VTE Deep Vein Thrombosis/Pulmonary Embolism Present on Admission: No
[2018-03-15] MEDS: hydrALAZINE 50 MG Tablet PO SCH ×3 (12:34→23:11)
[2018-03-15] MEDS: Vancomycin Inj 1,500 MG in Sodium Chlor 0.9% Inj 500 ML IV.SIG SCH (13:09)
--- NOTE | 2018-03-15 14:14 | P.PNID ---
Subjective Remarks: Patient is a 72-year-old male came from a group home facility, brought into the hospital for evaluation of generalized weakness and high fever. Patient was actively recently hospitalized in February for pain in his right lower extremity. He was evaluated and found to have L4-L5 spinal stenosis. Orthopedics saw the patient at that time and felt that it is more inflammatory and recommended some anti-inflammatory medication. He was discharged to the assisted, and apparently fell several times, so he was brought into the hospital for further evaluation of weakness and he was also found to have a fever. He had arthrocentesis of the right knee, and showed very high WBC. Infectious disease consultation has been requested to evaluate the patient for possible septic knee Notes reviewed Temps okay C/O pain R knee Drain still in place OR R knee C/S - MRSA 2 BC with MRSA 03/12 Has 1 new BC with GPC from 03/13 Echo noted - no obvious vegetation; AV sclerosis Antibiotics: Vancomycin Past Medical History: Alzheimer disease BPH (benign prostatic hyperplasia) Dementia Diabetes mellitus, type 2 Hx of transient ischemic attack (TIA) Hyperlipemia Hypertension Hypothyroid Stroke H/O carotid endarterectomy Hx of cardiac cath Hx of tonsillectomy Allergies/Adverse Reactions: Allergies No Known Allergies Allergy (Verified 02/25/18 16:24) Objective Vital Signs 03/14/18 14:24 03/14/18 16:00 03/14/18 20:00 Temperature 98 F 98.1 F Pulse Rate 76 90 Respiratory Rate 20 18 Blood Pressure 171/82 H 206/98 H Pulse Oximetry 98 99 97 03/14/18 20:49 03/15/18 00:00 03/15/18 03:12 Temperature 98.3 F Pulse Rate 78 Respiratory Rate 18 Blood Pressure 214/94 H 198/90 H Pulse Oximetry 100 98 03/15/18 04:00 03/15/18 05:11 03/15/18 07:00 Temperature 97.8 F Pulse Rate 74 Respiratory Rate 18 Blood Pressure 188/97 H 164/90 H Pulse Oximetry 97 96 03/15/18 08:00 03/15/18 09:41 03/15/18 12:41 Temperature 98.4 F Pulse Rate 77 Respiratory Rate 18 18 18 Blood Pressure 200/93 H 140/80 Pulse Oximetry 97 03/15/18 13:19 Temperature 97.9 F Pulse Rate 72 Respiratory Rate 18 Blood Pressure Pulse Oximetry 98 Intake & Output 03/14/18 03/15/18 03/15/18 18:59 06:59 18:59 Intake Total 1340 / 1340 1605 / 1605 200 / 200 Output Total 1530 / 1530 1710 / 1710 250 / 250 Balance -190 / -190 -105 / -105 -50 / -50 Weight 81.2 kg Intake: IV 1100 / 1100 1515 / 1515 NS Inj 1,000 ML @ 70 mls/hr IV. 1000 / 1000 1000 / 1000 CONT .[id number] [facility] Rx#: [id number] Maxipime Inj 1,000 MG In NS Inj 100 / 100 100 ML @ 200 mls/hr IV.SIG Q12H [facility] Rx#:[id number] Vancomycin Inj 1,500 MG In NS 515 / 515 Inj 500 ML @ 250 mls/hr IV.SIG Q24H [facility] Rx#:[id number] Oral 240 / 240 90 / 90 200 / 200 Output: Urine 1500 / 1500 1650 / 1650 200 / 200 Wound Drainage 30 / 30 60 / 60 50 / 50 # 1 Right Knee RENAE Drain 30 / 30 60 / 60 50 / 50 Other: # Voids 4 5 03/13/18 13:51 Blood - Peripheral Aerobic Blood Culture - Preliminary No growth in 2 days 03/13/18 13:51 Blood - Peripheral Anaerobic Blood Culture - Preliminary gram positive cocci 03/13/18 13:47 Blood - Peripheral Aerobic Blood Culture - Preliminary No growth in 2 days 03/13/18 13:47 Blood - Peripheral Anaerobic Blood Culture - Preliminary No growth in 2 days 03/12/18 02:10 Blood - Peripheral Aerobic Blood Culture - Preliminary No growth in 3 days 03/12/18 02:10 Blood - Peripheral Anaerobic Blood Culture - Final S. aureus MRSA 03/12/18 02:05 Blood - Peripheral Aerobic Blood Culture - Final S. aureus MRSA 03/12/18 02:05 Blood - Peripheral Anaerobic Blood Culture - Final S. aureus MRSA 03/12/18 02:20 Catheterized Urine Urine Culture - Final 50-100,000 cfu/mL mixed gram positive eliazar (probable contaminants) 03/12/18 16:47 Wound - Knee Gram Stain - Final 03/12/18 16:47 Wound - Knee Wound Culture - Final S. aureus MRSA 03/12/18 16:47 Wound - Knee Fungal Smear - Final No fungal elements seen 03/12/18 16:47 Wound - Knee Fungal Culture - Pending 03/12/18 16:47 Wound - Knee Acid Fast Bacilli Smear - Pending 03/12/18 16:47 Wound - Knee Mycobacterial Culture - Pending Lab - Hematology Results 03/14/18 06:14 CBC w Diff Auto diff final WBC 14.4 H RBC 3.46 L Hgb 10.3 L Hct 32.2 L MCV 93.1 MCH 29.6 MCHC 31.8 L RDW 13.6 Plt Count 326 MPV 8.8 Neut % (Auto) 82.4 H Lymph % (Auto) 5.9 L [place] % (Auto) 9.2 H Eos % (Auto) 2.4 Baso % (Auto) 0.1 Neut # (Auto) 12.0 H Lymph # (Auto) 0.8 L [place] # (Auto) 1.3 H Eos # (Auto) 0.3 Baso # (Auto) 0.0 WBC Differential . Differential Comment . Lab - Chemistry Results 03/13/18 03/13/18 03/14/18 17:21 20:34 03:00 Sodium Potassium Chloride Carbon Dioxide Anion Gap BUN Creatinine Estimated GFR POC Glucose 163 H 194 H 217 H Random Glucose Calcium 03/14/18 03/14/18 03/14/18 06:14 08:10 11:35 Sodium 141 Potassium 4.4 Chloride 111 H Carbon Dioxide 23.1 Anion Gap 7 BUN 32 H Creatinine 1.50 H Estimated GFR 46 L POC Glucose 167 H 177 H Random Glucose 174 H Calcium 7.7 L 03/14/18 03/14/18 03/15/18 17:27 22:09 08:00 Sodium Potassium Chloride Carbon Dioxide Anion Gap BUN Creatinine Estimated GFR POC Glucose 196 H 195 H 156 H Random Glucose Calcium 03/15/18 11:55 Sodium Potassium Chloride Carbon Dioxide Anion Gap BUN Creatinine Estimated GFR POC Glucose 182 H Random Glucose Calcium Imaging: ITS Impressions Abdomen/Bladder Ultrasound 03/12/18 00:00 CONCLUSION: 1. Normal size kidneys with mildly echogenic cortex suggesting some chronic renal disease. Chest X-Ray 03/12/18 01:10 CONCLUSION: Stable appearance with no acute cardiopulmonary disease. Head CT 03/12/18 01:10 CONCLUSION: 1. No acute hemorrhage or mass effect. 2. Stable area of encephalomalacia in the right cerebellar hemisphere. 3. Age appropriate atrophy. . Knee X-Ray 03/12/18 01:10 CONCLUSION: Soft tissue swelling with no acute fracture or malalignment. Physical Exam: GENERAL: awake and alert, NAD SKIN: Warm and dry. No generalized rash HEAD: Atraumatic. Normocephalic. No temporal wasting, or tenderness. EYES: [place] conjunctiva. No petechia or hemorrhage. No scleral icterus. No injection or drainage. EARS, NOSE AND THROAT: Mucous membranes pink and moist. No oral lesions noted. NECK: Trachea midline. Supple and not tender, no meningeal signs CARDIOVASCULAR: Regular rate and rhythm. No murmurs, rubs or gallops heard RESPIRATORY: Clear to auscultation. Breath sounds equal bilaterally. No rales , wheezing or rhonchi ABDOMEN: Soft, non-tender, nondistended. Bowel sounds present and normoactive. No guarding. No rebound. No organomegaly. EXTREMITIES: No clubbing, cyanosis. Right knee with dressing in place, drain in place. Pain with any movement of his R knee NEUROLOGICAL: Non-focal. PSYCHIATRIC: calm and cooperative LINE: No evidence of infection Assessment and Plan - Plan Impression MRSA Sepsis, due to septic R knee - has new (+) BC with GPC, ?MRSA MRSA septic R knee S/P OR 1/4 Previous TIA/CVA Moderate stenosis lumbar spine on MRI Dementia UTI Recommendation Repeat BC Will likely need ISABELL Continue IV vancomycin Will determine course of Abx once work-up completed D/W Dr Lorene Turcios will follow starting tomorrow
[2018-03-15] MEDS ORDERED: Influenza (Quadrivalent) Vaccine 0.5 ML Syringe IM ONE (17:30)
[2018-03-15] MEDS: traZODone 50 MG Tablet PO SCH (21:08)
[2018-03-16] MEDS: hydrALAZINE 50 MG Tablet PO SCH ×3 (05:29→17:17)
[2018-03-16] MEDS: QUEtiapine 25 MG Tablet PO SCH ×3 (08:46→17:17)
[2018-03-16] MEDS: Famotidine 20 MG Tablet PO SCH (08:47)
[2018-03-16] MEDS: Brimonidine 0.2% Opth Drops 5 ML Bottle EACH EYE SCH ×2 (08:47→20:41)
[2018-03-16] MEDS: Insulin NovoLOG Aspart Correctional Sugar Inj SQ SCH ×4 (08:47→20:41)
[2018-03-16] MEDS: Sod Chloride 0.9% Inj 1,000 ML IV.CONT SCH ×2 (08:48→20:36)
--- NOTE | 2018-03-16 09:18 | P.PNIM ---
Subjective Interval history: f/u; right knee septic arthritis in no acute distress. denies pain today. no fever. no new complaints. Physical Exam Vital signs: Last Vital Signs Temp 97.0 F L 03/16/18 04:00 Pulse 94 H 03/16/18 04:00 Resp 18 03/16/18 04:00 BP 160/83 H 03/16/18 04:00 Pulse Ox 96 03/16/18 08:00 Intake & Output 03/14/18 03/15/18 03/16/18 03/17/18 06:59 06:59 06:59 06:59 Intake Total 2715 / 2715 2945 / 2945 1805 / 1805 900 / 900 Output Total 50 / 50 3240 / 3240 2800 / 2800 Balance 2665 / 2665 -295 / -295 -995 / -995 900 / 900 Weight 81.2 kg 81.4 kg Constitutional no acute distress Routine Respiratory Exam Present CTA bilaterally Routine Cardiovascular Exam Present RRR Routine Abdominal Exam Present soft Routine Extremities Exam Comments: right knee covered with clean dressing. Routine Neurological Exam Present alert Results Labs CBC & Chem 7: 03/14/18 06:14 03/16/18 06:15 Labs: Microbiology 03/12/18 16:47 Wound - Knee Acid Fast Bacilli Smear - Final No acid fast bacilli seen 03/13/18 13:51 Blood - Peripheral Aerobic Blood Culture - Preliminary No growth in 2 days 03/13/18 13:51 Blood - Peripheral Anaerobic Blood Culture - Preliminary gram positive cocci 03/13/18 13:47 Blood - Peripheral Aerobic Blood Culture - Preliminary No growth in 2 days 03/13/18 13:47 Blood - Peripheral Anaerobic Blood Culture - Preliminary No growth in 2 days 03/12/18 02:10 Blood - Peripheral Aerobic Blood Culture - Preliminary No growth in 3 days 03/12/18 02:10 Blood - Peripheral Anaerobic Blood Culture - Final S. aureus MRSA 03/12/18 02:05 Blood - Peripheral Aerobic Blood Culture - Final S. aureus MRSA 03/12/18 02:05 Blood - Peripheral Anaerobic Blood Culture - Final S. aureus MRSA Assessment and Plan Plan A/P Severe sepsis -Leukocytosis of 16.8, fever of 100.8 -Lactic acid 1.4. Acute kidney injury with creatinine 2.8 Acute right knee septic arthritis MRSA bacteremia -Right knee x-ray with soft tissue swelling, no evidence of ostium myelitis Aspiration showing 76,800 white blood cells -Orthopedics consulted ; s/p irrigation and debridement. Appreciate orthopedic assistance. -continue with IV antibiotics and follow the cultures. -echo with EF 65% and no evidence of vegetation. -if blood cultures remain positive , needs ISABELL. -ID following. Acute kidney injury on chronic kidney disease stage III-improved. -continue to monitor Possible UTI -White blood cells on urinalysis. Follow-up urine culture. Patient is on antibiotics. History of hypertension- BP overall better. resumed Hydralazine- continue as needed clonidine. continue to monitor the BP and adjust the regimen as needed. Diabetes mellitus. Diabetic diet and insulin sliding scale. chronic conditions: Hyperlipidemia. Chronic. Continue home medication Glaucoma. Chronic. Continue medication. History of TIA. Continue Plavix. Dementia. Continue donepezil and memantine, continue quetiapine. GERD. Chronic. Continue home medication Insomnia. Continue trazodone. Discharge Planning: when stable- pending the work-up/ ID clearance. Progress Note: Quality VTE Deep Vein Thrombosis/Pulmonary Embolism Present on Admission: No
[2018-03-16] MEDS: Vancomycin Inj 1,500 MG in Sodium Chlor 0.9% Inj 500 ML IV.SIG SCH (15:22)
[2018-03-16] MEDS: traZODone 50 MG Tablet PO SCH (20:37)
[2018-03-17] MEDS: hydrALAZINE 50 MG Tablet PO SCH ×4 (01:15→18:28)
[2018-03-17 06:24] LABS: Baso % (Auto) 0.2 % (0.0-2.0); Eos # (Auto) 0.2 th/mm3 (0.0-0.4); Hemoglobin 9.9 gm/dL (13.0-17.0); Lymph # (Auto) 1.1 th/mm3 (1.0-4.8); Lymph % (Auto) 10.8 % (9.0-44.0); Mean Corpuscular HGB Conc 32.9 % (32.0-36.0); Mean Corpuscular Hemoglobin 30.2 pg (27.0-34.0); Mean Corpuscular Volume 91.8 fL (80.0-100.0); Mono # (Auto) 1.3 th/mm3 (0.0-0.9); Mono % (Auto) 12.5 % (0.0-8.0); Neut % (Auto) 74.5 % (16.0-70.0); Platelet Count 398 th/mm3 (150-450); Red Blood Count 3.27 mil/mm3 (4.50-5.90); Red Cell Distribution Width 13.3 % (11.6-17.2); White Blood Count 10.6 th/mm3 (4.0-11.0)
[2018-03-17] MEDS: Insulin NovoLOG Aspart Correctional Sugar Inj SQ SCH ×4 (07:57→21:06)
--- NOTE | 2018-03-17 08:21 | P.PNID ---
Subjective Remarks: Patient is a 72-year-old male came from a half-way facility, brought into the hospital for evaluation of generalized weakness and high fever. Patient was actively recently hospitalized in February for pain in his right lower extremity. He was evaluated and found to have L4-L5 spinal stenosis. Orthopedics saw the patient at that time and felt that it is more inflammatory and recommended some anti-inflammatory medication. He was discharged to the snf, and apparently fell several times, so he was brought into the hospital for further evaluation of weakness and he was also found to have a fever. He had arthrocentesis of the right knee, and showed very high WBC. RT knee with a drain - some pink turbid fluid Some pain in knee Says he feels sleepy No fevers Antibiotics: Vancomycin Past Medical History: Alzheimer disease BPH (benign prostatic hyperplasia) Dementia Diabetes mellitus, type 2 Hx of transient ischemic attack (TIA) Hyperlipemia Hypertension Hypothyroid Stroke H/O carotid endarterectomy Hx of cardiac cath Hx of tonsillectomy Allergies/Adverse Reactions: Allergies No Known Allergies Allergy (Verified 02/25/18 16:24) Objective Vital Signs 03/16/18 12:00 03/16/18 16:00 03/16/18 20:00 Temperature 97.8 F 99.1 F Pulse Rate 83 77 Respiratory Rate 21 19 18 Blood Pressure 121/55 L 137/65 Pulse Oximetry 96 96 03/17/18 00:00 Temperature 99.1 F Pulse Rate 76 Respiratory Rate 20 Blood Pressure 146/68 H Pulse Oximetry 97 Intake & Output 03/16/18 03/17/18 03/17/18 18:59 06:59 18:59 Intake Total 1380 / 1380 Output Total 200 / 200 50 / 50 35 / 35 Balance 1180 / 1180 -50 / -50 -35 / -35 Weight 85 kg Intake: IV 900 / 900 NS Inj 1,000 ML @ 70 mls/hr IV. 900 / 900 CONT .[id number] [facility] Rx#: [id number] Oral 480 / 480 Output: Urine 200 / 200 Wound Drainage 50 / 50 35 / 35 # 1 Right Knee RENAE Drain 50 / 50 35 / 35 Other: Date of Last Bowel Movement 03/16/18 # Bowel Movements 1 03/13/18 13:47 Blood - Peripheral Aerobic Blood Culture - Preliminary gram positive cocci 03/13/18 13:47 Blood - Peripheral Anaerobic Blood Culture - Preliminary No growth in 3 days 03/15/18 14:38 Blood - Peripheral Aerobic Blood Culture - Preliminary No growth in 1 day 03/15/18 14:38 Blood - Peripheral Anaerobic Blood Culture - Preliminary No growth in 1 day 03/13/18 13:51 Blood - Peripheral Aerobic Blood Culture - Preliminary No growth in 3 days 03/13/18 13:51 Blood - Peripheral Anaerobic Blood Culture - Final S. aureus MRSA 03/12/18 02:10 Blood - Peripheral Aerobic Blood Culture - Preliminary No growth in 4 days 03/12/18 02:10 Blood - Peripheral Anaerobic Blood Culture - Final S. aureus MRSA 03/12/18 16:47 Wound - Knee Acid Fast Bacilli Smear - Final No acid fast bacilli seen 03/12/18 16:47 Wound - Knee Mycobacterial Culture - Pending 03/12/18 02:05 Blood - Peripheral Aerobic Blood Culture - Final S. aureus MRSA 03/12/18 02:05 Blood - Peripheral Anaerobic Blood Culture - Final S. aureus MRSA 03/12/18 02:20 Catheterized Urine Urine Culture - Final 50-100,000 cfu/mL mixed gram positive eliazar (probable contaminants) 03/12/18 16:47 Wound - Knee Gram Stain - Final 03/12/18 16:47 Wound - Knee Wound Culture - Final S. aureus MRSA Lab - Hematology Results 03/17/18 05:50 CBC w Diff Auto diff final WBC 10.6 RBC 3.27 L Hgb 9.9 L Hct 30.0 L MCV 91.8 MCH 30.2 MCHC 32.9 RDW 13.3 Plt Count 398 MPV 8.0 Neut % (Auto) 74.5 H Lymph % (Auto) 10.8 [place] % (Auto) 12.5 H Eos % (Auto) 2.0 Baso % (Auto) 0.2 Neut # (Auto) 8.0 H Lymph # (Auto) 1.1 [place] # (Auto) 1.3 H Eos # (Auto) 0.2 Baso # (Auto) 0.0 WBC Differential . Differential Comment . Lab - Chemistry Results 03/15/18 03/15/18 03/15/18 11:55 17:05 21:07 Creatinine Estimated GFR POC Glucose 182 H 150 H 214 H 03/16/18 03/16/18 03/16/18 06:15 07:43 12:06 Creatinine 1.30 Estimated GFR 54 L POC Glucose 187 H 198 H 03/16/18 03/16/18 03/17/18 17:04 20:36 07:50 Creatinine Estimated GFR POC Glucose 153 H 166 H 144 H Imaging: ITS Impressions Abdomen/Bladder Ultrasound 03/12/18 00:00 CONCLUSION: 1. Normal size kidneys with mildly echogenic cortex suggesting some chronic renal disease. Chest X-Ray 03/12/18 01:10 CONCLUSION: Stable appearance with no acute cardiopulmonary disease. Head CT 03/12/18 01:10 CONCLUSION: 1. No acute hemorrhage or mass effect. 2. Stable area of encephalomalacia in the right cerebellar hemisphere. 3. Age appropriate atrophy. . Knee X-Ray 03/12/18 01:10 CONCLUSION: Soft tissue swelling with no acute fracture or malalignment. Physical Exam: GENERAL: Sleepy - gets up and answers questions appropriately SKIN: Warm and dry. No generalized rash HEAD: Atraumatic. Normocephalic. No temporal wasting, or tenderness. EYES: [place] conjunctiva. No petechia or hemorrhage. No scleral icterus. No injection or drainage. EARS, NOSE AND THROAT: Mucous membranes pink and moist. No oral lesions noted. NECK: Trachea midline. Supple and not tender, no meningeal signs CARDIOVASCULAR: Regular rate and rhythm. No murmurs, rubs or gallops heard RESPIRATORY: Clear to auscultation. Breath sounds equal bilaterally. No rales , wheezing or rhonchi ABDOMEN: Soft, non-tender, nondistended. Bowel sounds present and normoactive. No guarding. No rebound. No organomegaly. EXTREMITIES: No clubbing, cyanosis. Right knee with dressing in place, drain in place. Pain with any movement of his R knee NEUROLOGICAL: Non-focal. PSYCHIATRIC: calm and cooperative LINE: No evidence of infection Assessment and Plan (1) MRSA bacteremia Status: Acute Code(s): R78.81 - Bacteremia (2) Septic arthritis of knee, right Status: Acute Code(s): M00.9 - Pyogenic arthritis, unspecified - Plan Last blood cultures still with 1 bottle MRSA Repeat Blood culture today Continue IV Vancomycin Add Rifampin 300 mg po bid Will need to make sure repeat blood cultures are negative prior to discharge Will need IV Vancomycin for 6 weeks
[2018-03-17] MEDS: Brimonidine 0.2% Opth Drops 5 ML Bottle EACH EYE SCH ×2 (08:53→21:08)
[2018-03-17] MEDS: Famotidine 20 MG Tablet PO SCH (08:56)
[2018-03-17] MEDS: QUEtiapine 25 MG Tablet PO SCH ×3 (08:56→18:28)
[2018-03-17] MEDS: Sod Chloride 0.9% Inj 1,000 ML IV.CONT SCH ×2 (09:01→09:05)
[2018-03-17 10:11] LABS: Bilirubin,Urine Negative (Negative); Clarity,Urine Slightly Cloudy (Clear); Color,Urine Yellow (Yellw/Straw); Glucose,Urine (UA) 100 mg/dL (Negative); Leukocyte Esterase,Urine Negative (Negative); Nitrite,Urine Negative (Negative); PH,Urine 5.5 (5.0-8.5); Specific Gravity,Urine Greater/Equal 1.030 (1.002-1.035); Urobilinogen,Urine 0.2 mg/dL (Less than 2)
[2018-03-17 10:17] LABS: RBC,Urine Innumerable /hpf (0-3)
[2018-03-17 10:18] LABS: Bacteria,Urine Few /hpf
[2018-03-17 10:19] LABS: Squamous Epithelial Cell,Urine 0-5 /hpf (0-5)
--- NOTE | 2018-03-17 11:08 | P.PNIM ---
Subjective Interval history: f/u; bacteremia in no acute distress. has some pain to the right knee. no fever. no new complaints. Physical Exam Vital signs: Vital Signs 03/16/18 12:00 03/16/18 16:00 03/16/18 20:00 Temperature 97.8 F 99.1 F Pulse Rate 83 77 Respiratory Rate 21 19 18 Blood Pressure 121/55 L 137/65 Pulse Oximetry 96 96 03/17/18 00:00 03/17/18 08:00 03/17/18 08:19 Temperature 99.1 F 97.6 F Pulse Rate 76 77 Respiratory Rate 20 20 Blood Pressure 146/68 H 158/71 H Pulse Oximetry 97 95 96 Intake & Output 03/16/18 03/17/18 03/17/18 18:59 06:59 18:59 Intake Total 1380 / 1380 1515 / 1515 Output Total 200 / 200 50 / 50 35 / 35 Balance 1180 / 1180 -50 / -50 1480 / 1480 Weight 85 kg Intake: IV 900 / 900 1515 / 1515 NS Inj 1,000 ML @ 70 mls/hr IV. 900 / 900 1000 / 1000 CONT .[id number] [facility] Rx#: [id number] Vancomycin Inj 1,500 MG In NS 515 / 515 Inj 500 ML @ 250 mls/hr IV.SIG Q24H [facility] Rx#:[id number] Oral 480 / 480 Output: Urine 200 / 200 Wound Drainage 50 / 50 35 / 35 # 1 Right Knee RENAE Drain 50 / 50 35 / 35 Other: Date of Last Bowel Movement 03/16/18 # Bowel Movements 1 Constitutional no acute distress Routine Respiratory Exam Present CTA bilaterally Routine Cardiovascular Exam Present RRR Routine Abdominal Exam Present soft Routine Extremities Exam Comments: right knee covered with clean dressing. Routine Neurological Exam Present alert and oriented X3 Results Labs CBC & Chem 7: 03/17/18 05:50 03/16/18 06:15 Labs: Microbiology 03/15/18 14:38 Blood - Peripheral Aerobic Blood Culture - Preliminary gram positive cocci 03/15/18 14:38 Blood - Peripheral Anaerobic Blood Culture - Preliminary No growth in 2 days 03/13/18 13:51 Blood - Peripheral Aerobic Blood Culture - Preliminary No growth in 4 days 03/13/18 13:51 Blood - Peripheral Anaerobic Blood Culture - Final S. aureus MRSA 03/13/18 13:47 Blood - Peripheral Aerobic Blood Culture - Final S. aureus MRSA 03/13/18 13:47 Blood - Peripheral Anaerobic Blood Culture - Preliminary No growth in 4 days 03/12/18 02:10 Blood - Peripheral Aerobic Blood Culture - Final No growth in 5 days 03/12/18 02:10 Blood - Peripheral Anaerobic Blood Culture - Final S. aureus MRSA Assessment and Plan (1) MRSA bacteremia: Code(s): R78.81 - Bacteremia Status: Acute (2) Septic arthritis of knee, right: Code(s): M00.9 - Pyogenic arthritis, unspecified Status: Acute Plan A/P Severe sepsis -Leukocytosis of 16.8, fever of 100.8 -Lactic acid 1.4. Acute kidney injury with creatinine 2.8 Acute right knee septic arthritis MRSA bacteremia -Right knee x-ray with soft tissue swelling, no evidence of ostium myelitis Aspiration showing 76,800 white blood cells -Orthopedics consulted ; s/p irrigation and debridement. Appreciate orthopedic assistance. -continue with IV antibiotics ; will repeat the blood cultures today. -echo with EF 65% and no evidence of vegetation. -ID following. Acute kidney injury on chronic kidney disease stage III-improved. -continue to monitor Possible UTI -White blood cells on urinalysis. Follow-up urine culture. Patient is on antibiotics. History of hypertension- BP overall better. resumed Hydralazine- continue as needed clonidine. continue to monitor the BP and adjust the regimen as needed. Diabetes mellitus. Diabetic diet and insulin sliding scale. chronic conditions: Hyperlipidemia. Chronic. Continue home medication Glaucoma. Chronic. Continue medication. History of TIA. Continue Plavix. Dementia. Continue donepezil and memantine, continue quetiapine. GERD. Chronic. Continue home medication Insomnia. Continue trazodone. Discharge Planning: when stable- pending the work-up/ ID clearance. Progress Note: Quality VTE Deep Vein Thrombosis/Pulmonary Embolism Present on Admission: No _ (1) Septic arthritis of knee, right Qualifiers: Septic arthritis organism:
[2018-03-17] MEDS ORDERED: VANCOMYCIN TROUGH OTHER ONE (13:45)
[2018-03-17] MEDS: Vancomycin Inj 1,500 MG in Sodium Chlor 0.9% Inj 500 ML IV.SIG SCH (14:08)
[2018-03-17 14:33] LABS: Potassium 3.9 meq/L (3.5-5.1)
[2018-03-17 14:36] LABS: Calcium 7.7 mg/dL (8.5-10.1); Carbon Dioxide 22.2 meq/L (21.0-32.0)
[2018-03-17 17:42] LABS: Vancomycin,Trough 19.6 mcg/mL (5.0-10.0)
[2018-03-17] MEDS: traZODone 50 MG Tablet PO SCH (21:05)
[2018-03-18] MEDS: Sod Chloride 0.9% Inj 1,000 ML IV.CONT SCH ×2 (00:33→16:58)
[2018-03-18] MEDS: hydrALAZINE 50 MG Tablet PO SCH ×4 (00:33→17:00)
[2018-03-18] MEDS: QUEtiapine 25 MG Tablet PO SCH ×3 (08:31→17:00)
[2018-03-18] MEDS: Famotidine 20 MG Tablet PO SCH (08:31)
[2018-03-18] MEDS: Brimonidine 0.2% Opth Drops 5 ML Bottle EACH EYE SCH ×2 (08:31→21:10)
[2018-03-18] MEDS: Insulin NovoLOG Aspart Correctional Sugar Inj SQ SCH ×4 (08:31→21:09)
--- NOTE | 2018-03-18 10:54 | P.PNIM ---
Subjective Interval history: f/u; MRSA bacteremia resting comfortably. pain seems to be controlled. no fever. d/w the RN. Physical Exam Vital signs: Vital Signs 03/17/18 12:50 03/17/18 16:00 03/17/18 20:00 Temperature 96.9 F L 98.1 F 97 F L Pulse Rate 77 76 82 Respiratory Rate 20 20 20 Blood Pressure 156/74 H 153/74 H 156/73 H Pulse Oximetry 97 97 03/17/18 20:03 03/18/18 00:00 03/18/18 02:20 Temperature 97.9 F Pulse Rate 80 Respiratory Rate 20 Blood Pressure 170/78 H 142/82 H Pulse Oximetry 95 96 03/18/18 08:00 Temperature 97.9 F Pulse Rate 80 Respiratory Rate 20 Blood Pressure 177/82 H Pulse Oximetry 96 Intake & Output 03/17/18 03/18/18 03/18/18 18:59 06:59 18:59 Intake Total 2150 / 2150 1120 / 1120 Output Total 75 / 75 690 / 690 50 / 50 Balance 2075 / 2075 430 / 430 -50 / -50 Weight 85.2 kg Intake: IV 2029 / 2029 1000 / 1000 NS Inj 1,000 ML @ 70 mls/hr IV. 1000 / 1000 1000 / 1000 CONT .[id number] [facility] Rx#: [id number] Vancomycin Inj 1,500 MG In NS 1030 / 1030 Inj 500 ML @ 250 mls/hr IV.SIG Q24H [facility] Rx#:[id number] Oral 120 / 120 120 / 120 Output: Urine 650 / 650 Wound Drainage 75 / 75 40 / 40 50 / 50 # 1 Right Knee RENAE Drain 75 / 75 40 / 40 50 / 50 Other: # Voids 3 Date of Last Bowel Movement 03/16/18 # Bowel Movements 1 Constitutional no acute distress Routine Respiratory Exam Present CTA bilaterally Routine Cardiovascular Exam Present RRR Routine Abdominal Exam Present soft Routine Extremities Exam Comments: no pedal edema. Routine Neurological Exam Present alert Results Labs CBC & Chem 7: 03/17/18 05:50 03/18/18 06:20 Labs: Microbiology 03/15/18 14:38 Blood - Peripheral Aerobic Blood Culture - Final S. aureus MRSA 03/15/18 14:38 Blood - Peripheral Anaerobic Blood Culture - Preliminary No growth in 2 days 03/13/18 13:51 Blood - Peripheral Aerobic Blood Culture - Preliminary No growth in 4 days 03/13/18 13:51 Blood - Peripheral Anaerobic Blood Culture - Final S. aureus MRSA 03/13/18 13:47 Blood - Peripheral Aerobic Blood Culture - Final S. aureus MRSA 03/13/18 13:47 Blood - Peripheral Anaerobic Blood Culture - Preliminary No growth in 4 days 03/12/18 02:10 Blood - Peripheral Aerobic Blood Culture - Final No growth in 5 days 03/12/18 02:10 Blood - Peripheral Anaerobic Blood Culture - Final S. aureus MRSA Assessment and Plan (1) MRSA bacteremia: Code(s): R78.81 - Bacteremia Status: Acute (2) Septic arthritis of knee, right: Code(s): M00.9 - Pyogenic arthritis, unspecified Status: Acute Plan A/P Severe sepsis -Leukocytosis of 16.8, fever of 100.8 -Lactic acid 1.4. Acute kidney injury with creatinine 2.8 Acute right knee septic arthritis MRSA bacteremia -Right knee x-ray with soft tissue swelling, no evidence of ostium myelitis Aspiration showing 76,800 white blood cells -Orthopedics consulted ; s/p irrigation and debridement. Appreciate orthopedic assistance. drain will be removed today. -continue with IV antibiotics ; f/u the repeated blood cultures 03/17. -echo with EF 65% and no evidence of vegetation. -ID following. Acute kidney injury on chronic kidney disease stage III-improved. -continue to monitor Possible UTI -White blood cells on urinalysis. Follow-up urine culture. Patient is on antibiotics. History of hypertension- resumed Hydralazine- continue as needed clonidine. continue to monitor the BP and adjust the regimen as needed. Diabetes mellitus. Diabetic diet and insulin sliding scale. chronic conditions: Hyperlipidemia. Chronic. Continue home medication Glaucoma. Chronic. Continue medication. History of TIA. Continue Plavix. Dementia. Continue donepezil and memantine, continue quetiapine. GERD. Chronic. Continue home medication Insomnia. Continue trazodone. Discharge Planning: when stable- pending the work-up/ ID clearance. Progress Note: Quality VTE Deep Vein Thrombosis/Pulmonary Embolism Present on Admission: No _ (1) Septic arthritis of knee, right Qualifiers: Septic arthritis organism:
[2018-03-18] MEDS: Vancomycin Inj 1,500 MG in Sodium Chlor 0.9% Inj 500 ML IV.SIG SCH (13:21)
--- NOTE | 2018-03-18 19:43 | P.PNID ---
Subjective Remarks: Patient is a 72-year-old male came from a long term facility, brought into the hospital for evaluation of generalized weakness and high fever. Patient was actively recently hospitalized in February for pain in his right lower extremity. He was evaluated and found to have L4-L5 spinal stenosis. Orthopedics saw the patient at that time and felt that it is more inflammatory and recommended some anti-inflammatory medication. He was discharged to the senior living, and apparently fell several times, so he was brought into the hospital for further evaluation of weakness and he was also found to have a fever. He had arthrocentesis of the right knee, and showed very high WBC. ID FU DR MONGE PT STATES HIS RIGHT KNEE FEELS BETTER TODAY NO NEW CHANGES PLANS TO GO BACK TO SNF ON DC Antibiotics: Vancomycin Past Medical History: Alzheimer disease BPH (benign prostatic hyperplasia) Dementia Diabetes mellitus, type 2 Hx of transient ischemic attack (TIA) Hyperlipemia Hypertension Hypothyroid Stroke H/O carotid endarterectomy Hx of cardiac cath Hx of tonsillectomy Allergies/Adverse Reactions: Allergies No Known Allergies Allergy (Verified 02/25/18 16:24) Objective Vital Signs 03/17/18 20:00 03/17/18 20:03 03/18/18 00:00 Temperature 97 F L 97.9 F Pulse Rate 82 80 Respiratory Rate 20 20 Blood Pressure 156/73 H 170/78 H Pulse Oximetry 97 95 96 03/18/18 02:20 03/18/18 08:00 03/18/18 12:00 Temperature 97.9 F 97 F L Pulse Rate 80 66 Respiratory Rate 20 20 Blood Pressure 142/82 H 177/82 H 170/81 H Pulse Oximetry 96 98 03/18/18 16:00 03/18/18 18:04 Temperature 97.3 F L Pulse Rate 72 Respiratory Rate 20 Blood Pressure 186/92 H 158/78 H Pulse Oximetry 99 Intake & Output 03/18/18 03/18/18 03/19/18 06:59 18:59 06:59 Intake Total 1120 / 1120 1856 / 1856 Output Total 690 / 690 710 / 710 Balance 430 / 430 1146 / 1146 Weight 85.2 kg Intake: IV 1000 / 1000 1515 / 1515 NS Inj 1,000 ML @ 70 mls/hr IV. 1000 / 1000 1000 / 1000 CONT .[id number] [facility] Rx#: [id number] Vancomycin Inj 1,500 MG In NS 515 / 515 Inj 500 ML @ 250 mls/hr IV.SIG Q24H [facility] Rx#:[id number] Oral 120 / 120 341 / 341 Output: Urine 650 / 650 660 / 660 Wound Drainage 50 / 50 # 1 Right Knee RENAE Drain 50 / 50 Other: # Voids 3 Date of Last Bowel Movement 03/16/18 03/17/18 08:30 Clean Catch Urine Urine Culture - Preliminary No growth in 24 hours 03/17/18 13:40 Blood - Peripheral Aerobic Blood Culture - Preliminary No growth in 1 day 03/17/18 13:40 Blood - Peripheral Anaerobic Blood Culture - Preliminary No growth in 1 day 03/17/18 13:48 Blood - Peripheral Aerobic Blood Culture - Preliminary No growth in 1 day 03/17/18 13:48 Blood - Peripheral Anaerobic Blood Culture - Preliminary No growth in 1 day 03/15/18 14:38 Blood - Peripheral Aerobic Blood Culture - Final S. aureus MRSA 03/15/18 14:38 Blood - Peripheral Anaerobic Blood Culture - Preliminary No growth in 3 days 03/13/18 13:51 Blood - Peripheral Aerobic Blood Culture - Final No growth in 5 days 03/13/18 13:51 Blood - Peripheral Anaerobic Blood Culture - Final S. aureus MRSA 03/13/18 13:47 Blood - Peripheral Aerobic Blood Culture - Final S. aureus MRSA 03/13/18 13:47 Blood - Peripheral Anaerobic Blood Culture - Final No growth in 5 days 03/12/18 02:10 Blood - Peripheral Aerobic Blood Culture - Final No growth in 5 days 03/12/18 02:10 Blood - Peripheral Anaerobic Blood Culture - Final S. aureus MRSA 03/12/18 16:47 Wound - Knee Acid Fast Bacilli Smear - Final No acid fast bacilli seen 03/12/18 16:47 Wound - Knee Mycobacterial Culture - Pending Lab - Hematology Results 03/17/18 05:50 CBC w Diff Auto diff final WBC 10.6 RBC 3.27 L Hgb 9.9 L Hct 30.0 L MCV 91.8 MCH 30.2 MCHC 32.9 RDW 13.3 Plt Count 398 MPV 8.0 Neut % (Auto) 74.5 H Lymph % (Auto) 10.8 [place] % (Auto) 12.5 H Eos % (Auto) 2.0 Baso % (Auto) 0.2 Neut # (Auto) 8.0 H Lymph # (Auto) 1.1 [place] # (Auto) 1.3 H Eos # (Auto) 0.2 Baso # (Auto) 0.0 WBC Differential . Differential Comment . Lab - Chemistry Results 03/16/18 03/17/18 03/17/18 20:36 07:50 11:22 Sodium Potassium Chloride Carbon Dioxide Anion Gap BUN Creatinine Estimated GFR POC Glucose 166 H 144 H 189 H Random Glucose Calcium 03/17/18 03/17/18 03/17/18 13:40 16:37 20:25 Sodium 139 Potassium 3.9 Chloride 110 H Carbon Dioxide 22.2 Anion Gap 7 BUN 31 H Creatinine 1.60 H Estimated GFR 42 L POC Glucose 167 H 159 H Random Glucose 177 H Calcium 7.7 L 03/18/18 03/18/18 03/18/18 06:20 08:23 11:21 Sodium Potassium Chloride Carbon Dioxide Anion Gap BUN Creatinine 1.40 H Estimated GFR 50 L POC Glucose 125 H 199 H Random Glucose Calcium 03/18/18 16:32 Sodium Potassium Chloride Carbon Dioxide Anion Gap BUN Creatinine Estimated GFR POC Glucose 168 H Random Glucose Calcium Imaging: ITS Impressions Abdomen/Bladder Ultrasound 03/12/18 00:00 CONCLUSION: 1. Normal size kidneys with mildly echogenic cortex suggesting some chronic renal disease. Chest X-Ray 03/12/18 01:10 CONCLUSION: Stable appearance with no acute cardiopulmonary disease. Head CT 03/12/18 01:10 CONCLUSION: 1. No acute hemorrhage or mass effect. 2. Stable area of encephalomalacia in the right cerebellar hemisphere. 3. Age appropriate atrophy. . Knee X-Ray 03/12/18 01:10 CONCLUSION: Soft tissue swelling with no acute fracture or malalignment. Physical Exam: GENERAL: AWAKE COOPERATIVE SKIN: Warm and dry. No generalized rash HEAD: Atraumatic. Normocephalic. No temporal wasting, or tenderness. EYES: [place] conjunctiva. No petechia or hemorrhage. No scleral icterus. No injection or drainage. EARS, NOSE AND THROAT: Mucous membranes pink and moist. No oral lesions noted. NECK: Trachea midline. Supple and not tender, no meningeal signs CARDIOVASCULAR: Regular rate and rhythm. No murmurs, rubs or gallops heard RESPIRATORY: Clear to auscultation. Breath sounds equal bilaterally. No rales , wheezing or rhonchi ABDOMEN: Soft, non-tender, nondistended. Bowel sounds present and normoactive. No guarding. No rebound. No organomegaly. EXTREMITIES: No clubbing, cyanosis. Right knee with dressing in place, drain appears to be removed. Pain with any movement of his R knee NEUROLOGICAL: Non-focal. PSYCHIATRIC: calm and cooperative LINE: No evidence of infection Assessment and Plan - Plan Last blood cultures still with 1 bottle MRSA Repeat Blood culture n/g so far Continue IV Vancomycin And Rifampin 300 mg po bid Will need to make sure repeat blood cultures are negative prior to discharge Will need IV Vancomycin for 6 weeks
[2018-03-18] MEDS: traZODone 50 MG Tablet PO SCH (21:08)
[2018-03-19] MEDS: hydrALAZINE 50 MG Tablet PO SCH ×4 (00:52→17:06)
[2018-03-19] MEDS: Famotidine 20 MG Tablet PO SCH (09:01)
[2018-03-19] MEDS: Sod Chloride 0.9% Inj 1,000 ML IV.CONT SCH (09:02)
[2018-03-19] MEDS: Insulin NovoLOG Aspart Correctional Sugar Inj SQ SCH ×4 (09:02→21:09)
[2018-03-19] MEDS: Brimonidine 0.2% Opth Drops 5 ML Bottle EACH EYE SCH ×2 (09:03→21:15)
[2018-03-19] MEDS: QUEtiapine 25 MG Tablet PO SCH ×3 (09:05→17:06)
--- NOTE | 2018-03-19 09:42 | P.PNID ---
Subjective Remarks: No fevers Pain controlled Will go back to SNF Antibiotics: Vancomycin, Rifampin Past Medical History: Alzheimer disease BPH (benign prostatic hyperplasia) Dementia Diabetes mellitus, type 2 Hx of transient ischemic attack (TIA) Hyperlipemia Hypertension Hypothyroid Stroke H/O carotid endarterectomy Hx of cardiac cath Hx of tonsillectomy Allergies/Adverse Reactions: Allergies No Known Allergies Allergy (Verified 02/25/18 16:24) Objective Vital Signs 03/18/18 12:00 03/18/18 16:00 03/18/18 18:04 Temperature 97 F L 97.3 F L Pulse Rate 66 72 Respiratory Rate 20 20 Blood Pressure 170/81 H 186/92 H 158/78 H Pulse Oximetry 98 99 03/18/18 20:00 03/18/18 20:32 03/19/18 00:00 Temperature 97.3 F L 98.4 F Pulse Rate 81 81 Respiratory Rate 20 20 Blood Pressure 185/67 H 192/98 H Pulse Oximetry 98 98 94 L Intake & Output 03/18/18 03/19/18 03/19/18 18:59 06:59 18:59 Intake Total 1856 / 1856 240 / 240 Output Total 710 / 710 400 / 400 Balance 1146 / 1146 -160 / -160 Weight 85.4 kg Intake: IV 1515 / 1515 NS Inj 1,000 ML @ 70 mls/hr IV. 1000 / 1000 CONT .[id number] [facility] Rx#: [id number] Vancomycin Inj 1,500 MG In NS 515 / 515 Inj 500 ML @ 250 mls/hr IV.SIG Q24H MELANIE Rx#:[id number] Oral 341 / 341 240 / 240 Output: Urine 660 / 660 400 / 400 Wound Drainage 50 / 50 # 1 Right Knee RENAE Drain 50 / 50 Other: # Voids 3 5 Date of Last Bowel Movement 03/16/18 # Bowel Movements 5 03/17/18 08:30 Clean Catch Urine Urine Culture - Preliminary No growth in 24 hours 03/17/18 13:40 Blood - Peripheral Aerobic Blood Culture - Preliminary No growth in 1 day 03/17/18 13:40 Blood - Peripheral Anaerobic Blood Culture - Preliminary No growth in 1 day 03/17/18 13:48 Blood - Peripheral Aerobic Blood Culture - Preliminary No growth in 1 day 03/17/18 13:48 Blood - Peripheral Anaerobic Blood Culture - Preliminary No growth in 1 day 03/15/18 14:38 Blood - Peripheral Aerobic Blood Culture - Final S. aureus MRSA 03/15/18 14:38 Blood - Peripheral Anaerobic Blood Culture - Preliminary No growth in 3 days 03/13/18 13:51 Blood - Peripheral Aerobic Blood Culture - Final No growth in 5 days 03/13/18 13:51 Blood - Peripheral Anaerobic Blood Culture - Final S. aureus MRSA 03/13/18 13:47 Blood - Peripheral Aerobic Blood Culture - Final S. aureus MRSA 03/13/18 13:47 Blood - Peripheral Anaerobic Blood Culture - Final No growth in 5 days 03/12/18 02:10 Blood - Peripheral Aerobic Blood Culture - Final No growth in 5 days 03/12/18 02:10 Blood - Peripheral Anaerobic Blood Culture - Final S. aureus MRSA Lab - Chemistry Results 03/17/18 03/17/18 03/17/18 11:22 13:40 16:37 Sodium 139 Potassium 3.9 Chloride 110 H Carbon Dioxide 22.2 Anion Gap 7 BUN 31 H Creatinine 1.60 H Estimated GFR 42 L POC Glucose 189 H 167 H Random Glucose 177 H Calcium 7.7 L 03/17/18 03/18/18 03/18/18 20:25 06:20 08:23 Sodium Potassium Chloride Carbon Dioxide Anion Gap BUN Creatinine 1.40 H Estimated GFR 50 L POC Glucose 159 H 125 H Random Glucose Calcium 03/18/18 03/18/18 03/18/18 11:21 16:32 20:31 Sodium Potassium Chloride Carbon Dioxide Anion Gap BUN Creatinine Estimated GFR POC Glucose 199 H 168 H 183 H Random Glucose Calcium 03/19/18 08:16 Sodium Potassium Chloride Carbon Dioxide Anion Gap BUN Creatinine Estimated GFR POC Glucose 180 H Random Glucose Calcium Imaging: ITS Impressions Abdomen/Bladder Ultrasound 03/12/18 00:00 CONCLUSION: 1. Normal size kidneys with mildly echogenic cortex suggesting some chronic renal disease. Chest X-Ray 03/12/18 01:10 CONCLUSION: Stable appearance with no acute cardiopulmonary disease. Head CT 03/12/18 01:10 CONCLUSION: 1. No acute hemorrhage or mass effect. 2. Stable area of encephalomalacia in the right cerebellar hemisphere. 3. Age appropriate atrophy. . Knee X-Ray 03/12/18 01:10 CONCLUSION: Soft tissue swelling with no acute fracture or malalignment. Physical Exam: GENERAL: AWAKE COOPERATIVE SKIN: Warm and dry. No generalized rash HEAD: Atraumatic. Normocephalic. No temporal wasting, or tenderness. EYES: [place] conjunctiva. No petechia or hemorrhage. No scleral icterus. No injection or drainage. EARS, NOSE AND THROAT: Mucous membranes pink and moist. No oral lesions noted. NECK: Trachea midline. Supple and not tender, no meningeal signs CARDIOVASCULAR: Regular rate and rhythm. No murmurs, rubs or gallops heard RESPIRATORY: Clear to auscultation. Breath sounds equal bilaterally. No rales , wheezing or rhonchi ABDOMEN: Soft, non-tender, nondistended. Bowel sounds present and normoactive. No guarding. No rebound. No organomegaly. EXTREMITIES: No clubbing, cyanosis. Right knee with dressing in place, drain appears to be removed. Pain with any movement of his R knee NEUROLOGICAL: Non-focal. PSYCHIATRIC: calm and cooperative LINE: No evidence of infection Assessment and Plan (1) MRSA bacteremia Status: Acute Code(s): R78.81 - Bacteremia (2) Septic arthritis of knee, right Status: Acute Code(s): M00.9 - Pyogenic arthritis, unspecified - Plan Repeat Blood culture neg at 24 hrs Continue IV Vancomycin And Rifampin 300 mg po bid Will need to make sure repeat blood cultures are negative at 48-72 hrs prior to discharge Will need IV Vancomycin for 6 weeks total Patient shoould have weekly labs and follow up with me in 3-4 weeks
--- NOTE | 2018-03-19 09:46 | P.DCO ---
Post Hospital Infusion Therapy - Infusion Therapy Location of Infusion Therapy: [facility] Infusion Therapy Order - Patient Information Patient Weight: 85.4 kg - Diagnosis (1) MRSA bacteremia Code(s): R78.81 - Bacteremia (2) Septic arthritis of knee, right Code(s): M00.9 - Pyogenic arthritis, unspecified - Administer Medication Vancomycin Dose: 1.5 grams IV Directions: q 24 hours Additional Dosing Instructions: Als needs Rifampin 300 mg po bid till 04/24/18 Start Treatment: 03/20/18 Stop Treatment: 04/24/18 - Additional Information Additional Instructions: [x] Peripheral flush and dressing changes per protocol [x] Implanted port and central tree trimming line technician: * Implanted port: 10 ml Normal Saline followed by 5 ml Heparin 100 units/ml Heparin flush after each use and monthly to maintain. [] May leave port accessed during therapy. [] May leave peripheral site accessed for duration of therapy. [x] If patient has SOB or respiratory distress, check oxygen saturation. If less than 90% or clinical signs of respiratory distress, administer oxygen at 2 L/min. via nasal cannula and notify physician. [x] Anaphylaxis/Reaction orders: * Stop infusion. * Keep IV line open with saline flush. * Notify physician. * Monitor vital signs every 15 minutes until symptoms resolve. * Check Oxygen saturation; Oxygen at 2 L/min. via nasal cannula if less than 90% or clinical signs of respiratory distress. * Administer diphenhydramine (Benadryl) 25 mg IV STAT, (unless patient has received as pre-med). May repeat once, if necessary. * Solu-Cortef 250 mg IVP over 30-60 seconds, use 100 mg vials for each dissolution. * Epinephrine (1mg/1 ml) 0.3 mg subcutaneously or IVP now with any signs of respiratory distress. * Check with physician for new additional pre-med orders if patient is re- challenged or re-treated. [x] May remove PICC line when treatment complete, after confirming with Physician. [x] If the patient is admitted to the hospital, the ED, or transferred via [facility] , complete transfer form including medication reconciliation order sheet. Weekly Labs: CBC w/diff, CMP, CRP, Vancomycin Trough Additional Information: Fax all labs to DR Turcios- - Case Management Consult Case Management Consult-IVF: Yes - Patient Information Allergies No Known Allergies Allergy (Verified 02/25/18 16:24) (2) Septic arthritis of knee, right Qualifiers: Septic arthritis organism: staphylococcal Qualified Code(s): M00.061 - Staphylococcal arthritis, right knee
--- NOTE | 2018-03-19 09:52 | P.PNIM ---
Subjective Interval history: f/u; septic arthritis/ MRSA bacteremia in no acute distress. pain is controlled. no fever. BP trend noted. d/w the RN. Physical Exam Vital signs: Vital Signs 03/18/18 12:00 03/18/18 16:00 03/18/18 18:04 Temperature 97 F L 97.3 F L Pulse Rate 66 72 Respiratory Rate 20 20 Blood Pressure 170/81 H 186/92 H 158/78 H Pulse Oximetry 98 99 03/18/18 20:00 03/18/18 20:32 03/19/18 00:00 Temperature 97.3 F L 98.4 F Pulse Rate 81 81 Respiratory Rate 20 20 Blood Pressure 185/67 H 192/98 H Pulse Oximetry 98 98 94 L Intake & Output 03/18/18 03/19/18 03/19/18 18:59 06:59 18:59 Intake Total 1856 / 1856 240 / 240 Output Total 710 / 710 400 / 400 Balance 1146 / 1146 -160 / -160 Weight 85.4 kg 85.4 kg Intake: IV 1515 / 1515 NS Inj 1,000 ML @ 70 mls/hr IV. 1000 / 1000 CONT .[id number] MELANIE Rx#: [id number] Vancomycin Inj 1,500 MG In NS 515 / 515 Inj 500 ML @ 250 mls/hr IV.SIG Q24H MELANIE Rx#:[id number] Oral 341 / 341 240 / 240 Output: Urine 660 / 660 400 / 400 Wound Drainage 50 / 50 # 1 Right Knee RENAE Drain 50 / 50 Other: # Voids 3 5 Date of Last Bowel Movement 03/16/18 # Bowel Movements 5 Constitutional no acute distress Routine Respiratory Exam Present CTA bilaterally Routine Cardiovascular Exam Present RRR Routine Abdominal Exam Present soft Routine Extremities Exam Comments: right knee covered with clean dressing. Routine Neurological Exam Present alert Results Labs CBC & Chem 7: 03/17/18 05:50 03/18/18 06:20 Labs: Microbiology 03/17/18 08:30 Clean Catch Urine Urine Culture - Preliminary No growth in 24 hours 03/17/18 13:40 Blood - Peripheral Aerobic Blood Culture - Preliminary No growth in 1 day 03/17/18 13:40 Blood - Peripheral Anaerobic Blood Culture - Preliminary No growth in 1 day 03/17/18 13:48 Blood - Peripheral Aerobic Blood Culture - Preliminary No growth in 1 day 03/17/18 13:48 Blood - Peripheral Anaerobic Blood Culture - Preliminary No growth in 1 day 03/15/18 14:38 Blood - Peripheral Aerobic Blood Culture - Final S. aureus MRSA 03/15/18 14:38 Blood - Peripheral Anaerobic Blood Culture - Preliminary No growth in 3 days 03/13/18 13:51 Blood - Peripheral Aerobic Blood Culture - Final No growth in 5 days 03/13/18 13:51 Blood - Peripheral Anaerobic Blood Culture - Final S. aureus MRSA 03/13/18 13:47 Blood - Peripheral Aerobic Blood Culture - Final S. aureus MRSA 03/13/18 13:47 Blood - Peripheral Anaerobic Blood Culture - Final No growth in 5 days Assessment and Plan (1) MRSA bacteremia: Code(s): R78.81 - Bacteremia Status: Acute (2) Septic arthritis of knee, right: Code(s): M00.9 - Pyogenic arthritis, unspecified Status: Acute Plan A/P Severe sepsis Acute right knee septic arthritis MRSA bacteremia -Right knee x-ray with soft tissue swelling, no evidence of ostium myelitis Aspiration showing 76,800 white blood cells -Orthopedics consulted ; s/p irrigation and debridement. Appreciate orthopedic assistance. drain was removed on 03/18. -continue with IV antibiotics ; f/u the repeated blood cultures 03/17 negative so far. -echo with EF 65% and no evidence of vegetation. -ID following; d/w today; patient can be discharged tomorrow if the repeated blood cultures remains negative; plan for IV Vanco. Acute kidney injury on chronic kidney disease stage III-improved. -continue to monitor History of hypertension- BP not well controlled. resumed Hydralazine- stop IV fluid-continue as needed clonidine. continue to monitor the BP and adjust the regimen as needed. Diabetes mellitus. Diabetic diet and insulin sliding scale. chronic conditions: Hyperlipidemia. Chronic. Continue home medication Glaucoma. Chronic. Continue medication. History of TIA. Continue Plavix. Dementia. Continue donepezil and memantine, continue quetiapine. GERD. Chronic. Continue home medication Insomnia. Continue trazodone. Discharge Planning: dc to SNF in am if blood cultures remain negative. f/u; pcp, ortho and ID upon discharge. Progress Note: Quality VTE Deep Vein Thrombosis/Pulmonary Embolism Present on Admission: No _ (1) Septic arthritis of knee, right Qualifiers: Septic arthritis organism: staphylococcal Qualified Code(s): M00.061 - Staphylococcal arthritis, right knee
[2018-03-19] MEDS: Vancomycin Inj 1,500 MG in Sodium Chlor 0.9% Inj 500 ML IV.SIG SCH (13:01)
[2018-03-19] MEDS: traZODone 50 MG Tablet PO SCH (21:08)
[2018-03-20] MEDS: hydrALAZINE 50 MG Tablet PO SCH ×4 (03:35→22:16)
[2018-03-20] MEDS: Famotidine 20 MG Tablet PO SCH (09:12)
[2018-03-20] MEDS: QUEtiapine 25 MG Tablet PO SCH ×3 (09:12→22:16)
[2018-03-20] MEDS: Insulin NovoLOG Aspart Correctional Sugar Inj SQ SCH ×3 (09:14→22:16)
[2018-03-20] MEDS: Brimonidine 0.2% Opth Drops 5 ML Bottle EACH EYE SCH ×2 (09:14→22:53)
--- NOTE | 2018-03-20 10:35 | P.PNIM ---
Subjective Interval history: f/u; MRSA bacteremia/ septic arthritis in no acute distress. pain is fairly controlled. no fever. d/w the RN and no acute issues over night. Physical Exam Vital signs: Vital Signs 03/19/18 12:00 03/19/18 16:00 03/19/18 20:00 Temperature 97.4 F L 97.8 F 97.8 F Pulse Rate 67 68 78 Respiratory Rate 20 20 18 Blood Pressure 155/83 H 157/82 H 165/73 H Pulse Oximetry 98 99 98 03/20/18 00:00 03/20/18 08:00 Temperature 98.0 F 97.9 F Pulse Rate 70 79 Respiratory Rate 16 20 Blood Pressure 149/76 H 166/89 H Pulse Oximetry 97 100 Intake & Output 03/19/18 03/20/18 03/20/18 18:59 06:59 18:59 Intake Total 1080 / 1080 1519 / 1519 Balance 1080 / 1080 1519 / 1519 Weight 85.4 kg 80.6 kg Intake: IV 1515 / 1515 NS Inj 1,000 ML @ 70 mls/hr IV. 1000 / 1000 CONT .[id number] MELANIE Rx#: [id number] Vancomycin Inj 1,500 MG In NS 515 / 515 Inj 500 ML @ 250 mls/hr IV.SIG Q24H MELANIE Rx#:[id number] Oral 1080 / 1080 Tube Irrigant / Other: # Voids 2 Date of Last Bowel Movement 03/19/18 03/19/18 Constitutional no acute distress Routine Respiratory Exam Present CTA bilaterally Routine Cardiovascular Exam Present RRR Routine Abdominal Exam Present soft Routine Extremities Exam Comments: right knee covered with clean dressing. Routine Neurological Exam Present alert and oriented X3 Results Labs CBC & Chem 7: 03/17/18 05:50 03/20/18 06:45 Labs: Microbiology 03/12/18 16:47 Wound - Knee Fungal Smear - Final No fungal elements seen 03/12/18 16:47 Wound - Knee Fungal Culture - Preliminary No growth in 1 week 03/12/18 16:47 Wound - Knee Acid Fast Bacilli Smear - Final No acid fast bacilli seen 03/12/18 16:47 Wound - Knee Mycobacterial Culture - Preliminary No growth in 1 week 03/17/18 13:40 Blood - Peripheral Aerobic Blood Culture - Preliminary No growth in 2 days 03/17/18 13:40 Blood - Peripheral Anaerobic Blood Culture - Preliminary No growth in 2 days 03/17/18 13:48 Blood - Peripheral Aerobic Blood Culture - Preliminary No growth in 2 days 03/17/18 13:48 Blood - Peripheral Anaerobic Blood Culture - Preliminary No growth in 2 days 03/15/18 14:38 Blood - Peripheral Aerobic Blood Culture - Final S. aureus MRSA 03/15/18 14:38 Blood - Peripheral Anaerobic Blood Culture - Preliminary No growth in 4 days 03/17/18 08:30 Clean Catch Urine Urine Culture - Final No growth in 48 hours Procedures Procedures: I/D of the right knee. Assessment and Plan (1) MRSA bacteremia: Code(s): R78.81 - Bacteremia Status: Acute (2) Septic arthritis of knee, right: Code(s): M00.9 - Pyogenic arthritis, unspecified Status: Acute Plan A/P Severe sepsis Acute right knee septic arthritis MRSA bacteremia -Right knee x-ray with soft tissue swelling, no evidence of ostium myelitis Aspiration showing 76,800 white blood cells -Orthopedics consulted ; s/p irrigation and debridement. Appreciate orthopedic assistance. drain was removed on 03/18. -continue with IV antibiotics ; f/u the repeated blood cultures 03/17 negative so far. -echo with EF 65% and no evidence of vegetation. -ID following; previously d/w today; patient can be discharged today plan for IV Vanco and oral Rifampin. -needs PICC line. Acute kidney injury on chronic kidney disease stage III-improved. -continue to monitor History of hypertension- resumed Hydralazine- continue to monitor the BP and adjust the regimen as needed. -will consult nephrology for clearance for PICC line placament. Diabetes mellitus. Diabetic diet and insulin sliding scale. chronic conditions: Hyperlipidemia. Chronic. Continue home medication Glaucoma. Chronic. Continue medication. History of TIA. Continue Plavix. Dementia. Continue donepezil and memantine, continue quetiapine. GERD. Chronic. Continue home medication Insomnia. Continue trazodone. Discharge Planning: dc to SNF after PICC line is in place. see med list. f/u; pcp, ortho and ID upon discharge. d/w the patient. previously d/w the case management and . Gaby was consulted. time spent 35 min. Progress Note: Quality VTE Deep Vein Thrombosis/Pulmonary Embolism Present on Admission: No _ (1) Septic arthritis of knee, right Qualifiers: Septic arthritis organism: staphylococcal Qualified Code(s): M00.061 - Staphylococcal arthritis, right knee
--- NOTE | 2018-03-20 10:38 | P.DS ---
DS: Providers Date of admission: 03/12/18 13:31 Primary care physician: UNKNOWN Consults: 03/12/18 08:24 Consult to Orthopedic Surgery Routine Consulting Provider: Hardeep Mejia Embedded Firmware Developer:: Purvi Forrester Reason for Consultation: septic joint Notified:: Office Spoke with:: Yaneth Date Notified:: 03/12/18 Time Notified:: 08:28 Ordering Provider: HECTOR 03/12/18 08:26 Consult to Infectious Diseases Routine Consulting Provider: Frida De Guzman Reason for Consultation: possible septic joint Notified:: Service Spoke with:: Joshua Date Notified:: 03/12/18 Time Notified:: 08:36 Ordering Provider: HECTOR 03/12/18 12:22 HUB Only Consult Order Routine Consulting Provider: Stephen Mitchell 03/16/18 12:31 HUB Only Consult Order Routine Consulting Provider: Gabriel Edwards,Francisco Reason for Consultation: SNF placement Notified:: Service Spoke with:: Valentina Date Notified:: 03/16/18 Time:: 12:32 03/19/18 12:06 HUB Only Consult Order Routine [facility]ing [facility]: [facility] Brief History from admission: 72-year-old male with Alzheimer's dementia, BPH, history of TIA, hypothyroidism who presents after experiencing 2 falls at his snf facility, with generalized weakness, and also found to have a high fever. Patient himself is unsure why he is here. He denies any pain, however reports significant pain with manipulation of right knee. Family unfortunately not at the bedside at the time of examination, and history is limited due to patient's dementia. DS: Diagnosis Discharge Diagnosis (1) MRSA bacteremia: Status: Acute (2) Septic arthritis of knee, right: Status: Acute DS: Summary Severe sepsis Acute right knee septic arthritis MRSA bacteremia -Right knee x-ray with soft tissue swelling, no evidence of ostium myelitis Aspiration showing 76,800 white blood cells -Orthopedics consulted ; s/p irrigation and debridement. Appreciate orthopedic assistance. drain was removed on 03/18. -continue with IV antibiotics ; f/u the repeated blood cultures 03/17 negative so far. -echo with EF 65% and no evidence of vegetation. -ID following; previously d/w today; patient can be discharged today plan for IV Vanco and oral Rifampin. Acute kidney injury on chronic kidney disease stage III-improved. -continue to monitor History of hypertension- resumed Hydralazine- continue to monitor the BP and adjust the regimen as needed. Diabetes mellitus. Diabetic diet and insulin sliding scale. chronic conditions: Hyperlipidemia. Chronic. Continue home medication Glaucoma. Chronic. Continue medication. History of TIA. Continue Plavix. Dementia. Continue donepezil and memantine, continue quetiapine. GERD. Chronic. Continue home medication Insomnia. Continue trazodone. Time Spent with Patient Total time spent providing and/or coordinating discharge services: 35 min. Greater than 30 minutes Specific discharge activities: 35 min. Quality: VTE Deep Vein Thrombosis/Pulmonary Embolism Present on Admission: No Exam Narrative Exam Narrative: patient in no acute distress. on exam; bilateral air entry present, abdomen is soft, S1/S2 heard- right knee covered with clean dressing. Results Procedures completed during hospitalization: I/D of the right knee. Labs on day of discharge: Labs from last 24 hours 03/20/18 03/20/18 03/19/18 07:41 06:45 20:37 Creatinine 1.30 Estimated GFR 54 L POC Glucose 146 H 242 H 03/19/18 03/19/18 16:51 12:26 Creatinine Estimated GFR POC Glucose 172 H 157 H Preliminary micro results at discharge 03/12/18 16:47 Fungal Culture - Preliminary Wound - Knee No growth in 1 week 03/12/18 16:47 Mycobacterial Culture - Preliminary Wound - Knee No growth in 1 week 03/17/18 13:40 Aerobic Blood Culture - Preliminary Blood - Peripheral No growth in 2 days Anaerobic Blood Culture - Preliminary No growth in 2 days 03/17/18 13:48 Aerobic Blood Culture - Preliminary Blood - Peripheral No growth in 2 days Anaerobic Blood Culture - Preliminary No growth in 2 days 03/15/18 14:38 Anaerobic Blood Culture - Preliminary Blood - Peripheral No growth in 4 days Impressions ITS Impressions Abdomen/Bladder Ultrasound 03/12/18 00:00 CONCLUSION: 1. Normal size kidneys with mildly echogenic cortex suggesting some chronic renal disease. Chest X-Ray 03/12/18 01:10 CONCLUSION: Stable appearance with no acute cardiopulmonary disease. Head CT 03/12/18 01:10 CONCLUSION: 1. No acute hemorrhage or mass effect. 2. Stable area of encephalomalacia in the right cerebellar hemisphere. 3. Age appropriate atrophy. . Knee X-Ray 03/12/18 01:10 CONCLUSION: Soft tissue swelling with no acute fracture or malalignment. Discharge Plan Discharge Disposition Patient Disposition: 03 Discharge to SNF Physicians Team Primary Care Provider: UNKNOWN, Attending Provider: Susannah Paulson Other Providers: Frida De Guzman ; Hardeep Mejia ; Stephen Mitchell ; [facility],[place] ; [facility],[place] Rxs /Orders / Referrals /Forms Prescriptions: New hydrocodone-acetaminophen [[place]] 5-325 mg tablet 1 tab PO Q6H Qty: 10 RF: 0 Continue folic acid 1 mg Tablet 1 mg PO DAILY RF: 0 clonidine HCl [[place]ap[place]] 0.1 mg Tablet 0.1 mg PO Q6H PRN (Reason: Sbp> Or = 180, Dbp> Or = 100) Qty: 30 RF: 0 hydralazine 50 mg Tablet 50 mg PO Q6HR Qty: 120 RF: 0 insulin aspart U-100 [Novolog U-100 Insulin aspart] 100 unit/mL Solution subcut ACHS Qty: 15 RF: 0 quetiapine [Seroquel] 25 mg Tablet 25 mg PO TID RF: 0 atorvastatin 80 mg Tablet 80 mg PO DAILY RF: 0 donepezil 5 mg Tablet 5 mg PO DAILY RF: 0 trazodone 50 mg Tablet 25 mg PO HS RF: 0 clopidogrel [Plavix] 75 mg Tablet 75 mg PO DAILY RF: 0 famotidine 20 mg Tablet 20 mg PO DAILY RF: 0 brimonidine 0.2 % Drops 1 drp OPHTHALMIC (EYE) BID RF: 0 buspirone 7.5 mg Tablet 7.5 mg PO BID RF: 0 alfuzosin 10 mg Tablet Extended Release 24 Hr 10 mg PO DAILY RF: 0 memantine 10 mg Tablet 10 mg PO BID RF: 0 Referrals: UNKNOWN, [Primary Care Provider] - See Instructions Status ED Status: Left Department
[2018-03-20 13:24] LABS: Baso # (Auto) 0.3 th/mm3 (0.0-0.2); Baso % (Auto) 2.3 % (0.0-2.0); Eos # (Auto) 0.4 th/mm3 (0.0-0.4); Hematocrit 28.9 % (39.0-51.0); Hemoglobin 9.6 gm/dL (13.0-17.0); Lymph # (Auto) 1.7 th/mm3 (1.0-4.8); Lymph % (Auto) 12.5 % (9.0-44.0); Mean Corpuscular HGB Conc 33.1 % (32.0-36.0); Mean Corpuscular Volume 93.7 fL (80.0-100.0); Mean Platelet Volume 8.3 fL (7.0-11.0); Mono # (Auto) 1.2 th/mm3 (0.0-0.9); Mono % (Auto) 9.1 % (0.0-8.0); Neut # (Auto) 9.6 th/mm3 (1.8-7.7); Neut % (Auto) 73.1 % (16.0-70.0); Platelet Count 437 th/mm3 (150-450); Red Blood Count 3.08 mil/mm3 (4.50-5.90); Red Cell Distribution Width 14.1 % (11.6-17.2); White Blood Count 13.2 th/mm3 (4.0-11.0)
[2018-03-20] MEDS: Vancomycin Inj 1,500 MG in Sodium Chlor 0.9% Inj 500 ML IV.SIG SCH (14:35)
--- NOTE | 2018-03-20 19:17 | P.CONNP ---
History of Present Illness Service: Nephrology Consult date: 03/20/18 Requesting Physician: Susannah Paulson Reason for Consult: Chronic kidney disease Primary Care Provider: UNKNOWN History of Present Illness: Patient is a 72-year-old white male who is a poor historian history of diabetes documented however he states he is not diabetic came in with right knee pain and found to have MRSA infection he has been getting vancomycin 1.5 g every 24 hours his last creatinine is around 1.3, he stated he never have kidney issues in the past however his creatinine remains elevated and consult was to have a PICC line placed, hence he needed nephrology to clear him. He denies any dysuria or burning any prostate issues or kidney stones, he denies taking over- the-counter pain medications like Advil or Motrin. Patient has right septic arthritis and he has right knee drained. Review of Systems Constitutional: Reports fatigue Eyes: Denies blind spots, Denies blurry vision, Denies bulging eyes, Denies change in vision, Denies double vision, Denies discharge, Denies dry eyes, Denies floaters, Denies irritation, Denies itchy eyes, Denies loss of vision, Denies pain, Denies requires corrective lenses, Denies sensitivity to light, Denies other Ears, Nose, Mouth, and Throat: Denies abnormal hearing, Denies bleeding gums, Denies bad breath, Denies change in voice, Denies dental pain, Denies difficulty swallowing, Denies dizziness, Denies dry mouth, Denies ear discharge , Denies ear pain, Denies facial pain, Denies headache(s), Denies hearing loss, Denies hoarseness, Denies lip swelling, Denies nosebleed, Denies mouth lesions, Denies mouth pain, Denies nasal congestion, Denies nasal discharge, Denies nasal obstruction, Denies nasal trauma, Denies neck lump, Denies neck pain, Denies nose pain, Denies pain with swallowing, Denies poor balance, Denies post nasal drip, Denies ringing in the ears, Denies sinus pain, Denies sinus pressure , Denies sore throat, Denies throat swelling, Denies tongue swelling, Denies other Cardiovascular: Denies chest pain, Denies chest pain at rest, Denies chest pain with activity, Denies excessive sweating, Denies fainting, Denies fast heart rate, Denies foot swelling, Denies generalized swelling, Denies irregular heart rhythm, Denies leg pain with activity, Denies leg sores, Denies leg swelling, Denies lightheadedness, Denies radiating jaw, neck or arm pain, Denies rapid, pounding, or irregular heartbeat, Denies shortness of breath, Denies shortness of breath with activity, Denies shortness of breath when lying down, Denies shortness of breath causing sudden awakening, Denies slow heart rate, Denies other Respiratory: Denies change in phlegm color, Denies chest congestion, Denies cough, Denies coughing up blood, Denies excessive phlegm production, Denies pain on inspiration, Denies pain with cough, Denies shortness of breath, Denies shortness of breath with activity, Denies snoring, Denies stridor, Denies wheezing, Denies other Gastrointestinal: Denies abdominal pain, Denies belching, Denies black, tarry stools, Denies bloating, Denies bright, red blood in stools, Denies change in bowel habits, Denies constant urge to pass stool, Denies change in stools, Denies coffee ground vomit, Denies constipation, Denies cramping, Denies difficulty swallowing, Denies excessive passing of gas, Denies feeling full early, Denies heartburn, Denies incontinent of stools, Denies loose stools, Denies nausea, Denies pain with swallowing, Denies vomiting, Denies vomiting blood, Denies other Musculoskeletal: Reports joint pain Skin/Breast: Denies acne, Denies bleeding lesions, Denies boil, Denies breast swelling, Denies breast skin changes, Denies breast pain, Denies breast lump, Denies change in breast shape, Denies change in hair, Denies change in skin color, Denies changing lesions, Denies dry skin, Denies excessive hair growth, Denies hair loss, Denies itching, Denies lesions, Denies nail changes, Denies new lesions, Denies nipple discharge, Denies non-healing lesions, Denies redness , Denies sensitivity to light, Denies rash, Denies skin pain, Denies skin ulcer , Denies sores, Denies stretch gonzalez, Denies unusual bruising, Denies wounds, Denies yellowing of the skin, Denies other Neurologic: Denies abnormal hearing, Denies abnormal movements, Denies abnormal speech, Denies abnormal walking, Denies behavioral changes, Denies burning sensations, Denies confusion, Denies dizziness, Denies fainting, Denies frequent falls, Denies headache(s), Denies lack of coordination, Denies localized weakness, Denies loss of vision, Denies memory loss, Denies numbness, Denies other visual disturbances, Denies radiating pain, Denies restless legs, Denies convulsions, Denies seizure-like activity, Denies sensory deficit, Denies tingling, Denies tingling/numbness/burning sensations, Denies tremor(s), Denies unsteadiness, Denies weakness, Denies other Endocrine: Denies cold intolerance, Denies excessive sweating, Denies flushing, Denies heat intolerance, Denies increased hunger, Denies increased thirst, Denies increased urination, Denies rapid, pounding, or irregular heartbeat, Denies other Hematologic/Lymphatic: Denies easy bleeding, Denies easy bruising, Denies enlarged lymph nodes, Denies other PMFSH - History History Provided By: Patient - Medical History Medical History: Medical History (Last Reviewed 03/20/18 @ 19:14 by Anamaria Ramirez MD) History of MRSA infection Onset Date: ~03/12/18 Alzheimer disease BPH (benign prostatic hyperplasia) Dementia Diabetes mellitus, type 2 Hx of transient ischemic attack (TIA) Hyperlipemia Hypertension Hypothyroid Stroke - Surgical History Surgical History: Surgical History (Last Reviewed 03/20/18 @ 19:14 by Anamaria Ramirez MD) H/O carotid endarterectomy Hx of cardiac cath Hx of tonsillectomy - Family History Family History: Family History (Last Reviewed 03/12/18 @ 13:17 by Frida De Guzman MD) Other Family history of hypertension - Social History I have reviewed the patient's Social History: Yes - Tobacco History Second Hand Smoke Exposure: No Smoking Status: Unknown if ever smoked - Alcohol History How Often Do You Have a Drink Containing Alcohol: Never - Substance Use History Substance History: No History of Abuse - Travel History History of Recent Travel: No Recent Travel in the [place] Within the Last 8 Weeks: No Recent Travel Out of the Country Within the Last 8 Weeks: No - Immunization History Tetanus Immunization: Unsure Hx Influenza Vaccine This Season: No Medications and Allergies Active Medications: Active Medications Acetaminophen (Tylenol) 650 mg PO Q4H PRN PRN Reason: Temp > 100.4 Hydrocodone Bitart/Acetaminophen ([place] 5/325) 1 tab PO Q4H PRN PRN Reason: PAIN SCALE 1 TO 10 Last Admin: 03/18/18 16:55 Dose: 1 tab Atorvastatin Calcium (Lipitor) 80 mg PO DAILY [facility] Last Admin: 03/20/18 09:12 Dose: 80 mg Brimonidine Tartrate (Alphagan 0.2% Opth Drops) 1 drops EACH EYE BID [facility] Last Admin: 03/20/18 09:14 Dose: 1 drops Clonidine HCl (Catapres) 0.1 mg PO Q6H PRN PRN Reason: SBP >/= 180 OR DBP >/= 100 Last Admin: 03/19/18 09:01 Dose: 0.1 mg Clopidogrel Bisulfate (Plavix) 75 mg PO DAILY [facility] Last Admin: 03/20/18 09:12 Dose: 75 mg Dextrose (D50w Vial) 50 ml IV.PUSH UNSCH PRN PRN Reason: PER HYPOGLYCEMIA PROTOCOL Diphenhydramine HCl (Benadryl) 25 mg PO Q6H PRN PRN Reason: ITCHING Donepezil HCl (Aricept) 5 mg PO DAILY [facility] Last Admin: 03/20/18 09:34 Dose: 5 mg Famotidine (Pepcid) 20 mg PO DAILY [facility] Last Admin: 03/20/18 09:12 Dose: 20 mg Glucagon (Glucagon Inj) 1 mg OTHER PRN PRN PRN Reason: for Hypoglycemia Protocol Hydralazine HCl (Apresoline) 50 mg PO Q6HR [facility] Last Admin: 03/20/18 11:51 Dose: 50 mg Vancomycin HCl 1,500 mg/ (Sodium Chloride) 515 mls @ 250 mls/hr IV.SIG Q24H [facility] Last Admin: 03/20/18 14:35 Dose: 250 mls/hr Insulin Aspart (Novolog Insulin [employer] Sugar Inj) 0 unit SQ ACHS [facility]; Protocol Last Admin: 03/20/18 11:51 Dose: 3 unit Memantine (Namenda) 10 mg PO BID [facility] Last Admin: 03/20/18 09:12 Dose: 10 mg Miscellaneous (Pill Splitter) 1 each OTHER UNSCH PRN PRN Reason: SEE LABEL COMMENTS Last Admin: 03/12/18 21:22 Dose: 1 each Ondansetron HCl (Zofran Inj) 4 mg IV.PUSH Q6H PRN PRN Reason: NAUSEA OR VOMITING Pharmacy Profile Note (Vancomycin Consult Pharmacy) 1 each OTHER UNSCH PRN PRN Reason: Pharmacy to dose Quetiapine Fumarate (Seroquel) 25 mg PO TID [facility] Last Admin: 03/20/18 12:34 Dose: 25 mg Rifampin (Rifampin) 300 mg PO Q12HR [facility] Last Admin: 03/20/18 09:12 Dose: 300 mg Sodium Chloride (Ns Flush) 2 ml IV.FLUSH BID [facility] Last Admin: 03/20/18 09:13 Dose: 2 ml Sodium Chloride (Ns Flush) 2 ml IV.FLUSH PRN PRN PRN Reason: FLUSH AFTER USING IV ACCESS Tamsulosin HCl (Flomax) 0.4 mg PO DAILY [facility] Last Admin: 03/20/18 09:12 Dose: 0.4 mg Trazodone HCl (Desyrel) 25 mg PO HS [facility] Last Admin: 03/19/18 21:08 Dose: 25 mg Allergies Allergy/AdvReac Type Severity Reaction Status Date / Time No Known Allergies Allergy Verified 02/25/18 16:24 Home Medications Medication Instructions Recorded Confirmed Type alfuzosin 10 mg PO DAILY 02/02/18 03/12/18 History atorvastatin 80 mg PO DAILY 02/02/18 03/12/18 History brimonidine 1 drp OPHTHALMIC (EYE) BID 02/02/18 03/12/18 History buspirone 7.5 mg PO BID 02/02/18 03/12/18 History clopidogrel [Plavix] 75 mg PO DAILY 02/02/18 03/12/18 History donepezil 5 mg PO DAILY 02/02/18 03/12/18 History famotidine 20 mg PO DAILY 02/02/18 03/12/18 History memantine 10 mg PO BID 02/02/18 03/12/18 History quetiapine [Seroquel] 25 mg PO TID 02/02/18 03/12/18 History trazodone 25 mg PO HS 02/02/18 03/12/18 History folic acid 1 mg PO DAILY 02/25/18 03/12/18 History Exam Vital signs: Vital Signs 03/19/18 20:00 03/20/18 00:00 03/20/18 08:00 Temperature 97.8 F 98.0 F 97.9 F Pulse Rate 78 70 79 Respiratory Rate 18 16 20 Blood Pressure 165/73 H 149/76 H 166/89 H Pulse Oximetry 98 97 100 03/20/18 12:00 03/20/18 16:00 Temperature 98.0 F 97.7 F Pulse Rate 73 77 Respiratory Rate 17 21 Blood Pressure 162/82 H 180/75 H Pulse Oximetry 97 98 Intake & Output 03/20/18 03/20/18 03/21/18 06:59 18:59 06:59 Intake Total 1519 / 1519 360 / 360 Balance 1519 / 1519 360 / 360 Weight 80.6 kg Intake: IV 1515 / 1515 NS Inj 1,000 ML @ 70 mls/hr IV. 1000 / 1000 CONT .[id number] MELANIE Rx#: [id number] Vancomycin Inj 1,500 MG In NS 515 / 515 Inj 500 ML @ 250 mls/hr IV.SIG Q24H MELANIE Rx#:[id number] Oral 360 / 360 Tube Irrigant / Other: # Incontinent Voids 4 Date of Last Bowel Movement 03/19/18 Narrative: GENERAL: Well-nourished, well-developed patient. SKIN: Warm and dry. HEAD: Normocephalic. EYES: No scleral icterus. No injection or drainage. NECK: Supple, trachea midline. No JVD or lymphadenopathy. CARDIOVASCULAR: Regular rate and rhythm without murmurs, gallops, or rubs. RESPIRATORY: Breath sounds equal bilaterally. No accessory muscle use. GASTROINTESTINAL: Abdomen soft, non-tender, nondistended. EXTREMITIES: Right knee is bandaged NEUROLOGICAL: Awake, alert, and oriented x 3. Non-focal. Results - Lab Results 03/20/18 06:45 03/20/18 06:45 Most recent lab results Calcium 7.7 mg/dL (8.5-10.1) L 03/17/18 13:40 Magnesium 2.0 mg/dL (1.5-2.5) 03/12/18 03:00 Assessment and Plan - Assessment (1) Chronic kidney disease, stage III (moderate) Code(s): N18.3 - Chronic kidney disease, stage 3 (moderate) Status: Acute (2) Hypertension Code(s): I10 - Essential (primary) hypertension Status: Chronic (3) DM (diabetes mellitus) Code(s): E11.9 - Type 2 diabetes mellitus without complications Status: Acute (4) Septic arthritis of knee, right Code(s): M00.9 - Pyogenic arthritis, unspecified Status: Acute - Plan Patient EGFR 54 stage III chronic kidney disease likely due to diabetes use vancomycin cautiously monitor trough level, Okay with nephrology to have PICC line placed for long-term antibiotic He will need to follow-up as outpatient with primary care physician Diabetes control Blood pressure control And avoid dye studies He has renal cyst and right nonobstructing 8 mm stone. Follow BMP on regular basis if discharge. (2) Hypertension Qualifiers: Hypertension type: essential hypertension Qualified Code(s): I10 - Essential (primary) hypertension (4) Septic arthritis of knee, right Qualifiers: Septic arthritis organism: staphylococcal Qualified Code(s): M00.061 - Staphylococcal arthritis, right knee
[2018-03-20] MEDS: traZODone 50 MG Tablet PO SCH (22:51)
[2018-03-21] MEDS: hydrALAZINE 50 MG Tablet PO SCH ×4 (00:02→17:11)
[2018-03-21] MEDS: Insulin NovoLOG Aspart Correctional Sugar Inj SQ SCH ×5 (00:39→22:45)
--- NOTE | 2018-03-21 08:27 | P.PNIM ---
Subjective Interval history: Follow-up sepsis. Patient seen and examined, lying in bed awake and alert. States he slept well. Plan is to discharge to rehab today. PICC line placed. Vital signs stable. Afebrile. IV antibiotics per ID. Physical Exam Vital signs: Vital Signs 03/20/18 12:00 03/20/18 16:00 03/20/18 20:00 Temperature 98.0 F 97.7 F 98.4 F Pulse Rate 73 77 72 Respiratory Rate 17 21 20 Blood Pressure 162/82 H 180/75 H 188/87 H Pulse Oximetry 97 98 97 03/21/18 00:00 Temperature 98.4 F Pulse Rate 79 Respiratory Rate 20 Blood Pressure 190/85 H Pulse Oximetry 98 Intake & Output 03/20/18 03/21/18 03/21/18 18:59 06:59 18:59 Intake Total 360 / 360 515 / 515 Balance 360 / 360 515 / 515 Intake: IV 515 / 515 Vancomycin Inj 1,500 MG In NS 515 / 515 Inj 500 ML @ 250 mls/hr IV.SIG Q24H MELANIE Rx#:[id number] Oral 360 / 360 Other: # Incontinent Voids 4 4 # Urine Diapers 4 Date of Last Bowel Movement 03/19/18 03/19/18 - Constitutional no acute distress - Routine HEENT Exam Head: Present: normocephalic Eye: Present: EOMI, PERRL - Routine Neck Exam Present: supple - Routine Cardiovascular Exam Present: RRR - Routine Abdominal Exam Present: soft - Routine Neurological Exam Present: alert Results - Labs CBC & Chem 7: 03/20/18 06:45 03/20/18 06:45 Laboratory Results - last 24 hr 03/20/18 03/20/18 03/20/18 06:45 11:31 16:43 CBC w Diff Auto diff final WBC 13.2 H RBC 3.08 L Hgb 9.6 L Hct 28.9 L MCV 93.7 MCH 31.0 MCHC 33.1 RDW 14.1 Plt Count 437 MPV 8.3 Neut % (Auto) 73.1 H Lymph % (Auto) 12.5 Keith % (Auto) 9.1 H Eos % (Auto) 3.0 Baso % (Auto) 2.3 H Neut # (Auto) 9.6 H Lymph # (Auto) 1.7 Keith # (Auto) 1.2 H Eos # (Auto) 0.4 Baso # (Auto) 0.3 H WBC Differential . Differential Comment . POC Glucose 202 H 118 H 03/20/18 03/21/18 23:12 08:06 CBC w Diff WBC RBC Hgb Hct MCV MCH MCHC RDW Plt Count MPV Neut % (Auto) Lymph % (Auto) Keith % (Auto) Eos % (Auto) Baso % (Auto) Neut # (Auto) Lymph # (Auto) Keith # (Auto) Eos # (Auto) Baso # (Auto) WBC Differential Differential Comment POC Glucose 179 H 158 H Microbiology 03/17/18 13:40 Blood - Peripheral Aerobic Blood Culture - Preliminary No growth in 3 days 03/17/18 13:40 Blood - Peripheral Anaerobic Blood Culture - Preliminary No growth in 3 days 03/17/18 13:48 Blood - Peripheral Aerobic Blood Culture - Preliminary No growth in 3 days 03/17/18 13:48 Blood - Peripheral Anaerobic Blood Culture - Preliminary No growth in 3 days 03/15/18 14:38 Blood - Peripheral Aerobic Blood Culture - Final S. aureus MRSA 03/15/18 14:38 Blood - Peripheral Anaerobic Blood Culture - Final No growth in 5 days - Procedures I/D of the right knee. Assessment and Plan - Assessment (1) MRSA bacteremia Code(s): R78.81 - Bacteremia Status: Acute (2) Septic arthritis of knee, right Code(s): M00.9 - Pyogenic arthritis, unspecified Status: Acute - Plan Severe sepsis Acute right knee septic arthritis MRSA bacteremia -Right knee x-ray with soft tissue swelling, no evidence of ostium myelitis Aspiration showing 76,800 white blood cells -Orthopedics consulted ; s/p irrigation and debridement. Appreciate orthopedic assistance. drain was removed on 03/18. -continue with IV antibiotics ; f/u the repeated blood cultures 03/17 negative so far. -echo with EF 65% and no evidence of vegetation. -ID following; previously d/w ; patient can be discharged, plan for IV Vanco and oral Rifampin. Acute kidney injury on chronic kidney disease stage III-improved. -continue to monitor -nephro cleared for picc line. History of hypertension- resumed Hydralazine- continue to monitor the BP and adjust the regimen as needed. Diabetes mellitus. Diabetic diet and insulin sliding scale. chronic conditions: Hyperlipidemia. Chronic. Continue home medication Glaucoma. Chronic. Continue medication. History of TIA. Continue Plavix. Dementia. Continue donepezil and memantine, continue quetiapine. GERD. Chronic. Continue home medication Insomnia. Continue trazodone. f/u; pcp, ortho and ID upon discharge. (2) Septic arthritis of knee, right Qualifiers: Septic arthritis organism: staphylococcal Qualified Code(s): M00.061 - Staphylococcal arthritis, right knee
[2018-03-21] MEDS: Famotidine 20 MG Tablet PO SCH (08:55)
[2018-03-21] MEDS: QUEtiapine 25 MG Tablet PO SCH ×3 (08:55→17:11)
[2018-03-21] MEDS: Brimonidine 0.2% Opth Drops 5 ML Bottle EACH EYE SCH ×2 (08:56→22:46)
[2018-03-21] MEDS ORDERED: Heparin Central Flush 100 UNIT/ML 5 ML Vial IV.FLUSH PRN (09:55)
[2018-03-21] MEDS: Vancomycin Inj 1,500 MG in Sodium Chlor 0.9% Inj 500 ML IV.SIG SCH (14:41)
--- NOTE | 2018-03-21 19:06 | P.PNNP ---
Subjective Interval history: Patient has soreness right knee Physical Exam Vital signs: Vital Signs 03/20/18 20:00 03/21/18 00:00 03/21/18 08:00 Temperature 98.4 F 98.4 F 97.8 F Pulse Rate 72 79 69 Respiratory Rate 20 20 17 Blood Pressure 188/87 H 190/85 H 163/92 H Pulse Oximetry 97 98 97 03/21/18 12:00 03/21/18 16:00 Temperature 97.2 F L 97.6 F Pulse Rate 64 72 Respiratory Rate 17 17 Blood Pressure 159/88 H 156/84 H Pulse Oximetry 97 97 Intake & Output 03/21/18 03/21/18 03/22/18 06:59 18:59 06:59 Intake Total 515 / 515 1595 / 1595 Output Total 600 / 600 Balance 515 / 515 995 / 995 Intake: IV 515 / 515 515 / 515 Vancomycin Inj 1,500 MG In NS 515 / 515 515 / 515 Inj 500 ML @ 250 mls/hr IV.SIG Q24H MELANIE Rx#:[id number] Oral 1080 / 1080 Output: Urine 600 / 600 Other: # Incontinent Voids 4 3 # Urine Diapers 4 Date of Last Bowel Movement 03/19/18 03/19/18 # Bowel Movements 0 Narrative: GENERAL: Well-nourished, well-developed patient. SKIN: Warm and dry. HEAD: Normocephalic. EYES: No scleral icterus. No injection or drainage. NECK: Supple, trachea midline. No JVD or lymphadenopathy. CARDIOVASCULAR: Regular rate and rhythm without murmurs, gallops, or rubs. RESPIRATORY: Breath sounds equal bilaterally. No accessory muscle use. GASTROINTESTINAL: Abdomen soft, non-tender, nondistended. EXTREMITIES: Right knee is bandaged NEUROLOGICAL: Awake, alert, and oriented x 3. Non-focal. Assessment and Plan - Assessment (1) Chronic kidney disease, stage III (moderate) Code(s): N18.3 - Chronic kidney disease, stage 3 (moderate) Status: Acute (2) Hypertension Code(s): I10 - Essential (primary) hypertension Status: Chronic Qualifiers: Hypertension type: essential hypertension Qualified Code(s): I10 - Essential (primary) hypertension (3) DM (diabetes mellitus) Code(s): E11.9 - Type 2 diabetes mellitus without complications Status: Acute (4) Septic arthritis of knee, right Code(s): M00.9 - Pyogenic arthritis, unspecified Status: Acute Qualifiers: Septic arthritis organism: staphylococcal Qualified Code(s): M00.061 - Staphylococcal arthritis, right knee - Plan Patient EGFR 54 stage III chronic kidney disease likely due to diabetes use vancomycin cautiously monitor trough level, He is stable to be discharged to senior care follow-up as outpatient PICC line is in place He has renal cyst and right nonobstructing 8 mm stone. Follow BMP on regular basis if discharge.
[2018-03-21] MEDS: traZODone 50 MG Tablet PO SCH (22:44)
[2018-03-22] MEDS: hydrALAZINE 50 MG Tablet PO SCH (05:24)
[2018-03-22] MEDS: Insulin NovoLOG Aspart Correctional Sugar Inj SQ SCH (08:41)
[2018-03-22] MEDS: Famotidine 20 MG Tablet PO SCH (08:43)
[2018-03-22] MEDS: QUEtiapine 25 MG Tablet PO SCH (08:43)
[2018-03-22] MEDS: Brimonidine 0.2% Opth Drops 5 ML Bottle EACH EYE SCH (08:44)
[2018-03-22] MEDS: Heparin Central Flush 100 UNIT/ML 5 ML Vial IV.FLUSH SCH ×2 (08:44)
== END 2018-03-22 11:12 | DRG 854 ==
LOC: PHED 00:25 → PHEDA 00:25 → PH3 05:52
PROVIDERS: ADMIT Hospitalist; ATTEND Hospitalist
DX: I12.9 Hypertensive chronic kidney disease with stage 1 through stage 4 chronic kidney disease, or unspecified chronic kidney disease; E11.22 Type 2 diabetes mellitus with diabetic chronic kidney disease; G47.00 Insomnia, unspecified; E03.9 Hypothyroidism, unspecified; E78.5 Hyperlipidemia, unspecified; Z79.4 Long term (current) use of insulin; G30.9 Alzheimer's disease, unspecified; M00.061 Staphylococcal arthritis, right knee; N20.0 Calculus of kidney; Z86.73 Personal history of transient ischemic attack (TIA), and cerebral infarction without residual deficits; M48.061 Spinal stenosis, lumbar region without neurogenic claudication; N28.1 Cyst of kidney, acquired; F02.80 Dementia in other diseases classified elsewhere, unspecified severity, without behavioral disturbance, psychotic disturbance, mood disturbance, and anxiety; N17.9 Acute kidney failure, unspecified; M54.16 Radiculopathy, lumbar region; R65.20 Severe sepsis without septic shock; A41.02 Sepsis due to Methicillin resistant Staphylococcus aureus; K21.9 Gastro-esophageal reflux disease without esophagitis; N40.0 Benign prostatic hyperplasia without lower urinary tract symptoms; N18.3 Chronic kidney disease, stage 3 (moderate); H40.9 Unspecified glaucoma; Z23 Encounter for immunization
CPT/HCPCS: 36569; 51798; 70450; 71010; 71045; 73564; 76775; 76937; 80048; 80053; 80202; 81001; 82565; 82945; 82948; 82962; 83605; 83735; 84157; 84484; 85025; 85610; 85651; 85652; 85730; 86140; 86403; 87015; 87040; 87070; 87086; 87102; 87116; 87147; 87186; 87205; 87206; 89051; 89060; 90658; 90686; 93005; 93308; 94150; 97110; 97162; 97530; J0692; J0696; J1100; J1642; J1815; J2405; J2704; J3010; J3370; J7030; J7040; Q2038